=== PATIENT | female | born 1965 | race Hispanic/Latino ===

== ENCOUNTER 2023-08-18 10:16 | Emergency (ER) | payer SELFPAY ==
[2023-08-18 10:18] VITALS: BP 167/90
--- NOTE | 2023-08-18 10:46 | ED.GENMED ---
History of Present Illness
General
Chief Complaint: Abdominal Pain
Source: patient and senior software project manager (Daughter is translating)
Exam Limitations: none
Time Seen by Provider: 08/18/23 10:46
Nursing documentation reviewed up to this point in time: agreed with
Travel History
Have you had any contact with someone who has COVID-19?: No
Do you have any symptoms of coronavirus? Fever > 100 degrees, chills, cough, shortness of breath, sore throat, loss of taste or smell, muscle aches, or headache?: No
History of Present Illness
History of Present Illness:
This is a 58-year-old female with a past medical history of sickle ulcer disease, sxl-xzkgrmp-xoricghvn diabetes, gastroparesis hypertension, GERD who is presenting emergency department today with epigastric pain for the past 5 days. Patient states
that when it started, it was not super severe but it has progressively gotten worse. Patient also has associated nausea and vomiting. Daughter is present who is translating for her. Patient states that this feels very much like her previous
gastric ulcer. Patient daughter not sure if patient is colonized with H. pylori. Patient did have a past surgical history of appendectomy and cholecystectomy. Patient denies fevers or chills, constipation, diarrhea, dizziness, lightheadedness,
hematemesis, dysuria. Patient states that the epigastric pain radiates to her back. Patient denies shortness of breath, chest pain. Patient denies numbness or tingling.
Past History
Past History
ED Past Medical History: GERD, HTN, Hypercholesterolemia, NIDDM and Other (anemia)
ED Past Surgical History: Cholecystectomy and
Social History
Tobacco: Non-smoker
Alcohol: None
Drug: None
Personal:
Living: with family
Employment: Not employed
Family History
Family History: Hypertension and Unable to obtain
Review of Systems
Review of Systems
All Other Systems: ROS reviewed and negative except as documented in HPI and ROS
Phy Exam
Physical Exam
Physical Exam:
General: Patient appears very uncomfortable, writhing in pain
Skin: Warm and dry, no rashes or lesions
Head: normocephalic, atraumatic
Eyes: pupil equal round and reactive to light, EOMs intact
Throat: airway intact
Neck: trachea midline
Cardiac: Tachycardia otherwise regular rhythm, no murmurs
Pulm: Normal respiratory effort
Abdomen: Patient has significant abdominal tenderness in the epigastric region is also mild tenderness in the lower abdominal quadrants. No palpable masses. Abdomen is nontender to palpation, non-tympanic to percussion.
Neuro: AAOx3. No focal neurologic deficits.
Course
Orders/Labs/Results
Orders:
Orders
08/18/23 10:17
Electrocardiogram (*1) Urgent
Reason for Study: Chest Pain
EKG- Treatment ONCE
08/18/23 11:04
0.9% Sodium Chloride 500 ml [Nss] 500 ml IV BOLUS
Famotidine [Pepcid] 20 mg IV NOW STA
HYDROmorphone [Dilaudid] 1 mg IV NOW STA
Pantoprazole [Protonix IV] 40 mg IV NOW STA
Abdomen Xray - 1 View [CR Abdomen - 1 View] Urgent
Comment:
Reason For Exam: severe epigastric pain, PUD hx
08/18/23 11:22
Complete Blood Count/With Diff Urgent
Comprehensive Metabolic Panel Urgent
Lipase Urgent
Troponin I Urgent
08/18/23 12:18
Abdomen/Pelvis wo Contrast CT [CT Abd/pelvis Wo Iv Cont] Urgent
Comment:
Reason For Exam: severe epigastric pain
08/18/23 12:59
HYDROmorphone [Dilaudid] 1 mg IV NOW STA
Abnormal Lab Results
08/18/23
11:22
RBC 3.49 L 10^6/uL
(4.20-5.40)
Hgb 10.6 L g/dL
(12.0-16.0)
Hct 30.1 L %
(37.0-47.0)
Absolute Neuts (auto) 9.0 H 10^3/uL
(1.4-6.5)
Neutrophils % 83.6 H %
(42.2-75.2)
Lymphocytes % 12.2 L %
(20.5-51.1)
Chloride 109 H mmol/L
(98-107)
Carbon Dioxide 21 L mmol/L
(22-30)
BUN 49 H mg/dl
(7-17)
Creatinine 3.6 H mg/dL
(0.6-1.0)
Glucose 187 H mg/dl
(70-99)
Alkaline Phosphatase 284 H U/L
(38-126)
08/18/23 11:22
08/18/23 11:22
Vital Signs
Initial and Last Documented VS:
Initial Vital Signs
Temp Pulse Resp BP Pulse Ox
98.5 F 99 18 167/90 97
08/18/23 10:18 08/18/23 10:18 08/18/23 10:18 08/18/23 10:18 08/18/23 10:18
Last Documented Vital Signs
Temp Pulse Resp BP Pulse Ox
98.5 F 97 15 193/95 96
08/18/23 10:18 08/18/23 14:15 08/18/23 14:15 08/18/23 14:01 08/18/23 14:15
MDM/Problems Addressed
Differential Diagnosis Includes:
ddx include ACS, PUD, perforated ulcer, gastric cancer, esophagitis, gastritis, duodenitis, aortic dissection, GERD
MDM/Problems Addressed:
abdominal pain
vomiting
Chronic conditions affecting care: DM, HTN, Previous abdomnial surgery (appendectomy, cholecystectomy), Kidney disease (daughter reports that patient has been seeing farm machinery erector recently for elevated kidney levels) and Other (diabetic gastroparesis
)
Acute Exacerbation and/or Progression of Chronic Illness:
current HTN episode likely due to pain, no indication for acute lowering of pressure indicated at this time
Acute Exacerbation and/or Progression of Chronic Illness: HTN
*Pulse Oximetry
Patient hypoxic: no
*EKG
Interpreted by ED Provider?: Yes
EKG Intrepretation Date: 08/18/23
Interpretation: normal
Comparison EKG: no changes
Heart Rate: 98
Rate: normal
Rhythm: sinus
Olive: normal axis
Interval: normal interval, normal QT interval and normal KS interval
QRS Pattern: normal QRS
Ischemia: no ischemia
*Emergency Medicine Nurse Practitioner Interpretation
Rate: tachycardiac
Interpretation: abnormal
Heart Rate: 101
Rhythm: sinus
*Critical Care Note
Total Time (30-74mins, 75-104mins- exclusive of procedures): Not Applicable
Data Reviewed
Review of Other/Old Records Reveals: Discharge Summary (Reviewed discharge summary from 06/12/2023, reviewed discharge summary from 08/14/2022)
Further Testing Considered But Not Given:
considered CT of the abdomen with IV contrast however patient has kidney disease
Patient Management
Social determinants of health affecting care: Financial situation (Patient reports that she has tried to follow up with a painter apprentice before as an outpatient but she states that it has been very expensive for her) and Poor outpatient follow-up
Escalation/DeEscalation of care consider admission/obs:
This is a 58-year-old female with a past medical history of diabetic gastroparesis, esophageal dysmotility, PUD, hypertension presenting to the emergency department today with 5 days of epigastric pain, nausea, vomiting. She states that this is
felt like when she has had a gastric ulcer in the past. On exam, patient appears very uncomfortable and she has significant tenderness palpation in the epigastric area. She was hypertensive and tachycardic upon presentation. Her pain was
well-controlled with Dilaudid. Her CBC did not show evidence of leukocytosis and her CMP is consistent with her chronic kidney disease. ACS was ruled out with a normal EKG and negative troponin. Her CT of the abdomen and pelvis did show fat
stranding around the pancreas consistent with pancreatitis however patient had normal lipase. The study also revealed findings consistent with gastritis and duodenitis however no perforation. Discussed these results with patient, and possibility
of hospital admission. Patient states that she would rather go home and be discharge with tramadol which has worked for her in the past. Considering there is no acute surgical issue, patient will be discharged with tramadol and will use her
pantoprazole daily as well as her Carafate. Patient has had multiple hospitalizations over the past year or 2 for similar abdominal concerns. Following the most previous hospitalization, in June, she was supposed to have a esophageal manometry
study done but patient states this has been too expensive for her. I sent her information to the GI hotline to try and establish new outpatient follow-up. Patient is in agreement with plan.
Update Note
Update Note:
Will start IV fluids, famotidine, pantoprazole, diluadid, and reasses
12:37pm--patient does appear slightly more comfortable but still complains of a lot of pain, will give another dose of Dilaudid
ED Attending Note
-
Portions of this chart may have been created with voice recognition software.� Occasional wrong word or��sound alike� substitutions may have occurred due to the inherent limitations of voice recognition software.
Discharge Plan
Departure
Patient Disposition: Home (Routine Discharge)
Patient with high blood pressure during this ER visit?: Yes
Condition: Good
Discharge Problem:
Gastritis and duodenitis
Instructions: Gastritis (DC), Ulcer and Gastritis Diet, Abdominal Pain
Prescriptions:
New
tramadol 25 mg tablet
25 mg PO Q6H PRN (Reason: Pain) 3 Days Qty: 12 0RF
No Action
levothyroxine 100 MCG tablet
100 mcg PO DAILY
insulin glargine [Lantus U-100 Insulin] 1,000 UNITS/10 ML solution
20 units SC HS
nortriptyline 50 MG capsule
50 mg PO Daily
nifedipine 30 MG tablet extended release
30 mg PO BID
atorvastatin 10 mg Tablet
10 mg PO DAILY
ondansetron HCl 4 mg Tablet
4 mg PO Q8H PRN (Reason: n/v)
ezetimibe 10 MG tablet
10 mg PO HS Qty: 30 0RF
insulin lispro [Humalog KwikPen Insulin] 100 unit/mL Insulin Pen
6 unit SC MEALS
metoclopramide HCl [Reglan] 5 mg Tablet
5 mg PO TID Qty: 90 0RF
pantoprazole 40 mg Tablet,Delayed Release (Dr/Ec)
40 mg PO BID Qty: 60 0RF
tramadol 50 mg tablet
50 mg PO Q8H PRN (Reason: moderate pain) Qty: 20 0RF
polyethylene glycol 3350 17 gram/dose powder
17 g PO DAILY Qty: 510 0RF
Referrals:
Donnie Novak MD [Family Provider] -
Activity Restrictions/Additional Instructions:
We sent tramadol to your pharmacy. You can take 1 tablet every 6 hours as needed for pain.
Please continue to take your pantoprazole that you have at home.
Please also continue to use your sucralfate that you help at home to help relieve your symptoms.
Please stay well-hydrated. Please follow-up with your primary care provider. We have sent your information to the GI front elevator operator hotline, they should call you within the next few days to set up an appointment.
Interventions
Interventions:
*Risk Screen - Suicide Last Done: 08/18/23 10:18
*General Assessment Last Done: 08/18/23 10:18
*Neglect/Abuse Screening Last Done: 08/18/23 10:18
*Nursing Disposition Last Done: 08/18/23 15:30
GP-Likidc-Wpnjijwoui Assessment Last Done: 08/18/23 11:06
Discharge Date and Time
Discharge Date/Time: 08/18/23 15:30
[2023-08-18 11:05] VITALS: BMI 29.2
[2023-08-18] MEDS: DILAUDID 1 MG IV ×2 (11:25→13:02)
[2023-08-18] MEDS: PROTONIX IV 40 MG IV (11:26)
[2023-08-18] MEDS: NSS 500 IV (11:26)
[2023-08-18] MEDS: PEPCID 20 MG IV (11:26)
[2023-08-18 11:35] LABS: % Basophils 0.5 % (0-2); % Eosinophils 0.6 % (0-6); % Immature Granulocytes 0.3 % (0-0.5); % Lymphocytes 12.2 % (20.5-51.1); % Monocytes 2.8 % (1.7-9.3); % Neutrophils 83.6 % (42.2-75.2); Absolute Basophils 0.1 10^3/uL (0-0.2); Absolute Eosinophils 0.1 10^3/uL (0-0.7); Absolute Lymphocytes 1.3 10^3/uL (1.2-3.4); Absolute Monocytes 0.3 10^3/uL (0.1-0.6); Hematocrit 30.1 % (37.0-47.0); Hemoglobin 10.6 g/dL (12.0-16.0); Mean Corp Hgb Conc. 35.2 g/dL (33.0-37.0); Mean Corpuscular Hgb 30.4 pg (27.0-31.0); Mean Corpuscular Volume 86.2 fL (81.0-99.0); Mean Platelet Volume 10.3 fL (7.4-10.4); Nucleated Red Blood Cells % 0 %; Platelet Count 294 10^3/uL (130-400); Red Blood Cell Count 3.49 10^6/uL (4.20-5.40); Red Cell Dist. Width 12.4 % (11.5-14.5); White Blood Cell Count 10.8 10^3/uL (4.8-10.8)
[2023-08-18 11:40] VITALS: BP 196/96
[2023-08-18 11:53] LABS: ALT (SGPT) 23 U/L (0-35); AST (SGOT) 27 U/L (14-36); Albumin 3.6 g/dl (3.5-5.0); Alkaline Phosphatase 284 U/L (38-126); Blood Urea Nitrogen 49 mg/dl (7-17); Calcium 8.4 mg/dl (8.4-10.2); Carbon Dioxide 21 mmol/L (22-30); Chloride 109 mmol/L (98-107); Estimated Creatinine Clearance 12 ml/min; Glucose 187 mg/dl (70-99); Lipase 134 U/L (23-300); Potassium 4.6 mmol/L (3.5-5.1); Sodium 137 mmol/L (135-145); Total Bilirubin 0.6 mg/dl (0.2-1.3); Total Protein 6.4 g/dl (6.3-8.2); eGFR 13.95
[2023-08-18 11:58] LABS: Troponin I < 0.012 ng/ml
[2023-08-18 14:01] VITALS: BP 193/95
== END 2023-08-18 15:30 | disposition home or self-care (01) ==
LOC: EMR 10:16
PROVIDERS: Physician Assistant; EMERGENCY PHYSICIAN Emergency Medicine; FAMILY PHYSICIAN Internal Medicine
DX: K29.70 Gastritis, unspecified, without bleeding (principal); K29.80 Duodenitis without bleeding; R10.13 Epigastric pain; R07.9 Chest pain, unspecified; E11.43 Type 2 diabetes mellitus with diabetic autonomic (poly)neuropathy; I10 Essential (primary) hypertension; Z87.11 Personal history of peptic ulcer disease
CPT/HCPCS: 99285; 96374; 96375 ×2; 96361; 96376; 74018; 74176; 80053; 83690; 84484; 85025; 93005

== ENCOUNTER 2023-08-19 17:07 | Inpatient (IN) | payer OTHER, SELFPAY ==
[2023-08-19] VITALS (11 sets, daily range): BP systolic 185–219; BP diastolic 82–108; BMI 30.6; BMI 29.6
--- NOTE | 2023-08-19 09:44 | ED.GENMED ---
History of Present Illness
General
Chief Complaint: Abdominal Pain
Time Seen by Provider: 08/19/23 09:24
Travel History
Have you had any contact with someone who has COVID-19?: No
Do you have any symptoms of coronavirus? Fever > 100 degrees, chills, cough, shortness of breath, sore throat, loss of taste or smell, muscle aches, or headache?: No
History of Present Illness
History of Present Illness:
58-year-old female with history of CHF, hypertension, hyperlipidemia, insulin-dependent diabetes, gastroparesis, and chronic kidney disease presents to the emergency department for evaluation of intractable epigastric pain. Was seen in this
emergency department yesterday for symptoms that been ongoing for the past week. Yesterday she had a CT scan suggesting some fat stranding around the pancreas however lipase was normal. She was treated with PPIs and opiates, was offered admission
however she requested to be discharged. States that this pain is a common recurrence for her, was last admitted to the hospital in late June for similar. Pain is typically worse in the morning. Last EGD suggested gastroparesis as well as mild
gastritis. She states the pain is similar to prior bouts of peptic ulcers.
Prior abdominal surgical history includes cholecystectomy, , and appendectomy. Denies alcohol, tobacco, or NSAID use
Past History
Past History
ED Past Medical History: GERD, HTN, Hypercholesterolemia, NIDDM and Other (anemia)
ED Past Surgical History: Cholecystectomy and
Social History
Tobacco: Non-smoker
Alcohol: None
Drug: None
Personal:
Living: with family
Employment: Not employed
Family History
Family History: Hypertension and Unable to obtain
Review of Systems
Review of Systems
Allergies reviewed?: Yes
All Other Systems: ROS reviewed and negative except as documented in HPI and ROS
Phy Exam
Physical Exam
Physical Exam:
GEN: Tearful, writhing in pain
Eyes: PERRLA, EOMs intact, no scleral icterus
HENT: NCAT, oral mucosa moist
Lungs: CTAB, no wheezes, rales, rhonchi, normal chest wall excursion
Cardiac: RRR, no M/R/G, no peripheral edema. Radial pulses 2+ bilat
Abdomen: Soft, mild to moderate upper abdominal tenderness, no rigidity or peritoneal signs
Neuro: AO x 3
MSK: No gross deformity or ecchymosis. No edema. No digital clubbing
Skin: No rashes, petechiae. Normal color, no pallor or jaundice.
Psych: Calm, cooperative, proper hygiene
Course
Orders/Labs/Results
Orders:
Orders
08/19/23 09:40
Complete Blood Count/With Diff Urgent
08/19/23 09:43
Famotidine [Pepcid] 20 mg IV NOW STA
HYDROmorphone [Dilaudid] 1 mg IV NOW STA
Lactated Ringers [Lr] 1,000 ml IV BOLUS
08/19/23 10:37
HYDROmorphone [Dilaudid] 1 mg IM NOW STA
08/19/23 10:41
Comprehensive Metabolic Panel Urgent
Lipase Urgent
08/19/23 12:18
HYDROmorphone [Dilaudid] 0.5 mg IV NOW STA
Abnormal Lab Results
08/19/23 08/19/23
09:40 10:41
WBC 11.5 H 10^3/uL
(4.8-10.8)
RBC 3.42 L 10^6/uL
(4.20-5.40)
Hgb 10.7 L g/dL
(12.0-16.0)
Hct 28.5 L %
(37.0-47.0)
MCH 31.3 H pg
(27.0-31.0)
MCHC 37.5 H g/dL
(33.0-37.0)
MPV 11.0 H fL
(7.4-10.4)
Absolute Neuts (auto) 9.6 H 10^3/uL
(1.4-6.5)
Neutrophils % 82.9 H %
(42.2-75.2)
Lymphocytes % 11.9 L %
(20.5-51.1)
Chloride 110 H mmol/L
(98-107)
Carbon Dioxide 19 L mmol/L
(22-30)
BUN 47 H mg/dl
(7-17)
Creatinine 3.3 H mg/dL
(0.6-1.0)
Glucose 196 H mg/dl
(70-99)
Alkaline Phosphatase 258 H U/L
(38-126)
08/19/23 09:40
08/19/23 10:41
Vital Signs
Initial and Last Documented VS:
Initial Vital Signs
Temp Pulse Resp BP Pulse Ox
98.8 F 89 16 204/101 100
08/19/23 09:19 08/19/23 09:19 08/19/23 09:19 08/19/23 09:19 08/19/23 09:19
Last Documented Vital Signs
Temp Pulse Resp BP Pulse Ox
98.8 F 89 16 205/82 96
08/19/23 09:19 08/19/23 12:34 08/19/23 09:19 08/19/23 12:30 08/19/23 12:37
MDM/Problems Addressed
MDM/Problems Addressed:
58-year-old female returns writhing in abdominal pain. She has a lengthy history of chronic abdominal pain, has had prior EGD in June showing mild gastritis and gastroparesis. I advised her that further opiates may complicate the gastroparesis
however the patient is unable to tolerate pain with alternative management. Do not feel that repeat imaging is necessary given imaging that was performed yesterday. Will defer to GI evaluation for consideration of further therapies, although
started IV PPI in the ED
*Critical Care Note
Total Time (30-74mins, 75-104mins- exclusive of procedures): Not Applicable
ED Attending Note
-
Portions of this chart may have been created with voice recognition software.� Occasional wrong word or��sound alike� substitutions may have occurred due to the inherent limitations of voice recognition software.
Discharge Plan
Departure
Patient Disposition: Admit
Date of Disposition: 08/19/23
Time of Disposition: 12:38
Presentation/result/management discussed w/ accepting MD/DO: Hospitalist
Discharge Problem:
Intractable abdominal pain
Prescriptions:
No Action
levothyroxine 100 MCG tablet
100 mcg PO DAILY
atorvastatin 10 mg Tablet
10 mg PO DAILY
ezetimibe 10 MG tablet
10 mg PO HS Qty: 30 0RF
tramadol 50 mg tablet
50 mg PO Q8H PRN (Reason: moderate pain) Qty: 20 0RF
Patient Comments:
08/19/2023, pt. filled this med. on 07/09/2023 for 20 tablets according to PDMP.
polyethylene glycol 3350 17 gram/dose powder
17 g PO DAILY Qty: 510 0RF
tramadol 25 mg tablet
25 mg PO Q6H PRN (Reason: Pain) 3 Days Qty: 12 0RF
Patient Comments:
08/19/2023, could not find in PDMP.
sucralfate [Carafate] 1 gram Tablet
1 g PO QID
lisinopril 20 mg Tablet
20 mg PO DAILY
aspirin 81 mg Tablet,Delayed Release (Dr/Ec)
81 mg PO BID
nifedipine 60 mg Tablet Extended Release 24hr
60 mg PO BID
sodium bicarbonate 650 mg Tablet
1,300 mg PO BID
nortriptyline 75 mg Capsule
75 mg PO DAILY
insulin aspart U-100 [Novolog FlexPen U-100 Insulin] 100 unit/mL (3 mL) Insulin Pen
6 unit SC AC
insulin glargine [Basaglar KwikPen U-100 Insulin] 100 unit/mL (3 mL) Insulin Pen
20 unit SC DAILY
cholecalciferol (vitamin D3) 50 mcg (2,000 unit) Tablet
50 mcg PO DAILY
pantoprazole 40 mg tablet,delayed release (DR/EC)
40 mg PO DAILY
Referrals:
Donnie Novak MD [Family Provider] -
Interventions
Interventions:
*Risk Screen - Suicide Last Done: 08/19/23 09:19
*General Assessment Last Done: 08/19/23 09:19
*Neglect/Abuse Screening Last Done: 08/19/23 09:19
EB-Jqnpkh-Hmkejjsqaa Assessment Last Done: 08/19/23 09:35
[2023-08-19 10:01] LABS: % Basophils 0.5 % (0-2); % Immature Granulocytes 0.3 % (0-0.5); % Lymphocytes 11.9 % (20.5-51.1); % Monocytes 3.4 % (1.7-9.3); % Neutrophils 82.9 % (42.2-75.2); Absolute Basophils 0.1 10^3/uL (0-0.2); Absolute Eosinophils 0.1 10^3/uL (0-0.7); Absolute Lymphocytes 1.4 10^3/uL (1.2-3.4); Absolute Monocytes 0.4 10^3/uL (0.1-0.6); Absolute Neutrophils 9.6 10^3/uL (1.4-6.5); Hematocrit 28.5 % (37.0-47.0); Hemoglobin 10.7 g/dL (12.0-16.0); Mean Corp Hgb Conc. 37.5 g/dL (33.0-37.0); Mean Corpuscular Hgb 31.3 pg (27.0-31.0); Mean Corpuscular Volume 83.3 fL (81.0-99.0); Nucleated Red Blood Cells % 0.2 %; Red Blood Cell Count 3.42 10^6/uL (4.20-5.40); Red Cell Dist. Width 13.2 % (11.5-14.5); White Blood Cell Count 11.5 10^3/uL (4.8-10.8)
[2023-08-19] MEDS: DILAUDID 1 MG IM (10:38)
[2023-08-19 10:57] LABS: ALT (SGPT) 21 U/L (0-35); AST (SGOT) 28 U/L (14-36); Albumin 3.8 g/dl (3.5-5.0); Alkaline Phosphatase 258 U/L (38-126); Blood Urea Nitrogen 47 mg/dl (7-17); Calcium 8.7 mg/dl (8.4-10.2); Carbon Dioxide 19 mmol/L (22-30); Chloride 110 mmol/L (98-107); Estimated Creatinine Clearance 13 ml/min; Glucose 196 mg/dl (70-99); Lipase 124 U/L (23-300); Potassium 4.4 mmol/L (3.5-5.1); Sodium 137 mmol/L (135-145); Total Bilirubin 0.8 mg/dl (0.2-1.3); Total Protein 6.6 g/dl (6.3-8.2); eGFR 15.49
[2023-08-19 12:07] LABS: Platelet Count 283 10^3/uL (130-400)
[2023-08-19] MEDS: DILAUDID 0.5 MG IV ×2 (12:24→22:44)
[2023-08-19] MEDS: LR 1000 IV (12:24)
[2023-08-19] MEDS: PEPCID 20 MG IV (12:24)
--- NOTE | 2023-08-19 13:23 | PHANOTE ---
08/19/2023, med rec tech, attempted to speak with pt. and pt.'s family to obtain pt.'s med. history but was unsuccessful; pt. obtunded and family does not know the meds. that pt. takes. Used discharge paperwork from 08/18/2023 and 07/09/2023 as well
as [facility] records and pharmacy records to compile a list of pt.'s medications; could not confirm pt.'s meds.
--- NOTE | 2023-08-19 16:07 | HPS.HSE ---
Addendum entered and electronically signed by Lilian Iglesias MD 08/19/23 17:33:
I saw and examined the patient.
The GLOBAL CHIEF CREATIVE OFFICER or PA's note was reviewed and I agree with the note.
In pain
Comment:
CVS: S1-S2 normal
Chest: CTA B/L
Abdomen: epigastric tenderness, Bowel sounds present
Extremities: No edema, normal pulses
RESISTOR TESTING MACHINE OPERATOR: Non focal exam
This is a 58-year-old female who had abdominal pain since yesterday and came to the hospital because she was seen in the ER yesterday had a CAT scan and was discharged. She had a similar presentation in June 2023 and was admitted here and was
seen by GI.She at that time she was felt to have diabetic gastroparesis. She had an EGD which noted abnormal motility in the esophagus and cricopharyngeus was normal. There was spasticity and extra peristaltic waves in the esophageal body. There
was also low-grade narrowing of the Schadt and Schatzki's ring was found in the GE junction. She also had erythematous mucosa in the gastric antrum. She had an esophagram at that time which was normal pain was controlled with tramadol. She was
also discharged on PPI twice daily and Reglan as needed. Patient denies any diarrhea or fever or any NSAID use.
CT scan pelvis-significant stranding of the fat surrounding the pancreas mainly the body and head of the pancreas suggestive of pancreatitis. Diffuse of the wall and possible thickening of the wall of the duodenum.
EKG-sinus tachycardia inferior infarct age undetermined
# Gastric pain
And shortness peptic ulcer disease/gastritis/duodenitis/pancreatitis (pain and abnormal looking pancreas on imaging)
Abnormal looking pancreas
Keep n.p.o.
IV fluids and analgesics
Continue PPI, Carafate
Add Reglan
I would get an MRI even though lipase is normal
GI evaluation
#Coronary artery calcification
Check troponin
Routine echo at some point
Needs outpatient cardiology
# Acute kidney injury
CKD stage III
IV fluids
# Diabetes type 2
Lantus 5 units and sliding scale coverage
Normally takes Basaglar 20 units and NovoLog 6 units AC
# Hypothyroidism-continue Synthroid
# Hypertension
Blood pressure elevated likely urgency secondary to pain
Continue nifedipine
Hydralazine now and as needed
# Hyperlipidemia-continue statin and Zetia
# Anemia secondary to chronic disease
# Obesity
# History of cholecystectomy
# History of peptic ulcer disease-continue PPI
# DVT prophylaxis-subcutaneous heparin
# Full code
Discussed with ER nurse
Discussed with patient's at bedside
Original Note:
Family Physician
-
Family Physician: Donnie Novak MD
Chief Complaint
-
Epigastric pain
History of Present Illness
58-year-old with management with history for gastroparesis, chronic disease, hypertension, GERD, hyperlipidemia, type 2 diabetes, anemia presented to us with epigastric pain associate with nausea vomiting for the past 10 days. Patient was taking
tramadol with some relief in her symptoms. Today her abdominal pain got worse which prompted her to come to the ER. Denied diarrhea patient denied fever, chills, chest pain, short of breath.. Patient denies headache, dizziness, syncopal episode.
Patient denies dysuria hematuria.
Patient received Dilaudid in ER with no relief in his symptoms. Admitting for further management
Medical History
Past Medical History
Past Medical History: Reports Other
Additional Past Medical History:
Gastroparesis
Chronic kidney disease
Diabetes
Hypertension
Hyperlipidemia
Past Surgical History: Reports Other
Additional Past Surgical History:
Cholecystectomy
Appendectomy
Social History
Tobacco: Non-smoker
Alcohol: None
Drug: None
Personal:
Living: With Family
Family History
Family History: Not pertinent
Allergies / Home Medications
Allergies reflects when Allergies were last updated in [employer]
Home Medications with original date entered in [employer]
Allergy/Medication List:
Allergies
Allergy/AdvReac Type Severity Reaction Status Date / Time
metformin Allergy DIARRHEA Verified 08/19/23 09:19
sitagliptin [From [place]] Allergy diarrhea Verified 08/19/23 09:19
Home Medications
levothyroxine 100 mcg tablet 100 mcg PO DAILY Thyroid 11/17/20
atorvastatin 10 mg tablet 10 mg PO DAILY High cholesterol 02/23/22
ezetimibe 10 mg tablet 10 mg PO HS High cholesterol #30 tabs 02/27/22
polyethylene glycol 3350 17 gram/dose oral powder 17 g PO DAILY #510 grams 07/09/23
tramadol 50 mg tablet 50 mg PO Q8H PRN moderate pain #20 tabs 07/09/23
tramadol 25 mg tablet 25 mg PO Q6H PRN Pain 3 days #12 tabs 08/18/23
aspirin 81 mg tablet,delayed release 81 mg PO BID 08/19/23
cholecalciferol (vitamin D3) 50 mcg (2,000 unit) tablet 50 mcg PO DAILY 08/19/23
insulin aspart U-100 100 unit/mL (3 mL) subcutaneous pen (Novolog FlexPen U-100 Insulin aspart) 6 unit SC AC 08/19/23
insulin glargine 100 unit/mL (3 mL) subcutaneous pen (Basaglar KwikPen U-100 Insulin) 20 unit SC DAILY 08/19/23
lisinopril 20 mg tablet 20 mg PO DAILY 08/19/23
nifedipine 60 mg tablet,extended release 24 hr 60 mg PO BID 08/19/23
nortriptyline 75 mg capsule 75 mg PO DAILY 08/19/23
pantoprazole 40 mg tablet,delayed release 40 mg PO DAILY 08/19/23
sodium bicarbonate 650 mg tablet 1,300 mg PO BID 08/19/23
sucralfate 1 gram tablet (Carafate) 1 g PO QID 08/19/23
Review of Systems
-
Constitutional: Reports No Symptoms
EENT: Reports No Symptoms
Respiratory: Reports No Symptoms
Cardiac: Reports No Symptoms
Abdomen/GI: Reports Abdominal Pain, Nausea and Vomiting
: Reports No Symptoms
Musculoskeletal: Reports No Symptoms
Skin: Reports No Symptoms
Neurological: Reports No Symptoms
Endocrine: Reports No Symptoms
Hematologic/Lymphatic: Reports No Symptoms
Psych: Reports No Symptoms
Physical Exam
Vital Signs
Vital Signs
Temp Pulse Resp BP Pulse Ox
98.8 F 89 16 205/82 96
08/19/23 09:19 08/19/23 12:34 08/19/23 09:19 08/19/23 12:30 08/19/23 12:37
Physical Exam
General: Well Developed, Well Nourished and No Apparent Distress
HEENT: NormoCephalic, Moist mucous membranes and Atraumatic
Respiratory: Clear
Cardiac: S1/S2 and Regular Rhythm; No Murmur or Rub
GI: Soft, Non Tender, Non Distended and Normal Bowel Sounds; No Organomegaly
Rectal: Deferred by Provider
Musculoskeletal: No Clubbing, No Cyanosis and No Edema
Skin: No Rash
Neuro: AO x 3 and Nonfocal/grossly intact
Psych: Calm
Laboratory Results
-
08/19/23 09:40
08/19/23 10:41
Laboratory Results
Total Bilirubin 0.8 mg/dl (0.2-1.3) 08/19/23 10:41
AST 28 U/L (14-36) 08/19/23 10:41
ALT 21 U/L (0-35) 08/19/23 10:41
Alkaline Phosphatase 258 U/L (38-126) H 08/19/23 10:41
Lipase 124 U/L (23-300) 08/19/23 10:41
Data Reviewed
-
Lab Data: Labs Reviewed by me
Impression/Plan
-
#intractable abdominal pain likely gastroparesis flare/ vs pancreatitis
-wbc 11.5,normal lipase
-Dilaudid as needed for pain
-Tylenol ATC
-N.p.o.
-Gastroenterology consult
-/EGD noted abnormal motility in the esophagus with spasm and a low-grade Schatzki ring erythematous antral mucosa
-CT abdomen pelvis with here is significant stranding of the fat surrounding the pancreas, mainly the body and head of the pancreas, a new finding compared to CT of August 10, 2022. These findings would be suggestive of pancreatitis.Additionally,
there is suggestion of diffuse thickening of the wall the stomach and possible thickening of the wall of the duodenum.The above findings, possibility of pancreatitis with secondary inflammation of the stomach and duodenum. Differential consideration
of gastritis and duodenitis as a primary process and secondary stranding of the peripancreatic fat.
-Carafate
-Zofran prn for n/v
-GI consulted
#anemia of chronic disease
-hgb 10.7
-no active bleeding
-ctm
#CKD stage 3b
-cr 3.3
-Continue to monitor
# Hypertensive urgency /probably significant contribution from ongoing abdominal pain
-Blood pressure of 205/82 secondary to medication intolerance due to vomiting
-Continue nifedipine
#Type 2 diabetes
-Continue Lantus 5u hs
-Insulin sliding scale
#Hypothyroidism
-Continue levothyroxine
#Hypercholesterolemia
-Continue statin, Zetia
#Obesity
#DVT prophylaxis�heparin
#Full code
[2023-08-19] MEDS: PROTONIX IV 40 MG IV (16:50)
[2023-08-19] MEDS: DILAUDID 1 MG IV (16:52)
[2023-08-19] MEDS: APRESOLINE 5 MG IV (17:10)
[2023-08-19] MEDS: NOVOLOG FLEXPEN-LOW RESISTANCE SC (18:40)
[2023-08-19 18:46] LABS: Glucose - Point of Care 217 mg/dl (70-99)
[2023-08-19] MEDS: REGLAN 5 MG IV (19:17)
[2023-08-19] MEDS: CARAFATE 1 GRAM PO ×2 (19:17→23:03)
[2023-08-19 19:55] LABS: Troponin I < 0.012 ng/ml
[2023-08-19] MEDS: NOVOLOG FLEXPEN-LOW RESISTANCE 2 UNITS SC (20:00)
[2023-08-19] MEDS: OFIRMEV 100 IV (20:02)
[2023-08-19] MEDS: HEPARIN 5000 UNITS SC (20:03)
[2023-08-19] MEDS: PROCARDIA XL (EXTENDED RELEASE) 30 MG PO (20:04)
[2023-08-19] MEDS: PROTONIX 40 MG PO (20:04)
[2023-08-19] MEDS: NSS 1000 IV (21:46)
[2023-08-19] MEDS: BENADRYL 12.5 MG IV (22:42)
[2023-08-19] MEDS: ZETIA 10 MG PO (22:44)
[2023-08-19 22:58] LABS: Glucose - Point of Care 209 mg/dl (70-99)
[2023-08-19] MEDS: LANTUS 0.0500000000000000028 UNITS SC (22:59)
[2023-08-20] MEDS: NOVOLOG FLEXPEN-LOW RESISTANCE SC ×2 (00:04→11:38)
[2023-08-20] MEDS: APRESOLINE 5 MG IV (00:06)
[2023-08-20] MEDS: REGLAN 5 MG IV ×5 (00:09→23:57)
[2023-08-20] MEDS: OFIRMEV 100 IV ×3 (00:12→11:55)
[2023-08-20 01:44] LABS: Troponin I 0.013 ng/ml
[2023-08-20 03:06] VITALS: BP 109/58
[2023-08-20 05:14] LABS: Glucose - Point of Care 156 mg/dl (70-99)
[2023-08-20] MEDS: NOVOLOG FLEXPEN-LOW RESISTANCE 1 UNITS SC (05:14)
[2023-08-20 05:27] VITALS: BMI 29.9
[2023-08-20 05:32] LABS: Hematocrit 26.7 % (37.0-47.0); Hemoglobin 9.3 g/dL (12.0-16.0); Mean Corp Hgb Conc. 34.8 g/dL (33.0-37.0); Mean Corpuscular Hgb 30.2 pg (27.0-31.0); Mean Corpuscular Volume 86.7 fL (81.0-99.0); Mean Platelet Volume 10.7 fL (7.4-10.4); Platelet Count 268 10^3/uL (130-400); Red Blood Cell Count 3.08 10^6/uL (4.20-5.40); Red Cell Dist. Width 12.1 % (11.5-14.5); White Blood Cell Count 10.3 10^3/uL (4.8-10.8)
[2023-08-20 05:55] LABS: Blood Urea Nitrogen 55 mg/dl (7-17); Calcium 8.3 mg/dl (8.4-10.2); Carbon Dioxide 18 mmol/L (22-30); Chloride 107 mmol/L (98-107); Estimated Creatinine Clearance 12 ml/min; Glucose 174 mg/dl (70-99); Potassium 4.2 mmol/L (3.5-5.1); Sodium 137 mmol/L (135-145); eGFR 14.94
[2023-08-20] MEDS: DILAUDID 0.5 MG IV ×2 (05:56→09:36)
[2023-08-20] MEDS: SYNTHROID 100 MCG PO (06:00)
[2023-08-20 07:58] VITALS: BP 163/80
[2023-08-20 08:00] LABS: Iron 75 ug/dl (37-170)
[2023-08-20] MEDS: CARAFATE 1 GRAM PO ×4 (08:06→22:43)
[2023-08-20] MEDS: HEPARIN 5000 UNITS SC ×2 (08:06→20:13)
[2023-08-20] MEDS: PROCARDIA XL (EXTENDED RELEASE) 30 MG PO ×2 (08:07→20:14)
[2023-08-20] MEDS: PAMELOR 50 MG PO (08:07)
[2023-08-20] MEDS: PROTONIX 40 MG PO ×2 (08:07→20:14)
[2023-08-20] MEDS: LIPITOR 10 MG PO (08:07)
[2023-08-20 08:10] LABS: Percent Saturation 37 % (20-50); Total Iron Binding Capacity 199 ug/dl (265-497)
[2023-08-20 08:44] LABS: Glycohemoglobin (HgbA1c) 6.9 % (4.0-5.6)
[2023-08-20 08:50] LABS: Vitamin B12 > 1000 pg/ml (239-931)
[2023-08-20 09:24] VITALS: BMI 29.9
[2023-08-20] MEDS: FLUSH (NSS) 1 FLUSH IV ×3 (09:37→17:21)
[2023-08-20 11:34] LABS: Glucose - Point of Care 149 mg/dl (70-99)
--- NOTE | 2023-08-20 12:03 | CON.GI ---
Addendum entered and electronically signed by Adenike Lynn MD 08/20/23 13:44:
I saw and examined the patient.
The ROOM DESIGNER or PA's note was reviewed and I agree with the note.
Comment: 57-year-old female well-known to Dr. Casiano in our group with history of diabetic gastroparesis, hypertension, reflux, CHF, diabetes, anemia presenting with epigastric pain/lower chest pain which was similar to her symptoms of gastroparesis
flare, this time she had CT scan of the abdomen and pelvis that showed evidence of pancreatitis without any increase in LFTs or lipase and GI consult called in. Patient has had multiple admissions for epigastric pain in the past and previously was
related to gastroparesis, no previous history of Pancreatitis. She does have history of esophageal spasm and Schatzki's ring but currently dysphagia is not her biggest complaint. Does not drink alcohol, she is status postcholecystectomy, denies
any recent new medications.�
Upper endoscopy June 2023, abnormal esophageal motility with spasm and low-grade narrowing with Schatzki's ring which was biopsied. No evidence of Keene's. She was also having abdominal pain at that time which was thought to be more
fibromyalgia kind of TCAs where started. She was supposed to get esophageal manometry testing as outpatient.
MRI of the abdomen with contrast today showing minimal edema about the tail of the pancreas without any fluid collections, mild pancreatitis, she is status post cholecystectomy without any choledocholithiasis. Mild nonspecific thickening of the
second portion of the duodenum. Otherwise unremarkable.
-Mild pancreatitis on imaging and abdominal pain with normal lipase and normal LFTs
Normal triglycerides, no alcohol use, she is status post cholecystectomy and no recent new medication
Mild pancreatitis of unclear etiology
CRP normal range
Okay for clear liquid diet as tolerated, IV fluids, monitor electrolytes and replete
If abdominal pain is better, she will need to be on low residue and low fat diet
-Gastroparesis
Diet as above, tight control of blood sugars.
On Reglan every 6 hours
Limit narcotics
-Esophageal dysmotility
Continue PPI and Carafate
Outpatient GI follow-up
-Constipation
Continue MiraLAX
Addendum entered and electronically signed by Heavenly Rodas NP 08/20/23 12:22:
Coke Crane Operator used for Ghanaian language #[id number].
Original Note:
Consultation
-
Date/Time Consultation Requested: 08/19/23 @ 17:08
Date/Time Consultation Performed: 08/20/23 @ 11:40
Requesting Provider: Dr. Iglesias
Performing Provider: BRIAN Grace; Dr. Lynn
Reason for Consultation: gastroparesis, pancreatitis
Medical History
Chief Complaint / HPI
Chief Complaint: epigastric pain
History of Present Illness:
The patient is a 58-year-old Ghanaian-speaking female with a past medical history significant for type 2 diabetes, hyperlipidemia, insulin-dependent type 2 diabetes, gastroparesis, hypothyroidism, GERD, CHF, chronic anemia, who presented to the
emergency room with complaints of intractable epigastric pain. We are being asked to evaluate for recurrent gastroparesis and pancreatitis. Upon review of prior records, the patient is well-known to our GI service with multiple admissions for
similar presentation. She was most recently admitted back in June with similar symptoms with abdominal pain and vomiting. She underwent EGD at that time which did show abnormal esophageal motility with spasm and low-grade narrowing of Schatzki
ring with erythematous mucosa in the antrum. Biopsies taken during the EGD did not show any significant findings. Her pain did improve with symptomatic management with PPI twice daily, Carafate, and antinausea medication. She was also treated
with MiraLAX for constipation. She was tolerating her diet and advised to follow-up in our office for close monitoring and for esophageal pH/manometry. She again presents with similar pain in the mid epigastric/lower chest area which started on
Tuesday. She notes that she has had this pain multiple times in the past. She does admit to use intermittent episodes of nausea with vomiting. She denies any hematemesis. She does admit to chills but denies fevers. She reports she is having a
bowel movement once daily with MiraLAX. She denies any melena or hematochezia. She does admit to occasional shortness of breath which comes and goes but currently denies. Upon review of her medication list she has been taking pantoprazole twice
daily along with Zofran as needed. She also has tramadol listed for pain. She denies any history of pancreatitis or family history of pancreatic problems. She denies any smoking history, alcohol use, or marijuana use. She denies any new or
changes to her medications. She denies any recent antibiotic use. She did admit to occasional abdominal pain on and off. She reports following a diabetic diet and does take her diabetes medications. She denies use of blood thinners and she
denies use of NSAIDs. CT of the abdomen pelvis was done on admission showing findings consistent with pancreatitis with adjacent wall thickening of the stomach and duodenum. An MRI was ordered which is pending. Routine labs showed a WBC 11.5,
hemoglobin 10.7, platelets 283,000, sodium 137, potassium 4.4, BUN 47, creatinine 3.3, glucose 196, hemoglobin A1c 6.9, calcium 8.7, total bilirubin 0.8, AST 28, ALT 21, alk phos 258, negative troponin x 2, CRP 7.8, lipase 124. She was made n.p.o.,
placed on twice daily PPI, antinausea regimen, IV fluids, and admitted for further evaluation by GI.
Past Medical History
Past Medical History: CHF, GERD, Hypercholesterolemia, Hypothyroidism, IDDM, Renal Failure (Chronic kidney disease) and Other (Gastroparesis, chronic anemia, chronic constipation, ? Celiac disease)
Past Surgical History: Appendectomy (With perforation and abscess), Cholecystectomy and
Allergies / Home Medications
Allergy/AdvReac Type Severity Reaction Status Date / Time
metformin Allergy DIARRHEA Verified 08/19/23 09:19
sitagliptin [From Januvia] Allergy diarrhea Verified 08/19/23 09:19
Medication Instructions Recorded
levothyroxine 100 mcg tablet 100 mcg PO DAILY Thyroid 11/17/20
atorvastatin 10 mg tablet 10 mg PO DAILY High cholesterol 02/23/22
ezetimibe 10 mg tablet 10 mg PO HS High cholesterol #30 02/27/22
tabs
polyethylene glycol 3350 17 17 g PO DAILY #510 grams 07/09/23
gram/dose oral powder
insulin aspart U-100 100 unit/mL 6 unit SC AC 08/19/23
(3 mL) subcutaneous pen (Novolog
FlexPen U-100 Insulin aspart)
insulin glargine 100 unit/mL (3 20 unit SC DAILY 08/19/23
mL) subcutaneous pen (Basaglar
KwikPen U-100 Insulin)
nifedipine 60 mg tablet,extended 30 mg PO BID 08/19/23
release 24 hr
nortriptyline 75 mg capsule 50 mg PO DAILY 08/19/23
pantoprazole 40 mg tablet,delayed 40 mg PO BID 08/19/23
release
Review of Systems
Vital Signs
Temp Pulse Resp BP Pulse Ox
98.8 F 97 18 163/80 98
08/20/23 07:58 08/20/23 08:07 08/20/23 07:58 08/20/23 08:07 08/20/23 08:05
Physical Exam
Results
WBC 10.3 10^3/uL (4.8-10.8) 08/20/23 05:18
Hgb 9.3 g/dL (12.0-16.0) L 08/20/23 05:18
Hct 26.7 % (37.0-47.0) L 08/20/23 05:18
MCV 86.7 fL (81.0-99.0) 08/20/23 05:18
Plt Count 268 10^3/uL (130-400) 08/20/23 05:18
Absolute Neuts (auto) 9.6 10^3/uL (1.4-6.5) H 08/19/23 09:40
Sodium 137 mmol/L (135-145) 08/20/23 05:18
Potassium 4.2 mmol/L (3.5-5.1) 08/20/23 05:18
Chloride 107 mmol/L (98-107) 08/20/23 05:18
Carbon Dioxide 18 mmol/L (22-30) L 08/20/23 05:18
BUN 55 mg/dl (7-17) H 08/20/23 05:18
Creatinine 3.4 mg/dL (0.6-1.0) H 08/20/23 05:18
Calcium 8.3 mg/dl (8.4-10.2) L 08/20/23 05:18
Total Bilirubin 0.8 mg/dl (0.2-1.3) 08/19/23 10:41
AST 28 U/L (14-36) 08/19/23 10:41
ALT 21 U/L (0-35) 08/19/23 10:41
Alkaline Phosphatase 258 U/L (38-126) H 08/19/23 10:41
Lipase 124 U/L (23-300) 08/19/23 10:41
Diagnostic Image Results:
08/18/23 CT A/P: There is significant stranding of the fat surrounding the pancreas, mainly the body and head of the pancreas, a new finding compared to CT of August 10, 2022. These findings would be suggestive of pancreatitis. Additionally, there is
suggestion of diffuse thickening of the wall the stomach and possible thickening of the wall of the duodenum. The above findings, possibility of pancreatitis with secondary inflammation of the stomach and duodenum. Differential consideration of
gastritis and duodenitis as a primary process and secondary stranding of the peripancreatic fat. Of note, the patient has a normal lipase value. Status post cholecystectomy with no evidence for biliary ductal dilation. There is a bilobed dystrophic
calcification in the right upper quadrant adjacent to the cholecystectomy clips, which has been present dating back to CT examinations in 2018. Small central hiatal hernia. Coronary artery calcifications are noted. Please correlate with symptoms of
and risk factors for coronary artery disease, with further workup as clinically appropriate.
08/18/23 XR abdomen: �No significantly dilated air-filled loops of bowel are identified. Status post cholecystectomy. 11 mm calcification in the right upper quadrant medial to the cholecystectomy clips, stable dating back to CT examination of May
2017, most likely a focal dystrophic calcification at the site of previous cholecystectomy.
07/04/23�US abdomen for prior noe no biliary tract dilation. Left lobe of liver, pancreas and IVC significantly obscured, most likely by overlying bowel gas.
08/13/22- UGI��Possible mild achalasia versus mild esophageal dysmotility
08/10/22�CT A/P without IV or oral contrast-- limitation without contrast but noted prior appe, noe, tiny pericardial effusion and no free air.
04/18/21-�CT abdomen/pelvis-no acute inflammatory abnormality in abdomen/pelvis
12/09/20 obstruction series- no obstruction, free air, limited CXR, small left pleural effusion no pulm edema
12/03/20- abdomen X ray-oral contrast right colon
12/02/20- US abdomen with doppler-patent hepatic vasculature with appropriate directional flow, increased echogenicity of liver c/w underlying hepatocellular diseae, most commonly fatty liver
12/02/20- CT abdomen/pelvis-smith paucity of oral contrast and lack of IV contrast no gross abnormality no ostruction free air or focal fluid collection, prior appe, possible small HH, pericardial thickening unchanged
11/24/20 EGD�completed without complication--Esophagus Normal mucosa�biopsied 8 mm benign-appearing polyp at GE junction�biopsied
Stomach Diffuse, mild gastritis�biopsied for H. pylori Small amount of bile in stomach�aspirated� Duodenum Normal mucosa�biopsied for celiac disease
11/19/20-MR abdomen without contrast-�no bile duct dilation or choledocholithiasis, non specific stranding, no hydrop or obstructive uropathy
EGD:03/2020- food in stomach with small HH, Z line variable no lesion in esophagus�
Colonoscopy:� 12/2019- no appendiceal pathology on luminal side
2018 capsule�slow to pass normal per notes report not reviewed
05/09/18- CT without IV or oral contrast-increased left perinephric fat stranding and thickening of gerota fascia no nephrolithiasis or hydro
�EGD 12/21/17:�tortuous esophagus, scar, no inflammation. biopsied
otherwise, no findings to explain anemia.� Duodenum biopsied
12/23/17��Colonoscopy - hemorrhoid and 1, 1cm polyp removed from the descending colon.
-GE scan 12/2017- normal
EGD 11/11/16�LA Grade D reflux esophagitis, small HH, 1 GE junction polyp with bx showing chronic inflammation, bx distal esophagus showed ulceration, normal examined duodenum, neg Hpylori, neg celiac
EGD 12/28/16�small HH, otherwise normal.
12/2016- Ct�duodenitis
GES 12/2016�borderline suggesting mild gastroparesis.
12/2016Celiac antibodies abnormal
11/2016- CT with IV only- appendiceal distention concern for possible acute appendicitis but no abdominal pain, mild mucosal enhancement, mild intrahepatic biliary dilation with prior noe, small HH and gastric distention
Assessment / Plan
-
The patient is a 58-year-old Ghanaian-speaking female with a past medical history significant for type 2 diabetes, hyperlipidemia, insulin-dependent type 2 diabetes, gastroparesis, hypothyroidism, GERD, CHF, chronic anemia, who presented to the
emergency room with complaints of intractable epigastric pain. We are being asked to evaluate for recurrent gastroparesis and pancreatitis. CT imaging showing evidence of pancreatitis with stomach and duodenal wall thickening possibly secondary to
adjacent inflammation. Lipase is normal with no significant elevation of LFTs aside from a chronically elevated alk phos. She denies alcohol use. She denies any changes in medications or new medications. Previously had her gallbladder removed
with no signs of biliary dilation on CT imaging. MRI of the abdomen is pending. Currently her symptoms are improving but she still has some tenderness in the mid epigastric area.
Problem list:
-acute pancreatitis, ?first episode seen on CT scan with stomach and duodenal wall thickening
-nausea/vomiting 2/2 diabetic gastroparesis
-chronic anemia
-CKD
-alk phos elevation-- chronic
-prior UGI with Possible mild achalasia versus mild esophageal dysmotility
other medical problems:
-IDDM
-GERD
-hypothyroidism
-Obesity
-Anemia of chronic disease
-Vitamin D deficiency
- Abnormal celiac serologies but normal duodenal biopsies
- s/p noe
- s/p appendectomy with prior h/o abscess
-elevate ferritin
Recommendations:
-Etiology of current symptoms possibly multifactorial secondary to pancreatitis versus diabetic gastroparesis versus gastroenteritis versus other.
---CT imaging showing pancreatitis with stomach and duodenal wall thickening, possibly adjacent inflammation secondary to pancreatitis
-Await MRI of the abdomen for further evaluation as there is no clear indication for pancreatitis as she denies alcohol use, denies any new medications, and has no evident biliary dilation status post CCY. LFTs are essentially normal aside from a
chronically elevated alk phos
-Continue PPI twice daily and Carafate for GERD symptoms
-Reglan every 6 hours IV, but would not continue this long-term due to side effects
-Will change IV fluids to LR at 100 cc/h as symptoms are improving we will not treat overly aggressive with fluids due to history of CHF
-N.p.o. until MRI results are back then consider clear liquid diet
-Encourage ambulation
-Limit use of narcotics due to gastroparesis
-Add triglyceride level and IgG4 level
-Optimize glycemic control
-Continue MiraLAX 17 g daily once taking p.o. for management of constipation
-Will follow
-
-
Thank you for consultation and allowing me to participate in the patient's care. Please call the [facility] GI physician during the after hours with any questions or concerns.
--- NOTE | 2023-08-20 12:09 | CM ---
IA completed with pt's . Pt is off floor for MRI.
Pt lives with her in a 1 level home with 1 step to enter.
Pt is indep at baseline with no DME/VN/SNF hx.
Per , there are no needs anticipated
Pt attends [facility] and will follow up post dc.
[2023-08-20 12:59] LABS: Triglycerides 126 mg/dl (10-149)
[2023-08-20] MEDS: LR 1000 IV (13:07)
[2023-08-20 13:53] LABS: Lipase 40 U/L (23-300)
--- NOTE | 2023-08-20 15:02 | W.PN.HOSP.TC ---
Today's Communication/Plan
-
clears
Assessment / Plan
Assessment / Plan
This is a 58-year-old female who had abdominal pain since yesterday and came to the hospital because she was seen in the ER yesterday had a CAT scan and was discharged.� She had a similar presentation in June 2023 and was admitted here and was
seen by GI.She at that time she was felt to have diabetic gastroparesis.� She had an EGD which noted abnormal motility in the esophagus and cricopharyngeus was normal.� There was spasticity and extra peristaltic waves in the esophageal body.� There
was also low-grade narrowing of the Schadt and Schatzki's ring was found in the GE junction.� She also had erythematous mucosa in the gastric antrum.� She had an esophagram at that time which was normal pain was controlled with tramadol.� She was
also discharged on PPI twice daily and Reglan as needed.� Patient denies any diarrhea or fever or any NSAID use.
MRI- IMPRESSION: Severely limited examination due to patient breathing motion. A subtle lesion on the postcontrast images could easily be missed.
1. � Minimal edema about the tail of the pancreas. No discrete fluid collection. No definite lesion identified. Findings suggest mild pancreatitis.
2. � Post cholecystectomy, previous CT scans have revealed dystrophic calcification adjacent to the clips in the gallbladder fossa. Unchanged. There is no intraluminal filling defect in the common bile duct to suggest a residual gallstone.
3. � Mild wall thickening of the second portion of the duodenum. Nonspecific. This could be followed with either upper GI or direct visualization with endoscopy if clinically indicated.
4. � No other significant interval change.
CT scan pelvis-significant stranding of the fat surrounding the pancreas mainly the body and head of the pancreas suggestive of pancreatitis.� Diffuse of the wall and possible thickening of the wall of the duodenum.
EKG-sinus tachycardia inferior infarct age undetermined
CVS: S1-S2 normal
Chest: CTA B/L
Abdomen:� epigastric tenderness, Bowel sounds present
Extremities: No edema, normal pulses
PAINTER ASSISTANT: Non focal exam
# Gastric pain
And shortness peptic ulcer disease/gastritis/duodenitis/pancreatitis (pain and abnormal looking pancreas on imaging)
Abnormal looking pancreas, possible that this is pancreatitis even though lipase is negative
Pain is better today. Start clears
IV fluids and analgesics
Continue PPI, Carafate
Continue Reglan
GI evaluation
#Coronary artery calcification
Troponin negative
Routine echo at some point
Needs outpatient cardiology
# Acute kidney injury
CKD stage III
IV fluids
# Diabetes type 2
Lantus 10 units and sliding scale coverage
Normally takes Basaglar 20 units and NovoLog 6 units AC
# Hypothyroidism-continue Synthroid
# Hypertension
Blood pressure elevated likely urgency secondary to pain
Continue nifedipine
Hydralazine now and as needed
# Hyperlipidemia-continue statin and Zetia
# Anemia secondary to chronic disease
# Obesity
# History of cholecystectomy
# History of peptic ulcer disease-continue PPI
# DVT prophylaxis-subcutaneous heparin
# Full code
D/W at bed side
Anticipated Discharge: Within 24 hours
Subjective/Interval History
-
Date of Service: August 20, 2023
Objective Data
-
Labs:
Laboratory Results
08/20/23
05:18
WBC 10.3
Hgb 9.3 L
Hct 26.7 L
Plt Count 268
Sodium 137
Potassium 4.2
Chloride 107
Carbon Dioxide 18 L
BUN 55 H
Creatinine 3.4 H
Glucose 174 H
Calcium 8.3 L
Vital Signs:
Vital Signs
Temp Pulse Resp BP Pulse Ox
98.8 F 97 18 163/80 98
08/20/23 07:58 08/20/23 08:07 08/20/23 07:58 08/20/23 08:07 08/20/23 08:05
I&O
08/19/23 08/20/23 08/21/23
06:59 06:59 06:59
Intake Total 700 / 700
Balance 700 / 700
[2023-08-20 15:57] VITALS: BP 128/59
[2023-08-20] MEDS: NSS 1000 IV (16:04)
--- NOTE | 2023-08-20 16:12 | PTCARENOTE ---
Pt sleeping for most of shift; easily arousable; oriented and cooperative when awake; occ tearful. Pt speaks French; at bedside to translate; language line at bedside. VSS. On room air- pulseox 94%. Abd obese, soft, pt occ c/o upper abd
discomfort- good effect with IV Dilaudid/IV Tylenol; per discomfort is 'feeling better'. No c/o nausea; to start clear liquids. Voiding in BR; pt also with stress incont; wears own Depends. IVF's NSS@ 60 ml/hr infusing via :t midline site
without sx of infiltration. Resting in bed at present. Will continue to monitor.
[2023-08-20 16:56] LABS: Glucose - Point of Care 208 mg/dl (70-99)
[2023-08-20] MEDS: NOVOLOG FLEXPEN-LOW RESISTANCE 2 UNITS SC (17:20)
[2023-08-20 21:22] LABS: Glucose - Point of Care 113 mg/dl (70-99)
[2023-08-20] MEDS: ZETIA 10 MG PO (22:43)
[2023-08-20] MEDS: LANTUS 0.100000000000000006 UNITS SC (22:44)
[2023-08-20 23:33] VITALS: BP 161/90
[2023-08-21] MEDS: DILAUDID 0.5 MG IV
[2023-08-21] MEDS: REGLAN 5 MG IV ×4 (05:15→23:32)
[2023-08-21] MEDS: SYNTHROID 100 MCG PO (05:16)
[2023-08-21 05:34] VITALS: BMI 30.5
[2023-08-21 05:44] LABS: Hematocrit 24.4 % (37.0-47.0); Hemoglobin 8.7 g/dL (12.0-16.0); Mean Corp Hgb Conc. 35.7 g/dL (33.0-37.0); Mean Corpuscular Hgb 31.1 pg (27.0-31.0); Mean Corpuscular Volume 87.1 fL (81.0-99.0); Mean Platelet Volume 10.7 fL (7.4-10.4); Platelet Count 236 10^3/uL (130-400); Red Cell Dist. Width 12.7 % (11.5-14.5); White Blood Cell Count 9.7 10^3/uL (4.8-10.8)
[2023-08-21 06:06] LABS: Blood Urea Nitrogen 51 mg/dl (7-17); Calcium 7.8 mg/dl (8.4-10.2); Carbon Dioxide 20 mmol/L (22-30); Chloride 111 mmol/L (98-107); Estimated Creatinine Clearance 11 ml/min; Glucose 78 mg/dl (70-99); Potassium 3.6 mmol/L (3.5-5.1); Sodium 134 mmol/L (135-145); eGFR 13.08
[2023-08-21] MEDS: CARAFATE 1 GRAM PO ×4 (06:39→20:42)
[2023-08-21] MEDS: NSS 1000 IV ×2 (06:41→23:31)
[2023-08-21 07:41] LABS: Glucose - Point of Care 79 mg/dl (70-99)
[2023-08-21 07:45] VITALS: BP 150/81
[2023-08-21] MEDS: HEPARIN 5000 UNITS SC ×2 (10:16→20:42)
[2023-08-21] MEDS: LIPITOR 10 MG PO (10:17)
[2023-08-21] MEDS: PROCARDIA XL (EXTENDED RELEASE) 30 MG PO ×2 (10:17→20:42)
[2023-08-21] MEDS: PAMELOR 50 MG PO (10:17)
[2023-08-21] MEDS: PROTONIX 40 MG PO ×2 (10:17→20:42)
--- NOTE | 2023-08-21 11:01 | W.PN.HOSP.TC ---
Today's Communication/Plan
-
Low fat diet
Urinalysis
Ambulate
Assessment / Plan
Assessment / Plan
This is a 58-year-old female who had abdominal pain since yesterday and came to the hospital because she was seen in the ER yesterday had a CAT scan and was discharged.� She had a similar presentation in June 2023 and was admitted here and was
seen by GI.She at that time she was felt to have diabetic gastroparesis.� She had an EGD which noted abnormal motility in the esophagus and cricopharyngeus was normal.� There was spasticity and extra peristaltic waves in the esophageal body.� There
was also low-grade narrowing of the Schadt and Schatzki's ring was found in the GE junction.� She also had erythematous mucosa in the gastric antrum.� She had an esophagram at that time which was normal pain was controlled with tramadol.� She was
also discharged on PPI twice daily and Reglan as needed.� Patient denies any diarrhea or fever or any NSAID use.
MRI- IMPRESSION: Severely limited examination due to patient breathing motion. A subtle lesion on the postcontrast images could easily be missed.
1. � Minimal edema about the tail of the pancreas. No discrete fluid collection. No definite lesion identified. Findings suggest mild pancreatitis.
2. � Post cholecystectomy, previous CT scans have revealed dystrophic calcification adjacent to the clips in the gallbladder fossa. Unchanged. There is no intraluminal filling defect in the common bile duct to suggest a residual gallstone.
3. � Mild wall thickening of the second portion of the duodenum. Nonspecific. This could be followed with either upper GI or direct visualization with endoscopy if clinically indicated.
4. � No other significant interval change.
CT scan pelvis-significant stranding of the fat surrounding the pancreas mainly the body and head of the pancreas suggestive of pancreatitis.� Diffuse of the wall and possible thickening of the wall of the duodenum.
EKG-sinus tachycardia inferior infarct age undetermined
CVS: S1-S2 normal
Chest: CTA B/L
Abdomen:� epigastric tenderness, Bowel sounds present
Extremities: No edema, normal pulses
ON AIR TALENT: Non focal exam
EGD 07/06/2023-abnormal esophageal motility with spasm. Low-grade of narrowing Schatzki ring. Attempted to break up with forceps. Biopsied. Erythema in the antrum
# Abdominal pain
Diff Peptic ulcer disease/gastritis/duodenitis/pancreatitis (pain and abnormal looking pancreas on imaging)
Abnormal looking pancreas, possible that this is pancreatitis even though lipase is negative
also states that she was taking meloxicam for the past 2 months and was stopped last week when she saw nephrology in the office.
Pain is better today. Tolerating
Advance diet to Low fat
IV fluids and analgesics to continue
Continue PPI, Carafate
Continue Reglan
GI evaluation appreciated
# Abnormal celiac serologies but normal duodenal biopsy
#Coronary artery calcification
Troponin negative
Needs follow-up with outpatient cardiology
Stress test February 2023-normal myocardial perfusion. Preserved LV function.
# Acute kidney injury vs CKD stage 4
Was seen by nephrology last year same time
ANCA, BRINDA, UPEP and SPEP were negative.
Urine protein creatinine ratio was 4.9 at that time. This was felt to be diabetic nephropathy
Per notes- Dr Ayala did talk to patient's son Aug 2022 regarding advanced kidney disease
Dietitian also saw her last time and diet was discussed.
She also has a family history of end-stage renal disease-daughter is on dialysis.
Stop IV fluids
check Urinalysis
Urine output not charted in the computer however patient stated that she has been urinating multiple times a day
Worsening of the renal function likely secondary to recent NSAID use. Patient has been told not to take any NSAIDs
# Diabetes type 2
Lantus 10 units , Novolog 2 AC and sliding scale coverage for now
Normally takes Basaglar 20 units and NovoLog 6 units AC
# Hypothyroidism-continue Synthroid
# Hypertension
Blood pressure elevated likely urgency secondary to pain
Continue nifedipine
# Hyperlipidemia-continue statin and Zetia
# Anemia secondary to chronic disease
# Vitamin D deficiency
# Obesity
# History of cholecystectomy
# Fatty liver
# History of peptic ulcer disease-continue PPI
# DVT prophylaxis-subcutaneous heparin
# Full code
D/W at bed side
Used language line technical sme.
Long conversation with patient and . She broke her arm 2 months ago and was started on meloxicam which she was taking up until last week. She saw Dr. Barnett in the office and was advised to stop that.
time spent 54 min
Anticipated Discharge: Within 24 hours
Subjective/Interval History
-
Date of Service: August 21, 2023
Objective Data
-
Labs:
Laboratory Results
08/21/23
05:18
WBC 9.7
Hgb 8.7 L
Hct 24.4 L
Plt Count 236
Sodium 134 L
Potassium 3.6
Chloride 111 H
Carbon Dioxide 20 L
BUN 51 H
Creatinine 3.8 H
Glucose 78
Calcium 7.8 L
Vital Signs:
Vital Signs
Temp Pulse Resp BP Pulse Ox
99.0 F 97 16 150/81 97
08/21/23 07:45 08/21/23 10:17 08/21/23 07:45 08/21/23 10:17 08/21/23 07:45
I&O
08/20/23 08/21/23 08/22/23
06:59 06:59 06:59
Intake Total 700 / 700 2410 / 2410
Balance 700 / 700 2410 / 2410
[2023-08-21 11:30] LABS: Glucose - Point of Care 112 mg/dl (70-99)
[2023-08-21 12:07] LABS: Urine Albumin 3+ (Neg - Trace); Urine Bilirubin Negative (Negative); Urine Character Clear (Clear); Urine Color Yellow; Urine Glucose 1+ (Negative); Urine Ketone Negative (Negative); Urine Leukocyte Negative (Negative); Urine Nitrite Negative (Negative); Urine Occult Blood Negative (Negative); Urine Urobilinogen Negative (Neg - 1+)
[2023-08-21 12:19] LABS: Urine Red Blood Cell 0-2 /HPF (0-2); Urine Squamous Cell 16-20 /LPF (Few)
[2023-08-21 12:20] LABS: Urine Bacteria Few (Negative)
[2023-08-21 12:22] LABS: Urine Sodium 58 mmol/L (30-90)
[2023-08-21] MEDS: NOVOLOG FLEXPEN 2 UNITS SC ×2 (13:24→17:30)
[2023-08-21 15:07] VITALS: BP 148/82
[2023-08-21 16:45] LABS: Glucose - Point of Care 113 mg/dl (70-99)
[2023-08-21] MEDS: ZETIA 10 MG PO (20:42)
[2023-08-21 21:11] LABS: Glucose - Point of Care 128 mg/dl (70-99)
[2023-08-21] MEDS: LANTUS 0.100000000000000006 UNITS SC (22:48)
--- NOTE | 2023-08-21 23:12 | W.PN.GI.CBS2 ---
Today's Communication / Plan
-
Mild pancreatitis on imaging and abdominal pain with normal lipase and normal LFTs
Normal triglycerides, no alcohol use, she is status post cholecystectomy and no recent new medication
Mild pancreatitis of unclear etiology
CRP normal range
Okay for clear liquid diet as tolerated, IV fluids, monitor electrolytes and replete
If abdominal pain is better, she will need to be on low residue and low fat diet
-Gastroparesis
Diet as above, tight control of blood sugars.
On Reglan every 6 hours
Limit narcotics
-Esophageal dysmotility
Continue PPI and Carafate
Outpatient GI follow-up
-Constipation
Continue MiraLAX
If no further symptoms, can follow-up with GI as outpatient
Assessment / Plan
-
The patient is a 58-year-old [place]arag[place]-speaking female with a past medical history significant for type 2 diabetes, hyperlipidemia, insulin-dependent type 2 diabetes, gastroparesis, hypothyroidism, GERD, CHF, chronic anemia, who presented to the
emergency room with complaints of intractable epigastric pain. We are being asked to evaluate for recurrent gastroparesis and pancreatitis. CT imaging showing evidence of pancreatitis with stomach and duodenal wall thickening possibly secondary to
adjacent inflammation. Lipase is normal with no significant elevation of LFTs aside from a chronically elevated alk phos. She denies alcohol use. She denies any changes in medications or new medications. Previously had her gallbladder removed
with no signs of biliary dilation on CT imaging. MRI of the abdomen is pending. Currently her symptoms are improving but she still has some tenderness in the mid epigastric area.
Problem list:
-acute pancreatitis, ?first episode seen on CT scan with stomach and duodenal wall thickening
-nausea/vomiting 2/2 diabetic gastroparesis
-chronic anemia
-CKD
-alk phos elevation-- chronic
-prior UGI with Possible mild achalasia versus mild esophageal dysmotility
other medical problems:
-IDDM
-GERD
-hypothyroidism
-Obesity
-Anemia of chronic disease
-Vitamin D deficiency
- Abnormal celiac serologies but normal duodenal biopsies
- s/p noe
- s/p appendectomy with prior h/o abscess
-elevate ferritin
MRI abdomen 08/20/2023-IMPRESSION: Severely limited examination due to patient breathing motion. A subtle lesion on the postcontrast images could easily be missed.
1. � Minimal edema about the tail of the pancreas. No discrete fluid collection. No definite lesion identified. Findings suggest mild pancreatitis.
2. � Post cholecystectomy, previous CT scans have revealed dystrophic calcification adjacent to the clips in the gallbladder fossa. Unchanged. There is no intraluminal filling defect in the common bile duct to suggest a residual gallstone.
3. � Mild wall thickening of the second portion of the duodenum. Nonspecific. This could be followed with either upper GI or direct visualization with endoscopy if clinically indicated.
4. � No other significant interval change.
Recommendations:
-Mild pancreatitis on imaging and abdominal pain with normal lipase and normal LFTs
CT scan showing evidence of pancreatitis but MRI with minimal edema around the tail of the pancreas
Normal triglycerides, no alcohol use, she is status post cholecystectomy and no recent new medication
Mild pancreatitis of unclear etiology
CRP normal range
Tolerating diabetic diet, suggest low residue on low-fat
-Gastroparesis
Diet as above, tight control of blood sugars.
On Reglan every 6 hours
Limit narcotics
-Esophageal dysmotility
Continue PPI and Carafate
Outpatient GI follow-up
-Constipation
Continue MiraLAX
Subjective
Subjective
Date of Service: August 21, 2023
Patient's abdominal pain is much improved, no nausea or vomiting, tolerating diabetic diet
Objective
Data Reviewed
Laboratory Data:
Laboratory Results
08/21/23 05:18
08/21/23 05:18
Laboratory Results
Total Bilirubin 0.8 mg/dl (0.2-1.3) 08/19/23 10:41
AST 28 U/L (14-36) 08/19/23 10:41
ALT 21 U/L (0-35) 08/19/23 10:41
Alkaline Phosphatase 258 U/L (38-126) H 08/19/23 10:41
Lipase 40 U/L (23-300) 08/20/23 05:18
Vital Signs and I&O:
Vital Signs
Temp Pulse Resp BP Pulse Ox
98.8 F 106 16 162/92 97
08/21/23 15:07 08/21/23 20:42 08/21/23 15:07 08/21/23 20:42 08/21/23 15:07
I&O
08/20/23 08/21/23 08/22/23
06:59 06:59 06:59
Intake Total 700 / 700 2410 / 2410 1260 / 1260
Balance 700 / 700 2410 / 2410 1260 / 1260
Physical Exam
Physical Exam
GI: Soft and Tender (Discomfort in the upper abdomen without guarding or rigidity)
[2023-08-21 23:38] VITALS: BP 142/65
[2023-08-22] MEDS: DILAUDID 0.25 MG IV (01:02)
[2023-08-22 04:10] VITALS: BMI 31.0
[2023-08-22 05:14] LABS: Hematocrit 25.4 % (37.0-47.0); Hemoglobin 8.8 g/dL (12.0-16.0); Mean Corp Hgb Conc. 34.6 g/dL (33.0-37.0); Mean Corpuscular Hgb 30.9 pg (27.0-31.0); Mean Corpuscular Volume 89.1 fL (81.0-99.0); Mean Platelet Volume 10.9 fL (7.4-10.4); Platelet Count 232 10^3/uL (130-400); Red Blood Cell Count 2.85 10^6/uL (4.20-5.40); Red Cell Dist. Width 11.9 % (11.5-14.5); White Blood Cell Count 7.1 10^3/uL (4.8-10.8)
[2023-08-22] MEDS: REGLAN 5 MG IV (05:16)
[2023-08-22] MEDS: SYNTHROID 100 MCG PO (05:17)
[2023-08-22 05:41] LABS: Blood Urea Nitrogen 45 mg/dl (7-17); Calcium 7.7 mg/dl (8.4-10.2); Carbon Dioxide 18 mmol/L (22-30); Chloride 112 mmol/L (98-107); Estimated Creatinine Clearance 12 ml/min; Glucose 94 mg/dl (70-99); Potassium 3.5 mmol/L (3.5-5.1); Sodium 137 mmol/L (135-145); eGFR 13.95
[2023-08-22 07:30] VITALS: BP 197/92
[2023-08-22 07:33] LABS: Glucose - Point of Care 92 mg/dl (70-99)
[2023-08-22] MEDS: APRESOLINE 5 MG IV (07:55)
[2023-08-22 08:56] LABS: Vitamin D, 25-OH*** < 12.8 ng/mL (30-80)
[2023-08-22] MEDS: LIPITOR 10 MG PO (09:34)
[2023-08-22] MEDS: CARAFATE 1 GRAM PO ×2 (09:35→13:11)
[2023-08-22] MEDS: PROCARDIA XL (EXTENDED RELEASE) 30 MG PO (09:37)
[2023-08-22] MEDS: PAMELOR 50 MG PO (09:37)
[2023-08-22] MEDS: PROTONIX 40 MG PO (09:38)
[2023-08-22] MEDS: HEPARIN 5000 UNITS SC (09:39)
[2023-08-22] MEDS: NOVOLOG FLEXPEN SC (09:49)
[2023-08-22] MEDS: PROCARDIA XL (EXTENDED RELEASE) PO (09:52)
[2023-08-22 12:16] LABS: Glucose - Point of Care 103 mg/dl (70-99)
--- NOTE | 2023-08-22 12:25 | W.PN.UPDATE ---
Update Note
Progress Note Update
D/W who saw the patient earlier this month.
Per her patient's creatinine is at baseline and no further workup needed at this time.
She also confirmed that patient should be on nifedipine 60 twice daily, lisinopril 20 mg daily, nortriptyline 25 mg daily, sodium bicarbonate 1300 mg twice a day-listed different doses on admission. Sodium bicarb as well as lisinopril was not on
the list.
This explains blood pressure running high.
Also discussed about vitamin D deficiency therefore will not start Rocaltrol with elevated PTH
[2023-08-22] MEDS: ZESTRIL 20 MG PO (13:11)
[2023-08-22] MEDS: SODIUM BICARBONATE 1300 MG PO (13:11)
[2023-08-22] MEDS: DRISDOL (VITAMIN D2) 50000 UNITS PO (13:11)
[2023-08-22] MEDS: NOVOLOG FLEXPEN 2 UNITS SC (13:13)
[2023-08-22] MEDS: ROCALTROL 0.25 MCG PO (13:13)
[2023-08-22] MEDS: REGLAN IV (13:34)
--- NOTE | 2023-08-22 14:22 | W.PN.HOSP.TC ---
Today's Communication/Plan
-
Discharge
Assessment / Plan
Assessment / Plan
This is a 58-year-old female who had abdominal pain since yesterday and came to the hospital because she was seen in the ER yesterday had a CAT scan and was discharged.� She had a similar presentation in June 2023 and was admitted here and was
seen by GI.She at that time she was felt to have diabetic gastroparesis.� She had an EGD which noted abnormal motility in the esophagus and cricopharyngeus was normal.� There was spasticity and extra peristaltic waves in the esophageal body.� There
was also low-grade narrowing of the Schadt and Schatzki's ring was found in the GE junction.� She also had erythematous mucosa in the gastric antrum.� She had an esophagram at that time which was normal pain was controlled with tramadol.� She was
also discharged on PPI twice daily and Reglan as needed.� Patient denies any diarrhea or fever or any NSAID use.
MRI- IMPRESSION: Severely limited examination due to patient breathing motion. A subtle lesion on the postcontrast images could easily be missed.
1. � Minimal edema about the tail of the pancreas. No discrete fluid collection. No definite lesion identified. Findings suggest mild pancreatitis.
2. � Post cholecystectomy, previous CT scans have revealed dystrophic calcification adjacent to the clips in the gallbladder fossa. Unchanged. There is no intraluminal filling defect in the common bile duct to suggest a residual gallstone.
3. � Mild wall thickening of the second portion of the duodenum. Nonspecific. This could be followed with either upper GI or direct visualization with endoscopy if clinically indicated.
4. � No other significant interval change.
CT scan pelvis-significant stranding of the fat surrounding the pancreas mainly the body and head of the pancreas suggestive of pancreatitis.� Diffuse of the wall and possible thickening of the wall of the duodenum.
EKG-sinus tachycardia inferior infarct age undetermined
CVS: S1-S2 normal
Chest: CTA B/L
Abdomen:� epigastric tenderness, Bowel sounds present
Extremities: No edema, normal pulses
MANAGER RISK MANAGEMENT: Non focal exam
EGD 07/06/2023-abnormal esophageal motility with spasm. Low-grade of narrowing Schatzki ring. Attempted to break up with forceps. Biopsied. Erythema in the antrum
# Abdominal pain
Diff Peptic ulcer disease/gastritis/duodenitis/pancreatitis (pain and abnormal looking pancreas on imaging)
Abnormal looking pancreas, possible that this is pancreatitis even though lipase is negative
also states that she was taking meloxicam for the past 2 months and was stopped last week when she saw nephrology in the office.
Pain is better today. Tolerating
Advance diet to Low fat
IV fluids and analgesics to continue
Continue PPI, Carafate - stop at discharge due to renal dysfunction.
Continue Reglan for discharge - discussed with GI
GI evaluation appreciated
# Abnormal celiac serologies but normal duodenal biopsy
#Coronary artery calcification
Troponin negative
Needs follow-up with outpatient cardiology
Stress test February 2023-normal myocardial perfusion. Preserved LV function.
# Acute kidney injury vs CKD stage 4
Was seen by nephrology last year same time
ANCA, BRINDA, UPEP and SPEP were negative.
Urine protein creatinine ratio was 4.9 at that time. This was felt to be diabetic nephropathy
Per notes- Dr Ayala did talk to patient's son Aug 2022 regarding advanced kidney disease
Dietitian also saw her last time and diet was discussed.
She also has a family history of end-stage renal disease-daughter is on dialysis.
Urine output not charted in the computer however patient stated that she has been urinating multiple times a day
Worsening of the renal function likely secondary to recent NSAID use. Patient has been told not to take any NSAIDs
I discussed with Dr. Reyna-patient was seen earlier this month.
Rocaltrol was considered however because the patient is on vitamin D not started now.
Patient is supposed to be on sodium bicarbonate 1300 twice daily not on the list on admission-ordered here
# Diabetes type 2
Lantus 10 units , Novolog 2 AC and sliding scale coverage for now
Normally takes Basaglar 20 units and NovoLog 6 units AC
# Hypothyroidism-continue Synthroid
# Hypertension
Blood pressure elevated secondary to med rec being around on admission
Patient is supposed to be on nifedipine 60 twice daily and also lisinopril 20 mg daily I have ordered that. Pressure is better now.
# Hyperlipidemia-continue statin and Zetia
# Anemia secondary to chronic disease
# Vitamin D deficiency-replace
# Obesity
# History of cholecystectomy
# Fatty liver
# History of peptic ulcer disease-continue PPI
# DVT prophylaxis-subcutaneous heparin
# Full code
D/W daughter at bed side
Discussed with nursing
Discussed with nephrology today-Labs in 2 weeks
This is her baseline creatinine no further workup needed at this point
Total time spent-with discussions coordinating discharge instructions seeing the patient charting -45 minutes
Daughter requested paper scripts
Anticipated Discharge: Today
Subjective/Interval History
-
Date of Service: August 22, 2023
Objective Data
-
Labs:
Laboratory Results
08/22/23
04:51
WBC 7.1
Hgb 8.8 L
Hct 25.4 L
Plt Count 232
Sodium 137
Potassium 3.5
Chloride 112 H
Carbon Dioxide 18 L
BUN 45 H
Creatinine 3.6 H
Glucose 94
Calcium 7.7 L
Vital Signs:
Vital Signs
Temp Pulse Resp BP Pulse Ox
98.0 F 112 16 132/70 98
08/22/23 07:30 08/22/23 13:11 08/22/23 07:30 08/22/23 13:11 08/22/23 07:30
I&O
08/21/23 08/22/23 08/23/23
06:59 06:59 06:59
Intake Total 2410 / 2410 1500 / 1500
Balance 2410 / 2410 1500 / 1500
--- NOTE | 2023-08-22 14:26 | W.DS.TRANS ---
Addendum entered and electronically signed by Lilian Iglesias MD 08/22/23 16:31:
Dictation- [id number]
Original Note:
DC Summary - [employer]
-
Discharge Instructions:
Sleep Apnea Risk Low
Discharge Diagnosis/Procedures Abdominal pain, pancreatitis, coronary artery
calcification, chronic kidney disease stage IV,
diabetes, hypothyroidism, hypertension, high
cholesterol, anemia, fatty liver, history peptic
ulcer disease
Diet Restrict fluids to 48 oz,2 Gram Sodium,Diabetic,
Carb Controlled
Activity As tolerated
Driving Restrictions As prior to admission
Blood Work BMP, CBC- 2 weeks
Specialty Instructions Weigh Daily
Instructions:
Stand-Alone Forms:
Changes to Home Medications: Yes
Discharge Medications:
DC Medications w/original date entered in [employer]
levothyroxine 100 mcg tablet 100 mcg PO DAILY@07 Thyroid 11/17/20
atorvastatin 10 mg tablet 10 mg PO DAILY High cholesterol 02/23/22
ezetimibe 10 mg tablet 10 mg PO HS High cholesterol #30 tabs 02/27/22
pantoprazole 40 mg tablet,delayed release 40 mg PO BID Gastrointestinal Issue 08/19/23
cholecalciferol (vitamin D3) 25 mcg (1,000 unit) tablet 25 mcg PO DAILY vit d def #30 tabs 08/22/23
insulin aspart U-100 100 unit/mL (3 mL) subcutaneous pen (Novolog FlexPen U-100 Insulin aspart) 2 unit (0.02 mL) SC AC Diabetes #0 mL 08/22/23
insulin glargine 100 unit/mL (3 mL) subcutaneous pen (Basaglar KwikPen U-100 Insulin) 10 unit (0.1 mL) SC DAILY Diabetes #0 mL 08/22/23
lisinopril 20 mg tablet 20 mg PO DAILY Blood pressure #30 tabs 08/22/23
metoclopramide HCl 5 mg tablet 5 mg PO ACHS Gastrointestinal issue #120 tabs 08/22/23
nifedipine 30 mg tablet,extended release 60 mg PO BID Blood Pressure #0 tabs 08/22/23
nortriptyline 50 mg capsule 75 mg PO DAILY Pain #0 caps 08/22/23
polyethylene glycol 3350 17 gram/dose oral powder 17 g PO DAILY Constipation #510 grams 08/22/23
sodium bicarbonate 650 mg tablet 1,300 mg PO BID Blood pressure #120 tabs 08/22/23
Home Medication Changes
new
metoclopramide HCl 5 mg tablet 5 mg PO ACHS Gastrointestinal issue #120 tabs 08/22/23
Pending Results: No
--- NOTE | 2023-08-22 14:35 | CM ---
MD entered order for discharge.
Spoke with daughter Sarah [phone] who speaks Martiniquais.
ALVIN Bernarda spoke with and daughter regarding no insurance.
Sarah said she follows up with [facility].
Sarah said she can drive her home today.
PLAN Home no needs .
[2023-08-23 04:49] LABS: IgG Subclass 4 4 mg/dL (1-123)
== END 2023-08-22 15:48 | disposition home or self-care (01) | DRG 439 ==
LOC: 4 EAST ACU 17:07
PROVIDERS: Physician Assistant; Registered Nurse; ADMITTING PHYSICIAN Hospitalist; CONSULT PHYSICIAN Internal Medicine Gastroenterology; EMERGENCY PHYSICIAN Emergency Medicine; FAMILY PHYSICIAN Internal Medicine
DX: K85.90 Acute pancreatitis without necrosis or infection, unspecified (principal); I13.0 Hypertensive heart and chronic kidney disease with heart failure and stage 1 through stage 4 chronic kidney disease, or unspecified chronic kidney disease; N18.4 Chronic kidney disease, stage 4 (severe); N17.9 Acute kidney failure, unspecified; E11.43 Type 2 diabetes mellitus with diabetic autonomic (poly)neuropathy; I50.9 Heart failure, unspecified; K31.84 Gastroparesis; E78.00 Pure hypercholesterolemia, unspecified; E11.22 Type 2 diabetes mellitus with diabetic chronic kidney disease; D63.8 Anemia in other chronic diseases classified elsewhere; K21.9 Gastro-esophageal reflux disease without esophagitis; K22.2 Esophageal obstruction; E03.9 Hypothyroidism, unspecified; K76.0 Fatty (change of) liver, not elsewhere classified; E21.3 Hyperparathyroidism, unspecified; K59.00 Constipation, unspecified; E55.9 Vitamin D deficiency, unspecified; I25.10 Atherosclerotic heart disease of native coronary artery without angina pectoris; I16.0 Hypertensive urgency; E66.9 Obesity, unspecified; Z79.890 Hormone replacement therapy; Z87.11 Personal history of peptic ulcer disease; Z90.49 Acquired absence of other specified parts of digestive tract; Z79.4 Long term (current) use of insulin; Z68.31 Body mass index [BMI] 31.0-31.9, adult; Z88.8 Allergy status to other drugs, medicaments and biological substances
CPT/HCPCS: 74183; 80048; 80053; 81003; 81015; 82306; 82607; 82728; 82787; 82962; 83036; 83540; 83550; 83690; 84300; 84478; 84484; 85025; 85027; 86140; 93005; 96372; 96374; 96375; 99285; A9575

== ENCOUNTER → 2023-09-26 08:54 | Outpatient (REF) | payer OTHER, SELFPAY ==
[2023-09-26 10:37] LABS: % Basophils 0.7 % (0-2); % Eosinophils 1.8 % (0-6); % Immature Granulocytes 0.4 % (0-0.5); % Lymphocytes 19.1 % (20.5-51.1); % Monocytes 4.1 % (1.7-9.3); % Neutrophils 73.9 % (42.2-75.2); Absolute Basophils 0.1 10^3/uL (0-0.2); Absolute Eosinophils 0.2 10^3/uL (0-0.7); Absolute Lymphocytes 1.9 10^3/uL (1.2-3.4); Absolute Monocytes 0.4 10^3/uL (0.1-0.6); Absolute Neutrophils 7.5 10^3/uL (1.4-6.5); Hematocrit 32.8 % (37.0-47.0); Hemoglobin 11.2 g/dL (12.0-16.0); Mean Corp Hgb Conc. 34.1 g/dL (33.0-37.0); Mean Corpuscular Volume 87.9 fL (81.0-99.0); Mean Platelet Volume 11.7 fL (7.4-10.4); Nucleated Red Blood Cells % 0 %; Platelet Count 250 10^3/uL (130-400); Red Blood Cell Count 3.73 10^6/uL (4.20-5.40); Red Cell Dist. Width 12.3 % (11.5-14.5); Reticulocyte Count 1.6 % (0.4-2.8); White Blood Cell Count 10.1 10^3/uL (4.8-10.8)
[2023-09-26 11:04] LABS: Albumin 3.7 g/dl (3.5-5.0); Blood Urea Nitrogen 65 mg/dl (7-17); Calcium 8.8 mg/dl (8.4-10.2); Carbon Dioxide 24 mmol/L (22-30); Chloride 102 mmol/L (98-107); Glucose 183 mg/dl (70-99); Iron 121 ug/dl (37-170); Phosphorus 5.9 mg/dl (2.5-4.5); Potassium 5.4 mmol/L (3.5-5.1); Sodium 134 mmol/L (135-145); eGFR 14.94
[2023-09-26 11:12] LABS: Percent Saturation 49 % (20-50); Total Iron Binding Capacity 245 ug/dl (265-497)
[2023-09-26 12:40] LABS: Urine Protein 1063 mg/dl (0-12)
== END ==
LOC: REG 08:54
PROVIDERS: ATTENDING PHYSICIAN Internal Medicine
DX: N17.9 Acute kidney failure, unspecified (principal); D64.9 Anemia, unspecified; N25.81 Secondary hyperparathyroidism of renal origin
CPT/HCPCS: 36415; 80069; 82306; 82570; 82728; 83540; 83550; 84156; 85025; 85045

== ENCOUNTER → 2023-10-17 17:23 | Outpatient (REF) | payer OTHER, SELFPAY | LOC: MRI 17:23 | PROVIDERS: ATTENDING PHYSICIAN Internal Medicine | DX: R10.9 Unspecified abdominal pain (principal); Z87.19 Personal history of other diseases of the digestive system | CPT/HCPCS: 74183; A9575 ==

== ENCOUNTER → 2023-11-26 09:10 | Outpatient (REF) | payer OTHER, SELFPAY ==
[2023-11-26 10:56] LABS: Intact PTH 1353 pg/ml (13.6-85.8)
[2023-11-26 11:41] LABS: Albumin 3.6 g/dl (3.5-5.0); Blood Urea Nitrogen 64 mg/dl (7-17); Calcium 8.3 mg/dl (8.4-10.2); Carbon Dioxide 21 mmol/L (22-30); Chloride 108 mmol/L (98-107); Glucose 117 mg/dl (70-99); Phosphorus 6.6 mg/dl (2.5-4.5); Potassium 5.3 mmol/L (3.5-5.1); Sodium 139 mmol/L (135-145); eGFR 10.97
== END ==
LOC: REG 09:10
PROVIDERS: ATTENDING PHYSICIAN Internal Medicine
DX: N18.4 Chronic kidney disease, stage 4 (severe) (principal); N25.81 Secondary hyperparathyroidism of renal origin
CPT/HCPCS: 36415; 80069; 83970

== ENCOUNTER → 2024-01-17 10:21 | Outpatient (REF) | payer OTHER, SELFPAY ==
[2024-01-17 12:30] LABS: TSH Reflex To Free T4 2.71 uIU/ml (0.47-4.68)
[2024-01-18 11:04] LABS: Glycohemoglobin (HgbA1c) 7.5 % (4.0-5.6)
== END ==
LOC: CLINIC 10:21
PROVIDERS: ATTENDING PHYSICIAN Internal Medicine
DX: E11.9 Type 2 diabetes mellitus without complications (principal)
CPT/HCPCS: 36415; 83036; 84443

== ENCOUNTER → 2024-04-21 09:23 | Outpatient (REF) | payer OTHER, SELFPAY | LOC: REG 09:23 | PROVIDERS: ATTENDING PHYSICIAN Internal Medicine | DX: E11.9 Type 2 diabetes mellitus without complications (principal); E11.22 Type 2 diabetes mellitus with diabetic chronic kidney disease | CPT/HCPCS: 36415; 83036 ==

== ENCOUNTER → 2024-04-25 10:44 | Outpatient (REF) | payer OTHER, SELFPAY ==
[2024-04-25 11:56] LABS: % Basophils 0.7 % (0-2); % Eosinophils 4.2 % (0-6); % Immature Granulocytes 1.2 % (0-0.5); % Lymphocytes 21.3 % (20.5-51.1); % Monocytes 4.4 % (1.7-9.3); % Neutrophils 68.2 % (42.2-75.2); Absolute Basophils 0.1 10^3/uL (0-0.2); Absolute Eosinophils 0.4 10^3/uL (0-0.7); Absolute Immature Granulocytes 0.1 10^3/uL (0-0.05); Absolute Lymphocytes 1.9 10^3/uL (1.2-3.4); Absolute Monocytes 0.4 10^3/uL (0.1-0.6); Absolute Neutrophils 6.1 10^3/uL (1.4-6.5); Hematocrit 32.2 % (37.0-47.0); Mean Corp Hgb Conc. 34.2 g/dL (33.0-37.0); Mean Corpuscular Hgb 30.5 pg (27.0-31.0); Mean Corpuscular Volume 89.2 fL (81.0-99.0); Mean Platelet Volume 10.9 fL (7.4-10.4); Nucleated Red Blood Cells % 0 %; Platelet Count 326 10^3/uL (130-400); Red Blood Cell Count 3.61 10^6/uL (4.20-5.40); Red Cell Dist. Width 11.6 % (11.5-14.5); White Blood Cell Count 8.9 10^3/uL (4.8-10.8)
[2024-04-25 12:28] LABS: Protein/creatinine Ratio 14.7; Urine Protein 466 mg/dl
[2024-04-25 12:32] LABS: Albumin 4.7 g/dl (3.5-5.0); Blood Urea Nitrogen 72 mg/dl (7-17); Calcium 8.9 mg/dl (8.4-10.2); Carbon Dioxide 20 mmol/L (22-30); Chloride 100 mmol/L (98-107); Glucose 124 mg/dl (70-99); Iron 114 ug/dl (37-170); Phosphorus 5.7 mg/dl (2.5-4.5); Potassium 5.3 mmol/L (3.5-5.1); Sodium 137 mmol/L (135-145); eGFR 8.39
[2024-04-25 12:41] LABS: Percent Saturation 39 % (20-50); Total Iron Binding Capacity 287 ug/dl (265-497)
== END ==
LOC: CLINIC 10:44
PROVIDERS: ATTENDING PHYSICIAN Internal Medicine; FAMILY PHYSICIAN Internal Medicine
DX: R80.9 Proteinuria, unspecified (principal); E11.9 Type 2 diabetes mellitus without complications; E87.5 Hyperkalemia; D64.9 Anemia, unspecified; N18.4 Chronic kidney disease, stage 4 (severe)
CPT/HCPCS: 36415; 80069; 82570; 82728; 83540; 83550; 83970; 84156; 85025

== ENCOUNTER 2025-01-15 11:55 | Inpatient (IN) | payer OTHER, SELFPAY ==
[2025-01-15] VITALS (16 sets, daily range): BP systolic 145–182; BP diastolic 59–86; BMI 27.2; BMI 26.7
--- NOTE | 2025-01-15 07:57 | ED.GENMED ---
History of Present Illness
<Matthieu Cardoza MD, Resident - Last Filed: 01/15/25 10:33>
General
Chief Complaint: Chest Pain
Source: patient and family
Time Seen by Provider: 01/15/25 07:52
Nursing documentation reviewed up to this point in time: agreed with
History of Present Illness
History of Present Illness:
This is a 58-year-old albanian speaking female with known history of CHF, hypertension, hyperlipidemia, insulin-dependent diabetes, gastroparesis, and chronic kidney disease started ofn HD 1 month ago(5 x /week), presents to the emergency department
for evaluation of intractable epigastric pain. Her daughter helped with the history. Reports pain is stabbing in nature. Reports that initially pain was 4/10 but now 10/10 and aggravates with anything she eats or drink and he cannot recall any
relieving factors. She also mentions that she feels intermittent low back pain as well .
She was seen in this emergency department for symptoms in the past.
Daughter report that this pain is a common recurrence for her and they usually get IV medication to reduce pain and reflux. Denies alcohol, tobacco, or NSAID use
Last EGD 2022 suggested gastroparesis as well as mild gastritis. She states the pain is similar to prior bouts of peptic ulcers. Previous abdominal surgical history includes cholecystectomy, , and appendectomy.
Past History
<Matthieu Cardoza MD, Resident - Last Filed: 01/15/25 10:33>
Past History
ED Past Medical History: GERD, HTN, Hypercholesterolemia, NIDDM, Renal failure and Other (anemia)
ED Past Surgical History: Appendectomy, Cholecystectomy and
Patient has exhibited threatening behavior?: No
Social History
Tobacco: Non-smoker
Alcohol: None
Drug: None
Personal:
Living: with family
Employment: Not employed
Family History
Family History: Hypertension
Review of Systems
<Matthieu Cardoza MD, Resident - Last Filed: 01/15/25 10:33>
Review of Systems
Constitutional: Denies fever or chills
EENT: Denies sore throat
Respiratory: Denies cough or trouble breathing
Cardiac: Denies chest pain, diaphoresis or palpitations
ABD/GI: Reports abdominal pain, nausea and vomiting; Denies bloody stools
: Denies dysuria, frequency or flank pain
Musculoskeletal: Denies joint pain
Skin: Denies itching
Neurological: Denies dizzy, headache or weakness
Endocrine: Reports no symptoms
Phy Exam
<Matthieu Cardoza MD, Resident - Last Filed: 01/15/25 10:33>
General Physical Exam
General Presentation: moderate distress
General age: appears stated age
General Skin: warm
General Habitus: normal
Cardiovascular Exam
Cardiovascular Exam: regular rate/rhythm and no murmur
Pulmonary Exam
Pulmonary Exam: lungs clear, no respiratory distress and no cough
Gastrointestinal Exam
Gastrointestinal Exam: normal bowel sounds, soft, no pulsatile mass, non distended, no cva tenderness and tender (epigastric)
Neurological Exam
Neurological Exam: alert and oriented x3
Musculoskeletal Exam
Musculoskeletal Exam: full ROM
Scores
<Matthieu Cardoza MD, Resident - Last Filed: 01/15/25 10:33>
Heart Score for Chest Pain Patients
STEMI patient?: Not applicable
PE Wells Score
Symptoms of DVT: No
No alternative diagnosis better explains the illness: No
Tachycardia with pulse > 100: Yes
Immobilization (>=3 days) or surgery within previous 4 weeks: No
Prior history of DVT or pulmonary embolism: No
Presence of hemoptysis: No
Presence of malignancy: No
Pulmonary Embolism Risk Score: 1.5
Probability of PE: Pt is low risk
<Billy Liu MD - Last Filed: 01/15/25 09:34>
PE Wells Score
Pulmonary Embolism Risk Score: 1.5
Probability of PE: Pt is low risk
Course
<Matthieu Cardoza MD, Resident - Last Filed: 01/15/25 10:33>
Orders/Labs/Results
Orders:
Orders
01/15/25 06:55
ECG [Electrocardiogram (*1)] Urgent
Reason for Study: Chest Pain
01/15/25 06:56
EKG- Treatment ONCE
01/15/25 08:28
Pantoprazole 80 mg/100 ml Nss [Protonix] 80 mg in 100 ml IV NOW
Pantoprazole [Protonix IV] 80 mg IV NOW STA
01/15/25 08:29
IV Insert/Care/Rem.- Treatment PRN
01/15/25 08:30
0.9% Sodium Chloride 500 ml [Nss] 500 ml IV BOLUS
Ondansetron Injectable [Zofran] 4 mg IV NOW STA
01/15/25 09:06
HYDROmorphone [Dilaudid] 0.5 mg .ROUTE .STK-MED ONE
01/15/25 09:07
HYDROmorphone [Dilaudid] 0.5 mg IV NOW STA
01/15/25 09:11
Ondansetron Injectable [Zofran] 4 mg .ROUTE .STK-MED ONE
01/15/25 09:17
Type+Screen Urgent
Complete Blood Count/With Diff Urgent
Comprehensive Metabolic Panel Urgent
Lipase Urgent
PTT Urgent
Prothrombin Time Urgent
Troponin I Urgent
01/15/25 09:40
* Blood Bank Products Urgent
Blood Bank Products: *Packed RBC Leuko(PRBC's)
Quantity: 1
Transfuse Today: Yes
Reason: Bleeding
01/15/25 09:41
IV Insert/Care/Rem.- Treatment PRN
01/15/25 09:42
0.9% Sodium Chloride 250 ml [Nss] 250 ml IV BOLUS
01/15/25 10:10
Ondansetron Injectable [Zofran] 4 mg IV NOW STA
01/15/25 10:11
Ondansetron Injectable [Zofran] 4 mg .ROUTE .STK-MED ONE
01/15/25 10:12
Ondansetron Injectable [Zofran] 4 mg IV NOW STA
01/15/25 10:29
Dextrose 50%-Water [Dextrose 50% Syringe] 12.5 grams IV [id number] PRN
Glucagon [GlucaGen] 1 mg IM PRN PRN
Insulin Aspart [NOVOLOG vial] 14 units SC NOW STA
Abnormal Lab Results
01/15/25
09:17
WBC 14.7 H 10^3/uL
(4.8-10.8)
RBC 2.90 L 10^6/uL
(4.20-5.40)
Hgb 8.7 L g/dL
(12.0-16.0)
Hct 25.5 L %
(37.0-47.0)
MPV 10.7 H fL
(7.4-10.4)
Abs Immat Gran (auto) 0.1 H 10^3/uL
(0-0.05)
Absolute Neuts (auto) 13.9 H 10^3/uL
(1.4-6.5)
Absolute Lymphs (auto) 0.6 L 10^3/uL
(1.2-3.4)
Neutrophils % 94.5 H %
(42.2-75.2)
Lymphocytes % 3.9 L %
(20.5-51.1)
Monocytes % 1.0 L %
(1.7-9.3)
PT 14.9 H Sec
(11.4-14.6)
Chloride 97 L mmol/L
(98-107)
BUN 63 H mg/dl
(7-17)
Creatinine 7.4 H* mg/dL
(0.6-1.0)
Glucose 494 H* mg/dl
(70-99)
Alkaline Phosphatase 151 H U/L
(38-126)
Crossmatch IS Only See Detail
01/15/25 09:17
01/15/25 09:17
Vital Signs
Initial and Last Documented VS:
Initial Vital Signs
Temp Pulse Resp BP Pulse Ox
98 F 112 24 160/86 100
01/15/25 06:52 01/15/25 06:52 01/15/25 06:52 01/15/25 06:52 01/15/25 06:52
Last Documented Vital Signs
Temp Pulse Resp BP Pulse Ox
98 F 116 14 160/86 100
01/15/25 06:52 01/15/25 08:30 01/15/25 08:15 01/15/25 06:52 01/15/25 07:57
<Billy Liu MD - Last Filed: 01/15/25 09:34>
Orders/Labs/Results
Orders:
Orders
01/15/25 06:55
ECG [Electrocardiogram (*1)] Urgent
Reason for Study: Chest Pain
01/15/25 06:56
EKG- Treatment ONCE
01/15/25 08:28
Pantoprazole 80 mg/100 ml Nss [Protonix] 80 mg in 100 ml IV NOW
Pantoprazole [Protonix IV] 80 mg IV NOW STA
01/15/25 08:29
IV Insert/Care/Rem.- Treatment PRN
01/15/25 08:30
0.9% Sodium Chloride 500 ml [Nss] 500 ml IV BOLUS
Ondansetron Injectable [Zofran] 4 mg IV NOW STA
01/15/25 09:06
HYDROmorphone [Dilaudid] 0.5 mg .ROUTE .STK-MED ONE
01/15/25 09:07
HYDROmorphone [Dilaudid] 0.5 mg IV NOW STA
01/15/25 09:11
Ondansetron Injectable [Zofran] 4 mg .ROUTE .STK-MED ONE
01/15/25 09:17
Type+Screen Urgent
Complete Blood Count/With Diff Urgent
Comprehensive Metabolic Panel Urgent
Lipase Urgent
PTT Urgent
Prothrombin Time Urgent
Troponin I Urgent
01/15/25 09:40
* Blood Bank Products Urgent
Blood Bank Products: *Packed RBC Leuko(PRBC's)
Quantity: 1
Transfuse Today: Yes
Reason: Bleeding
01/15/25 09:41
IV Insert/Care/Rem.- Treatment PRN
01/15/25 09:42
0.9% Sodium Chloride 250 ml [Nss] 250 ml IV BOLUS
01/15/25 10:10
Ondansetron Injectable [Zofran] 4 mg IV NOW STA
01/15/25 10:11
Ondansetron Injectable [Zofran] 4 mg .ROUTE .STK-MED ONE
01/15/25 10:12
Ondansetron Injectable [Zofran] 4 mg IV NOW STA
01/15/25 10:29
Dextrose 50%-Water [Dextrose 50% Syringe] 12.5 grams IV [id number] PRN
Glucagon [GlucaGen] 1 mg IM PRN PRN
Insulin Aspart [NOVOLOG vial] 14 units SC NOW STA
Abnormal Lab Results
01/15/25
09:17
WBC 14.7 H 10^3/uL
(4.8-10.8)
RBC 2.90 L 10^6/uL
(4.20-5.40)
Hgb 8.7 L g/dL
(12.0-16.0)
Hct 25.5 L %
(37.0-47.0)
MPV 10.7 H fL
(7.4-10.4)
Abs Immat Gran (auto) 0.1 H 10^3/uL
(0-0.05)
Absolute Neuts (auto) 13.9 H 10^3/uL
(1.4-6.5)
Absolute Lymphs (auto) 0.6 L 10^3/uL
(1.2-3.4)
Neutrophils % 94.5 H %
(42.2-75.2)
Lymphocytes % 3.9 L %
(20.5-51.1)
Monocytes % 1.0 L %
(1.7-9.3)
PT 14.9 H Sec
(11.4-14.6)
Chloride 97 L mmol/L
(98-107)
BUN 63 H mg/dl
(7-17)
Creatinine 7.4 H* mg/dL
(0.6-1.0)
Glucose 494 H* mg/dl
(70-99)
Alkaline Phosphatase 151 H U/L
(38-126)
Crossmatch IS Only See Detail
01/15/25 09:17
01/15/25 09:17
Vital Signs
Initial and Last Documented VS:
Initial Vital Signs
Temp Pulse Resp BP Pulse Ox
98 F 112 24 160/86 100
01/15/25 06:52 01/15/25 06:52 01/15/25 06:52 01/15/25 06:52 01/15/25 06:52
Last Documented Vital Signs
Temp Pulse Resp BP Pulse Ox
98 F 116 14 160/86 100
01/15/25 06:52 01/15/25 08:30 01/15/25 08:15 01/15/25 06:52 01/15/25 07:57
<Matthieu Cardoza MD, Resident - Last Filed: 01/15/25 10:33>
MDM/Problems Addressed
Differential Diagnosis Includes:
ACS vs peptic ulcer disease/perforated ulcer vs esophagitis vs gastritis/duodenitis vs aortic dissection vs GERD vs less likely ME vs less likely PE
MDM/Problems Addressed:
Check CBC, CMP, lipase. Troponin.
EKG today showed sinus tachycardia with EKG changes that are nonspecific changes in patient with PE, they are not new. Despite having tachycardia and tachypnea, this patient does not have any shortness of breath or other respiratory symptoms. She
is at low risk according to Wells criteria.
Patient developed coffee-ground emesis in the emergency room(witnessed by nurse). Check PT/PTT. Started IV normal saline, IV Zofran 4 mg and Protonix drip. Discussed the case with GI Dr. Heath on phone. She is aware of patient. Will update
her once the labs are back including CBC and CMP. Discussed there is no indication for octreotide drip at this time.
CBC with leukocytosis 14.7 and hemoglobin of 8.7. Will give Dilaudid 0.5 IV for pain and normal saline 250 mL bolus. Patient consented. Will give 1 unit of blood in the ER. Hospitalist and GI notified. Will need admission for additional care.
Family aware, agree with the plan.
Blood sugar 494. will give 14 unit ins aspart while waiting for admission.
<Matthieu Cardoza MD, Resident - Last Filed: 01/15/25 10:33>
*Pulse Oximetry
SaO2: 100
Oxygen Mode of Delivery: Room air
Patient hypoxic: no
*Critical Care Note
Total Time (30-74mins, 75-104mins- exclusive of procedures): Not Applicable
ED Attending Note
<Matthieu Cardoza MD, Resident - Last Filed: 01/15/25 10:33>
-
Portions of this chart may have been created with voice recognition software.� Occasional wrong word or��sound alike� substitutions may have occurred due to the inherent limitations of voice recognition software.
<Billy Liu MD - Last Filed: 01/15/25 09:34>
ED Attending Note
Patient seen and examined by attending physician: Yes
ED Attending Note:
Patient with history of bleeding gastric ulcer, presents to ED secondary to recurrent upper abdominal pain associated with multiple episodes of vomiting over the past 3 days. Denies fever or chills. Denies trauma. Abdominal pain described as
sharp, with radiation to the back, without any alleviating or exacerbating factors. Patient and family state that her symptoms are same as what she has experienced in the past, requiring admission. Patient does not take any blood thinning
medications. Patient denies dizziness. Denies weakness. Denies headache. Denies change in bowel habits.
Physical Exam
General: moderate painful distress, acutely ill. afebrile
Head: nc/at. eomi
Neck: supple. normal range of motion.
Heart: tachycardic. no murmur
Lungs: no acute respiratory distress. clear bilaterally
Abdomen: normal bowel sounds. no distention. normal bowel sounds. mild epigastric tenderness to palpation
Neuro: alert and oriented x 3. no focal neurological deficits
Skin: no rash
Psychiatric: well kept. interactive and cooperative
Extremities: no edema. no calf tenderness.
In the observation ED, patient noted to have coffee-ground emesis and remains symptomatic in terms of pain with nausea sensation. History and exam concerning for bleeding gastric ulcer. Patient was given IV fluids, and started on Protonix
infusion. Gastroenterology on-call, Dr. Heath, notified via [place] text.
Patient will require admission for further evaluation and treatment, including likely urgent upper endoscopy.
Critical care statement: A total of 40 minutes of critical care time was provided for this patient. This includes management of unstable vital signs, evaluation of the patient at bedside, reviewing the patient's pertinent medical records, review of
old EKGs and review of pertinent medical records. This time with separate from time utilized to perform the aforementioned documented procedures
Discharge Plan
Departure
Patient Disposition: Admit
Date of Disposition: 01/15/25
Time of Disposition: 09:47
Presentation/result/management discussed w/ accepting MD/DO: Hospitalist
Patient with high blood pressure during this ER visit?: Yes
Condition: Fair
Discharge Problem:
Intractable abdominal pain, Hematemesis
Prescriptions:
No Action
levothyroxine 100 MCG tablet
100 mcg PO DAILY@07
atorvastatin 10 mg Tablet
10 mg PO DAILY
ezetimibe 10 MG tablet
10 mg PO HS Qty: 30 0RF
pantoprazole 40 mg tablet,delayed release (DR/EC)
40 mg PO DAILY
cholecalciferol (vitamin D3) 25 mcg (1,000 unit) Tablet
25 mcg PO DAILY Qty: 30 0RF
torsemide 20 mg Tablet
40 mg PO DAILY
tramadol 50 mg Tablet
50 mg PO BIDPRN PRN (Reason: moderate pain)
ondansetron [Zofran ODT] 8 mg Tablet,Disintegrating
8 mg PO DAILYPRN PRN (Reason: nausea)
nortriptyline 75 mg Capsule
75 mg PO HSPRN PRN (Reason: anxiety)
calcitriol 0.5 mcg Capsule
0.5 mcg PO DAILY
calcium carbonate [Tums] 200 mg calcium (500 mg) Tablet,Chewable
200 mg PO BIDPRN PRN (Reason: Indigestion)
nifedipine 60 mg Tablet Extended Release
60 mg PO BID
insulin lispro [Humalog KwikPen Insulin] 100 unit/mL Insulin Pen
6 unit SC AC
metoclopramide HCl 5 mg tablet
5 mg PO AC
insulin glargine [Basaglar KwikPen U-100 Insulin] 100 unit/mL (3 mL) insulin pen
10 unit SC HS
Referrals:
NONE,* [Active, Internal Medicine]
Interventions
Interventions:
*Risk Screen - Suicide Last Done: 01/15/25 10:06
*General Assessment Last Done: 01/15/25 10:06
*Neglect/Abuse Screening Last Done: 01/15/25 10:06
*ED COVID-19 Vaccine History Last Done: 01/15/25 10:06
Discharge Date and Time
Print Language: PERSIAN
[2025-01-15] MEDS: ZOFRAN 4 MG IV ×2 (08:48→10:12)
[2025-01-15] MEDS: DILAUDID 0.5 MG IV ×2 (09:07→11:54)
[2025-01-15 09:35] LABS: Hematocrit 25.5 % (37.0-47.0); Hemoglobin 8.7 g/dL (12.0-16.0); Mean Corp Hgb Conc. 34.1 g/dL (33.0-37.0); Mean Corpuscular Volume 87.9 fL (81.0-99.0); Nucleated Red Blood Cells % 0 %; Platelet Count 331 10^3/uL (130-400); Red Cell Dist. Width 12.8 % (11.5-14.5)
[2025-01-15] MEDS: NSS 250 IV (09:45)
[2025-01-15 09:47] LABS: INR 1.14; PT 14.9 Sec (11.4-14.6)
[2025-01-15 09:48] LABS: APTT 27.5 Sec (23.4-35.0)
[2025-01-15 10:11] LABS: Troponin I < 0.012 ng/ml
[2025-01-15 10:18] LABS: ALT (SGPT) 20 U/L (0-35); AST (SGOT) 16 U/L (14-36); Albumin 4.3 g/dl (3.5-5.0); Alkaline Phosphatase 151 U/L (38-126); Blood Urea Nitrogen 63 mg/dl (7-17); Calcium 9.3 mg/dl (8.4-10.2); Carbon Dioxide 23 mmol/L (22-30); Chloride 97 mmol/L (98-107); Estimated Creatinine Clearance 6 ml/min; Glucose 494 mg/dl (70-99); Lipase 97 U/L (23-300); Potassium 3.9 mmol/L (3.5-5.1); Sodium 136 mmol/L (135-145); Total Protein 6.7 g/dl (6.3-8.2); eGFR 5.84
[2025-01-15] MEDS: PROTONIX IV 80 MG IV (10:21)
[2025-01-15] MEDS: PROTONIX 100 IV ×2 (10:25→22:57)
[2025-01-15] MEDS: NOVOLOG vial 14 UNITS SC (10:40)
--- NOTE | 2025-01-15 10:46 | HPS.HSE ---
Family Physician
-
Family Physician: Elias Evans
Chief Complaint
-
Chest pain
History of Present Illness
59-year-old female with epigastric pain. Pain started on Tuesday was more yesterday. Denies any fever. She also had coffee-ground emesis. No melena reported. No fever. She gets peritoneal dialysis 5 days a week. Stated that when they
inserted the PD fluid yesterday she felt the pain. Patient history of peptic ulcers in the past.
Medical History
Past Medical History
Past Medical History: Reports Other
Additional Past Medical History:
Coronary artery calcification, ESRD on peritoneal dialysis, diabetes, hypothyroidism, hypertension, hyperlipidemia, anemia of chronic disease, obesity, peptic ulcer disease
Past Surgical History: Reports Other
Additional Past Surgical History:
History of cholecystectomy, , appendectomy, PD catheter
Social History
Tobacco: Non-smoker
Alcohol: None
Drug: None
Personal:
Living: With Family
Employment: Not Employed
Family History
Family History: Not pertinent
Allergies / Home Medications
Allergies reflects when Allergies were last updated in [employer].
Home Medications with original date entered in [employer]
Allergy/Medication List:
Allergies
Allergy/AdvReac Type Severity Reaction Status Date / Time
metformin Allergy DIARRHEA Verified 01/15/25 06:55
sitagliptin (From Januvia) Allergy diarrhea Verified 01/15/25 06:55
Home Medications
levothyroxine 100 mcg tablet 100 mcg PO DAILY@07 Thyroid 11/17/20
atorvastatin 10 mg tablet 10 mg PO DAILY High cholesterol 02/23/22
ezetimibe 10 mg tablet 10 mg PO HS High cholesterol #30 tabs 02/27/22
pantoprazole 40 mg tablet,delayed release 40 mg PO DAILY Gastrointestinal Issue 08/19/23
cholecalciferol (vitamin D3) 25 mcg (1,000 unit) tablet 25 mcg PO DAILY vit d def #30 tabs 08/22/23
calcitriol 0.5 mcg capsule 0.5 mcg PO DAILY 01/15/25
calcium carbonate (Tums) 200 mg PO BIDPRN PRN Indigestion 01/15/25
insulin glargine 100 unit/mL (3 mL) subcutaneous pen (Basaglar KwikPen U-100 Insulin) 10 unit SC HS Diabetes 01/15/25
insulin lispro 100 unit/mL subcutaneous pen (Humalog KwikPen (U-100) Insulin) 6 unit SC AC 01/15/25
metoclopramide HCl 5 mg tablet 5 mg PO AC Gastrointestinal issue 01/15/25
nifedipine 60 mg tablet,extended release 60 mg PO BID 01/15/25
nortriptyline 75 mg capsule 75 mg PO HSPRN PRN anxiety 01/15/25
ondansetron 8 mg disintegrating tablet 8 mg PO DAILYPRN PRN nausea 01/15/25
torsemide 20 mg tablet 40 mg PO DAILY 01/15/25
tramadol 50 mg tablet 50 mg PO BIDPRN PRN moderate pain 01/15/25
Review of Systems
-
A 12 point ROS was completed and negative except as noted: Yes
Respiratory: Denies Trouble Breathing
Abdomen/GI: Reports Abdominal Pain, Nausea and Vomiting; Denies Bloody Stools or Black Stools
Physical Exam
Vital Signs
Vital Signs
Temp Pulse Resp BP Pulse Ox
98 F 116 14 160/86 100
01/15/25 06:52 01/15/25 08:30 01/15/25 08:15 01/15/25 06:52 01/15/25 07:57
Physical Exam
General: Pain
Respiratory: Clear
Cardiac: S1/S2 and Regular Rhythm
GI: Soft, Tender (Diffuse, no guarding or rigidity) and Other (PD catheter on the abdomen)
Skin: Warm
Neuro: AO x 3 and Nonfocal/grossly intact
Psych: Intact Judgment/Insight
Laboratory Results
-
01/15/25 09:17
01/15/25 09:17
Laboratory Results
PT 14.9 Sec (11.4-14.6) H 01/15/25 09:17
INR 1.14 01/15/25 09:17
APTT 27.5 Sec (23.4-35.0) 01/15/25 09:17
Total Bilirubin 0.6 mg/dl (0.2-1.3) 01/15/25 09:17
AST 16 U/L (14-36) 01/15/25 09:17
ALT 20 U/L (0-35) 01/15/25 09:17
Alkaline Phosphatase 151 U/L (38-126) H 01/15/25 09:17
Troponin I < 0.012 ng/ml 01/15/25 09:17
Lipase 97 U/L (23-300) 01/15/25 09:17
Lipase Cancelled 01/15/25 09:17
Impression/Plan
-
IMPRESSION/PLAN:
EKG-sinus tachycardia inferior infarct seen before in August 2023
# Intractable epigastric pain and coffee-ground emesis
Abdominal pain more felt yesterday when PD catheter was used
Check CAT scan of the abdomen pelvis with IV contrast
Acute blood loss anemia on chronic anemia
Hemoglobin 8.7
Follow hemoglobin
ER has ordered 1 unit of blood
Keep n.p.o. with PPI drip
May need EGD with history of peptic ulcer disease
Dilaudid and tramadol for pain control
GI consultation
# Coronary artery calcification.Stress test February 2023 normal myocardial perfusion consult LV function
Troponin negative
# Diabetes hemoglobin A1c-
Blood sugar elevated at 494 treated with 14 units of subcutaneous insulin
Repeat blood sugars before ordering more especially since patient is n.p.o.
On Lantus insulin 10 units at night and NovoLog 6 units AC
Hold off on scheduled NovoLog while NPO
Accu-Cheks and sliding cell coverage
# End-stage renal disease on PD
PD was started a month and a half ago
Continue Rocaltrol
Nephrology evaluation requested
# Hypothyroidism-continue levothyroxine 100 mcg daily
# Hyperlipidemia-continue atorvastatin, Zetia
# Hypertension-patient is on nifedipine 60 mg p.o. twice daily as outpatient
# Anxiety/depression-continue nortriptyline
# Chronic pain on tramadol
# Fatty liver
# Obesity with a BMI of 27
# DVT prophylaxis-SCDs
# Full code
Discussed with ER
Discussed with patient's at bedside
Time spent more than 75 minutes
Part of this note was created using voice recognition system. Occasional wrong word or��sound alike� substitutions may have inadvertently occurred due to the inherent limitations of voice recognition software. If noted kindly bring it to my
attention for correction.
[2025-01-15 11:45] LABS: Glucose - Point of Care 451 mg/dl (70-99)
--- NOTE | 2025-01-15 12:06 | CON.GI ---
Addendum entered and electronically signed by Yessy Heath DO 01/15/25 15:00:
The patient was seen and examined by me independently in collaboration with the nurse practitioner.
Past medical history/social history/medications/allergies/family history reviewed.
Lab data and imaging data reviewed.
Patient is a 59-year-old Cypriot-speaking female with extensive past medical history well-known to the GI service for gastroparesis, history of pancreatitis, esophageal dysmotility (mild achalasia vs. esoph dysmotility), chronic anemia with
extensive workup admitted with intractable abdominal pain. She was recently started on peritoneal dialysis. She was noted to have coffee-ground emesis in the ER, GI consulted. Hemoglobin 8.7 but this is somewhat within her baseline range, she has
been between 8-11. Prior endoscopy, capsule endoscopy and colonoscopy without identifiable source of GI bleeding. Prior iron studies were not consistent with iron deficiency and her anemia was felt to be more from her chronic kidney disease. She
did have a mildly abnormal celiac panel in the past but multiple duodenal biopsies were taken and a negative capsule so felt that this was unlikely celiac disease. She has a history of chronic abdominal pain treated with tramadol in the past as
well as outpatient narcotics. She has had multiple endoscopies in the past as well.
She has significant epigastric tenderness to deep palpation on exam, no rebound or guarding.
A/P:
-rule out infection
-PPI
-antiemetics
-analgesia
-IVF
-trend H&H, unclear why she was transfused with a hemoglobin of 8.7?
-check A1c
-supportive care, depending on clinical course, will determine if EGD indicated
Original Note:
Consultation
-
Date/Time Consultation Requested: 01/15/25 1140
Date/Time Consultation Performed: 01/15/25 1200
Requesting Provider: Lilian Fields MD
Performing Provider: BRIAN Ortiz, Adelina Heath DO
Reason for Consultation: dark emesis
Medical History
Chief Complaint / HPI
Chief Complaint: epigastric pain, vomiting
History of Present Illness:
The patient is a 59-year-old Cypriot-speaking female know to GI servies with a past medical history significant for type 2 diabetes, hyperlipidemia, gastroparesis, prior pancreatitis with improvement on follow up MRI in 10/2023, hypothyroidism,
GERD, CHF, chronic anemia, ESRD now on peritoneal dialysis over last 2months who presented to the emergency room with complaints of intractable epigastric pain along with vomiting. In review with angolan speaking daughter patient has done well for
some time with GI symptoms with occasional tums and tramadol use. She recently has had some intermittent epigastric pain but pain became constant and she started with bilious emesis prior to admission. On arrival noted with dark emesis and asked
to see . She last had EGD 06/[address] Casiano with at that time which did show abnormal esophageal motility with spasm and low-grade narrowing of Schatzki ring with erythematous mucosa in the antrum. Biopsies taken during the EGD did not show
any significant findings.
She does also complaint of some dysphagia at time with certain foods and alternating diarrhea and constipation but denies rectal bleeding. On admission hbg 8.7 with prior hbg 8-11 range, WBC 14,7, platelets 331, BUN 63, creat 7.4, and
glucose 494, bili 0.6, AST 16, ALT 20, alk phos 151 and lipase 97.
Past Medical History
Past Medical History: CHF, GERD, Hypercholesterolemia, Hypothyroidism, IDDM, Renal Failure (ESRD on HD ) and Other (Gastroparesis, chronic anemia, chronic constipation, ? Celiac disease, hx pancreatitis, )
Past Surgical History: Appendectomy (With perforation and abscess), Cholecystectomy and
Social History
Tobacco: Non-Smoker
Alcohol: None
Drug: None
Personal:
Living: With Family
Employment: Not Employed
Family History
Family History: Other (no family hx GI malignancies )
Allergies / Home Medications
Allergy/AdvReac Type Severity Reaction Status Date / Time
metformin Allergy DIARRHEA Verified 01/15/25 06:55
sitagliptin (From Chadnni) Allergy diarrhea Verified 01/15/25 06:55
�Medication �Instructions �Recorded
levothyroxine 100 mcg tablet 100 mcg PO DAILY@07 Thyroid 11/17/20
atorvastatin 10 mg tablet 10 mg PO DAILY High cholesterol 02/23/22
ezetimibe 10 mg tablet 10 mg PO HS High cholesterol #30 02/27/22
tabs
pantoprazole 40 mg tablet,delayed 40 mg PO DAILY Gastrointestinal 08/19/23
release Issue
cholecalciferol (vitamin D3) 25 25 mcg PO DAILY vit d def #30 tabs 08/22/23
mcg (1,000 unit) tablet
calcitriol 0.5 mcg capsule 0.5 mcg PO DAILY 01/15/25
calcium carbonate (Tums) 200 mg PO BIDPRN PRN Indigestion 01/15/25
insulin glargine 100 unit/mL (3 10 unit SC HS Diabetes 01/15/25
mL) subcutaneous pen (Basaglar
KwikPen U-100 Insulin)
insulin lispro 100 unit/mL 6 unit SC AC 01/15/25
subcutaneous pen (Humalog KwikPen
(U-100) Insulin)
metoclopramide HCl 5 mg tablet 5 mg PO AC Gastrointestinal issue 01/15/25
nifedipine 60 mg tablet,extended 60 mg PO BID 01/15/25
release
nortriptyline 75 mg capsule 75 mg PO HSPRN PRN anxiety 01/15/25
ondansetron 8 mg disintegrating 8 mg PO DAILYPRN PRN nausea 01/15/25
tablet
torsemide 20 mg tablet 40 mg PO DAILY 01/15/25
tramadol 50 mg tablet 50 mg PO BIDPRN PRN moderate pain 01/15/25
Review of Systems
-
History Source: Patient and Family
Constitutional: Reports No Symptoms
EENT: Reports No Symptoms
Respiratory: Reports No Symptoms
Cardiac: Reports Chest Pain (at times )
Abdomen/GI: Reports Abdominal Pain, Nausea, Vomiting, Diarrhea, Constipated and Other (dark emesis on admission)
: Reports Other (Pt but still with some urination)
Musculoskeletal: Reports No Symptoms
Skin: Reports No Symptoms
Neurological: Reports Weakness
Endocrine: Reports No Symptoms
Hematologic/Lymphatic: Reports No Symptoms
Vital Signs
Temp Pulse Resp BP Pulse Ox
98.2 F 108 12 182/70 99
01/15/25 11:44 01/15/25 11:44 01/15/25 11:44 01/15/25 11:44 01/15/25 11:44
Physical Exam
Exam
General: Other (pt resting quietly with pain meds given in ER)
HEENT: Normocephalic and Anicteric
Respiratory: Clear
Cardiac: Regular Rhythm
GI: Soft, Non Distended, Tender (minimal ) and Other (PD cath in place with dressing)
Musculoskeletal: No Clubbing and No Cyanosis
Skin: Warm and Dry
Neuro: Other (sleepy but arousable )
Psych: Calm
Results
WBC 14.7 10^3/uL (4.8-10.8) H 01/15/25 09:17
Hgb 8.7 g/dL (12.0-16.0) L 01/15/25 09:17
Hct 25.5 % (37.0-47.0) L 01/15/25 09:17
MCV 87.9 fL (81.0-99.0) 01/15/25 09:17
Plt Count 331 10^3/uL (130-400) 01/15/25 09:17
Absolute Neuts (auto) 13.9 10^3/uL (1.4-6.5) H 01/15/25 09:17
PT 14.9 Sec (11.4-14.6) H 01/15/25 09:17
INR 1.14 01/15/25 09:17
APTT 27.5 Sec (23.4-35.0) 01/15/25 09:17
Sodium 136 mmol/L (135-145) 01/15/25 09:17
Potassium 3.9 mmol/L (3.5-5.1) 01/15/25 09:17
Chloride 97 mmol/L (98-107) L 01/15/25 09:17
Carbon Dioxide 23 mmol/L (22-30) 01/15/25 09:17
BUN 63 mg/dl (7-17) H 01/15/25 09:17
Creatinine 7.4 mg/dL (0.6-1.0) H* 01/15/25 09:17
Calcium 9.3 mg/dl (8.4-10.2) 01/15/25 09:17
Total Bilirubin 0.6 mg/dl (0.2-1.3) 01/15/25 09:17
AST 16 U/L (14-36) 01/15/25 09:17
ALT 20 U/L (0-35) 01/15/25 09:17
Alkaline Phosphatase 151 U/L (38-126) H 01/15/25 09:17
Lipase 97 U/L (23-300) 01/15/25 09:17
Lipase Cancelled 01/15/25 09:17
Diagnostic Image Results:
10/17/2023 MR with and without contrast Unremarkable MRI of the abdomen.
08/20/24 MRI with and without contrast Severely limited examination due to patient breathing motion. A subtle lesion on the postcontrast images could easily be missed.
1. Minimal edema about the tail of the pancreas. No discrete fluid collection. No definite lesion identified. Findings suggest mild pancreatitis.
2. Post noe, previous CT scans have revealed dystrophic calcification adjacent to the clips in the gallbladder fossa. Unchanged. There is no intraluminal filling defect in the common bile duct to suggest a residual bgallstone.
3. Mild wall thickening of the second portion of the duodenum. Nonspecific. This could be followed with either upper GI or direct visualization with endoscopy if clinically indicated.
4. No other significant interval change
08/18/23 CT A/P: There is significant stranding of the fat surrounding the pancreas, mainly the body and head of the pancreas, a new finding compared to CT of August 10, 2022. These findings would be suggestive of pancreatitis. Additionally, there is
suggestion of diffuse thickening of the wall the stomach and possible thickening of the wall of the duodenum. The above findings, possibility of pancreatitis with secondary inflammation of the stomach and duodenum. Differential consideration of
gastritis and duodenitis as a primary process and secondary stranding of the peripancreatic fat. Of note, the patient has a normal lipase value. Status post cholecystectomy with no evidence for biliary ductal dilation. There is a bilobed dystrophic
calcification in the right upper quadrant adjacent to the cholecystectomy clips, which has been present dating back to CT examinations in 2017. Small central hiatal hernia. Coronary artery calcifications are noted. Please correlate with symptoms of
and risk factors for coronary artery disease, with further workup as clinically appropriate.
08/18/23 XR abdomen: �No significantly dilated air-filled loops of bowel are identified. Status post cholecystectomy. 11 mm calcification in the right upper quadrant medial to the cholecystectomy clips, stable dating back to CT examination of May
2017, most likely a focal dystrophic calcification at the site of previous cholecystectomy.
EGD 07/07/[address] Casiano with at that time which did show abnormal esophageal motility with spasm and low-grade narrowing of Schatzki ring with erythematous mucosa in the antrum. Biopsies taken during the EGD did not show any significant
findings.
07/04/23�US abdomen for prior noe no biliary tract dilation. Left lobe of liver, pancreas and IVC significantly obscured, most likely by overlying bowel gas.
08/13/22- UGI��Possible mild achalasia versus mild esophageal dysmotility
08/10/22�CT A/P without IV or oral contrast-- limitation without contrast but noted prior appe, noe, tiny pericardial effusion and no free air.
04/18/21-�CT abdomen/pelvis-no acute inflammatory abnormality in abdomen/pelvis
12/09/20 obstruction series- no obstruction, free air, limited CXR, small left pleural effusion no pulm edema
12/03/20- abdomen X ray-oral contrast right colon
12/02/20- US abdomen with doppler-patent hepatic vasculature with appropriate directional flow, increased echogenicity of liver c/w underlying hepatocellular diseae, most commonly fatty liver
12/02/20- CT abdomen/pelvis-smith paucity of oral contrast and lack of IV contrast no gross abnormality no ostruction free air or focal fluid collection, prior appe, possible small HH, pericardial thickening unchanged
11/24/20 EGD�completed without complication--Esophagus Normal mucosa�biopsied 8 mm benign-appearing polyp at GE junction�biopsied
Stomach Diffuse, mild gastritis�biopsied for H. pylori Small amount of bile in stomach�aspirated� Duodenum Normal mucosa�biopsied for celiac disease
11/19/20-MR abdomen without contrast-�no bile duct dilation or choledocholithiasis, non specific stranding, no hydrop or obstructive uropathy
EGD:03/2020- food in stomach with small HH, Z line variable no lesion in esophagus�
Colonoscopy:� 12/2019- no appendiceal pathology on luminal side
2018 capsule�slow to pass normal per notes report not reviewed
05/09/18- CT without IV or oral contrast-increased left perinephric fat stranding and thickening of gerota fascia no nephrolithiasis or hydro
�EGD 12/21/17:�tortuous esophagus, scar, no inflammation. biopsied
otherwise, no findings to explain anemia.� Duodenum biopsied
12/23/17��Colonoscopy - hemorrhoid and 1, 1cm polyp removed from the descending colon.
-GE scan 12/2017- normal
EGD 11/11/16�LA Grade D reflux esophagitis, small HH, 1 GE junction polyp with bx showing chronic inflammation, bx distal esophagus showed ulceration, normal examined duodenum, neg Hpylori, neg celiac
EGD 12/28/16�small HH, otherwise normal.
12/2016- Ct�duodenitis
GES 12/2016�borderline suggesting mild gastroparesis.
12/2016Celiac antibodies abnormal
11/2016- CT with IV only- appendiceal distention concern for possible acute appendicitis but no abdominal pain, mild mucosal enhancement, mild intrahepatic biliary dilation with prior noe, small HH and gastric distention
Assessment / Plan
-
The patient is a 59-year-old Cypriot-speaking female know to GI servies with a past medical history significant for type 2 diabetes, hyperlipidemia, gastroparesis, prior pancreatitis with improvement on follow up MRI in 10/2023, hypothyroidism,
GERD, CHF, chronic anemia, ESRD now on peritoneal dialysis over last 2months who presented to the emergency room with complaints of intractable epigastric pain along with vomiting. In review with angolan speaking daughter patient has done well for
some time with GI symptoms with occasional tums and tramadol use. She recently has had some intermittent epigastric pain but pain became constant and she started with bilious emesis prior to admission. On arrival noted with dark emesis and asked
to see . She last had EGD 06/[address] Casiano with at that time which did show abnormal esophageal motility with spasm and low-grade narrowing of Schatzki ring with erythematous mucosa in the antrum. Biopsies taken during the EGD did not show
any significant findings. She does also complaint of some dysphagia at time with certain foods and alternating diarrhea and constipation but denies rectal bleeding. On admission hbg 8.7 with prior hbg 8-11 range, WBC 14,7, platelets 331, BUN 63,
creat 7.4, and glucose 494, bili 0.6, AST 16, ALT 20, alk phos 151 and lipase 97.
-nausea/vomiting/abdominal pain
-dark emesis after multiple episodes of vomiting
-acute on chronic anemia
-hx gastroparesis with prior uncontrolled DM
-alk phos elevation-- chronic
-tachycardia
-HTN urgency on admission
-prior UGI with Possible mild achalasia versus mild esophageal dysmotility
-CKD now on PD
-hx pancreatitis 08/2023
other medical problems:
-IDDM
-GERD
-hypothyroidism
-Obesity
-Anemia of chronic disease
-Vitamin D deficiency
- Abnormal celiac serologies but normal duodenal biopsies
- s/p noe
- s/p appendectomy with prior h/o abscess
PLAN:
etiology of nausea/vomiting/abdominal pain related to flare of known gastroparesis with dark emesis possible MW tear with dark material after multiple episodes of vomiting
lipase normal on admission with hx pancreatitis last year
agree with pain control/antiemetic
hbg low side of range s/p transfusion ordered in ER
add hbgA1C to see if remains with improved DM control
discussed with nephrology agree with culture from PD fluid to exclude infectious etiology
if persistent vomiting or drop in hbg consider repeat EGD
cont PPI,Reglan - may need IV dosing if continued vomiting
updated and educated family on disease process -- stressed need for good DM control
-
-
Thank you for consultation and allowing me to participate in the patient's care. Please call the rn transition GI physician during the after hours with any questions or concerns.
--- NOTE | 2025-01-15 12:31 | W.CON.NEPH ---
Consultation
-
Date/Time Consultation Requested: 01/15/25 1145
Date/Time Consultation Performed: 01/15/25 1220
Requesting Provider: Lilian Davies
Performing Provider: Hermelinda Haney
Reason for Consultation: ESRD on PD
Medical History
-
Chief Complaint: abd pain and n/v
History of Present Illness:
59-year-old [place] Islander-speaking female Who has ESRD likely from diabetic nephropathy, started PD 1.5m ago, chr GI issues from gastroparesis, IDDM, hyperlipidemia, gastroparesis, prior pancreatitis, hypothyroidism, GERD, CHF, chronic anemia, who
presented to the emergency room with complaints of intractable epigastric pain along with vomiting. Reportedly symp present for for 3-4days but got worse in 1day. Per family PD is not creating abdominal pain. Her PD fluid was clear and no fever. On
arrival to ER noted with dark emesis and hb at 8.7. History obtained through daughter with language barrier. No reported fever or cough or cp or sob. No dysuria or diarrhea.
PD script-all 1.5 bags, CCPD 8hrs. 5days/week
Past Medical History
Coronary artery calcification, ESRD on peritoneal dialysis, diabetes, hypothyroidism, hypertension, hyperlipidemia, anemia of chronic disease, obesity, peptic ulcer disease
Past Surgical History: Other (cholecystectomy, , appendectomy, PD catheter)
Social History
Tobacco: Non-Smoker
Alcohol: None
Personal:
Living: With Family
Employment: Not Employed
Family History
Family History: Not Pertinent
Allergies / Home Medications
Allergy/AdvReac Type Severity Reaction Status Date / Time
metformin Allergy DIARRHEA Verified 01/15/25 06:55
sitagliptin (From Januvia) Allergy diarrhea Verified 01/15/25 06:55
�Medication �Instructions �Recorded �Confirmed �Type
levothyroxine 100 mcg tablet 100 mcg PO DAILY@07 Thyroid 11/17/20 01/15/25 History
atorvastatin 10 mg tablet 10 mg PO DAILY High cholesterol 02/23/22 01/15/25 History
ezetimibe 10 mg tablet 10 mg PO HS High cholesterol #30 02/27/22 01/15/25 Rx
tabs
pantoprazole 40 mg tablet,delayed 40 mg PO DAILY Gastrointestinal 08/19/23 01/15/25 History
release Issue
cholecalciferol (vitamin D3) 25 25 mcg PO DAILY vit d def #30 tabs 08/22/23 01/15/25 Rx
mcg (1,000 unit) tablet
calcitriol 0.5 mcg capsule 0.5 mcg PO DAILY 01/15/25 01/15/25 History
calcium carbonate (Tums) 200 mg PO BIDPRN PRN Indigestion 01/15/25 01/15/25 History
insulin glargine 100 unit/mL (3 10 unit SC HS Diabetes 01/15/25 01/15/25 History
mL) subcutaneous pen (Basaglar
KwikPen U-100 Insulin)
insulin lispro 100 unit/mL 6 unit SC AC 01/15/25 01/15/25 History
subcutaneous pen (Humalog KwikPen
(U-100) Insulin)
metoclopramide HCl 5 mg tablet 5 mg PO AC Gastrointestinal issue 01/15/25 01/15/25 History
nifedipine 60 mg tablet,extended 60 mg PO BID 01/15/25 01/15/25 History
release
nortriptyline 75 mg capsule 75 mg PO HSPRN PRN anxiety 01/15/25 01/15/25 History
ondansetron 8 mg disintegrating 8 mg PO DAILYPRN PRN nausea 01/15/25 01/15/25 History
tablet
torsemide 20 mg tablet 40 mg PO DAILY 01/15/25 01/15/25 History
tramadol 50 mg tablet 50 mg PO BIDPRN PRN moderate pain 01/15/25 01/15/25 History
Review of Systems
-
All other systems: Negative unless noted
Physical Exam
Vital Signs
Vital Signs
Temp Pulse Resp BP Pulse Ox
98.2 F 102 12 173/71 99
01/15/25 12:03 01/15/25 12:03 01/15/25 12:03 01/15/25 12:03 01/15/25 12:03
Lab Results
WBC 14.7 10^3/uL (4.8-10.8) H 01/15/25 09:17
RBC 2.90 10^6/uL (4.20-5.40) L 01/15/25 09:17
Hgb 8.7 g/dL (12.0-16.0) L 01/15/25 09:17
Hct 25.5 % (37.0-47.0) L 01/15/25 09:17
Plt Count 331 10^3/uL (130-400) 01/15/25 09:17
Sodium 136 mmol/L (135-145) 01/15/25 09:17
Potassium 3.9 mmol/L (3.5-5.1) 01/15/25 09:17
Chloride 97 mmol/L (98-107) L 01/15/25 09:17
Carbon Dioxide 23 mmol/L (22-30) 01/15/25 09:17
BUN 63 mg/dl (7-17) H 01/15/25 09:17
Creatinine 7.4 mg/dL (0.6-1.0) H* 01/15/25 09:17
eGFR 5.84 01/15/25 09:17
Glucose 494 mg/dl (70-99) H* 01/15/25 09:17
Calcium 9.3 mg/dl (8.4-10.2) 01/15/25 09:17
Albumin 4.3 g/dl (3.5-5.0) 01/15/25 09:17
Physical Exam
General: Awake, No Distress and Nontoxic
HEENT: EOMI, Anicteric and No JVD
Respiratory: Clear (anteriorly), Normal Excursion and Nonlabored Respirations
Cardiac: S1/S2 and Regular Rate/Rhythm
Breast: Deferred by me
Abdomen: Soft, Nontender and Nondistended
Musculoskeletal: No Cyanosis and No Edema
Skin: No Rash
Neuro: Nonfocal/Grossly Intact
Psych: Appropriate
Vascular Access: Other (PD catheter right abd )
Data Reviewed
-
Labs: Labs Reviewed by me and Discussed with Family
Assessment/Plan
-
Assessment:
Intractable epigastric pain and coffee-ground emesis
Coronary artery calcification.Stress test February 2023 normal myocardial perfusion consult LV function
Diabetes with hyperglycemia
End-stage renal disease on PD at [facility]
Hypothyroidism
Hyperlipidemia
Hypertension
Anxiety/depression
Chronic pain on tramadol
Fatty liver
Obesity
Anemia possibly of CKD
Nephrolithiasis, incidental
Plan:
A/w abd pain and vomiting, coffee ground emesis in ER
ESRD-PD recently started 1.5m ago
would resume CAPD-all 1.5, 2lit
(home PD-all 1.5%, 8hrs, total vol 9lit)
bps are high monitor and resume home meds
check PD fluid to r/o infection
PD catheter site looks clean
treat hyperglycemia
follow h/h, prn transfusion
resume diuretics
d/w daughter on phone
--- NOTE | 2025-01-15 12:50 | CM ---
CM reviewed chart and met with pt and bedside in ED. Pt Amharic speaking, speaks and understands some Mongolian.
Per , they live in 1 story home, [address].
Independent in ADLs, personal care and ambulation at baseline. Pt recently started home PD 5 days a week, her daughter assists with this.
No DME other than PD supplies, no hx VN or SNF
PCP: Elias Evans
Pharmacy: [facility]
CM will continue to follow for discharge planning needs.
[2025-01-15 14:36] LABS: Glycohemoglobin (HgbA1c) 6.8 % (4.0-5.6)
[2025-01-15 16:54] LABS: Glucose - Point of Care 232 mg/dl (70-99)
[2025-01-15] MEDS: DILAUDID 0.25 MG IV ×3 (17:00→21:54)
--- NOTE | 2025-01-15 18:45 | PTCARENOTE ---
Received patient by stretcher from ED. Patient able to stand and step from stretcher to bed. C/o 10/10 abdominal pain and nausea. Contacted MD for orders for PRN pain and nausea meds. Orders received and doses given. Patient with small formed brown
stool in brief upon admission to IMU. at bedside. Detective Captain used. Protonix gtt infusing per orders. VSS. RA. NSR-NST. PD cath CDI, night RN to start PD. Report given to night RN.
--- NOTE | 2025-01-15 18:57 | W.PN.UPDATE ---
Update Note
Progress Note Update
CT with pancolitis. No diarrhea. I will add Zosyn .
If hjas diarrhea check C diff.
NPO for now
[2025-01-15 18:59] LABS: Glucose - Point of Care 260 mg/dl (70-99)
[2025-01-15] MEDS: REGLAN 5 MG IV (19:13)
[2025-01-15] MEDS: NOVOLOG FLEXPEN-LOW RESISTANCE 3 UNITS SC (19:15)
[2025-01-15 19:36] LABS: Hematocrit 30.4 % (37.0-47.0); Hemoglobin 10.7 g/dL (12.0-16.0)
[2025-01-15] MEDS: REGLAN PO (19:36)
[2025-01-15] MEDS: ZOSYN 50 IV (19:44)
[2025-01-15] MEDS: PROCARDIA XL (EXTENDED RELEASE) 60 MG PO (22:11)
[2025-01-15 22:34] LABS: Glucose - Point of Care 313 mg/dl (70-99)
--- NOTE | 2025-01-15 22:44 | PTCARENOTE ---
Peritoneal Dialysis ordered for Pt. per Pt and Pts daughter whom helps Pt with her PD at home, Pts last PD exchange was this morning however it was ended early during her drain when Pt began having abdominal pain. Therefor Pt and Pts daughter were
unsure if the Pt had drained completely this morning. This RN proceeded to begin with the initial drain, however when connected no draining was present. BRIAN Nascimento made aware of assessment findings and this RN proceeded to move forward with filling
the Pt. PD exchanged completed without c/o pain from pt. See intervention on worklist for details.
[2025-01-15] MEDS: ZETIA 10 MG PO (22:58)
--- NOTE | 2025-01-15 23:00 | PTCARENOTE ---
Pt ordered NPO. order present for 10 units lantus @2200. insulin ordered questioned by this RN due to npo status. BRIAN Nascimento gave verbal order to hold hs dose of lantus.
[2025-01-16] VITALS (15 sets, daily range): BP systolic 115–162; BP diastolic 59–98; PULSE 87–94; BMI 26.7
[2025-01-16] MEDS: ZOFRAN 4 MG IV (02:27)
[2025-01-16] MEDS: DILAUDID 0.25 MG IV ×3 (02:37→12:44)
[2025-01-16 03:32] LABS: Glucose - Point of Care 384 mg/dl (70-99)
[2025-01-16] MEDS: ULTRAM 50 MG PO ×2 (03:43→17:51)
[2025-01-16 04:33] LABS: Hematocrit 29.8 % (37.0-47.0); Hemoglobin 10.3 g/dL (12.0-16.0); Mean Corp Hgb Conc. 34.6 g/dL (33.0-37.0); Mean Corpuscular Volume 87.1 fL (81.0-99.0); Nucleated Red Blood Cells % 0 %; Platelet Count 315 10^3/uL (130-400); Red Cell Dist. Width 14.2 % (11.5-14.5)
[2025-01-16 04:34] LABS: Hematocrit 29.4 % (37.0-47.0); Hemoglobin 10.2 g/dL (12.0-16.0)
[2025-01-16 04:56] LABS: Blood Urea Nitrogen 67 mg/dl (7-17); Calcium 8.6 mg/dl (8.4-10.2); Carbon Dioxide 24 mmol/L (22-30); Chloride 102 mmol/L (98-107); Estimated Creatinine Clearance 6 ml/min; Glucose 372 mg/dl (70-99); Potassium 4.0 mmol/L (3.5-5.1); Sodium 137 mmol/L (135-145); eGFR 6.14
[2025-01-16] MEDS: ZOSYN 50 IV ×3 (04:57→21:37)
[2025-01-16 05:32] LABS: Glucose - Point of Care 420 mg/dl (70-99)
[2025-01-16] MEDS: NOVOLOG FLEXPEN-LOW RESISTANCE 6 UNITS SC (05:39)
[2025-01-16] MEDS: SYNTHROID 100 MCG PO (06:05)
[2025-01-16 07:42] LABS: Glucose - Point of Care 389 mg/dl (70-99)
[2025-01-16] MEDS: REGLAN 5 MG PO ×3 (09:49→17:51)
[2025-01-16] MEDS: PROCARDIA XL (EXTENDED RELEASE) 60 MG PO ×2 (09:49→21:33)
[2025-01-16] MEDS: DEMADEX 40 MG PO (09:50)
--- NOTE | 2025-01-16 09:51 | W.PN.GI.CBS2 ---
Addendum entered and electronically signed by Yessy Heath DO 01/16/25 12:05:
The patient was seen and examined by me independently in collaboration with the nurse practitioner.
Past medical history/social history/medications/allergies/family history reviewed.
Lab data and imaging data reviewed.
Patient endorses some improvement in pain this morning, less nausea. Fluid cultures pending. WBC 17K. She was given a blood transfusion yesterday for a hemoglobin of 8.7, hgb 10.3 this morning, no evidence of active GI bleeding. No vomiting
overnight.
Plan:
-trial of clear liquids
-PPI
-Reglan
-f/u cultures, c/w abx for now
-analgesia, antiemetics prn
-no plans for EGD at this time, if recurrent coffee-ground emesis or c/f active GI bleeding will reconsider need for endoscopic evaluation
Original Note:
Today's Communication / Plan
-
etiology of nausea/vomiting/abdominal pain related to flare of known gastroparesis with dark emesis possible MW tear with dark material after multiple episodes of vomiting though hbg A1C stable vs pancolitis as noted on CT v other
pt feeling better but some nausea
trial clear diet
cont abx
agree with pain control/antiemetic/standing Reglan
cont PPI
hbg stable 10.3 with transfusion given 01/15
await cx from peritoneal fluid
if any recurrent bloody emesis consider EGD
cont PPI,Reglan - may need IV dosing if continued vomiting
updated family
Assessment / Plan
-
The patient is a 59-year-old Algerian-speaking female know to GI servies with a past medical history significant for type 2 diabetes, hyperlipidemia, gastroparesis, prior pancreatitis with improvement on follow up MRI in 10/2023, hypothyroidism,
GERD, CHF, chronic anemia, ESRD now on peritoneal dialysis over last 2months who presented to the emergency room with complaints of intractable epigastric pain along with vomiting. In review with polish speaking daughter patient has done well for
some time with GI symptoms with occasional tums and tramadol use. She recently has had some intermittent epigastric pain but pain became constant and she started with bilious emesis prior to admission. On arrival noted with dark emesis and asked
to see . She last had EGD 06/[address] Casiano with at that time which did show abnormal esophageal motility with spasm and low-grade narrowing of Schatzki ring with erythematous mucosa in the antrum. Biopsies taken during the EGD did not show
any significant findings. She does also complaint of some dysphagia at time with certain foods and alternating diarrhea and constipation but denies rectal bleeding. On admission hbg 8.7 with prior hbg 8-11 range, WBC 14,7, platelets 331, BUN 63,
creat 7.4, and glucose 494, bili 0.6, AST 16, ALT 20, alk phos 151 and lipase 97.
01/15/25 CT Abd/pelvis W Iv Cont
1. Mild diffuse pancolitis.
2. Small hiatal hernia.
3. Previous cholecystectomy.
4. Moderate chronic bilateral renal disease.
5. Moderate elevation of the right hemidiaphragm.
6. Mild cardiomegaly.
-nausea/vomiting/abdominal pain
-dark emesis after multiple episodes of vomiting
-acute on chronic anemia
-diffuse pancolitis per imaging
-hx gastroparesis with prior uncontrolled DM
-alk phos elevation-- chronic
-tachycardia
-HTN urgency on admission
-prior UGI with Possible mild achalasia versus mild esophageal dysmotility
-CKD now on PD
-hx pancreatitis 08/2023
other medical problems:
-IDDM
-GERD
-hypothyroidism
-Obesity
-Anemia of chronic disease
-Vitamin D deficiency
- Abnormal celiac serologies but normal duodenal biopsies
- s/p noe
- s/p appendectomy with prior h/o abscess
-hepatic steatosis
-pancreatic atrophy
PLAN:
etiology of nausea/vomiting/abdominal pain related to flare of known gastroparesis with dark emesis possible MW tear with dark material after multiple episodes of vomiting though hbg A1C stable vs pancolitis as noted on CT v other
pt feeling better but some nausea
trial clear diet
cont abx
agree with pain control/antiemetic/standing Reglan
cont PPI
hbg stable 10.3 with transfusion given 01/15
await cx from peritoneal fluid
if any recurrent bloody emesis consider EGD
cont PPI,Reglan - may need IV dosing if continued vomiting
updated family
Subjective
Subjective
Date of Service: January 16, 2025
feeling better, still with nausea and some pain,
Objective
Data Reviewed
Laboratory Data:
Laboratory Results
01/16/25 04:04
01/16/25 04:04
Laboratory Results
PT 14.9 Sec (11.4-14.6) H 01/15/25 09:17
INR 1.14 01/15/25 09:17
APTT 27.5 Sec (23.4-35.0) 01/15/25 09:17
Total Bilirubin 0.6 mg/dl (0.2-1.3) 01/15/25 09:17
AST 16 U/L (14-36) 01/15/25 09:17
ALT 20 U/L (0-35) 01/15/25 09:17
Alkaline Phosphatase 151 U/L (38-126) H 01/15/25 09:17
Lipase 97 U/L (23-300) 01/15/25 09:17
Lipase Cancelled 01/15/25 09:17
Vital Signs and I&O:
Vital Signs
Temp Pulse Resp BP Pulse Ox
98.2 F 95 23 141/60 98
01/16/25 07:44 01/16/25 07:45 01/16/25 07:45 01/16/25 07:40 01/16/25 07:45
I&O
01/15/25 01/16/25 01/17/25
06:59 06:59 06:59
Intake Total 250 / 250
Output Total 180 / 180
Balance 250 / 250 -180 / -180
Physical Exam
Physical Exam
HEENT: Anicteric and Moist mucous membranes
Cardiology: Normal Sinus Rhythm
Pulmonary: Clear
GI: Soft, Distended (with PD fluid ), Tender (mild ) and Other (PD cath in place )
Extremities: No Edema
Neuro: Other (polish speaking family assist with interpretation )
--- NOTE | 2025-01-16 10:13 | W.PN.HOSP.TC ---
Today's Communication/Plan
-
Start clear liquid diet and watch abdomen
Wait for peritoneal fluid cultures
Continue Zosyn for colitis, but no diarrhea.
No diarrhea therefore DC C. difficile order
Assessment / Plan
Assessment / Plan
59-year-old female with epigastric pain. Pain started on Tuesday was more yesterday. Denies any fever. She also had coffee-ground emesis. No melena reported. No fever. She gets peritoneal dialysis 5 days a week. Stated that when they
inserted the PD fluid yesterday she felt the pain. Patient history of peptic ulcers in the past.
EKG-sinus tachycardia inferior infarct seen before in August 2023
translator interpreter services used
States that the pain is better today
Cardiovascular system S1-S2 appreciated
Chest clear to auscultation
Abdomen mild diffuse tenderness no guarding or rigidity bowel sounds appreciated
PD catheter with clear fluid drainage
No pedal edema
# Intractable epigastric pain and coffee-ground emesis
CT scan with pancolitis-patient has no diarrhea.
Started on Zosyn
Abdominal pain better
Check CAT scan of the abdomen pelvis with IV contrast
Acute blood loss anemia on chronic anemia
Hemoglobin 8.7 on admission received a unit of blood per ER and hemoglobin is 10.3
Follow hemoglobin
Continue PPI
Clear liquid diet started today
No EGD per GI
Dilaudid and tramadol for pain control
GI consultation appreciated
# Coronary artery calcification.Stress test February 2023 normal myocardial perfusion consult LV function
Troponin negative
# Diabetes hemoglobin A1c- 6.8-(not reliable with anemia).
On Lantus insulin 10 units at night and NovoLog 6 units AC at home
Increased insulin to 12 units Lantus at bedtime and 8 units NovoLog AC
Accu-Cheks and sliding cell coverage
# End-stage renal disease on PD
PD was started a month and a half ago
Continue Rocaltrol
Nephrology evaluation requested
# Hypothyroidism-continue levothyroxine 100 mcg daily
# Hyperlipidemia-continue atorvastatin, Zetia
# Hypertension-patient is on nifedipine 60 mg p.o. twice daily as outpatient
# Anxiety/depression-continue nortriptyline
# Chronic pain on tramadol
# Fatty liver
# Obesity with a BMI of 27
# DVT prophylaxis-SCDs
# Full code
Discussed with Nursing at bedside
Discussed with nephrology
Discussed with GI
Anticipated Discharge: > 48 hours
Subjective/Interval History
-
Date of Service: January 16, 2025
Objective Data
-
Labs:
Laboratory Results
01/16/25 01/16/25 01/16/25
04:04 04:04 04:04
WBC 17.6 H
Hgb 10.2 L 10.3 L
Hct 29.4 L 29.8 L
Plt Count 315
Sodium 137
Potassium 4.0
Chloride 102
Carbon Dioxide 24
BUN 67 H
Creatinine 7.1 H*
Glucose 372 H
Calcium 8.6
Vital Signs:
Vital Signs
Temp Pulse Resp BP Pulse Ox
98.2 F 96 23 139/61 98
01/16/25 07:44 01/16/25 09:50 01/16/25 07:45 01/16/25 09:50 01/16/25 07:45
I&O
01/15/25 01/16/25 01/17/25
06:59 06:59 06:59
Intake Total 250 / 250
Output Total 180 / 180
Balance 250 / 250 -180 / -180
[2025-01-16 10:43] LABS: Glucose - Point of Care 312 mg/dl (70-99)
[2025-01-16] MEDS: NOVOLOG FLEXPEN 8 UNITS SC ×2 (11:00→17:55)
[2025-01-16] MEDS: PROTONIX 100 IV ×2 (11:04→21:33)
--- NOTE | 2025-01-16 11:15 | W.PN.NEPH.PH ---
Today's Communication / Plan
-
PD
Assessment/Plan
-
Assessment:
Intractable epigastric pain and coffee-ground emesis
Coronary artery calcification.Stress test February 2023 normal myocardial perfusion consult LV function
Diabetes with hyperglycemia
End-stage renal disease on PD at [facility]
Hypothyroidism
Hyperlipidemia
Hypertension
Anxiety/depression
Chronic pain on tramadol
Fatty liver
Obesity
Anemia possibly of CKD
Nephrolithiasis, incidental
Plan:
per patient abdominal pain since starting PD. mostly with infusion of fluid, not with drain, but she develops pain when she starts at night and it worsens throughout the night until she is off in the morning.
abx per primary team
will try lower volume PD
if pain is PD related, will need to return to see her surgeon at [facility]
check PD fluid
-
-
Date of Service: January 16, 2025
CC / HPI / ROS
-
Chief Complaint:
ESRD
History of Present Illness:
PD in progress
BP stable
on abx for possible colitis
Review of Systems:
no CP/SOB
abdominal pain with PD
Labs
-
Labs:
WBC 17.6 10^3/uL (4.8-10.8) H 01/16/25 04:04
RBC 3.42 10^6/uL (4.20-5.40) L 01/16/25 04:04
Hgb 10.2 g/dL (12.0-16.0) L 01/16/25 04:04
Hgb 10.3 g/dL (12.0-16.0) L 01/16/25 04:04
Hct 29.4 % (37.0-47.0) L 01/16/25 04:04
Hct 29.8 % (37.0-47.0) L 01/16/25 04:04
Plt Count 315 10^3/uL (130-400) 01/16/25 04:04
Sodium 137 mmol/L (135-145) 01/16/25 04:04
Potassium 4.0 mmol/L (3.5-5.1) 01/16/25 04:04
Chloride 102 mmol/L (98-107) 01/16/25 04:04
Carbon Dioxide 24 mmol/L (22-30) 01/16/25 04:04
BUN 67 mg/dl (7-17) H 01/16/25 04:04
Creatinine 7.1 mg/dL (0.6-1.0) H* 01/16/25 04:04
eGFR 6.14 01/16/25 04:04
Glucose 372 mg/dl (70-99) H 01/16/25 04:04
Calcium 8.6 mg/dl (8.4-10.2) 01/16/25 04:04
Albumin 4.3 g/dl (3.5-5.0) 01/15/25 09:17
Physical Exam
-
Vital Signs:
Vital Signs
Temp Pulse Resp BP Pulse Ox
98.3 F 96 23 139/61 98
01/16/25 11:09 01/16/25 09:50 01/16/25 07:45 01/16/25 09:50 01/16/25 07:45
Cardiovascular:: Regular rate and rhythm
Respiratory:: Bilateral: CTA
Lung Excursion:: Normal
Abdomen:: Nontender and Soft
Bowel Sounds:: Normal
Extremity Edema:: None: Bilateral:
[2025-01-16] MEDS: VITAMIN D3 (cholecalciferol) PO (12:36)
[2025-01-16] MEDS: LIPITOR PO (12:36)
[2025-01-16] MEDS: ROCALTROL PO (12:37)
[2025-01-16 13:40] LABS: Glucose - Point of Care 329 mg/dl (70-99)
[2025-01-16] MEDS: NOVOLOG FLEXPEN SC (13:44)
[2025-01-16] MEDS: NOVOLOG FLEXPEN-LOW RESISTANCE 4 UNITS SC ×2 (13:45→17:56)
[2025-01-16 16:19] LABS: Body Fluid Second Tech DW
--- NOTE | 2025-01-16 17:03 | CM ---
Ugandan speaking patient with Hx ESRD on PD with Dx nausea/vomiting/abdominal pain, pancolitis, flare of known gastroparesis. Room air. Clear liquids. Receiving IV Abx. Activity per nurse; OOB to commode.
CM continuing to follow.
Plan home.
[2025-01-16 17:44] LABS: Glucose - Point of Care 317 mg/dl (70-99)
[2025-01-16] MEDS: TUMS CHEWABLE TABLET 200 MG PO (17:51)
--- NOTE | 2025-01-16 18:21 | PTCARENOTE ---
Assumed care of pt this am, provided PD x 2 with pt c/o nausea and abd pain after 1st PD. After discussion with nephrology 2nd round of PD was slowed down and only 1.8L of the Dialysate infused. Pt did not experience nausea after this exchange.
fluid for cell count sent. Lab already had a culture pending so this repeat culture cancelled. Use of operating room coordinator
[2025-01-16] MEDS: COLACE 100 MG PO (21:33)
[2025-01-16] MEDS: SENOKOT 17.2 MG PO (21:33)
[2025-01-16] MEDS: LANTUS 0.12 UNITS SC (21:36)
[2025-01-16] MEDS: ZETIA 10 MG PO (21:39)
[2025-01-16 21:47] LABS: Glucose - Point of Care 272 mg/dl (70-99)
[2025-01-17] VITALS (13 sets, daily range): BP systolic 103–160; BP diastolic 59–94; PULSE 94–95; BMI 28.1
[2025-01-17] MEDS: DILAUDID 0.25 MG IV ×3 (02:11→21:26)
[2025-01-17] MEDS: ZOFRAN 4 MG IV (02:45)
[2025-01-17] MEDS: ZOSYN 50 IV ×3 (04:27→21:01)
[2025-01-17] MEDS: ULTRAM 50 MG PO ×2 (04:47→13:22)
[2025-01-17] MEDS: SYNTHROID 100 MCG PO (04:47)
[2025-01-17 05:37] LABS: Hematocrit 29.9 % (37.0-47.0); Hemoglobin 10.4 g/dL (12.0-16.0); Mean Corp Hgb Conc. 34.8 g/dL (33.0-37.0); Mean Corpuscular Volume 86.9 fL (81.0-99.0); Platelet Count 309 10^3/uL (130-400); Red Cell Dist. Width 14.2 % (11.5-14.5)
[2025-01-17 06:06] LABS: Blood Urea Nitrogen 55 mg/dl (7-17); Calcium 8.4 mg/dl (8.4-10.2); Carbon Dioxide 23 mmol/L (22-30); Chloride 100 mmol/L (98-107); Estimated Creatinine Clearance 7 ml/min; Glucose 321 mg/dl (70-99); Potassium 3.5 mmol/L (3.5-5.1); Sodium 134 mmol/L (135-145); eGFR 6.82
[2025-01-17] MEDS: TUMS CHEWABLE TABLET 200 MG PO (06:33)
[2025-01-17] MEDS: PROTONIX 100 IV ×2 (08:19→18:28)
[2025-01-17 08:34] LABS: Glucose - Point of Care 347 mg/dl (70-99)
[2025-01-17] MEDS: NOVOLOG FLEXPEN 8 UNITS SC ×2 (09:20→17:40)
[2025-01-17] MEDS: NOVOLOG FLEXPEN-LOW RESISTANCE 4 UNITS SC (09:20)
[2025-01-17] MEDS: ROCALTROL 0.5 MCG PO (09:21)
[2025-01-17] MEDS: DEMADEX 40 MG PO (09:21)
[2025-01-17] MEDS: LIPITOR 10 MG PO (09:21)
[2025-01-17] MEDS: SENOKOT 17.2 MG PO ×2 (09:21→21:00)
[2025-01-17] MEDS: COLACE 100 MG PO ×2 (09:21→21:00)
[2025-01-17] MEDS: REGLAN 5 MG PO ×3 (09:21→16:39)
[2025-01-17] MEDS: PROCARDIA XL (EXTENDED RELEASE) 60 MG PO ×2 (09:22→21:06)
[2025-01-17] MEDS: VITAMIN D3 (cholecalciferol) 25 MCG PO (09:22)
--- NOTE | 2025-01-17 10:39 | W.PN.NEPH.PH ---
Today's Communication / Plan
-
PD
Assessment/Plan
-
Assessment:
Intractable epigastric pain and coffee-ground emesis
Coronary artery calcification.Stress test February 2023 normal myocardial perfusion consult LV function
Diabetes with hyperglycemia
End-stage renal disease on PD at [facility]
Hypothyroidism
Hyperlipidemia
Hypertension
Anxiety/depression
Chronic pain on tramadol
Fatty liver
Obesity
Anemia possibly of CKD
Nephrolithiasis, incidental
Plan:
per patient abdominal pain since starting PD. mostly with infusion of fluid, not with drain, but she develops pain when she starts at night and it worsens throughout the night until she is off in the morning.
abx per primary team
lower volume doesn't seem to have changed sxs
if pain is PD related, will need to return to see her surgeon at [facility]
PD fluid not indicative of infection/peritonitis
-
-
Date of Service: January 17, 2025
CC / HPI / ROS
-
Chief Complaint:
ESRD
History of Present Illness:
PD in progress, UF reviewed
BP stable
on abx for possible colitis
Review of Systems:
no CP/SOB
abdominal pain
Labs
-
Labs:
WBC 15.9 10^3/uL (4.8-10.8) H 01/17/25 04:32
RBC 3.44 10^6/uL (4.20-5.40) L 01/17/25 04:32
Hgb 10.4 g/dL (12.0-16.0) L 01/17/25 04:32
Hct 29.9 % (37.0-47.0) L 01/17/25 04:32
Plt Count 309 10^3/uL (130-400) 01/17/25 04:32
Sodium 134 mmol/L (135-145) L 01/17/25 04:32
Potassium 3.5 mmol/L (3.5-5.1) 01/17/25 04:32
Chloride 100 mmol/L (98-107) 01/17/25 04:32
Carbon Dioxide 23 mmol/L (22-30) 01/17/25 04:32
BUN 55 mg/dl (7-17) H 01/17/25 04:32
Creatinine 6.5 mg/dL (0.6-1.0) H* 01/17/25 04:32
eGFR 6.82 01/17/25 04:32
Glucose 321 mg/dl (70-99) H 01/17/25 04:32
Calcium 8.4 mg/dl (8.4-10.2) 01/17/25 04:32
Albumin 4.3 g/dl (3.5-5.0) 01/15/25 09:17
Physical Exam
-
Vital Signs:
Vital Signs
Temp Pulse Resp BP Pulse Ox
98.7 F 93 16 160/74 98
01/17/25 07:45 01/17/25 09:22 01/17/25 06:00 01/17/25 09:22 01/17/25 06:00
Cardiovascular:: Regular rate and rhythm
Respiratory:: Bilateral: CTA
Lung Excursion:: Normal
Abdomen:: Soft and Tender
Bowel Sounds:: Normal
Extremity Edema:: None: Bilateral:
[2025-01-17 13:10] LABS: Glucose - Point of Care 233 mg/dl (70-99)
[2025-01-17] MEDS: NOVOLOG FLEXPEN-LOW RESISTANCE 2 UNITS SC ×2 (13:47→17:41)
[2025-01-17] MEDS: NOVOLOG FLEXPEN SC (13:48)
--- NOTE | 2025-01-17 14:30 | CM ---
Remains on clear liquid diet, IV/Zosyn for colitis. Discharge POC: TBD based on medical progression. Order for PT screening noted.
--- NOTE | 2025-01-17 15:08 | W.PN.GI.CBS2 ---
Today's Communication / Plan
-
Advance diet to diabetic with 2g Na restriction. GI will sign off, please call with questions
Assessment / Plan
-
The patient is a 59-year-old Upper Sor[place]-speaking female know to GI servies with a past medical history significant for type 2 diabetes, hyperlipidemia, gastroparesis, prior pancreatitis with improvement on follow up MRI in 10/2023, hypothyroidism,
GERD, CHF, chronic anemia, ESRD now on peritoneal dialysis over last 2months who presented to the emergency room with complaints of intractable epigastric pain along with vomiting. In review with cuban speaking daughter patient has done well for
some time with GI symptoms with occasional tums and tramadol use. She recently has had some intermittent epigastric pain but pain became constant and she started with bilious emesis prior to admission. On arrival noted with dark emesis and asked
to see . She last had EGD 06/[address] Casiano with at that time which did show abnormal esophageal motility with spasm and low-grade narrowing of Schatzki ring with erythematous mucosa in the antrum. Biopsies taken during the EGD did not show
any significant findings. She does also complaint of some dysphagia at time with certain foods and alternating diarrhea and constipation but denies rectal bleeding. On admission hbg 8.7 with prior hbg 8-11 range, WBC 14,7, platelets 331, BUN 63,
creat 7.4, and glucose 494, bili 0.6, AST 16, ALT 20, alk phos 151 and lipase 97.
01/15/25 CT Abd/pelvis W Iv Cont
1. Mild diffuse pancolitis.
2. Small hiatal hernia.
3. Previous cholecystectomy.
4. Moderate chronic bilateral renal disease.
5. Moderate elevation of the right hemidiaphragm.
6. Mild cardiomegaly.
-nausea/vomiting/abdominal pain
-dark emesis after multiple episodes of vomiting
-acute on chronic anemia
-diffuse pancolitis per imaging
-hx gastroparesis with prior uncontrolled DM
-alk phos elevation-- chronic
-tachycardia
-HTN urgency on admission
-prior UGI with Possible mild achalasia versus mild esophageal dysmotility
-CKD now on PD
-hx pancreatitis 08/2023
other medical problems:
-IDDM
-GERD
-hypothyroidism
-Obesity
-Anemia of chronic disease
-Vitamin D deficiency
- Abnormal celiac serologies but normal duodenal biopsies
- s/p noe
- s/p appendectomy with prior h/o abscess
-hepatic steatosis
-pancreatic atrophy
PLAN:
etiology of nausea/vomiting/abdominal pain related to flare of known gastroparesis with dark emesis possible MW tear with dark material after multiple episodes of vomiting though hbg A1C stable vs pancolitis as noted on CT v other
pt feeling better, advance diet to diabetic with 2g Na restriction
cont abx ; peritoneal fluid culture prelim neg
agree with pain control/antiemetic/standing Reglan
cont PPI, Reglan
hbg stable 10.3 with transfusion given 01/15 (hgb 8.7 at that time)
GI will sign off, please call with questions. If any recurrent bloody emesis, please call GI back
Subjective
Subjective
Date of Service: January 17, 2025
Patient seen in follow-up. Leukocytosis improving. She endorses improvement in pain. Hemoglobin stable. Prelim culture fluid negative.
Objective
Data Reviewed
Laboratory Data:
Laboratory Results
01/17/25 04:32
01/17/25 04:32
Laboratory Results
PT 14.9 Sec (11.4-14.6) H 01/15/25 09:17
INR 1.14 01/15/25 09:17
APTT 27.5 Sec (23.4-35.0) 01/15/25 09:17
Total Bilirubin 0.6 mg/dl (0.2-1.3) 01/15/25 09:17
AST 16 U/L (14-36) 01/15/25 09:17
ALT 20 U/L (0-35) 01/15/25 09:17
Alkaline Phosphatase 151 U/L (38-126) H 01/15/25 09:17
Lipase 97 U/L (23-300) 01/15/25 09:17
Lipase Cancelled 01/15/25 09:17
Vital Signs and I&O:
Vital Signs
Temp Pulse Resp BP Pulse Ox
98.7 F 93 16 160/74 96
01/17/25 11:03 01/17/25 09:22 01/17/25 06:00 01/17/25 09:22 01/17/25 12:43
I&O
01/16/25 01/17/25 01/18/25
06:59 06:59 06:59
Intake Total 250 / 250 1230 / 1230 50 / 50
Output Total 680 / 680 200 / 200
Balance 250 / 250 550 / 550 -150 / -150
Physical Exam
Physical Exam
HEENT: Anicteric and Moist mucous membranes
Cardiology: Normal Sinus Rhythm
Pulmonary: Clear
GI: Soft, Distended (with PD fluid ), Tender (mild ) and Other (PD cath in place )
Extremities: No Edema
Neuro: Other (cuban speaking family assist with interpretation )
[2025-01-17 17:17] LABS: Glucose - Point of Care 228 mg/dl (70-99)
--- NOTE | 2025-01-17 17:17 | W.PN.HOSP.TC ---
Today's Communication/Plan
-
diet advanced
recheck labs
continue Ceftriaxone
Assessment / Plan
Assessment / Plan
59-year-old female with epigastric pain. Pain started on Tuesday then increased. Denies any fever. She also had coffee-ground emesis. No melena reported. No fever. She gets peritoneal dialysis 5 days a week. Stated that when they inserted
the PD fluid yesterday she felt the pain. Patient history of peptic ulcers in the past.
As per GI: 'etiology of nausea/vomiting/abdominal pain related to flare of known gastroparesis with dark emesis possible MW tear with dark material after multiple episodes of vomiting'
EKG-sinus tachycardia inferior infarct seen before in August 2023
oxyacetylene torch operator services used
# Intractable epigastric pain and coffee-ground emesis
CT scan with pancolitis-patient has no diarrhea.
Started on Zosyn
Abdominal pain better, not resolved
CAT scan of the abdomen pelvis with IV contrast: 1. Mild diffuse pancolitis.
2. Small hiatal hernia.
3. Previous cholecystectomy.
4. Moderate chronic bilateral renal disease.
5. Moderate elevation of the right hemidiaphragm.
6. Mild cardiomegaly.
Acute blood loss anemia on chronic anemia
Hemoglobin 8.7 on admission received a unit of blood per ER and hemoglobin is 10.3-->10.4
Follow hemoglobin
Continue PPI
Clear liquid diet started advanced to 1800 rajta diabetic diet by GI
No EGD per GI
Dilaudid and tramadol for pain control
GI consultation appreciated, signed off as of 01/17
WBC 14.7-->17.6-->15.9
# Coronary artery calcification.Stress test February 2023 normal myocardial perfusion consult LV function
Troponin negative
# Diabetes hemoglobin A1c- 6.8-(not reliable with anemia).
On Lantus insulin 10 units at night and NovoLog 6 units AC at home
Increased insulin to 12 units Lantus at bedtime and 8 units NovoLog AC
Accu-Cheks and sliding cell coverage
# End-stage renal disease on PD
PD was started a month and a half ago
Continue Rocaltrol
Nephrology evaluation requested
# Hypothyroidism-continue levothyroxine 100 mcg daily
# Hyperlipidemia-continue atorvastatin, Zetia
# Hypertension-patient is on nifedipine 60 mg p.o. twice daily as outpatient
# Anxiety/depression-continue nortriptyline
# Chronic pain on tramadol
# Fatty liver
# Obesity with a BMI of 27
# DVT prophylaxis-SCDs
# Full code
Discussed with Nursing at bedside
Anticipated Discharge: > 48 hours
Subjective/Interval History
-
Date of Service: January 17, 2025
Pt examined with Ladi LY in room with use of translation line
Objective Data
-
Labs:
Laboratory Results
01/17/25
04:32
WBC 15.9 H
Hgb 10.4 L
Hct 29.9 L
Plt Count 309
Sodium 134 L
Potassium 3.5
Chloride 100
Carbon Dioxide 23
BUN 55 H
Creatinine 6.5 H*
Glucose 321 H
Calcium 8.4
Vital Signs:
Vital Signs
Temp Pulse Resp BP Pulse Ox
98.0 F 93 16 160/74 96
01/17/25 15:52 01/17/25 09:22 01/17/25 06:00 01/17/25 09:22 01/17/25 12:43
I&O
01/16/25 01/17/25 01/18/25
06:59 06:59 06:59
Intake Total 250 / 250 1230 / 1230 50 / 50
Output Total 680 / 680 200 / 200
Balance 250 / 250 550 / 550 -150 / -150
Review of Systems
-
History Source: Patient and Coordinated Provider (MALACHI Bledsoe)
Constitutional: Denies Fever
EENT: Reports No Symptoms Reported
Respiratory: Reports No Symptoms
Cardiac: Reports No Symptoms
Abdomen/GI: Reports Abdominal Pain
Genitourinary: Reports No Symptoms
Physical Exam
-
General: Well Developed, Well Nourished and No Apparent Distress
HEENT: Normocephalic and Atraumatic
Respiratory: Clear to Auscultation; Negative Wheezes, Rales or Rhonchi
Cardiac: Regular Rhythm and S1/S2
GI: Soft and Tender; Negative Normal Bowel Sounds
Musculoskeletal: No Clubbing, No Cyanosis and No Edema
Skin: Warm and Dry
Neuro: Awake and Alert
--- NOTE | 2025-01-17 18:38 | PTCARENOTE ---
Addendum entered by Sugar Bustamante RN 01/17/25 19:03:
Pt refused any food for lunch but did eat some chicken soup and Yousif food cake for dinner. Pt communication continues through Macedonian online freelance interpreter/translator. Pt has had no complaints of nausea today. Pt and family members instructed on importance of pt
to sit upright and greater than 30 degrees for meals. Pt tends to slide self down in bed and withdraw. Ultram given for abd pain today and this was effective for pain and she rested comfortable
Original Note:
Care of pt today with increasing diet and continuing PD q 4 hours. Pt has been withdrawn and curled up in bed until early afternoon. She was then OOB to stand at bedside for hygiene. She is better spirits this afternoon and
[2025-01-17] MEDS: ZETIA 10 MG PO (21:01)
[2025-01-17] MEDS: LANTUS 0.12 UNITS SC (21:06)
[2025-01-17 21:15] LABS: Glucose - Point of Care 233 mg/dl (70-99)
[2025-01-18] VITALS (10 sets, daily range): BP systolic 111–153; BP diastolic 64–90; BMI 27.8
[2025-01-18] MEDS: ZOSYN 50 IV ×3 (03:43→19:48)
[2025-01-18] MEDS: PROTONIX 100 IV (04:01)
[2025-01-18 04:37] LABS: Hematocrit 30.5 % (37.0-47.0); Hemoglobin 10.6 g/dL (12.0-16.0); Mean Corp Hgb Conc. 34.8 g/dL (33.0-37.0); Mean Corpuscular Volume 86.9 fL (81.0-99.0); Platelet Count 316 10^3/uL (130-400); Red Cell Dist. Width 13.4 % (11.5-14.5)
[2025-01-18] MEDS: ULTRAM PO (04:56)
[2025-01-18] MEDS: SYNTHROID 100 MCG PO (04:56)
[2025-01-18] MEDS: DILAUDID 0.25 MG IV ×4 (05:02→22:55)
[2025-01-18 05:06] LABS: Blood Urea Nitrogen 45 mg/dl (7-17); Calcium 8.0 mg/dl (8.4-10.2); Carbon Dioxide 26 mmol/L (22-30); Chloride 100 mmol/L (98-107); Estimated Creatinine Clearance 7 ml/min; Glucose 99 mg/dl (70-99); Potassium 2.9 mmol/L (3.5-5.1); Sodium 136 mmol/L (135-145); eGFR 6.70
[2025-01-18] MEDS: KCL 20 MEQ PO (05:49)
--- NOTE | 2025-01-18 06:37 | PTCARENOTE ---
Assumed care of pt from dayshift RN. Pt ox3, drowsy but easily arousable. Pt is Lao speaking. at bedside. NSR on monitor. Pt has PD q4 hours and is currently dwelling which started at 0345. 98% on RA. Pt had several black/brown liquid
bowel movements overnight. Pt is resting in bed with call zuleta in reach.
[2025-01-18] MEDS: SENOKOT PO ×2 (08:06→19:48)
[2025-01-18] MEDS: COLACE PO ×2 (08:06→19:47)
--- NOTE | 2025-01-18 08:06 | PTCARENOTE ---
Pt grossly incontinent of liquid stool, morning stool softeners held- see MAR.
[2025-01-18] MEDS: DEMADEX 40 MG PO (08:07)
[2025-01-18] MEDS: ROCALTROL 0.5 MCG PO (08:07)
[2025-01-18] MEDS: PROCARDIA XL (EXTENDED RELEASE) 60 MG PO ×2 (08:07→19:48)
[2025-01-18] MEDS: REGLAN 5 MG PO ×3 (08:08→17:34)
[2025-01-18] MEDS: LIPITOR 10 MG PO (08:08)
[2025-01-18] MEDS: VITAMIN D3 (cholecalciferol) 25 MCG PO (08:08)
[2025-01-18 08:41] LABS: Glucose - Point of Care 103 mg/dl (70-99)
[2025-01-18] MEDS: NOVOLOG FLEXPEN-LOW RESISTANCE SC ×3 (09:16→17:37)
[2025-01-18] MEDS: NOVOLOG FLEXPEN SC (09:16)
--- NOTE | 2025-01-18 11:07 | W.PN.NEPH.PH ---
Today's Communication / Plan
-
cotn PD and assess response to pain
Assessment/Plan
-
Assessment:
Intractable epigastric pain and coffee-ground emesis
Coronary artery calcification.Stress test February 2023 normal myocardial perfusion consult LV function
Diabetes with hyperglycemia
End-stage renal disease on PD at [facility]
Hypothyroidism
Hyperlipidemia
Hypertension
Anxiety/depression
Chronic pain on tramadol
Fatty liver
Obesity
Anemia possibly of CKD
Nephrolithiasis, incidental
Plan:
per patient abdominal pain since starting PD. mostly with infusion of fluid, not with drain, but she develops pain when she starts at night and it worsens throughout the night until she is off in the morning.
we reduced FV to 1.8lit but she still requiring pain meds
replace k
abx per primary team
if it determine that pain is PD related, will need to return to see her surgeon at [facility]
PD fluid not indicative of infection/peritonitis
PD flow sheets noted, FD 700cc, FV 1.8lit, Q4H change
-
-
Date of Service: January 18, 2025
CC / HPI / ROS
-
Chief Complaint:
ESRD
History of Present Illness:
PD in progress, UF reviewed 700cc
BP stable, k low 2.9-few BMs
on abx for possible colitis, WBC improving
Review of Systems:
no CP/SOB
still with abdominal pain -over all improving
Labs
-
Labs:
WBC 14.0 10^3/uL (4.8-10.8) H 01/18/25 04:19
RBC 3.51 10^6/uL (4.20-5.40) L 01/18/25 04:19
Hgb 10.6 g/dL (12.0-16.0) L 01/18/25 04:19
Hct 30.5 % (37.0-47.0) L 01/18/25 04:19
Plt Count 316 10^3/uL (130-400) 01/18/25 04:19
eGFR 6.70 01/18/25 04:19
Albumin 4.3 g/dl (3.5-5.0) 01/15/25 09:17
Physical Exam
-
Vital Signs:
Vital Signs
Temp Pulse Resp BP Pulse Ox
98.7 F 87 14 130/78 95
01/18/25 08:28 01/18/25 06:00 01/18/25 06:00 01/18/25 04:00 01/18/25 08:29
Cardiovascular:: Regular rate and rhythm
Respiratory:: Bilateral: CTA
Lung Excursion:: Normal
Abdomen:: Nontender and Soft
Extremity Edema:: None: Bilateral:
Granados Catheter: No
--- NOTE | 2025-01-18 11:40 | W.PN.HOSP.TC ---
Today's Communication/Plan
-
Follow WBC. As appetite improves and WBC continues to decrease to normal, potential dc to follow. If does not show improvement, would consider input of Inf Disease
Assessment / Plan
Assessment / Plan
59-year-old female with epigastric pain. Pain started on Tuesday then increased. Denies any fever. She also had coffee-ground emesis. No melena reported. No fever. She gets peritoneal dialysis 5 days a week. Stated that when they inserted
the PD fluid yesterday she felt the pain. Patient history of peptic ulcers in the past.
As per GI: 'etiology of nausea/vomiting/abdominal pain related to flare of known gastroparesis with dark emesis possible MW tear with dark material after multiple episodes of vomiting'
EKG-sinus tachycardia inferior infarct seen before in August 2023
Dgt present in room who is bilingual
# Intractable epigastric pain and coffee-ground emesis
CT scan with pancolitis-patient has no diarrhea.
Started on Zosyn
Abdominal pain considerably better, not resolved
CAT scan of the abdomen pelvis with IV contrast: 1. Mild diffuse pancolitis.
2. Small hiatal hernia.
3. Previous cholecystectomy.
4. Moderate chronic bilateral renal disease.
5. Moderate elevation of the right hemidiaphragm.
6. Mild cardiomegaly.
Acute blood loss anemia on chronic anemia
Hemoglobin 8.7 on admission received a unit of blood per ER and hemoglobin is 10.3-->10.4-->10.6
Follow hemoglobin
Continue PPI
Clear liquid diet started advanced to 1800 rajat diabetic diet by GI
No EGD per GI
Dilaudid and tramadol for pain control
GI consultation appreciated, signed off as of 01/17
WBC 14.7-->17.6-->15.9-->14.0
As per nephro, PD fluid is not indicative of infection/peritonitis. Fluid from 01/16 shows NGTD
continue Zosyn
# Coronary artery calcification.Stress test February 2023 normal myocardial perfusion consult LV function
Troponin negative
# Diabetes hemoglobin A1c- 6.8-(not reliable with anemia).
On Lantus insulin 10 units at night and NovoLog 6 units AC at home
Increased insulin to 12 units Lantus at bedtime and 8 units NovoLog AC
Accu-Cheks and sliding cell coverage
glu [phone]
# End-stage renal disease on PD
PD was started a month and a half ago
Continue Rocaltrol
Nephrology input appreciated
# Hypothyroidism-continue levothyroxine 100 mcg daily
# Hyperlipidemia-continue atorvastatin, Zetia
# Hypertension-patient is on nifedipine 60 mg p.o. twice daily as outpatient
# Anxiety/depression-continue nortriptyline
# Chronic pain on tramadol
# Fatty liver
# Obesity with a BMI of 27
# DVT prophylaxis-SCDs, will add Heparin SQ 5,000 units
# Full code
Anticipated Discharge: 24 - 48 hours
Subjective/Interval History
-
Date of Service: January 18, 2025
Generally looks better
Objective Data
-
Labs:
Laboratory Results
01/18/25 01/18/25
04:19 10:00
WBC 14.0 H
Hgb 10.6 L
Hct 30.5 L
Plt Count 316
Sodium 136 Pending
Potassium 2.9 L Pending
Chloride 100 Pending
Carbon Dioxide 26 Pending
BUN 45 H Pending
Creatinine 6.6 H* Pending
Glucose 99 Pending
Calcium 8.0 L Pending
Vital Signs:
Vital Signs
Temp Pulse Resp BP Pulse Ox
98.7 F 87 14 130/78 95
01/18/25 08:28 01/18/25 06:00 01/18/25 06:00 01/18/25 04:00 01/18/25 08:29
I&O
01/17/25 01/18/25 01/19/25
06:59 06:59 06:59
Intake Total 1230 / 1230 50 / 50
Output Total 680 / 680 500 / 500 700 / 700
Balance 550 / 550 -450 / -450 -700 / -700
Review of Systems
-
History Source: Patient and Family (dgt, Sarah in room)
Constitutional: Denies Fever
EENT: Reports No Symptoms Reported
Respiratory: Reports No Symptoms
Cardiac: Reports No Symptoms
Abdomen/GI: Reports Abdominal Pain and Anorexia (still with poor appetite); Denies Constipated (had nl BM yesterday and again today)
Physical Exam
-
General: Well Developed, Well Nourished and No Apparent Distress
HEENT: Normocephalic, Atraumatic and Moist Mucous Membranes
Respiratory: Clear to Auscultation; Negative Wheezes, Rales or Rhonchi
Cardiac: Regular Rhythm and S1/S2
GI: Soft, Normal Bowel Sounds (more active BS today) and Tender (but less pronounced when compared to yesterday)
Musculoskeletal: No Clubbing, No Cyanosis and No Edema
Skin: Warm and Dry
[2025-01-18] MEDS: NOVOLOG FLEXPEN 8 UNITS SC ×2 (12:48→18:41)
[2025-01-18 12:55] LABS: Glucose - Point of Care 117 mg/dl (70-99)
--- NOTE | 2025-01-18 13:20 | PTCARENOTE ---
Pt's assessment and care as documented. VSS. Family member at bedside. Pt updated on plan of care/medications via language line. Medicated with PRN Dilaudid with good effect, see MAR. Safe environment maintained, call zuleta within reach.
[2025-01-18 13:23] LABS: Blood Urea Nitrogen 42 mg/dl (7-17); Calcium 7.8 mg/dl (8.4-10.2); Carbon Dioxide 26 mmol/L (22-30); Chloride 101 mmol/L (98-107); Estimated Creatinine Clearance 6 ml/min; Glucose 115 mg/dl (70-99); Potassium 3.0 mmol/L (3.5-5.1); Sodium 135 mmol/L (135-145); eGFR 6.46
[2025-01-18] MEDS: KCL 40 MEQ PO (13:55)
[2025-01-18 17:28] LABS: Glucose - Point of Care 130 mg/dl (70-99)
[2025-01-18] MEDS: HEPARIN 5000 UNITS SC (19:48)
[2025-01-18] MEDS: ULTRAM 50 MG PO (20:51)
[2025-01-18 21:19] LABS: Glucose - Point of Care 172 mg/dl (70-99)
--- NOTE | 2025-01-18 21:44 | PTCARENOTE ---
Assumed care for patient overnight, received report from judie RN. Pt Marshallese speaking, utilizing dry janitor iPad. Pt ambulated to the bathroom with standby assistance. Pt had 2 loose BMs. Pt was incontinent of stool while ambulating to the
bathroom. BRIAN Whyte made aware, new orders for stool sample collected and sent. Due to multiple loose BM's which were also reported throughout the day, held stool softeners. Full linen change, gown change, and CHG bath done. Pt having 9/10 abdominal
pain, PRN Ultram given. PD q4h per order. Instructed the pt how to utilize the call zuleta for assistance. Call zuleta within reach.
[2025-01-18] MEDS: LANTUS 0.12 UNITS SC (22:21)
[2025-01-18] MEDS: ZETIA 10 MG PO (22:21)
[2025-01-19] VITALS (11 sets, daily range): BP systolic 115–178; BP diastolic 72–129; BMI 27.7
[2025-01-19] MEDS: ZOSYN 50 IV (03:47)
[2025-01-19] MEDS: SYNTHROID 100 MCG PO (06:20)
--- NOTE | 2025-01-19 07:29 | PTCARENOTE ---
Pt sleeping on walking rounds, at bedside .
[2025-01-19 08:07] LABS: Hematocrit 36.2 % (37.0-47.0); Hemoglobin 12.4 g/dL (12.0-16.0); Mean Corp Hgb Conc. 34.3 g/dL (33.0-37.0); Mean Corpuscular Volume 86.4 fL (81.0-99.0); Nucleated Red Blood Cells % 0 %; Platelet Count 341 10^3/uL (130-400); Red Cell Dist. Width 13.5 % (11.5-14.5)
[2025-01-19] MEDS: VITAMIN D3 (cholecalciferol) 25 MCG PO (08:13)
[2025-01-19] MEDS: LIPITOR 10 MG PO (08:13)
[2025-01-19] MEDS: NOVOLOG FLEXPEN-LOW RESISTANCE SC (08:13)
[2025-01-19] MEDS: DEMADEX 40 MG PO (08:13)
[2025-01-19] MEDS: COLACE PO ×2 (08:14→19:27)
[2025-01-19] MEDS: ROCALTROL 0.5 MCG PO (08:14)
[2025-01-19] MEDS: REGLAN 5 MG PO ×2 (08:14→16:31)
[2025-01-19] MEDS: PROCARDIA XL (EXTENDED RELEASE) 60 MG PO ×2 (08:14→19:30)
[2025-01-19] MEDS: HEPARIN 5000 UNITS SC ×2 (08:15→19:30)
[2025-01-19 08:22] LABS: Blood Urea Nitrogen 41 mg/dl (7-17); Calcium 8.8 mg/dl (8.4-10.2); Carbon Dioxide 25 mmol/L (22-30); Chloride 103 mmol/L (98-107); Estimated Creatinine Clearance 7 ml/min; Glucose 106 mg/dl (70-99); Potassium 3.3 mmol/L (3.5-5.1); Sodium 138 mmol/L (135-145); eGFR 6.82
[2025-01-19 08:23] LABS: Glucose - Point of Care 125 mg/dl (70-99)
[2025-01-19] MEDS: DILAUDID 0.25 MG IV (08:44)
[2025-01-19] MEDS: SENOKOT PO ×2 (08:44→19:28)
--- NOTE | 2025-01-19 09:05 | PTCARENOTE ---
Pt PD late duetoequip malfunction
--- NOTE | 2025-01-19 09:19 | W.PN.HOSP.TC ---
Today's Communication/Plan
-
ID consult
Assessment / Plan
Assessment / Plan
59yo italian speaking F with ESRD on peritoneal dialysis, HLD, DM, hypothyroidism, HTN, GERD came with worsening of her chronic abdominal pain, worse at night that she had chronically since initiation of her PD 3 years ago. FLuid Cx neg for
infection. Developed hematemesis prior to arrival to ED.
A/P:
#abdominal pain, acute on chronic
#Leukocytosis
#pancolitis on CT
stool studies
C,diff neg
Zosyn empirically and get ID consult
since pain is PD related, will need to return to see her surgeon at [facility] per site leader
#ESRD
cont PD
nephro follows
#DJD
#Small pericadial effusion 2/2 volume overload 2/2 ESRD
#MASLD
#Small hyatal hernia
Outpatient follow up
#Acute blood loss anemia on anemia of chronic disease
GI: no EGD
cont PPI
#DM type 1
Basal/bolus insulin, DM diet, Accuchecks and insulin SS
#Hypothyroidism
#HLD
#Essential HTN
#Anxiety/depression
cont home meds
DVT ppx hep
Full code
I have spent at least 57min reviwing chart, test resuklts, communication with consultants and providing direct patient care
Anticipated Discharge: 24 - 48 hours
Subjective/Interval History
-
Date of Service: January 19, 2025
Objective Data
-
Labs:
Laboratory Results
01/19/25 01/19/25
03:45 07:50
WBC Cancelled 13.5 H
Hgb Cancelled 12.4
Hct Cancelled 36.2 L
Plt Count Cancelled 341
Sodium 138
Potassium 3.3 L
Chloride 103
Carbon Dioxide 25
BUN 41 H
Creatinine 6.5 H*
Glucose 106 H
Calcium 8.8
Vital Signs:
Vital Signs
Temp Pulse Resp BP Pulse Ox
97.4 F 81 14 178/96 96
01/19/25 03:00 01/19/25 08:13 01/19/25 06:00 01/19/25 08:13 01/19/25 02:00
I&O
01/18/25 01/19/25 01/20/25
06:59 06:59 06:59
Intake Total 50 / 50 100 / 100
Output Total 500 / 500 1400 / 1400
Balance -450 / -450 -1300 / -1300
Review of Systems
-
History Source: Patient and Family
All other systems: Reviewed and negative
Physical Exam
-
General: No Apparent Distress
HEENT: Normocephalic
Respiratory: Clear to Auscultation
GI: Soft, Nondistended and Tender
Genito-urinary: No Costovertebral Tender
Musculoskeletal: No Clubbing, No Cyanosis and No Edema
Neuro: Awake, Alert, Oriented and AO x 3
--- NOTE | 2025-01-19 10:05 | CON.ID ---
Consultation
-
Date/Time Consultation Requested: January 19, 2025 0918
Date/Time Consultation Performed: January 19, 2025 1000
Requesting Provider: Dr. Haroldo Smart
Performing Provider: Dr. Jen Beyer
Reason for Consultation: Pancolitis
Chief Complaint / Past History
Chief Complaint
Upper abdominal pain and vomiting
History of Present Illness
59-year-old female with history of diabetes mellitus, end-stage renal disease and started peritoneal dialysis approximately 2 months ago, gastroparesis who presented to the hospital on January due to left upper abdominal pain, nausea, emesis. She has
been afebrile in the hospital. Peritoneal fluid only 6 white blood cells and therefore no peritonitis. CAT scan of the abdomen pelvis showed mild bowel wall thickening in the cecum, ascending colon, transverse colon, descending colon, sigmoid and
rectum. She was started on Zosyn. She developed diarrhea while on Zosyn. Stool for C. difficile negative. Culture pending. Patient reports intermittent left upper abdominal discomfort usually associated with movement and also with peritoneal
dialysis. No fevers or chills. Nausea has improved.
Past History
Additional Past Medical History:
Diabetes mellitus
End-stage renal disease on peritoneal dialysis
Hypothyroidism
HLD
Gastroparesis
History of pancreatitis
CHF
Additional Past Surgical History:
Cholecystectomy
Appendectomy
Allergy History:
metformin Allergy (Verified 01/15/25 06:55)
DIARRHEA
sitagliptin (From Januvia) Allergy (Verified 01/15/25 06:55)
diarrhea
Medications Reviewed: Yes
Current Antibiotics:
Zosyn d4
Social History
Tobacco: Non-Smoker
Alcohol: None
Drug: None
Personal:
Family History
Family History: Not Pertinent
Review of Systems
Review of Systems
General: Change in Appetite; Negative Fever or Chills
HEENT: Negative Sinus Problems or Headache
Cardiovascular: Negative Chest Pain or Dyspnea
Respiratory: Negative Dyspnea or Cough
Gasteroenterology: Nausea, Vomiting and Diarrhea
Genital / Urological: Negative Flank Pain
Endocrine: Negative Weakness
All systems: All other systems were reviewed and were negative
Vital Signs
Temp Pulse Resp BP Pulse Ox
97.4 F 81 14 178/96 96
01/19/25 07:59 01/19/25 08:13 01/19/25 06:00 01/19/25 08:13 01/19/25 02:00
Physical Exam
Physical Exam
Constitutional: Non-toxic; Negative Comfortable
Eyes: No Conjunctival Hemorrhage and Sclera Anicteric
Cardiovascular: Regular Rate and S1/S2
Pulmonary: Clear
Gastrointestinal: Soft, Tender (left upper quadrant), Non Distended, Normal Bowel Sounds and Other (right abd PD catheter dry, no erythema)
Genito-Urinary: Negative CVA Tenderness
Extremities: Negative Edema
Neurological: AO x 3
Lab / Diagnostic Study Results
01/19/25 07:50
01/19/25 07:50
Abs Immat Gran (auto) 0.1 10^3/uL (0-0.05) H 01/19/25 07:50
Absolute Neuts (auto) 11.3 10^3/uL (1.4-6.5) H 01/19/25 07:50
Absolute Lymphs (auto) 1.5 10^3/uL (1.2-3.4) 01/19/25 07:50
Absolute Monos (auto) 0.5 10^3/uL (0.1-0.6) 01/19/25 07:50
Absolute Basos (auto) 0.1 10^3/uL (0-0.2) 01/19/25 07:50
Immature Gran % 0.7 % (0-0.5) H 01/19/25 07:50
Neutrophils % 83.9 % (42.2-75.2) H 01/19/25 07:50
Lymphocytes % 11.0 % (20.5-51.1) L 01/19/25 07:50
Monocytes % 3.5 % (1.7-9.3) 01/19/25 07:50
Eosinophils % 0.4 % (0-6) 01/19/25 07:50
Basophils % 0.5 % (0-2) 01/19/25 07:50
PT 14.9 Sec (11.4-14.6) H 01/15/25 09:17
INR 1.14 01/15/25 09:17
Microbiology Results
Micro:
01/16/25 04:04 Body Fluid Culture - Final
Peritoneal Fluid No Growth After 72 Hours
Gram Stain - Final
01/18/25 21:03 C. difficile GDH Antigen & Toxins - Final
Feces/Stool Negative for toxigenic C.difficile
01/18/25 21:03 Salmonella/Shigella Culture - Pending
Feces/Stool Campylobacter Culture - Pending
Shiga Toxin Test - Pending
01/15/25 CT a/p: Mild diffuse pancolitis.
Assessment / Plan
# ESRD recently started on peritoneal dialysis approx 2 months ago
# LUQ abd intermittent abd pain, positional and associated with peritoneal dialysis
- PD fluid - only 6 cells, cx neg. No peritonitis.
- Suspect pt intolerance to PD, may need eventual transition to HD. Follow-up with her bounty trapper.
# Incidental finding of mild pancolitis
- Imaging does not clinically correlate. Pt WITHOUT diffuse abd pain.
- Onset of diarrhea AFTER abx.
- No indication for further abx. DC Zosyn (d4)
ID will sign off.
[2025-01-19] MEDS: NOVOLOG FLEXPEN 8 UNITS SC ×2 (11:22→17:15)
--- NOTE | 2025-01-19 12:11 | W.PN.NEPH.PH ---
Today's Communication / Plan
-
hold PD
Assessment/Plan
-
Assessment:
Intractable epigastric pain and coffee-ground emesis
Coronary artery calcification.Stress test February 2023 normal myocardial perfusion consult LV function
Diabetes with hyperglycemia
End-stage renal disease on PD at [facility]
Hypothyroidism
Hyperlipidemia
Hypertension
Anxiety/depression
Chronic pain on tramadol
Fatty liver
Obesity
Anemia possibly of CKD
Nephrolithiasis, incidental
Plan:
per patient abdominal pain since starting PD. mostly with infusion of fluid, not with drain, but she develops pain when she starts at night and it worsens throughout the night until she is off in the morning.
we reduced FV to 1.8lit but no change in symp
reviewed with pt that she is unlikely toelrating PD at this time and possibly need to change to HD
pt is hesitant, will hold PD through the weekend and monitor symp
If her abd pain is better likely need to move forward with HD
reviewed with daughter on phone and pt , at bedside in detail
replace k
d/w nursing
PD fluid not indicative of infection/peritonitis, off abx -ID follows
PD flow sheets noted, FD 600cc, FV 1.8lit, Q4H change
-
-
Date of Service: January 19, 2025
CC / HPI / ROS
-
Chief Complaint:
ESRD
History of Present Illness:
PD in progress, UF reviewed 600cc
BP stable, k low but better at 3.4
off abx, WBC improving
Review of Systems:
no CP/SOB
still with abdominal pain
Labs
-
Labs:
WBC 13.5 10^3/uL (4.8-10.8) H 01/19/25 07:50
RBC 4.19 10^6/uL (4.20-5.40) L 01/19/25 07:50
Hgb 12.4 g/dL (12.0-16.0) 01/19/25 07:50
Hct 36.2 % (37.0-47.0) L 01/19/25 07:50
Plt Count 341 10^3/uL (130-400) 01/19/25 07:50
Sodium 138 mmol/L (135-145) 01/19/25 07:50
Potassium 3.3 mmol/L (3.5-5.1) L 01/19/25 07:50
Chloride 103 mmol/L (98-107) 01/19/25 07:50
Carbon Dioxide 25 mmol/L (22-30) 01/19/25 07:50
BUN 41 mg/dl (7-17) H 01/19/25 07:50
Creatinine 6.5 mg/dL (0.6-1.0) H* 01/19/25 07:50
eGFR 6.82 01/19/25 07:50
Glucose 106 mg/dl (70-99) H 01/19/25 07:50
Calcium 8.8 mg/dl (8.4-10.2) 01/19/25 07:50
Albumin 4.3 g/dl (3.5-5.0) 01/15/25 09:17
Physical Exam
-
Vital Signs:
Vital Signs
Temp Pulse Resp BP Pulse Ox
97.4 F 89 12 145/107 96
01/19/25 07:59 01/19/25 10:00 01/19/25 10:00 01/19/25 08:46 01/19/25 10:00
Cardiovascular:: Regular rate and rhythm
Respiratory:: Bilateral: CTA
Lung Excursion:: Normal
Abdomen:: Nontender and Soft
Extremity Edema:: None: Bilateral:
Granados Catheter: No
[2025-01-19] MEDS: NOVOLOG FLEXPEN-LOW RESISTANCE 1 UNITS SC ×2 (12:53→17:14)
[2025-01-19] MEDS: REGLAN PO (12:54)
[2025-01-19 12:55] LABS: Glucose - Point of Care 188 mg/dl (70-99)
[2025-01-19] MEDS: NOVOLOG FLEXPEN SC (12:55)
[2025-01-19] MEDS: KCL 40 MEQ PO (14:20)
--- NOTE | 2025-01-19 15:47 | PTCARENOTE ---
Pt drained no fill as PD is canceled for the weekend may resume on Tuesday
[2025-01-19 17:06] LABS: Glucose - Point of Care 153 mg/dl (70-99)
[2025-01-19] MEDS: IMODIUM 2 MG PO (21:20)
[2025-01-19] MEDS: ZETIA 10 MG PO (21:20)
[2025-01-19 21:24] LABS: Glucose - Point of Care 250 mg/dl (70-99)
[2025-01-19] MEDS: LANTUS 0.12 UNITS SC (21:26)
[2025-01-20] VITALS (10 sets, daily range): BP systolic 95–181; BP diastolic 58–103; BMI 27.2
--- NOTE | 2025-01-20 02:58 | PTCARENOTE ---
Assumed care for patient overnight. PD cancelled will resume Tuesday. Pt no longer experiencing abdominal pain. Pt having frequent loose stools, BRIAN Calderon made aware, orders for one time dose Imodium see SEP. NSR to ST on the monitor. 95% SpO2 on
room air. No complaints at this time, call zuleta is within reach.
[2025-01-20 03:42] LABS: Hematocrit 31.0 % (37.0-47.0); Hemoglobin 10.7 g/dL (12.0-16.0); Mean Corp Hgb Conc. 34.5 g/dL (33.0-37.0); Mean Corpuscular Volume 86.8 fL (81.0-99.0); Nucleated Red Blood Cells % 0 %; Platelet Count 265 10^3/uL (130-400); Red Cell Dist. Width 12.8 % (11.5-14.5)
[2025-01-20 04:16] LABS: ALT (SGPT) 20 U/L (0-35); AST (SGOT) 20 U/L (14-36); Albumin 3.5 g/dl (3.5-5.0); Alkaline Phosphatase 123 U/L (38-126); Blood Urea Nitrogen 42 mg/dl (7-17); Calcium 8.4 mg/dl (8.4-10.2); Carbon Dioxide 21 mmol/L (22-30); Chloride 102 mmol/L (98-107); Estimated Creatinine Clearance 7 ml/min; Glucose 223 mg/dl (70-99); Potassium 3.8 mmol/L (3.5-5.1); Sodium 135 mmol/L (135-145); Total Protein 5.8 g/dl (6.3-8.2); eGFR 6.82
[2025-01-20] MEDS: SYNTHROID 100 MCG PO (06:11)
--- NOTE | 2025-01-20 08:16 | W.PN.HOSP.TC ---
Today's Communication/Plan
-
d/c
Assessment / Plan
Assessment / Plan
59yo Cymro speaking F with ESRD on peritoneal dialysis, HLD, DM, hypothyroidism, HTN, GERD came with worsening of her chronic abdominal pain, worse at night that she had chronically since initiation of her PD 3 years ago. FLuid Cx neg for
infection. Developed hematemesis prior to arrival to ED. CT with nonspecific pancolitis. ID recommended to stop Abx. C.diff neg. Pain resolved while holding off PD, since pain is PD related, will need to return to see her surgeon at [facility] per
sample tester grinder, most liekly patient does not tolerate PD. At this time as per conversation with patient and family - she wants to cont her PD. ALso started pancrelipase. Cannot r/o gastritis - outpatient GI for EGD, cont PPI. As pr discussion with
nephrology - medcially stable for d/c home - same discussed with family. Minimal leukocytosis continues to improve off Abx.
A/P:
#abdominal pain, acute on chronic
#Leukocytosis
#pancolitis on CT
#Gastroparesis
#Pancreatic atrophy
stool studies
C,diff neg
Zosyn empirically initially but stopped as per ID consult and absent overt infection
Pain resolved while holding off PD, since pain is PD related, will need to return to see her surgeon at [facility] per sample tester grinder, most liekly patient does not tolerate PD. At this time as per conversation with patient and family - she wants to
cont her PD
Cannot r/o gastritis - outpatient GI for EGD, cont PPI
reasonable to start Creon
#ESRD
cont PD
nephro follows
#DJD
#Small pericardial effusion 2/2 volume overload 2/2 ESRD
#MASLD
#Small hyatal hernia
Outpatient follow up
#Acute blood loss anemia on anemia of chronic disease
GI: no EGD
cont PPI
#DM type 1
Basal/bolus insulin, DM diet, Accuchecks and insulin SS
#Hypothyroidism
#HLD
#Essential HTN
#Anxiety/depression
cont home meds
DVT ppx hep
Full code
I have spent at least 57min reviewing chart, test results, communication with consultants and providing direct patient care
Anticipated Discharge: Within 24 hours
Subjective/Interval History
-
Date of Service: January 20, 2025
Objective Data
-
Labs:
Laboratory Results
01/20/25
03:29
WBC 14.6 H
Hgb 10.7 L
Hct 31.0 L
Plt Count 265 D
Sodium 135
Potassium 3.8
Chloride 102
Carbon Dioxide 21 L
BUN 42 H
Creatinine 6.5 H*
Glucose 223 H
Calcium 8.4
Total Bilirubin 0.4
AST 20
ALT 20
Alkaline Phosphatase 123
Vital Signs:
Vital Signs
Temp Pulse Resp BP Pulse Ox
98.3 F 90 16 95/84 95
01/20/25 08:13 01/20/25 06:32 01/20/25 08:13 01/20/25 06:32 01/20/25 08:13
I&O
01/19/25 01/20/25 01/21/25
06:59 06:59 06:59
Intake Total 100 / 100 240 / 240
Output Total 1400 / 1400 800 / 800
Balance -1300 / -1300 -560 / -560
Review of Systems
-
History Source: Patient
All other systems: Reviewed and negative
Physical Exam
-
General: No Apparent Distress
HEENT: Normocephalic
Neuro: Awake, Alert, Oriented and AO x 3
Psych: Calm
[2025-01-20 08:28] LABS: Glucose - Point of Care 169 mg/dl (70-99)
[2025-01-20] MEDS: NOVOLOG FLEXPEN 8 UNITS SC ×2 (08:31→12:43)
[2025-01-20] MEDS: NOVOLOG FLEXPEN-LOW RESISTANCE 1 UNITS SC (08:32)
[2025-01-20] MEDS: COLACE 100 MG PO (08:34)
[2025-01-20] MEDS: REGLAN 5 MG PO ×2 (08:35→12:45)
[2025-01-20] MEDS: DEMADEX 40 MG PO (08:36)
[2025-01-20] MEDS: LIPITOR 10 MG PO (08:38)
[2025-01-20] MEDS: ROCALTROL 0.5 MCG PO (08:38)
[2025-01-20] MEDS: VITAMIN D3 (cholecalciferol) 25 MCG PO (08:42)
[2025-01-20] MEDS: PROTONIX 40 MG PO (08:42)
[2025-01-20] MEDS: PROCARDIA XL (EXTENDED RELEASE) 60 MG PO (08:42)
[2025-01-20] MEDS: HEPARIN 5000 UNITS SC (08:42)
[2025-01-20] MEDS: SENOKOT PO (08:42)
--- NOTE | 2025-01-20 10:00 | PTCARENOTE ---
Patient Martiniquais speaking only,patient's in room to translate. Patient denies any N/V, denies any abdominal pain. PD on hold for the weekend. VS stable. Will monitor.
--- NOTE | 2025-01-20 10:58 | W.DCSUMMARY ---
Discharge Summary
Discharge Data
Date of Admission: 01/15/25
Date of Discharge: 01/20/25
-
Pending Results: Yes
Additional Pending Results:
stool culture
Hospital Course
59yo Frisian speaking F with ESRD on peritoneal dialysis, HLD, DM, hypothyroidism, HTN, GERD came with worsening of her chronic abdominal pain, worse at night that she had chronically since initiation of her PD 3 years ago. FLuid Cx neg for
infection. Developed hematemesis prior to arrival to ED. CT with nonspecific pancolitis. ID recommended to stop Abx. C.diff neg. Pain resolved while holding off PD, since pain is PD related, will need to return to see her surgeon at [facility] per
patient financial representative, most liekly patient does not tolerate PD. At this time as per conversation with patient and family - she wants to cont her PD. ALso started pancrelipase. Cannot r/o gastritis - outpatient GI for EGD, cont PPI. As pr discussion with
nephrology - medcially stable for d/c home - same discussed with family. Minimal leukocytosis continues to improve off Abx.
I have spent at least 57min reviewing chart, test results, communication with consultants and providing direct patient care
Patient was managed for:
#abdominal pain, acute on chronic
#Leukocytosis
#pancolitis on CT
#Gastroparesis
#Pancreatic atrophy
#ESRD
#DJD
#Small pericardial effusion 2/2 volume overload 2/2 ESRD
#MASLD
#Small hyatal hernia
#Acute blood loss anemia on anemia of chronic disease
#DM type 1
#Hypothyroidism
#HLD
#Essential HTN
#Anxiety/depression
Discharge Plan
-
Patient Disposition: Home (Routine Discharge)
Discharge Diagnosis/Procedures: abd pain
Diet: Other diet
Additional Diets: renal
Referrals:
Elias Evans MD [Family Provider, Family Practice]
Yessy Heath DO [Active, Gastroenterology] - in two to four weeks
Referral Note: EGD
Prescriptions:
New
pantoprazole 40 mg Tablet,Delayed Release (Dr/Ec)
40 mg PO DAILY Qty: 30 0RF
Zenpep 10,000-32,000 -42,000 unit Capsule,Delayed Release(Dr/Ec)
1 cap PO MEALS Qty: 90 0RF
Continued
levothyroxine 100 MCG tablet
100 mcg PO DAILY@07
atorvastatin 10 mg Tablet
10 mg PO DAILY
ezetimibe 10 MG tablet
10 mg PO HS Qty: 30 0RF
cholecalciferol (vitamin D3) 25 mcg (1,000 unit) Tablet
25 mcg PO DAILY Qty: 30 0RF
torsemide 20 mg Tablet
40 mg PO DAILY
tramadol 50 mg Tablet
50 mg PO BIDPRN PRN (Reason: moderate pain)
ondansetron 8 mg Tablet,Disintegrating
8 mg PO DAILYPRN PRN (Reason: nausea)
nortriptyline 75 mg Capsule
75 mg PO HSPRN PRN (Reason: anxiety)
calcitriol 0.5 mcg Capsule
0.5 mcg PO DAILY
calcium carbonate [Tums] 200 mg calcium (500 mg) Tablet,Chewable
200 mg PO BIDPRN PRN (Reason: Indigestion)
nifedipine 60 mg Tablet Extended Release
60 mg PO BID
metoclopramide HCl 5 mg tablet
5 mg PO AC
Changed
insulin lispro [Humalog KwikPen Insulin] 100 unit/mL Insulin Pen
8 unit SC AC Qty: 0 0RF
insulin glargine [Basaglar KwikPen U-100 Insulin] 100 unit/mL (3 mL) insulin pen
12 unit SC HS Qty: 0 0RF
Discontinued
pantoprazole 40 mg tablet,delayed release (DR/EC)
40 mg PO DAILY
Discharge Orders:
Discharge Patient (As Directed); Ordered 01/20/25
Ordered By: Haroldo Smart
Discharge Date and Time
Print Language: WOLOF
[2025-01-20 11:58] LABS: Glucose - Point of Care 122 mg/dl (70-99)
--- NOTE | 2025-01-20 12:11 | W.PN.NEPH.PH ---
Today's Communication / Plan
-
ok to d/c
Assessment/Plan
-
Assessment:
Intractable epigastric pain and coffee-ground emesis
Coronary artery calcification.Stress test February 2023 normal myocardial perfusion consult LV function
Diabetes with hyperglycemia
End-stage renal disease on PD at [facility]
Hypothyroidism
Hyperlipidemia
Hypertension
Anxiety/depression
Chronic pain on tramadol
Fatty liver
Obesity
Anemia possibly of CKD
Nephrolithiasis, incidental
Plan:
Abd pain seem to be related to PD, no pain off PD
symp present despite lowering FV to 1.8lit
reviewed with family in detail yesterday and today
she has appointment tomorrow with dialysis nurse and will go over options
Pt is hesitant to change to HD and aware that should not miss dialysis moving forward
She will likely need to see surg at [facility]
PD fluid not indicative of infection/peritonitis, off abx -ID follows
d/w nursing
ok to d/c
-
-
Date of Service: January 20, 2025
CC / HPI / ROS
-
Chief Complaint:
ESRD
History of Present Illness:
off pD since yesterday
BP stable, k low but better at 3.8
off abx, WBC improving
Review of Systems:
no fever
improved abdominal pain
Labs
-
Labs:
WBC 14.6 10^3/uL (4.8-10.8) H 01/20/25 03:29
RBC 3.57 10^6/uL (4.20-5.40) L 01/20/25 03:29
Hgb 10.7 g/dL (12.0-16.0) L 01/20/25 03:29
Hct 31.0 % (37.0-47.0) L 01/20/25 03:29
Plt Count 265 10^3/uL (130-400) D 01/20/25 03:29
Sodium 135 mmol/L (135-145) 01/20/25 03:29
Potassium 3.8 mmol/L (3.5-5.1) 01/20/25 03:29
Chloride 102 mmol/L (98-107) 01/20/25 03:29
Carbon Dioxide 21 mmol/L (22-30) L 01/20/25 03:29
BUN 42 mg/dl (7-17) H 01/20/25 03:29
Creatinine 6.5 mg/dL (0.6-1.0) H* 01/20/25 03:29
eGFR 6.82 01/20/25 03:29
Glucose 223 mg/dl (70-99) H 01/20/25 03:29
Calcium 8.4 mg/dl (8.4-10.2) 01/20/25 03:29
Albumin 3.5 g/dl (3.5-5.0) 01/20/25 03:29
Physical Exam
-
Vital Signs:
Vital Signs
Temp Pulse Resp BP Pulse Ox
98.3 F 92 18 114/63 95
01/20/25 08:13 01/20/25 10:00 01/20/25 10:00 01/20/25 10:00 01/20/25 10:55
Cardiovascular:: Regular rate and rhythm
Respiratory:: Bilateral: CTA
Lung Excursion:: Normal
Abdomen:: Nontender and Soft
Extremity Edema:: None: Bilateral:
Granados Catheter: No
[2025-01-20] MEDS: ZENPEP DELAYED RELEASE CAPSULE 1 CAPSULE PO (12:45)
[2025-01-20] MEDS: NOVOLOG FLEXPEN-LOW RESISTANCE SC (12:45)
--- NOTE | 2025-01-20 15:43 | CM ---
Greek speaking patient with Hx ESRD on PD with Dx abdominal pain. Room air. Per nurse; A/O, ambulatory by self, PD on hold for the weekend, patient's PD schedule is -.
Met with patient and daughter Sarah; patient and daughter agree with d/c home today. Daughter says she stays with the patient and assists the patient at home. Daughter will provide transport home today.
Plan home today.
== END 2025-01-20 13:45 | disposition home or self-care (01) | DRG 391 ==
LOC: IMU 11:55
PROVIDERS: Nurse Practitioner Adult Health; Nurse Practitioner Family; Specialist; ADMITTING PHYSICIAN Hospitalist; ATTENDING PHYSICIAN Internal Medicine; CONSULT PHYSICIAN Internal Medicine; CONSULT PHYSICIAN Internal Medicine Infectious Disease; EMERGENCY PHYSICIAN Emergency Medicine; FAMILY PHYSICIAN Family Medicine; OTHER PHYSICIAN Internal Medicine
PROC: 30233N1 Transfusion of Nonautologous Red Blood Cells into Peripheral Vein, Percutaneous Approach (ICD-10-PCS; 2025-01-15)
PROC: 3E1M39Z Irrigation of Peritoneal Cavity using Dialysate, Percutaneous Approach (ICD-10-PCS; 2025-01-16)
DX: K52.9 Noninfective gastroenteritis and colitis, unspecified (principal); N18.6 End stage renal disease; I13.2 Hypertensive heart and chronic kidney disease with heart failure and with stage 5 chronic kidney disease, or end stage renal disease; K92.0 Hematemesis; D62 Acute posthemorrhagic anemia; I31.39 Other pericardial effusion (noninflammatory); E10.43 Type 1 diabetes mellitus with diabetic autonomic (poly)neuropathy; I50.9 Heart failure, unspecified; E10.65 Type 1 diabetes mellitus with hyperglycemia; K21.9 Gastro-esophageal reflux disease without esophagitis; D63.1 Anemia in chronic kidney disease; E78.00 Pure hypercholesterolemia, unspecified; K31.84 Gastroparesis; I25.10 Atherosclerotic heart disease of native coronary artery without angina pectoris; F32.A Depression, unspecified; F41.9 Anxiety disorder, unspecified; G89.29 Other chronic pain; K76.0 Fatty (change of) liver, not elsewhere classified; E03.9 Hypothyroidism, unspecified; E10.22 Type 1 diabetes mellitus with diabetic chronic kidney disease; N20.0 Calculus of kidney; K44.9 Diaphragmatic hernia without obstruction or gangrene; K86.89 Other specified diseases of pancreas; M19.90 Unspecified osteoarthritis, unspecified site; I16.0 Hypertensive urgency; K59.00 Constipation, unspecified; R13.10 Dysphagia, unspecified; E55.9 Vitamin D deficiency, unspecified; Z60.3 Acculturation difficulty; Z79.4 Long term (current) use of insulin; Z87.11 Personal history of peptic ulcer disease; Z90.49 Acquired absence of other specified parts of digestive tract; Z79.890 Hormone replacement therapy; Z99.2 Dependence on renal dialysis; Z88.8 Allergy status to other drugs, medicaments and biological substances; Z87.19 Personal history of other diseases of the digestive system
CPT/HCPCS: 36430; 74177; 80048; 80053; 82962; 83036; 83690; 84484; 85014; 85018; 85025; 85027; 85610; 85730; 86850; 86900; 86901; 86920; 87015; 87045; 87046; 87070; 87205; 87324; 87427; 87449; 89051; 93005; 96374; 96375; 96376; 99291; P9016; Q9967

== ENCOUNTER 2025-02-16 16:06 | Inpatient (IN) | payer OTHER, SELFPAY ==
[2025-02-16] VITALS (12 sets, daily range): BP systolic 134–199; BP diastolic 74–102; BMI 24.9; BMI 24.6
--- NOTE | 2025-02-16 13:13 | ED.GENMED ---
History of Present Illness
General
Chief Complaint: Abdominal Pain
Time Seen by Provider: 02/16/25 12:51
Nursing documentation reviewed up to this point in time: agreed with
History of Present Illness
History of Present Illness:
59-year-old female brought to the ER by family for evaluation of upper abdominal pain worsening over the past week. Patient has a prior history of gastroparesis and has been vomiting more frequently. She is been taking all of her medications as
prescribed but has been having worsening epigastric abdominal pain, similar to prior flares of gastroparesis. Patient speaks primarily Mongolian and brings with her son for translation assistance. His sister is her primary caregiver and is available
by phone to help answer questions related to recent management. Patient has been receiving her nightly dialysis without issue. No reported change in the color or consistency of diastole. Patient reports feeling feverish last night. No
antipyretics administered. Patient had been admitted to this hospital in January for similar symptoms but also had hematemesis. No reported hematemesis with vomiting today. Last bowel movement was yesterday, not diarrhea. No cough or cold symptoms.
No chest pain. Patient reports diffuse back pain, similar to prior discomfort. She did try taking some Tums this morning without improvement.
She does also have significant additional prior medical history including congestive heart failure, hypertension, hyperlipidemia, diabetes
Past History
Past History
ED Past Medical History: GERD, HTN, Hypercholesterolemia, NIDDM, Renal failure and Other (anemia)
ED Past Surgical History: Appendectomy, Cholecystectomy and
Patient has exhibited threatening behavior?: No
Social History
Tobacco: Non-smoker
Alcohol: None
Drug: None
Personal:
Living: with family
Employment: Not employed
Family History
Family History: Hypertension
Phy Exam
Physical Exam
Physical Exam:
Patient is awake, alert, preferring to lay left lateral recumbent, head is normocephalic atraumatic, sclerae anicteric, conjunctiva pink, heart regular rate and rhythm not murmurs or ectopy, lungs are clear to auscultation without wheezes rales or
rhonchi, abdomen is soft with localized pain on palpation epigastrium only, no guarding or rebound, dialysis catheter present right lower quadrant which is nontender on palpation, fluid in tube appears clear, no palpable hernias, extremities without
edema, 2+ DP pulses present bilateral feet, GCS is 15
Course
Orders/Labs/Results
Orders:
Orders
02/16/25 13:02
Electrocardiogram (*1) Stat
Reason for Study: Other
Other Reason for Exam: Diabetes
EKG- Treatment ONCE
CR Chest - 2 Views Urgent
Comment:
Reason For Exam: abdominal pain
02/16/25 13:03
Famotidine [Pepcid] 20 mg IV NOW STA
Metoclopramide [Reglan] 10 mg IV NOW STA
02/16/25 13:04
CT Abd/pelvis W Iv Cont Urgent
Comment:
Reason For Exam: upper abdominal pain
02/16/25 13:40
Complete Blood Count/With Diff Urgent
Comprehensive Metabolic Panel Urgent
Lipase Urgent
Troponin I Q3H
02/16/25 15:04
Admit/Transfer Patient As Directed
Co-Sign Provider:
Level of Care: Inpatient admission
Assign to:: Medical/Surgical
Physician / Group: ze
Diagnosis: gastroparesis
Reason for Hospitalization: gastroparesis
Expected length of stay greater than two midnights?: Yes
ELOS- Estimated Length of Stay in days: 2
I certify the patient meets the requirements for IP care: Yes
02/16/25 15:05
Code Status As Directed
Resuscitation Status: Full Code
PRN Pain Medication Management As Directed
May give lesser potent ordered pain med per pt: Yes
preference::
Protocol:: Medication orders for pain may be administered in a
manner that supports deferring to patient preference
when the pt is:
- Requesting an ordered lesser potent pain medication.
Least to most potent pain medications are defined
as: acetaminophen < NSAID < tramadol < opioids
(morphine, oxycodone, hydromorphone).
- Requesting a lesser dose of the same medication IF
ORDERED.
- Requesting a less intrusive route of administration
if both routes are prescribed by the provider (PO <
IV).
02/16/25 16:00
0.9% Sodium Chloride 500 ml [Nss] 500 ml IV 70 mls/hr
02/16/25 16:15
Troponin I Q3H
Abnormal Lab Results
02/16/25
13:40
RBC 3.77 L 10^6/uL
(4.20-5.40)
Hgb 10.9 L g/dL
(12.0-16.0)
Hct 32.4 L %
(37.0-47.0)
Plt Count 422 H 10^3/uL
(130-400)
Abs Immat Gran (auto) 0.1 H 10^3/uL
(0-0.05)
Absolute Neuts (auto) 8.0 H 10^3/uL
(1.4-6.5)
Absolute Lymphs (auto) 0.6 L 10^3/uL
(1.2-3.4)
Immature Gran % 0.7 H %
(0-0.5)
Neutrophils % 90.4 H %
(42.2-75.2)
Lymphocytes % 7.2 L %
(20.5-51.1)
Monocytes % 1.4 L %
(1.7-9.3)
Chloride 97 L mmol/L
(98-107)
BUN 40 H mg/dl
(7-17)
Creatinine 6.6 H* mg/dL
(0.6-1.0)
Glucose 377 H mg/dl
(70-99)
Alkaline Phosphatase 152 H U/L
(38-126)
02/16/25 13:40
02/16/25 13:40
White blood count very reassuring at 8.8. Kidney function impaired, not unexpected similar to prior. Elevated blood sugar without evidence of DKA.
Vital Signs
Initial and Last Documented VS:
Initial Vital Signs
Temp Pulse Resp BP Pulse Ox
99.5 F 109 16 192/96 98
02/16/25 12:06 02/16/25 12:06 02/16/25 12:06 02/16/25 12:06 02/16/25 12:06
Last Documented Vital Signs
Temp Pulse Resp BP Pulse Ox
99.5 F 107 16 134/74 98
02/16/25 12:06 02/16/25 15:00 02/16/25 14:49 02/16/25 14:49 02/16/25 15:00
MDM/Problems Addressed
Differential Diagnosis Includes:
Differential diagnosis to consider but not limited to exacerbation of gastroparesis, hyperglycemia, GERD, reflux, electrolyte dyscrasia, occult infection along with other etiologies considered
*Radiology
Radiology exam reviewed: radiology read reviewed (IMPRESSION: 1. Mild diffuse pancolitis. 2. Small hiatal hernia. 3. Previous cholecystectomy. 4. Moderate chronic bilateral renal disease. 5. Moderate elevation of the right hemidiaphragm.
6. Mild cardiomegaly.)
*Pulse Oximetry
SaO2: 98
Oxygen Mode of Delivery: Room air
Patient hypoxic: no
*EKG
Interpreted by ED Provider?: Yes (I dependently viewed and interpreted twelve-lead EKG showing sinus tachycardia, rate 106, leftward axis, no ST elevation, inferior Q waves, this is an abnormal tracing without significant change compared to prior
from 01/15/2025)
*Sample Dye Mixer Interpretation
Rate: tachycardiac (I independently viewed and interpreted rhythm strip showing sinus tachycardia, no ectopy)
*Critical Care Note
Total Time (30-74mins, 75-104mins- exclusive of procedures): Not Applicable
Data Reviewed
Review of Other/Old Records Reveals: Discharge Summary (I reviewed inpatient discharge summary from Dr. Smart dated 01/20/2025. I reviewed her discharge diagnoses and medication list)
Update Note
Update Note:
Full patient presentation and history were reviewed with the hospitalist who accepts patient for admission for further treatment
ED Attending Note
-
Portions of this chart may have been created with voice recognition software.� Occasional wrong word or��sound alike� substitutions may have occurred due to the inherent limitations of voice recognition software.
Discharge Plan
Departure
Patient Disposition: Admit
Date of Disposition: 02/16/25
Time of Disposition: 14:41
Presentation/result/management discussed w/ accepting MD/DO: Hospitalist
Discharge Problem:
Vomiting, End-stage renal disease on peritoneal dialysis
Interventions
Interventions:
*Risk Screen - Suicide Last Done: 02/16/25 12:06
*General Assessment Last Done: 02/16/25 12:58
*Neglect/Abuse Screening Last Done: 02/16/25 12:06
*ED COVID-19 Vaccine History Last Done: 02/16/25 12:58
OH-Ptuatq-Kbvgabtqvb Assessment Last Done: 02/16/25 12:58
[2025-02-16] MEDS: PEPCID 20 MG IV (13:36)
[2025-02-16] MEDS: REGLAN 10 MG IV (13:36)
[2025-02-16 13:49] LABS: Hematocrit 32.4 % (37.0-47.0); Hemoglobin 10.9 g/dL (12.0-16.0); Mean Corp Hgb Conc. 33.6 g/dL (33.0-37.0); Mean Corpuscular Volume 85.9 fL (81.0-99.0); Nucleated Red Blood Cells % 0 %; Platelet Count 422 10^3/uL (130-400); Red Cell Dist. Width 13.0 % (11.5-14.5)
[2025-02-16 14:15] LABS: ALT (SGPT) 25 U/L (0-35); AST (SGOT) 17 U/L (14-36); Albumin 4.2 g/dl (3.5-5.0); Alkaline Phosphatase 152 U/L (38-126); Blood Urea Nitrogen 40 mg/dl (7-17); Calcium 9.7 mg/dl (8.4-10.2); Carbon Dioxide 26 mmol/L (22-30); Chloride 97 mmol/L (98-107); Glucose 377 mg/dl (70-99); Lipase 118 U/L (23-300); Potassium 4.3 mmol/L (3.5-5.1); Sodium 138 mmol/L (135-145); Total Protein 7.3 g/dl (6.3-8.2); eGFR 6.70
[2025-02-16 14:17] LABS: Troponin I < 0.012 ng/ml
--- NOTE | 2025-02-16 15:08 | HPS.HSE ---
Addendum entered and electronically signed by Leti Kelley MD 02/16/25 19:06:
Blood pressure 199/98. Stopped IV fluids and IV Labetalol as needed.
Original Note:
Family Physician
-
Family Physician: Elias Evans
Chief Complaint
-
vomiting
History of Present Illness
59-year-old Indonesian-speaking female past medical history of gastroparesis, ESRD on peritoneal dialysis, hyperlipidemia, diabetes, hypothyroidism, hypertension, GERD, anemia, chronic heart failure, hypothyroidism, constipation, obesity,
anxiety/depression, small pericardial effusion, presenting with upper abdominal pain worsening over the past week. Patient has a history of diabetic gastroparesis and has been vomiting. She takes all her medications as prescribed has been having
worsening epigastric abdominal pain similar to prior episodes of gastroparesis. Sister is primary caregiver. Patient has been receiving nightly dialysis without issues. She denies any blood in the vomiting. Her last bowel movement yesterday
without diarrhea. No cough or upper respiratory symptoms. No chest pain. She took Tums today without improvement.
She reported feeling chills last night.
She has diffuse upper back pain which she usually gets with gastroparesis.
She does not smoke, drink alcohol or use marijuana or drugs.
Medical History
Past Medical History
Past Medical History: Reports Other (gastroparesis, ESRD on peritoneal dialysis, hyperlipidemia, diabetes, hypothyroidism, hypertension, GERD, anemia, chronic heart failure, hypothyroidism, constipation, obesity, anxiety/depression, small
pericardial effusion)
Past Surgical History: Reports None
Social History
Tobacco: Non-smoker
Alcohol: None
Drug: None
Family History
Family History: Not pertinent
Allergies / Home Medications
Allergies reflects when Allergies were last updated in [employer].
Home Medications with original date entered in [employer]
Allergy/Medication List:
Allergies
Allergy/AdvReac Type Severity Reaction Status Date / Time
metformin Allergy DIARRHEA Verified 02/16/25 12:09
sitagliptin (From Chandni) Allergy diarrhea Verified 02/16/25 12:09
Home Medications
levothyroxine 100 mcg tablet 100 mcg PO DAILY@07 Thyroid 11/17/20
atorvastatin 10 mg tablet 10 mg PO DAILY High cholesterol 02/23/22
ezetimibe 10 mg tablet 10 mg PO HS High cholesterol #30 tabs 02/27/22
cholecalciferol (vitamin D3) 25 mcg (1,000 unit) tablet 25 mcg PO DAILY vit d def #30 tabs 08/22/23
calcitriol 0.5 mcg capsule 0.5 mcg PO DAILY Hyperparathyroidism 01/15/25
calcium carbonate (Tums) 200 mg PO BIDPRN PRN Indigestion 01/15/25
metoclopramide HCl 5 mg tablet 5 mg PO AC Gastrointestinal issue 01/15/25
nifedipine 60 mg tablet,extended release 60 mg PO BID Blood Pressure 01/15/25
nortriptyline 75 mg capsule 75 mg PO HSPRN PRN anxiety 01/15/25
ondansetron 8 mg disintegrating tablet 8 mg PO DAILYPRN PRN nausea 01/15/25
torsemide 20 mg tablet 40 mg PO DAILY Fluid Retention/Swelling 01/15/25
tramadol 50 mg tablet 50 mg PO BIDPRN PRN moderate pain 01/15/25
insulin glargine 100 unit/mL (3 mL) subcutaneous pen (Basaglar KwikPen U-100 Insulin) 12 unit (0.12 mL) SC HS Diabetes #0 mL 01/20/25
insulin lispro 100 unit/mL subcutaneous pen (Humalog KwikPen (U-100) Insulin) 8 unit (0.08 mL) SC AC Diabetes #0 mL 01/20/25
knpfyy-ppmkzgtz-dvtyozq 10,000-32,000-42,000 unit capsule,delayed rel (Zenpep) 1 cap PO MEALS #90 caps 01/20/25
pantoprazole 40 mg tablet,delayed release 40 mg PO DAILY #30 tabs 01/20/25
Review of Systems
-
History Source: Patient
A 12 point ROS was completed and negative except as noted: Yes
Constitutional: Reports No Symptoms
EENT: Reports No Symptoms
Respiratory: Reports No Symptoms
Cardiac: Reports No Symptoms
Abdomen/GI: Reports See HPI
: Reports No Symptoms
Musculoskeletal: Reports See HPI
Skin: Reports No Symptoms
Neurological: Reports No Symptoms
Endocrine: Reports No Symptoms
Hematologic/Lymphatic: Reports No Symptoms
Psych: Reports No Symptoms
Physical Exam
Vital Signs
Vital Signs
Temp Pulse Resp BP Pulse Ox
99.5 F 102 16 134/74 98
02/16/25 12:06 02/16/25 14:49 02/16/25 14:49 02/16/25 14:49 02/16/25 14:49
Physical Exam
General: Well Developed, Well Nourished and No Apparent Distress
HEENT: NormoCephalic, Moist mucous membranes and Atraumatic
Respiratory: Clear
Cardiac: S1/S2 and Regular Rhythm; No Murmur or Rub
GI: Soft, Non Distended, Normal Bowel Sounds and Tender (epigastric ); No Organomegaly
Rectal: Deferred by Provider
Musculoskeletal: No Clubbing, No Cyanosis and No Edema
Skin: No Rash
Neuro: Nonfocal/grossly intact
Laboratory Results
-
02/16/25 13:40
02/16/25 13:40
Laboratory Results
Total Bilirubin 0.5 mg/dl (0.2-1.3) 02/16/25 13:40
AST 17 U/L (14-36) 02/16/25 13:40
ALT 25 U/L (0-35) 02/16/25 13:40
Alkaline Phosphatase 152 U/L (38-126) H 02/16/25 13:40
Troponin I < 0.012 ng/ml 02/16/25 13:40
Lipase 118 U/L (23-300) 02/16/25 13:40
Data Reviewed
-
Lab Data: Labs Reviewed by me
Old Records: Reviewed
Impression/Plan
-
IMPRESSION:
PLAN:
# Recurrent gastroparesis
- N.p.o.
-IV fluid bolus, although hold further fluids given currently on peritoneal dialysis
- Protonix 40 twice daily
- Reglan
- CT abdomen pelvis pending
- EKG shows sinus tachycardia, QTc 470
ESRD
- Continue peritoneal dialysis
- Nephrology consulted
- Continue calcitriol
Hyperlipidemia
- Continue statin, Zetia
Type 2 diabetes
- Reduce Lantus to 6 units
- Insulin sliding scale
Hypothyroidism
- Continue levothyroxine
Essential hypertension
- Continue nifedipine
GERD
Chronic anemia
Chronic heart failure
- hold torsemide
Chronic constipation
Obesity
Anxiety/depression
- Continue nortriptyline
Small pericardial effusion
Full code
DVT prophylaxis�heparin
N.p.o.
--- NOTE | 2025-02-16 15:45 | CM ---
CM reviewed chart and met with son bedside in ED. Pt was sleeping, pt is French speaking.
Pt lives with in 1 story home, [address]. Independent in ADLs, personal care and ambulation, no assistive devices.
Pt does home PD M- nights, daughter stays with pt and assists with PD.
Recently admitted 01/15 to 01/20 with gastroparesis.
Hx VN when she started PD, not current. No hx SNF
PCP: Elias Evans
Pharmacy: [facility]
CM will continue to follow for all discharge planning needs.
--- NOTE | 2025-02-16 16:36 | W.CON.NEPH ---
Consultation
-
Date/Time Consultation Requested: 02/16/2025 4 PM
Date/Time Consultation Performed: 02/16/2025 4 PM
Requesting Provider: Dr. Kelley
Performing Provider: Dr. Berkowitz
Reason for Consultation: ESRD on PD
Medical History
-
Chief Complaint: Vomiting
History of Present Illness:
59-year-old Latvian-speaking female who has ESRD likely from diabetic nephropathy, started PD early 2024 ago, chronic GI issues from gastroparesis, diabetes mellitus type 2 on insulin therapy which is stable. She has hypertension controlled on a
multidrug regimen. She has had prior admissions due to epigastric discomfort with vomiting. These were felt to be exacerbations of gastroparesis. This occurred again this week and she came to the emergency room for the same symptoms of epigastric
pain and vomiting. Oral intake has been poor as a result. There is no hematemesis, diarrhea, constipation. She has had no issues with her dialysis at home. Her prescription has not changed. She only undergoes peritoneal dialysis 5 days of the
week and does not dialyze on Tuesday night or Tuesday night.
Past Medical History
Coronary artery calcification, ESRD on peritoneal dialysis, diabetes, hypothyroidism, hypertension, hyperlipidemia, anemia of chronic disease, obesity, peptic ulcer disease
Past Surgical History: Other (cholecystectomy, , appendectomy, PD catheter)
Social History
Tobacco: Non-Smoker
Alcohol: None
Personal:
Living: With Family
Employment: Not Employed
Family History
Family History: Not Pertinent
Allergies / Home Medications
Allergy/AdvReac Type Severity Reaction Status Date / Time
metformin Allergy DIARRHEA Verified 02/16/25 12:09
sitagliptin (From [place]) Allergy diarrhea Verified 02/16/25 12:09
�Medication �Instructions �Recorded �Confirmed �Type
levothyroxine 100 mcg tablet 100 mcg PO DAILY@07 Thyroid 11/17/20 02/16/25 History
atorvastatin 10 mg tablet 10 mg PO DAILY High cholesterol 02/23/22 02/16/25 History
ezetimibe 10 mg tablet 10 mg PO HS High cholesterol #30 02/27/22 02/16/25 Rx
tabs
cholecalciferol (vitamin D3) 25 25 mcg PO DAILY vit d def #30 tabs 08/22/23 02/16/25 Rx
mcg (1,000 unit) tablet
calcitriol 0.5 mcg capsule 0.5 mcg PO DAILY 01/15/25 02/16/25 History
Hyperparathyroidism
calcium carbonate (Tums) 200 mg PO BIDPRN PRN Indigestion 01/15/25 02/16/25 History
metoclopramide HCl 5 mg tablet 5 mg PO AC Gastrointestinal issue 01/15/25 02/16/25 History
nifedipine 60 mg tablet,extended 60 mg PO BID Blood Pressure 01/15/25 02/16/25 History
release
nortriptyline 75 mg capsule 75 mg PO HSPRN PRN anxiety 01/15/25 02/16/25 History
ondansetron 8 mg disintegrating 8 mg PO DAILYPRN PRN nausea 01/15/25 02/16/25 History
tablet
torsemide 20 mg tablet 40 mg PO DAILY Fluid 01/15/25 02/16/25 History
Retention/Swelling
tramadol 50 mg tablet 50 mg PO BIDPRN PRN moderate pain 01/15/25 02/16/25 History
gywqmb-hjheyzts-omekctb 1 cap PO MEALS #90 caps 01/20/25 02/16/25 Rx
10,000-32,000-42,000 unit
capsule,delayed rel (Zenpep)
pantoprazole 40 mg tablet,delayed 40 mg PO DAILY #30 tabs 01/20/25 02/16/25 Rx
release
gentamicin 0.1 % topical cream 1 applic topical DAILYPRN PRN 02/16/25 02/16/25 History
incontinence sores
insulin glargine 100 unit/mL (3 12 unit SC HS Diabetes 02/16/25 02/16/25 History
mL) subcutaneous pen (Basaglar
KwikPen U-100 Insulin)
insulin lispro 100 unit/mL 10 unit SC AC Diabetes 02/16/25 02/16/25 History
subcutaneous pen (Humalog KwikPen
(U-100) Insulin)
Review of Systems
-
Epigastric discomfort, vomiting. He symptoms have been present for many years. Occasionally symptoms are worsened during dialysis.
All other systems: Negative unless noted
Physical Exam
Vital Signs
Vital Signs
Temp Pulse Resp BP Pulse Ox
99.5 F 107 16 134/74 98
02/16/25 12:06 02/16/25 15:00 02/16/25 14:49 02/16/25 14:49 02/16/25 15:00
Lab Results
WBC 8.8 10^3/uL (4.8-10.8) 02/16/25 13:40
RBC 3.77 10^6/uL (4.20-5.40) L 02/16/25 13:40
Hgb 10.9 g/dL (12.0-16.0) L 02/16/25 13:40
Hct 32.4 % (37.0-47.0) L 02/16/25 13:40
Plt Count 422 10^3/uL (130-400) H 02/16/25 13:40
Sodium 138 mmol/L (135-145) 02/16/25 13:40
Potassium 4.3 mmol/L (3.5-5.1) 02/16/25 13:40
Chloride 97 mmol/L (98-107) L 02/16/25 13:40
Carbon Dioxide 26 mmol/L (22-30) 02/16/25 13:40
BUN 40 mg/dl (7-17) H 02/16/25 13:40
Creatinine 6.6 mg/dL (0.6-1.0) H* 02/16/25 13:40
eGFR 6.70 02/16/25 13:40
Glucose 377 mg/dl (70-99) H 02/16/25 13:40
Calcium 9.7 mg/dl (8.4-10.2) 02/16/25 13:40
Albumin 4.2 g/dl (3.5-5.0) 02/16/25 13:40
Laboratory Tests
01/20/25
03:29
Hgb 10.7 L
Potassium 3.8
Carbon Dioxide 21 L
Creatinine 6.5 H*
CT abdomen pelvis with IV contrast 02/16/2025
IMPRESSION:
Findings again seen compatible with some bilateral chronic renal disease.
Markedly limited evaluation of intestinal tract without oral contrast and with decompressed/MDD large bowel. Some thickening of the wall of segments of large bowel such as COLITIS, possible. No intestinal obstruction or free air.
Additional stable findings in comparison to recent prior study, as detailed above.
Physical Exam
Patient is awake alert oriented and in no distress. Mood and affect were pleasant, insight and judgment were good. Pupils are equal round and reactive to light, extraocular movements are intact, sclera were anicteric. Hearing was normal, ears and
nose are intact. Oropharynx was clear. Neck was supple with trachea midline and no thyromegaly. Heart was regular rate and rhythm without rubs. Lower extremities without edema. Lungs were clear to auscultation bilaterally and with normal
excursion. Abdomen was soft, nontender, with normal active bowel sounds, and no hepatosplenomegaly. Skin was without rash and with normal turgor. PD catheter clean dry and intact
Data Reviewed
-
Radiology: Image Personally Visualized and interpreted (Chest x-ray 02/16/2025 by my reading no acute disease)
CT Scan: Report Reviewed by me
Medical Tests (Nuc Med, Echo etc): Image Personally Visualized and interpreted (EKG 02/16/2025 by my reading sinus tachycardia inferior Q)
Labs: Labs Reviewed by me
Old Records: Reviewed
Assessment/Plan
-
Assessment:
Intractable epigastric pain and vomiting
Coronary artery calcification
Diabetes mellitus type 2
End-stage renal disease on PD at [facility] PD script-all 1.5 bags, NIPD 8hrs. 5days/week
Hypothyroidism
Hyperlipidemia
Hypertension
Anxiety/depression
Chronic pain on tramadol
Fatty liver
Obesity
Anemia possibly of CKD
Nephrolithiasis, incidental
Plan:
Will continue PD close to outpatient prescription
She will have the weekend off from PD
Follow BMP if warranted CAPD will be used this weekend
Initiate CAPD on Tuesday
Discussed with son
--- NOTE | 2025-02-16 17:15 | PTCARENOTE ---
Pt arrived to floor on stretcher from ED. Pt lithuanian speaking - Son available for translation. Med/surg; Pt ambulatory to bed with some reported generalized weakness. Reports intermittent back pain that started one week prior. AAO x 3; NPO; RAC
IV leaked when flushed - VAT notified to place new line. To start NSS @ 70/hr once placed. Pt Denies current nausea but reports nausea and dry heaving at home. Oriented to room, call zuleta within reach. Will continue to monitor and assess.
[2025-02-16] MEDS: NSS 500 IV (18:31)
[2025-02-16] MEDS: TRANDATE 10 MG IV (19:21)
[2025-02-16] MEDS: HEPARIN 5000 UNITS SC (19:23)
[2025-02-16] MEDS: PROCARDIA XL (EXTENDED RELEASE) 60 MG PO (19:23)
[2025-02-16] MEDS: NSS (PRESERVATIVE FREE) 10 ML IV (19:23)
[2025-02-16] MEDS: PROTONIX IV 40 MG IV (19:23)
[2025-02-16 20:00] LABS: Glucose - Point of Care 199 mg/dl (70-99)
--- NOTE | 2025-02-16 20:00 | PTCARENOTE ---
Received pt from previous shift. Systems reviewed, see flowsheet. Pt had been med/surg but BP was elevated at 199/98 requiring IV labetalol at 19:20, so pt placed on tele monitoring. Pt is angolan-speaking and doesn't understand Bulgarian. at
bedside able to provide translation. Pt denies pain and is very tired, trying to catch up on rest from the previous night. Able to take pills with water. NPO status observed otherwise, with Q6h accuchecks. Lungs are clear, NSR 90s on the heart
monitor. IVF stopped due to HTN. Will continue to monitor.
[2025-02-16 21:17] LABS: Troponin I < 0.012 ng/ml
[2025-02-16] MEDS: ZETIA 10 MG PO (21:40)
[2025-02-16] MEDS: LANTUS 0.06 UNITS SC (21:40)
[2025-02-17] VITALS (12 sets, daily range): BP systolic 121–164; BP diastolic 72–103; BMI 24.6
[2025-02-17 00:11] LABS: Glucose - Point of Care 144 mg/dl (70-99)
[2025-02-17] MEDS: SYNTHROID 100 MCG PO (05:46)
[2025-02-17 05:54] LABS: Glucose - Point of Care 114 mg/dl (70-99)
[2025-02-17 06:05] LABS: Hematocrit 27.7 % (37.0-47.0); Hemoglobin 9.2 g/dL (12.0-16.0); Mean Corp Hgb Conc. 33.2 g/dL (33.0-37.0); Mean Corpuscular Volume 86.8 fL (81.0-99.0); Nucleated Red Blood Cells % 0 %; Platelet Count 298 10^3/uL (130-400); Red Cell Dist. Width 12.9 % (11.5-14.5)
[2025-02-17 06:14] LABS: ALT (SGPT) 19 U/L (0-35); AST (SGOT) 18 U/L (14-36); Albumin 3.4 g/dl (3.5-5.0); Alkaline Phosphatase 95 U/L (38-126); Blood Urea Nitrogen 45 mg/dl (7-17); Calcium 8.9 mg/dl (8.4-10.2); Carbon Dioxide 26 mmol/L (22-30); Chloride 100 mmol/L (98-107); Estimated Creatinine Clearance 6 ml/min; Glucose 110 mg/dl (70-99); Potassium 4.2 mmol/L (3.5-5.1); Sodium 138 mmol/L (135-145); Total Protein 5.8 g/dl (6.3-8.2); eGFR 6.35
[2025-02-17] MEDS: NSS (PRESERVATIVE FREE) 10 ML IV ×2 (08:05→20:16)
[2025-02-17] MEDS: LIPITOR 10 MG PO (08:05)
[2025-02-17] MEDS: PROTONIX IV 40 MG IV ×2 (08:05→20:16)
[2025-02-17] MEDS: HEPARIN 5000 UNITS SC ×2 (08:05→20:16)
[2025-02-17] MEDS: VITAMIN D3 (cholecalciferol) 25 MCG PO (08:05)
[2025-02-17] MEDS: ZENPEP DELAYED RELEASE CAPSULE 1 CAPSULE PO ×3 (08:06→17:03)
[2025-02-17] MEDS: ROCALTROL 0.5 MCG PO (08:06)
[2025-02-17] MEDS: PROCARDIA XL (EXTENDED RELEASE) 60 MG PO ×2 (08:06→20:22)
[2025-02-17 09:56] LABS: Glycohemoglobin (HgbA1c) 7.4 % (4.0-5.6)
[2025-02-17] MEDS: NOVOLOG FLEXPEN-LOW RESISTANCE SC ×2 (11:55→17:02)
[2025-02-17] MEDS: REGLAN 5 MG IV ×2 (11:56→17:02)
[2025-02-17 12:11] LABS: Glucose - Point of Care 105 mg/dl (70-99)
--- NOTE | 2025-02-17 12:32 | W.PN.NEPH.PH ---
Today's Communication / Plan
-
no PD
Assessment/Plan
-
Assessment:
Intractable epigastric pain and vomiting
Coronary artery calcification
Diabetes mellitus type 2
End-stage renal disease on PD at [facility] PD script-all 1.5 bags, NIPD 8hrs. 5days/week
Hypothyroidism
Hyperlipidemia
Hypertension
Anxiety/depression
Chronic pain on tramadol
Fatty liver
Obesity
Anemia possibly of CKD
Nephrolithiasis, incidental
Plan:
Will continue PD close to outpatient prescription
She will have the weekend off from PD
Follow BMP
attempt diet today
-
-
Date of Service: February 17, 2025
CC / HPI / ROS
-
Chief Complaint:
ESRD
History of Present Illness:
BP stable
pain resolved
K normal
Review of Systems:
no CP/SOB
Labs
-
Labs:
WBC 10.4 10^3/uL (4.8-10.8) 02/17/25 05:36
RBC 3.19 10^6/uL (4.20-5.40) L 02/17/25 05:36
Hgb 9.2 g/dL (12.0-16.0) L 02/17/25 05:36
Hct 27.7 % (37.0-47.0) L 02/17/25 05:36
Plt Count 298 10^3/uL (130-400) D 02/17/25 05:36
Sodium 138 mmol/L (135-145) 02/17/25 05:36
Potassium 4.2 mmol/L (3.5-5.1) 02/17/25 05:36
Chloride 100 mmol/L (98-107) 02/17/25 05:36
Carbon Dioxide 26 mmol/L (22-30) 02/17/25 05:36
BUN 45 mg/dl (7-17) H 02/17/25 05:36
Creatinine 6.9 mg/dL (0.6-1.0) H* 02/17/25 05:36
eGFR 6.35 02/17/25 05:36
Glucose 110 mg/dl (70-99) H 02/17/25 05:36
Calcium 8.9 mg/dl (8.4-10.2) 02/17/25 05:36
Albumin Cancelled 02/17/25 08:45
Physical Exam
-
Vital Signs:
Vital Signs
Temp Pulse Resp BP Pulse Ox
98.5 F 84 10 157/103 95
02/17/25 07:50 02/17/25 08:06 02/17/25 06:29 02/17/25 08:06 02/17/25 02:58
Cardiovascular:: Regular rate and rhythm
Respiratory:: Bilateral: CTA
Lung Excursion:: Normal
Abdomen:: Nontender and Soft
Bowel Sounds:: Normal
Extremity Edema:: None: Bilateral:
--- NOTE | 2025-02-17 13:34 | W.PN.HOSP.TC ---
Today's Communication/Plan
-
trial of [place] diet
scheduled regaln
nephro help for PD
continue other care
Assessment / Plan
Assessment / Plan
1. Gastroparesis flare-up
-Previous records reviewed and in 2017 patient had study borderline positive for possible gastroparesis, although was better in 2008
-Patient has been diabetic for many years on her insulin. Hemoglobin A1c reviewed from past and between 7-9 range usually
-CT a/p this admission did not show any new findings
-Nausea vomiting possibly attributed to gastroparesis flareup which might be aggravated by uncontrolled diabetes and periodic uremia of with peritoneal dialysis.
-Maintain patient on scheduled Reglan
-Trial of full liquid diet
2. Esophageal motility problem
Low-grade Schatzki's ring
- On EGD patient was noted to having some esophageal motility problem in Jul 02
- Repeat GI evaluation will be required if patient does not improve with treatment of gastroparesis
- Patient had some gastric erythema reported on past EGD, not on Protonix
3. ESRD on peritoneal dialysis
- Nephrology consulted help appreciated
- No PD catheter site issues
- Maintained on calcitriol
4. Insulin-dependent diabetes mellitus
- Lantus dose decreased as patient has poor oral intake
- Maintain on sliding scale
- Hemoglobin A1c trend reviewed
Hyperlipidemia
Hypothyroidism
Essential hypertension
GERD
Chronic anemia of renal disease
Chronic diastolic heart failure
Chronic constipation
Obesity
Anxiety/depression
h/o Small pericardial effusion
Full code
DVT prophylaxis�heparin
Discussed with patient spouse at bedside .
Of note patient is physically in IMU for need of peritoneal dialysis.
Total time spent : 54 mins
I personally saw and examined the patient.
I have reviewed all diagnostic interpretations and treatment plans as written.
Time includes patient management by me, time spent at the patients bedside, time to review lab and imaging results, discussing patient care, documentation in the medical record, and time spent with the family or caregiver and discussing care plan
with RN/Consultants.
Anticipated Discharge: 24 - 48 hours
Subjective/Interval History
-
Date of Service: February 17, 2025
Resting comfortable in bed
Patient spouse at bedside helping with history taking
No reported abdominal pain
No reported nausea or vomiting
Remains afebrile
Objective Data
-
Labs:
Laboratory Results
02/17/25 02/17/25
05:36 08:45
WBC 10.4
Hgb 9.2 L
Hct 27.7 L
Plt Count 298 D
Sodium 138
Potassium 4.2
Chloride 100
Carbon Dioxide 26
BUN 45 H
Creatinine 6.9 H*
Glucose 110 H
Calcium 8.9
Total Bilirubin 0.4 Cancelled
AST 18 Cancelled
ALT 19 Cancelled
Alkaline Phosphatase 95 Cancelled
Vital Signs:
Vital Signs
Temp Pulse Resp BP Pulse Ox
98.5 F 84 10 157/103 95
02/17/25 07:50 02/17/25 08:06 02/17/25 06:29 02/17/25 08:06 02/17/25 02:58
Review of Systems
-
Unable to obtain full review of systems at this time due to: Language Barrier
Physical Exam
-
General: No Apparent Distress and Comfortable
HEENT: Negative Oxygen
Respiratory: Clear to Auscultation
Cardiac: Regular Rhythm and S1/S2; Negative Murmur or Rub
GI: Soft, Nondistended, Normal Bowel Sounds and Other (PD cath in place, no erythema/swelling )
Musculoskeletal: No Edema
Neuro: Awake, Alert, Oriented, No Motor Deficits and Nonfocal/Grossly Intact
Psych: Calm
[2025-02-17 17:18] LABS: Glucose - Point of Care 143 mg/dl (70-99)
--- NOTE | 2025-02-17 17:30 | PTCARENOTE ---
Rec'd pt this AM. spouse at bedside. vital signs stable. resting comfortably in bed. tolerating full liquid diet.
[2025-02-17] MEDS: ULTRAM 50 MG PO (20:16)
[2025-02-17] MEDS: LIDOCAINE 4% PATCH 1 PATCH TOPICAL (21:35)
[2025-02-17] MEDS: LANTUS 0.06 UNITS SC (21:37)
[2025-02-17] MEDS: ZETIA 10 MG PO (21:38)
[2025-02-17 21:48] LABS: Glucose - Point of Care 105 mg/dl (70-99)
[2025-02-18] VITALS (7 sets, daily range): BP systolic 111–160; BP diastolic 61–86; BMI 24.5
--- NOTE | 2025-02-18 05:35 | PTCARENOTE ---
Pt having complaints of pain in lower back at beginning of shift. Night PO Meds given lidocaine patched ordered by HOMEBOUND TEACHER. Reassessment Pt found relief and was able to get sleep through out the night. Respiration even unlabored. Call zuleta within reach.
Assessment care and vitals as charted.
[2025-02-18 06:01] LABS: Hematocrit 29.8 % (37.0-47.0); Hemoglobin 10.1 g/dL (12.0-16.0); Mean Corp Hgb Conc. 33.9 g/dL (33.0-37.0); Mean Corpuscular Volume 86.1 fL (81.0-99.0); Platelet Count 362 10^3/uL (130-400); Red Cell Dist. Width 13.0 % (11.5-14.5)
[2025-02-18 06:13] LABS: Blood Urea Nitrogen 54 mg/dl (7-17); Calcium 8.9 mg/dl (8.4-10.2); Carbon Dioxide 24 mmol/L (22-30); Chloride 99 mmol/L (98-107); Estimated Creatinine Clearance 5 ml/min; Glucose 83 mg/dl (70-99); Potassium 4.2 mmol/L (3.5-5.1); Sodium 135 mmol/L (135-145); eGFR 5.32
[2025-02-18] MEDS: SYNTHROID 100 MCG PO (06:13)
[2025-02-18 07:58] LABS: Glucose - Point of Care 127 mg/dl (70-99)
[2025-02-18] MEDS: HEPARIN 5000 UNITS SC ×2 (09:04→20:02)
[2025-02-18] MEDS: ZENPEP DELAYED RELEASE CAPSULE 1 CAPSULE PO ×3 (09:04→17:02)
[2025-02-18] MEDS: ROCALTROL 0.5 MCG PO (09:04)
[2025-02-18] MEDS: PROCARDIA XL (EXTENDED RELEASE) 60 MG PO ×2 (09:04→20:02)
[2025-02-18] MEDS: LIPITOR 10 MG PO (09:04)
[2025-02-18] MEDS: REGLAN 5 MG IV ×2 (09:05→13:00)
[2025-02-18] MEDS: NSS (PRESERVATIVE FREE) 10 ML IV ×2 (09:07→20:03)
[2025-02-18] MEDS: REMOVE LIDOCAINE PATCH 1 PATCH REMOVE (09:08)
[2025-02-18] MEDS: PROTONIX IV 40 MG IV ×2 (09:08→20:03)
[2025-02-18] MEDS: NOVOLOG FLEXPEN-LOW RESISTANCE SC ×3 (09:09→19:46)
[2025-02-18] MEDS: VITAMIN D3 (cholecalciferol) 25 MCG PO (09:09)
--- NOTE | 2025-02-18 10:16 | W.PN.NEPH.PH ---
Today's Communication / Plan
-
PD orders to be provide
Assessment/Plan
-
Assessment:
Intractable epigastric pain and vomiting
Coronary artery calcification
Diabetes mellitus type 2
End-stage renal disease on PD at [facility] PD script-all 1.5 bags, NIPD 8hrs. 5days/week
Hypothyroidism
Hyperlipidemia
Hypertension
Anxiety/depression
Chronic pain on tramadol
Fatty liver
Obesity
Anemia possibly of CKD
Nephrolithiasis, incidental
Plan:
Will continue PD close to outpatient prescription
1500 cc every 5 hours at 1.5%
Possible discharge today if tolerates diet
Will drain her prior to discharge and allow her to go back on nocturnal
Follow BMP
attempt diet today
-
-
Date of Service: February 18, 2025
CC / HPI / ROS
-
Chief Complaint:
ESRD
History of Present Illness:
BP elevated
pain resolved
K normal
Review of Systems:
no CP/SOB
Labs
-
Labs:
WBC 13.2 10^3/uL (4.8-10.8) H 02/18/25 05:17
RBC 3.46 10^6/uL (4.20-5.40) L 02/18/25 05:17
Hgb 10.1 g/dL (12.0-16.0) L 02/18/25 05:17
Hct 29.8 % (37.0-47.0) L 02/18/25 05:17
Plt Count 362 10^3/uL (130-400) D 02/18/25 05:17
Sodium 135 mmol/L (135-145) 02/18/25 05:17
Potassium 4.2 mmol/L (3.5-5.1) 02/18/25 05:17
Chloride 99 mmol/L (98-107) 02/18/25 05:17
Carbon Dioxide 24 mmol/L (22-30) 02/18/25 05:17
BUN 54 mg/dl (7-17) H 02/18/25 05:17
Creatinine 8.0 mg/dL (0.6-1.0) H* 02/18/25 05:17
eGFR 5.32 02/18/25 05:17
Glucose 83 mg/dl (70-99) 02/18/25 05:17
Calcium 8.9 mg/dl (8.4-10.2) 02/18/25 05:17
Albumin Cancelled 02/17/25 08:45
Physical Exam
-
Vital Signs:
Vital Signs
Temp Pulse Resp BP Pulse Ox
98.7 F 85 13 132/86 93
02/18/25 07:43 02/18/25 04:00 02/17/25 08:00 02/18/25 04:00 02/17/25 21:50
Cardiovascular:: Regular rate and rhythm
Respiratory:: Bilateral: CTA
Lung Excursion:: Normal
Abdomen:: Nontender and Soft
Bowel Sounds:: Normal
Extremity Edema:: None: Bilateral:
[2025-02-18 13:10] LABS: Glucose - Point of Care 130 mg/dl (70-99)
[2025-02-18] MEDS: ULTRAM 50 MG PO (14:33)
--- NOTE | 2025-02-18 14:44 | W.PN.HOSP.TC ---
Today's Communication/Plan
-
Monitor vital signs and see plan
Change Reglan with meals
Advance diet to low-fat
Monitor
PD per nephrology
Discussed with daughter, hopeful discharge tomorrow
Assessment / Plan
Assessment / Plan
Gastroparesis flare-up
-Previous records reviewed and in 2017 patient had study borderline positive for possible gastroparesis, although was better in 2007
-Patient has been diabetic for many years on her insulin. Hemoglobin A1c reviewed from past and between 7-9 range usually
-CT a/p this admission did not show any new findings
-Nausea vomiting possibly attributed to gastroparesis flareup which might be aggravated by uncontrolled diabetes and periodic uremia of with peritoneal dialysis.
-Maintain patient on scheduled Reglan
- Transition diet to low-fat and monitor
Esophageal motility problem
Low-grade Schatzki's ring
- On EGD patient was noted to having some esophageal motility problem in Jul 02
- Repeat GI evaluation will be required if patient does not improve with treatment of gastroparesis
- Patient had some gastric erythema reported on past EGD, not on Protonix
ESRD on peritoneal dialysis
- Nephrology consulted help appreciated
- No PD catheter site issues
- Maintained on calcitriol
Insulin-dependent diabetes mellitus
- Lantus dose decreased as patient has poor oral intake
- Maintain on sliding scale
- Hemoglobin A1c trend reviewed
Hyperlipidemia
Hypothyroidism
Essential hypertension
GERD
Chronic anemia of renal disease
Chronic diastolic heart failure
Chronic constipation
Obesity
Anxiety/depression
h/o Small pericardial effusion
Full code
DVT prophylaxis�heparin
Discussed with patient spouse at bedside .
Of note patient is physically in IMU for need of peritoneal dialysis.
General: No Apparent Distress and Comfortable
HEENT: Negative Oxygen
Respiratory: Clear to Auscultation
Cardiac: Regular Rhythm and S1/S2; Negative Murmur or Rub
GI: Soft, Nondistended, Normal Bowel Sounds and Other (PD cath in place, no erythema/swelling )
Musculoskeletal: No Edema
Neuro: Awake, Alert, Oriented, No Motor Deficits and Nonfocal/Grossly Intact
Psych: Calm
Anticipated Discharge: Within 24 hours
Subjective/Interval History
-
Date of Service: February 18, 2025
Denies nausea
Objective Data
-
Labs:
Laboratory Results
02/18/25
05:17
WBC 13.2 H
Hgb 10.1 L
Hct 29.8 L
Plt Count 362 D
Sodium 135
Potassium 4.2
Chloride 99
Carbon Dioxide 24
BUN 54 H
Creatinine 8.0 H*
Glucose 83
Calcium 8.9
Vital Signs:
Vital Signs
Temp Pulse Resp BP Pulse Ox
98.4 F 88 13 160/80 95
02/18/25 12:01 02/18/25 10:00 02/17/25 08:00 02/18/25 09:02 02/18/25 10:28
I&O
02/17/25 02/18/25 02/19/25
06:59 06:59 06:59
Intake Total 800 / 800
Balance 800 / 800
--- NOTE | 2025-02-18 14:44 | CM ---
CM reviewed chart
Order placed for PD
PT/OT requested once appropriate as pt noted to be a nursing assist
VM left to dtr to identify dialysis provider who oversees PD so that clinicals can be faxed for continuity on dc
Awaiting call back from dtr
Discharge Disposition- anticipate home with [facility] home PD, follow for VN needs
[2025-02-18] MEDS: REGLAN 5 MG PO (17:01)
[2025-02-18 17:53] LABS: Glucose - Point of Care 154 mg/dl (70-99)
--- NOTE | 2025-02-18 19:59 | PTCARENOTE ---
day shift note. see nursing flowsheet. pt increased to low fat diet. pt ate most of lunch then report some discomfort in abdomen. pt c/o feeling full after PD dialysate infused.
--- NOTE | 2025-02-18 20:00 | PTCARENOTE ---
Assumed care of patient at 1900. Nursing assessment completed and as documented. [employer] used at bedside for assessment and to answer patient questions. at bedside and assist PRN. PD done as per order, see worklist for documentation. PD
cath site CDI with dressing, PD extension changed with longer tubing. Medications given without difficulty. Patient offers no complaints at this time. Call zuleta within reach, VSS, care ongoing.
[2025-02-18] MEDS: LIDOCAINE 4% PATCH 1 PATCH TOPICAL (21:14)
[2025-02-18] MEDS: ZETIA 10 MG PO (21:15)
[2025-02-18] MEDS: LANTUS 0.06 UNITS SC (21:15)
[2025-02-18 21:30] LABS: Glucose - Point of Care 168 mg/dl (70-99)
[2025-02-19 03:09] VITALS: BP 128/79
[2025-02-19] MEDS: ULTRAM 50 MG PO ×2 (03:09→08:40)
[2025-02-19] MEDS: DILAUDID 0.25 MG IV (04:35)
[2025-02-19] MEDS: SYNTHROID 100 MCG PO (04:38)
[2025-02-19 06:00] VITALS: BMI 25.8
[2025-02-19 08:36] VITALS: BP 146/76
[2025-02-19] MEDS: ZOFRAN 4 MG IV (08:40)
[2025-02-19] MEDS: PROCARDIA XL (EXTENDED RELEASE) 60 MG PO (08:40)
[2025-02-19] MEDS: VITAMIN D3 (cholecalciferol) 25 MCG PO (08:41)
[2025-02-19] MEDS: HEPARIN 5000 UNITS SC (08:41)
[2025-02-19] MEDS: LIPITOR 10 MG PO (08:41)
[2025-02-19] MEDS: NSS (PRESERVATIVE FREE) 10 ML IV (08:41)
[2025-02-19] MEDS: ROCALTROL 0.5 MCG PO (08:41)
[2025-02-19] MEDS: PROTONIX IV 40 MG IV (08:41)
[2025-02-19] MEDS: REGLAN 5 MG PO (08:41)
[2025-02-19] MEDS: ZENPEP DELAYED RELEASE CAPSULE 1 CAPSULE PO (08:41)
[2025-02-19] MEDS: REMOVE LIDOCAINE PATCH 1 PATCH REMOVE (08:42)
[2025-02-19] MEDS: NOVOLOG FLEXPEN-LOW RESISTANCE 2 UNITS SC (09:07)
[2025-02-19 09:10] LABS: Glucose - Point of Care 221 mg/dl (70-99)
[2025-02-19 09:56] LABS: Hematocrit 31.7 % (37.0-47.0); Hemoglobin 10.7 g/dL (12.0-16.0); Mean Corp Hgb Conc. 33.8 g/dL (33.0-37.0); Mean Corpuscular Volume 86.1 fL (81.0-99.0); Nucleated Red Blood Cells % 0 %; Platelet Count 368 10^3/uL (130-400); Red Cell Dist. Width 13.0 % (11.5-14.5)
[2025-02-19 10:17] LABS: ALT (SGPT) 24 U/L (0-35); AST (SGOT) 23 U/L (14-36); Albumin 3.6 g/dl (3.5-5.0); Alkaline Phosphatase 116 U/L (38-126); Blood Urea Nitrogen 51 mg/dl (7-17); Calcium 9.2 mg/dl (8.4-10.2); Carbon Dioxide 25 mmol/L (22-30); Chloride 96 mmol/L (98-107); Estimated Creatinine Clearance 6 ml/min; Glucose 190 mg/dl (70-99); Potassium 4.2 mmol/L (3.5-5.1); Sodium 134 mmol/L (135-145); Total Protein 6.4 g/dl (6.3-8.2); eGFR 5.24
--- NOTE | 2025-02-19 10:33 | W.PN.NEPH.PH ---
Today's Communication / Plan
-
PD provided
Assessment/Plan
-
Assessment:
Intractable epigastric pain and vomiting
Coronary artery calcification
Diabetes mellitus type 2
End-stage renal disease on PD at [facility] PD script-all 1.5 bags, NIPD 8hrs. 5days/week
Hypothyroidism
Hyperlipidemia
Hypertension
Anxiety/depression
Chronic pain on tramadol
Fatty liver
Obesity
Anemia possibly of CKD
Nephrolithiasis, incidental
Plan:
Will continue PD close to outpatient prescription
flow sheets reviewed
2l cc every 5 hours at 1.5%
Possible discharge today if tolerates diet
Will drain her prior to discharge and allow her to go back on nocturnal
Patient continues with dry heaving and poor po intake
Follow BMP
-
-
Date of Service: February 19, 2025
CC / HPI / ROS
-
Chief Complaint:
ESRD
History of Present Illness:
Bp stable*
ESRD on PD
K normal
Review of Systems:
no CP/SOB
Continues with dry heaving and poor p.o. intake
Labs
-
Labs:
WBC 10.3 10^3/uL (4.8-10.8) 02/19/25 09:17
RBC 3.68 10^6/uL (4.20-5.40) L 02/19/25 09:17
Hgb 10.7 g/dL (12.0-16.0) L 02/19/25 09:17
Hct 31.7 % (37.0-47.0) L 02/19/25 09:17
Plt Count 368 10^3/uL (130-400) 02/19/25 09:17
Sodium 134 mmol/L (135-145) L 02/19/25 09:17
Potassium 4.2 mmol/L (3.5-5.1) 02/19/25 09:17
Chloride 96 mmol/L (98-107) L 02/19/25 09:17
Carbon Dioxide 25 mmol/L (22-30) 02/19/25 09:17
BUN 51 mg/dl (7-17) H 02/19/25 09:17
Creatinine 8.1 mg/dL (0.6-1.0) H* 02/19/25 09:17
eGFR 5.24 02/19/25 09:17
Glucose 190 mg/dl (70-99) H 02/19/25 09:17
Calcium 9.2 mg/dl (8.4-10.2) 02/19/25 09:17
Albumin 3.6 g/dl (3.5-5.0) 02/19/25 09:17
Physical Exam
-
Vital Signs:
Vital Signs
Temp Pulse Resp BP Pulse Ox
99.4 F 89 13 146/76 96
02/19/25 07:58 02/19/25 10:00 02/17/25 08:00 02/19/25 08:40 02/19/25 00:00
Cardiovascular:: Regular rate and rhythm
Respiratory:: Bilateral: CTA
Lung Excursion:: Normal
Abdomen:: Nontender and Soft
Bowel Sounds:: Normal
Extremity Edema:: None: Bilateral:
--- NOTE | 2025-02-19 11:51 | W.PN.HOSP.TC ---
Today's Communication/Plan
-
Monitor vital signs and see plan
Symptoms improving slowly
Patient will follow-up with GI closely outpatient
Discussed with patient and daughter
Discharge today
Time of discharge 38 minutes
Assessment / Plan
Assessment / Plan
Gastroparesis flare-up
-Previous records reviewed and in 2017 patient had study borderline positive for possible gastroparesis, although was better in 2007
-Patient has been diabetic for many years on her insulin. Hemoglobin A1c reviewed from past and between 7-9 range usually
-CT a/p this admission did not show any new findings
-Nausea vomiting possibly attributed to gastroparesis flareup which might be aggravated by uncontrolled diabetes and periodic uremia of with peritoneal dialysis.
-Maintain patient on scheduled Reglan
- Transition diet to low-fat/low residue and monitor. This morning mild dry heaving however symptoms much improved. Spoke with patient and daughter. She does use Zofran daily as needed if required. Patient should follow-up with GI closely
outpatient.
Esophageal motility problem
Low-grade Schatzki's ring
- On EGD patient was noted to having some esophageal motility problem in Jul 02
- Repeat GI evaluation will be required if patient does not improve with treatment of gastroparesis
- Patient had some gastric erythema reported on past EGD, not on Protonix
ESRD on peritoneal dialysis
- Nephrology consulted help appreciated
- No PD catheter site issues
- Maintained on calcitriol
Insulin-dependent diabetes mellitus
- Lantus dose decreased as patient has poor oral intake
- Maintain on sliding scale
- Hemoglobin A1c trend reviewed
Hyperlipidemia
Hypothyroidism
Essential hypertension
GERD
Chronic anemia of renal disease
Chronic diastolic heart failure
Chronic constipation
Obesity
Anxiety/depression
h/o Small pericardial effusion
Full code
DVT prophylaxis�heparin
Discussed with patient spouse at bedside .
Of note patient is physically in IMU for need of peritoneal dialysis.
General: No Apparent Distress and Comfortable
HEENT: Negative Oxygen
Respiratory: Clear to Auscultation
Cardiac: Regular Rhythm and S1/S2; Negative Murmur or Rub
GI: Soft, Nondistended, Normal Bowel Sounds and Other (PD cath in place, no erythema/swelling )
Musculoskeletal: No Edema
Neuro: Awake, Alert, Oriented, No Motor Deficits and Nonfocal/Grossly Intact
Psych: Calm
Anticipated Discharge: Today
Subjective/Interval History
-
Date of Service: February 19, 2025
Mild dry heaving this morning however much improved
Objective Data
-
Labs:
Laboratory Results
02/19/25 02/19/25
06:11 09:17
WBC Pending 10.3
Hgb Pending 10.7 L
Hct Pending 31.7 L
Plt Count Pending 368
Sodium Pending 134 L
Potassium Pending 4.2
Chloride Pending 96 L
Carbon Dioxide Pending 25
BUN Pending 51 H
Creatinine Pending 8.1 H*
Glucose Pending 190 H
Calcium Pending 9.2
Total Bilirubin 0.6
AST 23
ALT 24
Alkaline Phosphatase 116
Vital Signs:
Vital Signs
Temp Pulse Resp BP Pulse Ox
98.7 F 89 13 146/76 96
02/19/25 11:18 02/19/25 10:00 02/17/25 08:00 02/19/25 08:40 02/19/25 00:00
I&O
02/18/25 02/19/25 02/20/25
06:59 06:59 06:59
Intake Total 800 / 800 1800 / 1800 1000 / 1000
Balance 800 / 800 1800 / 1800 1000 / 1000
--- NOTE | 2025-02-19 12:03 | W.DCSUMMARY ---
Discharge Summary
Discharge Data
Date of Admission: 02/16/25
Date of Discharge: 02/19/25
-
Pending Results: No
Hospital Course
59-year-old female with past medical history of esophageal dysmotility, Schatzki ring, ESRD on peritoneal dialysis, insulin-dependent diabetes mellitus, anemia of chronic disease, chronic diastolic heart failure, chronic constipation, obesity,
anxiety/depression, history of small pericardial effusion, hypothyroidism, essential hypertension, hyperlipidemia came to the hospital with nausea and vomiting. Patient symptoms were likely thought was secondary to gastroparesis flare. While
patient was in the hospital she required peritoneal dialysis and was seen by nephrology. Prior to discharge she was able to tolerate low residue/low-fat diet. On discharge instructed to follow-up closely with all her physicians outpatient.
Discharge Plan
-
Patient Disposition: Home (Routine Discharge)
Discharge Diagnosis/Procedures: Gastroparesis flareup
Esophageal dysmotility
ESRD on peritoneal dialysis
Insulin-dependent diabetes mellitus
Diet: Low Fat and Low Residue
Activity: No restrictions
Driving Restrictions: As prior to admission
Bathing Restrictions: None
Activity Restrictions/Additional Instructions:
Eat more frequent but less portion meals
Referrals:
Declan Zarate MD [Active, Gastroenterology]
Elias Evans MD [Family Provider, [facility]] - in less than 1 week
Prescriptions:
New
lidocaine 4 % Adhesive Patch,Medicated
1 patch topical HS Qty: 30 0RF
Continued
levothyroxine 100 MCG tablet
100 mcg PO DAILY@07
atorvastatin 10 mg Tablet
10 mg PO DAILY
ezetimibe 10 MG tablet
10 mg PO HS Qty: 30 0RF
cholecalciferol (vitamin D3) 25 mcg (1,000 unit) Tablet
25 mcg PO DAILY Qty: 30 0RF
torsemide 20 mg Tablet
40 mg PO DAILY
tramadol 50 mg Tablet
50 mg PO BIDPRN PRN (Reason: moderate pain)
nortriptyline 75 mg Capsule
75 mg PO HSPRN PRN (Reason: anxiety)
calcitriol 0.5 mcg Capsule
0.5 mcg PO DAILY
calcium carbonate [Tums] 200 mg calcium (500 mg) Tablet,Chewable
200 mg PO BIDPRN PRN (Reason: Indigestion)
nifedipine 60 mg Tablet Extended Release
60 mg PO BID
Zenpep 10,000-32,000 -42,000 unit Capsule,Delayed Release(Dr/Ec)
1 cap PO MEALS Qty: 90 0RF
gentamicin 0.1 % cream
1 applic TOPICAL DAILYPRN PRN (Reason: incontinence sores)
ondansetron 8 mg Tablet,Disintegrating
8 mg PO DAILYPRN PRN (Reason: nausea) Qty: 30 0RF
metoclopramide HCl 5 mg tablet
5 mg PO AC 30 Days Qty: 90 0RF
Changed
pantoprazole 40 mg tablet,delayed release (DR/EC)
40 mg PO BID 30 Days Qty: 60 0RF
insulin lispro [Humalog KwikPen Insulin] 100 unit/mL insulin pen
3 unit SC AC Qty: 0 0RF
insulin glargine [Basaglar KwikPen U-100 Insulin] 100 unit/mL (3 mL) insulin pen
8 unit SC HS Qty: 0 0RF
Discharge Orders:
Discharge Patient (As Directed); Ordered 02/19/25
Ordered By: Rachid Irwin
Discharge Date and Time
Discharge Date/Time: 02/19/25 13:51
Print Language: PORTUGUESE
[2025-02-19 12:16] VITALS: BP 154/82
--- NOTE | 2025-02-19 12:44 | CM ---
CM reviewed chart and noted dc order
Bedside meeting with pt and dtr
Dtr notes she remains available to care for pt at home
No dc needs noted
PD notes and clinicals faxed to [facility] [phone]
Discharge Disposition- home, no needs, dtr transport
--- NOTE | 2025-02-19 14:01 | PTCARENOTE ---
Patient discharged with daughter at bedside. Pt was drained prior to leaving the hospital.
== END 2025-02-19 13:51 | disposition home or self-care (01) | DRG 73 ==
LOC: IMU 16:06
PROVIDERS: ADMITTING PHYSICIAN Hospitalist; ATTENDING PHYSICIAN Internal Medicine; CONSULT PHYSICIAN Specialist; EMERGENCY PHYSICIAN Emergency Medicine; FAMILY PHYSICIAN Family Medicine
PROC: 3E1M39Z Irrigation of Peritoneal Cavity using Dialysate, Percutaneous Approach (ICD-10-PCS; 2025-02-16)
DX: E11.43 Type 2 diabetes mellitus with diabetic autonomic (poly)neuropathy (principal); N18.6 End stage renal disease; I13.2 Hypertensive heart and chronic kidney disease with heart failure and with stage 5 chronic kidney disease, or end stage renal disease; I50.32 Chronic diastolic (congestive) heart failure; E78.00 Pure hypercholesterolemia, unspecified; E11.22 Type 2 diabetes mellitus with diabetic chronic kidney disease; K31.84 Gastroparesis; K21.9 Gastro-esophageal reflux disease without esophagitis; E03.9 Hypothyroidism, unspecified; E21.3 Hyperparathyroidism, unspecified; G89.29 Other chronic pain; K76.0 Fatty (change of) liver, not elsewhere classified; I25.10 Atherosclerotic heart disease of native coronary artery without angina pectoris; N20.0 Calculus of kidney; K22.2 Esophageal obstruction; K59.09 Other constipation; K22.4 Dyskinesia of esophagus; D63.8 Anemia in other chronic diseases classified elsewhere; F41.9 Anxiety disorder, unspecified; F32.A Depression, unspecified; Z60.3 Acculturation difficulty; Z90.49 Acquired absence of other specified parts of digestive tract; Z99.2 Dependence on renal dialysis; Z88.8 Allergy status to other drugs, medicaments and biological substances; Z79.890 Hormone replacement therapy; Z79.4 Long term (current) use of insulin; Z87.11 Personal history of peptic ulcer disease
CPT/HCPCS: 71046; 74177; 80048; 80053; 80076; 82962; 83036; 83690; 84484; 85025; 85027; 93005; 96374; 96375; 99285; Q9967

== ENCOUNTER 2025-03-05 03:33 | Inpatient (IN) | payer OTHER, SELFPAY ==
[2025-03-05] VITALS (27 sets, daily range): BP systolic 112–201; BP diastolic 55–96; BMI 29.6; BMI 28.5
[2025-03-05] MEDS: DILAUDID 0.5 MG IV ×6 (01:29→23:11)
[2025-03-05] MEDS: ZOFRAN 4 MG IV (01:29)
[2025-03-05] MEDS: NSS 500 IV (01:32)
--- NOTE | 2025-03-05 01:55 | ED.GENMED ---
History of Present Illness
General
Chief Complaint: Chest Pain
Source: patient and family
Exam Limitations: none
Time Seen by Provider: 03/05/25 01:15
History of Present Illness
History of Present Illness:
59-year-old female started with epigastric pain this afternoon. History of same. Very uncomfortable. Multiple similar episodes in the past some nausea. No vomiting.
Past History
Past History
ED Past Medical History: GERD, HTN, Hypercholesterolemia, NIDDM, Renal failure and Other (anemia)
ED Past Surgical History: Appendectomy, Cholecystectomy and
Patient has exhibited threatening behavior?: No
Social History
Tobacco: Non-smoker
Alcohol: None
Drug: None
Personal:
Living: with family
Employment: Not employed
Family History
Family History: Hypertension
Phy Exam
Physical Exam
Physical Exam:
GENERAL: Alert. Nontoxic but appears moderately uncomfortable
EYE: Orbits normal.
NECK: Supple
ENT: Pharynx without erythema
CARDIAC: Regular rate and rhythm without any obvious murmurs.
LUNGS: Clear breath sounds,normal
ABDOMEN: Soft, bowel sounds present. Moderate epigastric tenderness. No rebound or guarding no mass or hernia. Peritoneal shunt in place
NEUROLOGICAL: Alert and oriented , grossly non-focal
SKIN: Warm and dry, no rash or lesion, no discoloration, skin intact.
MUSCULOSKELETAL: No edema,no deformity.Good color
PSYCH: Normal and appropriate interaction.
Scores
Heart Score for Chest Pain Patients
STEMI patient?: No
History: Slightly or Non-Suspicious
ECG: Nonspecific Repolarization
Age: >45 - <65 years
Risk Factors: 1 or 2 Risk Factors
Troponin: </= Normal Limit
Heart Score for Chest Pain Patients: 3
Heart Score Risk: 2.5% MACE over next 6 weeks
Course
Orders/Labs/Results
Orders:
Orders
03/05/25 00:30
ECG [Electrocardiogram (*1)] Urgent
Reason for Study: Chest Pain
03/05/25 00:31
EKG- Treatment ONCE
03/05/25 00:51
Cardiac Monitoring- Treatment ONCE
IV Insert/Care/Rem.- Treatment PRN
O2 Therapy [RESP] Urgent
Titrate/Wean O2 to maintain O2 sat greater than (%): 90
Special Instructions: Maintain sats >/=90%
Pulse Ox/spot Check [RESP] Urgent
Quantity: 1
Special Instructions: ON ROOM AIR
03/05/25 01:22
Basic Metabolic Panel Urgent
Comment: NO K
Lipase Urgent
Troponin I Urgent
HYDROmorphone [Dilaudid] 0.5 mg IV NOW STA
Ondansetron Injectable [Zofran] 4 mg IV NOW STA
03/05/25 01:23
0.9% Sodium Chloride 500 ml [Nss] 500 ml IV BOLUS
03/05/25 02:16
Complete Blood Count/With Diff Urgent
Pantoprazole [Protonix IV] 40 mg IV NOW STA
03/05/25 02:29
CT Abd/pel Without Iv Or Oral Urgent
Comment:
Reason For Exam: Recurring epigastric pain
03/05/25 03:02
HYDROmorphone [Dilaudid] 0.5 mg IV NOW STA
03/05/25 03:06
Admit/Transfer Patient As Directed
Co-Sign Provider:
Level of Care: Inpatient admission
Assign to:: IMU- Intermediate Care
Physician / Group: Rodrigue
Diagnosis: Abdominal Pain, N/V
Reason for Hospitalization: Abdominal Pain, N/V
Expected length of stay greater than two midnights?: Yes
ELOS- Estimated Length of Stay in days: 3
I certify the patient meets the requirements for IP care: Yes
PRN Pain Medication Management As Directed
May give lesser potent ordered pain med per pt: Yes
preference::
Protocol:: Medication orders for pain may be administered in a
manner that supports deferring to patient preference
when the pt is:
- Requesting an ordered lesser potent pain medication.
Least to most potent pain medications are defined
as: acetaminophen < NSAID < tramadol < opioids
(morphine, oxycodone, hydromorphone).
- Requesting a lesser dose of the same medication IF
ORDERED.
- Requesting a less intrusive route of administration
if both routes are prescribed by the provider (PO <
IV).
03/05/25 03:08
Code Status As Directed
Resuscitation Status: Full Code
03/05/25 04:37
Acetaminophen [Tylenol] 650 mg PO Q4HPRN PRN
Dextrose 50%-Water [Dextrose 50% Syringe] 12.5 grams IV [id number] PRN
Glucagon [GlucaGen] 1 mg IM PRN PRN
HYDROmorphone [Dilaudid] 0.5 mg IV Q4HPRN PRN
Ondansetron Injectable [Zofran] 4 mg IV Q6HPRN PRN
diazePAM [Valium Injection] 2 mg IV Q6HPRN PRN
03/05/25 04:37
Consult Notification Routine
Specialty to Notify: Gastroenterology
Date consulting provider notified: 03/05/25
Time consulting provider notified: 08:12
Notified:: Provider
Consult Notification Routine
Specialty to Notify: Nephrology
Date consulting provider notified: 03/05/25
Time consulting provider notified: 08:12
Notified:: Provider
GASTROINTESTINAL CONSULT Routine
Consulting Provider: Declan Zarate
Was physician already notified: No
Reason for consult: Gastroparesis, Schatzki's ring, Epigastric Pain, N/V
NEPHROLOGY CONSULT Routine
Consulting Provider: Abraham Berkowitz
Was physician already notified: No
Reason for consult: ESRD on PD
Activity As Directed
Activity Level: Ambulate
With Assistance
Bedside Glucose Monitoring As Directed
Frequency: AC&HS
Additional Instructions:: Change to q6h if pt on TPN, tube feeding or not eating
EKG with chest pain [ECG as needed] As Directed
ECG as needed for:: Chest Pain
I/O [Intake/ Output] As Directed
Frequency: Per unit guidelines
Pneumatic Compression Sleeves As Directed
Type: Knee high
Precautions As Directed
Type of Precautions: Aspiration
Vital Signs As Directed
Frequency: Per unit guidelines
Weight As Directed
Frequency: Daily
Oxygen Therapy [O2 Therapy] [RESP] Routine
Titrate/Wean O2 to maintain O2 sat greater than (%): 94
DX Deep Vein Thrombosis Video Routine
03/05/25 05:05
Complete Blood Count/No Diff IN AM
Magnesium IN AM
Phosphorus IN AM
TSH Reflex To Free T4 Routine
03/05/25 Breakfast
NPO
Allow oral meds: Yes
Allow clear liquids: Sips of Clears
Levothyroxine [Synthroid] 100 mcg PO DAILY@0600
03/05/25 07:30
Insulin Aspart Corrective Low [Novolog Flexpen-Low Resistance] See Protocol SC AC
03/05/25 08:00
NIFEdipine EXTENDED RELEASE [Procardia Xl (Extended Release)] 60 mg PO BID
Pantoprazole [Protonix IV] 40 mg IV DAILY
Abnormal Lab Results
03/05/25 03/05/25
01:22 02:16
WBC 12.7 H 10^3/uL
(4.8-10.8)
RBC 3.86 L 10^6/uL
(4.20-5.40)
Hgb 11.3 L g/dL
(12.0-16.0)
Hct 33.1 L %
(37.0-47.0)
Absolute Neuts (auto) 11.0 H 10^3/uL
(1.4-6.5)
Neutrophils % 86.1 H %
(42.2-75.2)
Lymphocytes % 9.1 L %
(20.5-51.1)
BUN 56 H mg/dl
(7-17)
Creatinine 6.5 H* mg/dL
(0.6-1.0)
Glucose 212 H mg/dl
(70-99)
03/05/25 02:16
03/05/25 02:57
Vital Signs
Initial and Last Documented VS:
Initial Vital Signs
Temp Pulse Resp BP Pulse Ox
98.2 F 103 24 145/83 100
03/05/25 00:36 03/05/25 00:36 03/05/25 00:36 03/05/25 00:36 03/05/25 00:36
Last Documented Vital Signs
Temp Pulse Resp BP Pulse Ox
98.5 F 90 11 127/79 95
03/06/25 07:03 03/06/25 04:00 03/06/25 04:00 03/06/25 04:00 03/06/25 04:00
*Pulse Oximetry
SaO2: 100
Oxygen Mode of Delivery: Room air
Patient hypoxic: no
*EKG
Interpreted by ED Provider?: Yes
Interpretation: abnormal
Comparison EKG: changes noted
Heart Rate: 102
Rate: tachycardiac
Rhythm: sinus
[place]cal[place]: normal axis
Interval: normal interval
QRS Pattern: normal QRS
Ischemia: no ischemia
*Critical Care Note
Total Time (30-74mins, 75-104mins- exclusive of procedures): Not Applicable
Update Note
Update Note:
0215.... Patient rechecked. Clinically has remained stable. Some epigastric discomfort but not toxic-appearing. Troponin normal. EKG stable. Await the rest of her labs. She has had multiple CAT scans over the years. 14 CAT scans since 2019.
I feel the yield on this as an acute issue is relatively low. Will hold on CT at this time
ED Attending Note
-
Portions of this chart may have been created with voice recognition software.� Occasional wrong word or��sound alike� substitutions may have occurred due to the inherent limitations of voice recognition software.
Discharge Plan
Departure
Patient Disposition: Admit
Date of Disposition: 03/05/25
Time of Disposition: 02:31
Presentation/result/management discussed w/ accepting MD/DO: Hospitalist
Discharge Problem:
Intractable recurrent epigastric pain, History of renal failure
Interventions
Interventions:
*Risk Screen - Suicide Last Done: 03/05/25 00:52
*General Assessment Last Done: 03/05/25 00:52
*Neglect/Abuse Screening Last Done: 03/05/25 00:52
*ED- Fall Risk Assessment Last Done: 03/05/25 00:52
*ED COVID-19 Vaccine History Last Done: 03/05/25 00:52
*Nursing Disposition Last Done: 03/05/25 04:39
ED- Cardiac Assessment Last Done: 03/05/25 00:53
Discharge Date and Time
Discharge Date/Time: 03/05/25 04:39
[2025-03-05 01:58] LABS: Blood Urea Nitrogen 56 mg/dl (7-17); Calcium 8.6 mg/dl (8.4-10.2); Carbon Dioxide 24 mmol/L (22-30); Chloride 98 mmol/L (98-107); Estimated Creatinine Clearance 7 ml/min; Glucose 212 mg/dl (70-99); Lipase 190 U/L (23-300); Sodium 135 mmol/L (135-145); eGFR 6.82
[2025-03-05 02:05] LABS: Troponin I < 0.012 ng/ml
[2025-03-05 02:24] LABS: Hematocrit 33.1 % (37.0-47.0); Hemoglobin 11.3 g/dL (12.0-16.0); Mean Corp Hgb Conc. 34.1 g/dL (33.0-37.0); Mean Corpuscular Volume 85.8 fL (81.0-99.0); Nucleated Red Blood Cells % 0 %; Platelet Count 344 10^3/uL (130-400); Red Cell Dist. Width 13.9 % (11.5-14.5)
[2025-03-05] MEDS: PROTONIX IV 40 MG IV ×3 (02:24→20:34)
--- NOTE | 2025-03-05 03:12 | HPS.HSE ---
Family Physician
-
Family Physician: Elias Evans
Chief Complaint
-
Abd Pain, N/V
History of Present Illness
Patient is a 59y F with PMH significant for hypertension, DM-II and ESRD on PD who presents to ED complaining of abdominal pain with N/V. History obtained from patient and family with family serving as interpreters. Patient has prior h/o
gastroparesis and reports that current symptoms are similar. She was hospitalized here 01/15 - 01/20 and 02/16 - 02/19 with similar symptoms. She last had an EGD in 2022 which showed esophageal spasm / dysmotility, distal narrowing / Schatzki's ring and
antral gastritis. Patient has had increased symptoms over the past two months.
She has been on PD for ESRD for the past 3 months or so.
She denies any fevers / chills. Abdominal pain is all upper / epigastric pain. Normal BM this morning.
Patient had emesis during my exam with dark brown material and partially digested food products.
Medical History
Past Medical History
Past Medical History: Reports Other
Additional Past Medical History:
Hypertension
DM-II
ESRD on PD
Hypothyroidism
Obesity
GERD
Gastroparesis
Schatzki's Ring / Esophageal Dysmotility
Anemia of CKD
Past Surgical History: Reports Other
Additional Past Surgical History:
Appendectomy
Cholecystectomy
PD Catheter Placement
Social History
Tobacco: Non-smoker
Alcohol: None
Drug: None
Personal:
Living: With Family
Family History
Family History: Not pertinent
Allergies / Home Medications
Allergies reflects when Allergies were last updated in [employer].
Home Medications with original date entered in [employer]
Allergy/Medication List:
Allergies
Allergy/AdvReac Type Severity Reaction Status Date / Time
metformin AdvReac DIARRHEA Verified 03/05/25 00:31
sitagliptin (From [employer]) AdvReac diarrhea Verified 03/05/25 00:31
Home Medications
levothyroxine 100 mcg tablet 100 mcg PO DAILY@07 Thyroid 11/17/20
atorvastatin 10 mg tablet 10 mg PO DAILY High cholesterol 02/23/22
ezetimibe 10 mg tablet 10 mg PO HS High cholesterol #30 tabs 02/27/22
cholecalciferol (vitamin D3) 25 mcg (1,000 unit) tablet 25 mcg PO DAILY vit d def #30 tabs 08/22/23
calcitriol 0.5 mcg capsule 0.5 mcg PO DAILY Hyperparathyroidism 01/15/25
calcium carbonate (Tums) 200 mg PO BIDPRN PRN Indigestion 01/15/25
nifedipine 60 mg tablet,extended release 60 mg PO BID Blood Pressure 01/15/25
nortriptyline 75 mg capsule 75 mg PO HSPRN PRN anxiety 01/15/25
torsemide 20 mg tablet 40 mg PO DAILY Fluid Retention/Swelling 01/15/25
tramadol 50 mg tablet 50 mg PO BIDPRN PRN moderate pain 01/15/25
wzbijx-myjsqcde-uqhuvoc 10,000-32,000-42,000 unit capsule,delayed rel (Zenpep) 1 cap PO MEALS #90 caps 01/20/25
gentamicin 0.1 % topical cream 1 applic topical DAILYPRN PRN incontinence sores 02/16/25
insulin glargine 100 unit/mL (3 mL) subcutaneous pen (Basaglar KwikPen U-100 Insulin) 8 unit (0.08 mL) SC HS Diabetes #0 mL 02/19/25
insulin lispro 100 unit/mL subcutaneous pen (Humalog KwikPen (U-100) Insulin) 3 unit (0.03 mL) SC AC Diabetes #0 mL 02/19/25
lidocaine 4 % topical patch 1 patch topical HS #30 ea 02/19/25
metoclopramide HCl 5 mg tablet 5 mg PO AC Gastrointestinal issue 30 days #90 tabs 02/19/25
ondansetron 8 mg disintegrating tablet 8 mg PO DAILYPRN PRN nausea #30 tabs 02/19/25
pantoprazole 40 mg tablet,delayed release 40 mg PO BID Gastrointestinal Issue 30 days #60 tabs 02/19/25
Review of Systems
-
History Source: Patient and Family
A 12 point ROS was completed and negative except as noted: Yes
Constitutional: Denies Fever or Chills
Respiratory: Denies Cough or Trouble Breathing
Cardiac: Reports Chest Pain; Denies Palpitations
Abdomen/GI: Reports Abdominal Pain, Nausea and Vomiting; Denies Diarrhea, Constipated, Bloody Stools or Black Stools
Musculoskeletal: Denies Joint Pain or Edema
Neurological: Denies Dizzy or Headache
Psych: Denies Depression or Anxiety
Physical Exam
Vital Signs
Vital Signs
Temp Pulse Resp BP Pulse Ox
98.2 F 103 24 145/83 100
03/05/25 00:36 03/05/25 00:36 03/05/25 00:36 03/05/25 00:36 03/05/25 01:58
Physical Exam
General: Other (59y F in mild - moderate distress due to abdominal pain. )
HEENT: Moist mucous membranes and PERRLA
Respiratory: Clear; No Wheezes, Rales or Rhonchi
Cardiac: S1/S2 and Tachycardia; No Murmur
GI: Other (Obese. Tenderness RLQ over dialysate site. Upper abdominal / epigastric tenderness. Bowel sounds are present.)
Musculoskeletal: No Clubbing, No Cyanosis and No Edema
Neuro: AO x 3
Laboratory Results
-
03/05/25 02:16
Laboratory Results
Total Bilirubin Cancelled 03/05/25 01:22
AST Cancelled 03/05/25 01:22
ALT Cancelled 03/05/25 01:22
Alkaline Phosphatase Cancelled 03/05/25 01:22
Troponin I < 0.012 ng/ml 03/05/25 01:22
Lipase 190 U/L (23-300) 03/05/25 01:22
Impression/Plan
-
A/P: Patient is a 59y F with PMH significant for hypertension, DM and ESRD on PD who presents to ED complaining of abdominal pain with N/V.
Abdominal Pain, N/V
Gastroparesis
Esophageal Dysmotility / Schatzki's Ring / ? Achalasia
- Admit for further evaluation and treatment.
- NPO, antiemetics, pain control, etc.
- Follow for clinical improvement with supportive measures..
- GI evaluation for additional recommendations.
- ? repeat / updated EGD given recurrent symptoms.
- CT ordered in the ED and is pending - follow-up results.
ESRD on PD
- Stable. Dialysate currently present. Uses nightly on weeknights.
- Nephrology eval for PD needs during hospital stay.
- IMU bed for PD.
- No evidence of acute infection. Follow temp curve / monitor for any new symptoms.
- Follow labs / lytes.
Benign Hypertension
- Uncontrolled in the ED, likely due to pain.
- Continue usual home medication and adjust regimen as needed for BP control.
DM-II
- Stable. Hold standing insulin acutely (on low dose of Lantus).
- Follow glucose and cover with SSI as needed.
- A1C = 7.4% on 02/17/25.
Hypothyroidism
- Update TFTs - not done in some time here.
- Continue current T4 replacement for now.
Anemia of CKD
- Stable. Hgb is at / near known baseline.
- Follow for changes.
DVT Prophylaxis: SCDs
Code Status: Full
[2025-03-05] MEDS: SYNTHROID 100 MCG PO (05:04)
[2025-03-05 06:01] LABS: Glucose - Point of Care 298 mg/dl (70-99)
[2025-03-05 06:27] LABS: Hematocrit 31.2 % (37.0-47.0); Hemoglobin 10.6 g/dL (12.0-16.0); Mean Corp Hgb Conc. 34.0 g/dL (33.0-37.0); Mean Corpuscular Volume 86.2 fL (81.0-99.0); Platelet Count 354 10^3/uL (130-400); Red Cell Dist. Width 13.4 % (11.5-14.5)
[2025-03-05 06:43] LABS: Blood Urea Nitrogen 52 mg/dl (7-17); Calcium 8.7 mg/dl (8.4-10.2); Carbon Dioxide 22 mmol/L (22-30); Chloride 99 mmol/L (98-107); Estimated Creatinine Clearance 7 ml/min; Glucose 312 mg/dl (70-99); Magnesium 1.9 mg/dl (1.6-2.3); Potassium 4.5 mmol/L (3.5-5.1); Sodium 134 mmol/L (135-145); eGFR 7.36
[2025-03-05] MEDS: VALIUM INJECTION 2 MG IV ×2 (07:45→17:09)
[2025-03-05] MEDS: NSS (PRESERVATIVE FREE) 10 ML IV ×2 (07:45→20:33)
[2025-03-05] MEDS: PROCARDIA XL (EXTENDED RELEASE) 60 MG PO ×2 (07:45→20:33)
[2025-03-05] MEDS: NOVOLOG FLEXPEN-LOW RESISTANCE 4 UNITS SC (08:21)
--- NOTE | 2025-03-05 08:25 | CON.GI ---
Addendum entered and electronically signed by Elisha Casiano DO 03/05/25 16:26:
Patient seen and examined independently of BRIAN. I agree with her note with my additions below
Patient is a 59-year-old [place] Citizen-speaking female known to our service for multiple admissions with epigastric pain nausea and vomiting. She has a significant history of poorly controlled type 2 diabetes and gastroparesis with overall for upper GI
dysmotility.
Today, she describes significant epigastric pain and nausea with vomiting. Admitted in January with similar symptoms. She is not having any diarrhea. Her CT scan shows a moderate late enlarging hiatal hernia. Her pancreas on the unenhanced without
IV contrast was normal-appearing. Her lipase is normal. Her liver enzymes are normal. The sugars in the 300s.
Will give her Reglan [id number] along with benzodiazepines as needed for the nausea. Monitor QT
When able would perform upper GI series to evaluate her hiatal hernia
Glucose control
Ensure no infection -Dr. Berkowitz to check the peritoneal fluid for infection.
Will monitor
Original Note:
Consultation
-
Date/Time Consultation Requested: 03/05/25 0430
Date/Time Consultation Performed: 03/05/25 0830
Requesting Provider: Quincy Husain DO
Performing Provider: BRIAN Ortiz, Elisha Casiano DO
Reason for Consultation: nausea/vomiting/ epigastric pain
Medical History
Chief Complaint / HPI
Chief Complaint: epigastric pain, vomiting
History of Present Illness:
The patient is a 59-year-old [place] Citizen-speaking female know to GI service with a past medical history significant for type 2 diabetes, hyperlipidemia, gastroparesis, esophageal dysmotility, schatzki's ring, moderate HH, prior pancreatitis with
improvement on follow up MRI in 10/2023, hypothyroidism, GERD, CHF, chronic anemia, ESRD on peritoneal dialysis over last several months who presented to the emergency room with complaints of intractable epigastric pain along with vomiting. In
review of chart pt was admitted in January with similar symptoms. During that admission she was noted with pancolitis possible PD related. Fluid sample was neg for SBP. She improved off PD but wanted to restart. She started pancrelipase and was
recommended OP follow up with GI which in not scheduled to consider OP EGD and pt to continue Protonix. After discharge pt did return 2 weeks late with similar symptoms and concern for gastroparesis flare. During last 2 visits pt was treated with
continued Reglan, pain medications with improvement on discharge. She now returns with recurrent epigastric pain with nausea without vomiting. In ER noted with emesis with dark brown material with partially digested food. CT was repeated on
admission with moderate ascites, PD cath stable, moderate HH enlarged. Tiny effusion stable
In review with patient with administrative dietitian on Language line pt continues to complain of epigastric and chest pain. Difficult to say what makes pain worse but improved with pain meds. Currently pain level is high but staff giving extra
medication. Pt admits to chronic pain issues but and admits to ongoing pain for weeks. She denies any change with eating and admits to small amount of hematemesis with vomiting and increased nausea and dysphagia at times. She denies issues
with diarrhea, constipation or rectal bleeding. She last had EGD 06/[address] Casiano with at that time which did show abnormal esophageal motility with spasm and low-grade narrowing of Schatzki ring with erythematous mucosa in the antrum.
Biopsies taken during the EGD did not show any significant findings. On admission hbg 11.3 with prior hbg 8-11 range, WBC 12.7, platelets 344, BUN 56, creat 6.5 , and glucose 212, no LFT's completed and lipase 190 .
Past Medical History
Past Medical History: CHF, GERD, Hypercholesterolemia, Hypothyroidism, IDDM, Renal Failure (ESRD on HD ) and Other (Gastroparesis, esophageal dysmotility, schatzki's ring, chronic anemia, chronic constipation, ? Celiac disease, hx pancreatitis,
moderate HH )
Past Surgical History: Appendectomy (With perforation and abscess), Cholecystectomy and
Social History
Tobacco: Non-Smoker
Alcohol: None
Drug: None
Personal:
Living: With Family
Employment: Not Employed
Family History
Family History: Other (no family hx GI malignancies )
Allergies / Home Medications
Allergy/AdvReac Type Severity Reaction Status Date / Time
metformin AdvReac DIARRHEA Verified 03/05/25 00:31
sitagliptin (From Julvirgliio) AdvReac diarrhea Verified 03/05/25 00:31
�Medication �Instructions �Recorded
levothyroxine 100 mcg tablet 100 mcg PO DAILY@07 Thyroid 11/17/20
atorvastatin 10 mg tablet 10 mg PO DAILY High cholesterol 02/23/22
ezetimibe 10 mg tablet 10 mg PO HS High cholesterol #30 02/27/22
tabs
cholecalciferol (vitamin D3) 25 25 mcg PO DAILY vit d def #30 tabs 08/22/23
mcg (1,000 unit) tablet
calcitriol 0.5 mcg capsule 0.5 mcg PO DAILY 01/15/25
Hyperparathyroidism
calcium carbonate (Tums) 200 mg PO BIDPRN PRN Indigestion 01/15/25
nifedipine 60 mg tablet,extended 60 mg PO BID Blood Pressure 01/15/25
release
nortriptyline 75 mg capsule 75 mg PO HSPRN PRN anxiety 01/15/25
torsemide 20 mg tablet 40 mg PO DAILY Fluid 01/15/25
Retention/Swelling
tramadol 50 mg tablet 50 mg PO BIDPRN PRN moderate pain 01/15/25
invktl-sjciiaxd-hpxrqja 1 cap PO MEALS #90 caps 01/20/25
10,000-32,000-42,000 unit
capsule,delayed rel (Zenpep)
gentamicin 0.1 % topical cream 1 applic topical DAILYPRN PRN 02/16/25
incontinence sores
insulin glargine 100 unit/mL (3 8 unit (0.08 mL) SC HS Diabetes #0 02/19/25
mL) subcutaneous pen (Basaglar mL
KwikPen U-100 Insulin)
insulin lispro 100 unit/mL 3 unit (0.03 mL) SC AC Diabetes #0 02/19/25
subcutaneous pen (Humalog KwikPen mL
(U-100) Insulin)
lidocaine 4 % topical patch 1 patch topical HS #30 ea 02/19/25
metoclopramide HCl 5 mg tablet 5 mg PO AC Gastrointestinal issue 02/19/25
30 days #90 tabs
ondansetron 8 mg disintegrating 8 mg PO DAILYPRN PRN nausea #30 02/19/25
tablet tabs
pantoprazole 40 mg tablet,delayed 40 mg PO BID Gastrointestinal 02/19/25
release Issue 30 days #60 tabs
Review of Systems
-
Unable to obtain full review of systems at this time due to: Language Barrier (use of estonian interpretor )
History Source: Patient
Constitutional: Reports Fatigue
EENT: Reports No Symptoms
Respiratory: Reports No Symptoms
Cardiac: Reports Chest Pain
Abdomen/GI: Reports Abdominal Pain, Nausea and Vomiting
: Reports Other (chronic PD)
Musculoskeletal: Reports No Symptoms
Skin: Reports No Symptoms
Neurological: Reports Weakness
Endocrine: Reports No Symptoms
Hematologic/Lymphatic: Reports Bleeding (? streak of blood with vomiting )
Vital Signs
Temp Pulse Resp BP Pulse Ox
98.0 F 110 13 171/78 98
03/05/25 04:41 03/05/25 06:08 03/05/25 06:08 03/05/25 06:08 03/05/25 06:08
Physical Exam
Exam
General: Other (noted with distress with increased pain on exam and crying )
HEENT: Normocephalic
Respiratory: Clear
Cardiac: Other (tachy)
GI: Soft, Tender (diffuse ), Distended (mild ) and Other (PD cath in place with dry dressing )
Musculoskeletal: No Clubbing and No Cyanosis
Skin: Warm and Dry
Neuro: Awake, Alert and AO x 3
Psych: Other (anxious with pain )
Results
WBC 11.8 10^3/uL (4.8-10.8) H 03/05/25 05:05
Hgb 10.6 g/dL (12.0-16.0) L 03/05/25 05:05
Hct 31.2 % (37.0-47.0) L 03/05/25 05:05
MCV 86.2 fL (81.0-99.0) 03/05/25 05:05
Plt Count 354 10^3/uL (130-400) 03/05/25 05:05
Absolute Neuts (auto) 11.0 10^3/uL (1.4-6.5) H 03/05/25 02:16
Sodium 134 mmol/L (135-145) L 03/05/25 05:05
Potassium 4.5 mmol/L (3.5-5.1) 03/05/25 05:05
Chloride 99 mmol/L (98-107) 03/05/25 05:05
Carbon Dioxide 22 mmol/L (22-30) 03/05/25 05:05
BUN 52 mg/dl (7-17) H 03/05/25 05:05
Creatinine 6.1 mg/dL (0.6-1.0) H* 03/05/25 05:05
Calcium 8.7 mg/dl (8.4-10.2) 03/05/25 05:05
Total Bilirubin Cancelled 03/05/25 01:22
AST Cancelled 03/05/25 01:22
ALT Cancelled 03/05/25 01:22
Alkaline Phosphatase Cancelled 03/05/25 01:22
Lipase 190 U/L (23-300) 03/05/25 01:22
Diagnostic Image Results:
03/05/25 CT a/p without contrast Moderate abdominopelvic ascites. New. Peritoneal dialysis catheter. Stable. Moderate hiatal hernia. Enlarged Tiny pericardial effusion . Stable
02/16/25 CT A/p with IV contrast Findings again seen compatible with some bilateral chronic renal disease.Markedly limited evaluation of intestinal tract without oral contrast and with decompressed/MDD large bowel. Some thickening of the wall of
segments of large bowel such as COLITIS, possible. No intestinal obstruction or free air.Additional stable findings in comparison to recent prior study, as detailed above.
01/15/25 CT a/p with IV contrast 1. Mild diffuse pancolitis.2. Small hiatal hernia.3. Previous cholecystectomy.4. Moderate chronic bilateral renal disease.5. Moderate elevation of the right hemidiaphragm. 6. Mild cardiomegaly.
10/17/2023 MR with and without contrast Unremarkable MRI of the abdomen.
08/20/24 MRI with and without contrast Severely limited examination due to patient breathing motion. A subtle lesion on the postcontrast images could easily be missed.
1. Minimal edema about the tail of the pancreas. No discrete fluid collection. No definite lesion identified. Findings suggest mild pancreatitis.
2. Post noe, previous CT scans have revealed dystrophic calcification adjacent to the clips in the gallbladder fossa. Unchanged. There is no intraluminal filling defect in the common bile duct to suggest a residual bgallstone.
3. Mild wall thickening of the second portion of the duodenum. Nonspecific. This could be followed with either upper GI or direct visualization with endoscopy if clinically indicated.
4. No other significant interval change
08/18/23 CT A/P: There is significant stranding of the fat surrounding the pancreas, mainly the body and head of the pancreas, a new finding compared to CT of August 10, 2022. These findings would be suggestive of pancreatitis. Additionally, there is
suggestion of diffuse thickening of the wall the stomach and possible thickening of the wall of the duodenum. The above findings, possibility of pancreatitis with secondary inflammation of the stomach and duodenum. Differential consideration of
gastritis and duodenitis as a primary process and secondary stranding of the peripancreatic fat. Of note, the patient has a normal lipase value. Status post cholecystectomy with no evidence for biliary ductal dilation. There is a bilobed dystrophic
calcification in the right upper quadrant adjacent to the cholecystectomy clips, which has been present dating back to CT examinations in 2018. Small central hiatal hernia. Coronary artery calcifications are noted. Please correlate with symptoms of
and risk factors for coronary artery disease, with further workup as clinically appropriate.
08/18/23 XR abdomen: �No significantly dilated air-filled loops of bowel are identified. Status post cholecystectomy. 11 mm calcification in the right upper quadrant medial to the cholecystectomy clips, stable dating back to CT examination of May
2017, most likely a focal dystrophic calcification at the site of previous cholecystectomy.
EGD 07/07/[address] Casiano with at that time which did show abnormal esophageal motility with spasm and low-grade narrowing of Schatzki ring with erythematous mucosa in the antrum. Biopsies taken during the EGD did not show any significant
findings.
07/04/23�US abdomen for prior noe no biliary tract dilation. Left lobe of liver, pancreas and IVC significantly obscured, most likely by overlying bowel gas.
08/13/22- UGI��Possible mild achalasia versus mild esophageal dysmotility
08/10/22�CT A/P without IV or oral contrast-- limitation without contrast but noted prior appe, noe, tiny pericardial effusion and no free air.
04/18/21-�CT abdomen/pelvis-no acute inflammatory abnormality in abdomen/pelvis
12/09/20 obstruction series- no obstruction, free air, limited CXR, small left pleural effusion no pulm edema
12/03/20- abdomen X ray-oral contrast right colon
12/02/20- US abdomen with doppler-patent hepatic vasculature with appropriate directional flow, increased echogenicity of liver c/w underlying hepatocellular diseae, most commonly fatty liver
12/02/20- CT abdomen/pelvis-smith paucity of oral contrast and lack of IV contrast no gross abnormality no ostruction free air or focal fluid collection, prior appe, possible small HH, pericardial thickening unchanged
11/24/20 EGD�completed without complication--Esophagus Normal mucosa�biopsied 8 mm benign-appearing polyp at GE junction�biopsied
Stomach Diffuse, mild gastritis�biopsied for H. pylori Small amount of bile in stomach�aspirated� Duodenum Normal mucosa�biopsied for celiac disease
11/19/20-MR abdomen without contrast-�no bile duct dilation or choledocholithiasis, non specific stranding, no hydrop or obstructive uropathy
EGD:03/2020- food in stomach with small HH, Z line variable no lesion in esophagus�
Colonoscopy:� 12/2019- no appendiceal pathology on luminal side
2017 capsule�slow to pass normal per notes report not reviewed
05/09/18- CT without IV or oral contrast-increased left perinephric fat stranding and thickening of gerota fascia no nephrolithiasis or hydro
�EGD 12/21/17:�tortuous esophagus, scar, no inflammation. biopsied
otherwise, no findings to explain anemia.� Duodenum biopsied
12/23/17��Colonoscopy - hemorrhoid and 1, 1cm polyp removed from the descending colon.
-GE scan 12/2017- normal
EGD 11/11/16�LA Grade D reflux esophagitis, small HH, 1 GE junction polyp with bx showing chronic inflammation, bx distal esophagus showed ulceration, normal examined duodenum, neg Hpylori, neg celiac
EGD 12/28/16�small HH, otherwise normal.
12/2016- Ct�duodenitis
GES 12/2016�borderline suggesting mild gastroparesis.
12/2016Celiac antibodies abnormal
11/2016- CT with IV only- appendiceal distention concern for possible acute appendicitis but no abdominal pain, mild mucosal enhancement, mild intrahepatic biliary dilation with prior noe, small HH and gastric distention
Assessment / Plan
-
The patient is a 59-year-old [place] Citizen-speaking female know to GI service with a past medical history significant for type 2 diabetes, hyperlipidemia, gastroparesis, esophageal dysmotility, schatzki's ring, moderate HH, prior pancreatitis with
improvement on follow up MRI in 10/2023, hypothyroidism, GERD, CHF, chronic anemia, ESRD on peritoneal dialysis over last several months who presented to the emergency room with complaints of intractable epigastric pain along with vomiting. In
review of chart pt was admitted in January with similar symptoms. During that admission she was noted with pancolitis possible PD related. Fluid sample was neg for SBP. She improved off PD but wanted to restart. She started pancrelipase and was
recommended OP follow up with GI which in not scheduled to consider OP EGD and pt to continue Protonix. After discharge pt did return 2 weeks late with similar symptoms and concern for gastroparesis flare. During last 2 visits pt was treated with
continued Reglan, pain medications with improvement on discharge. She now returns with recurrent epigastric pain with nausea without vomiting. In ER noted with emesis with dark brown material with partially digested food. CT was repeated on
admission with moderate ascites, PD cath stable, moderate HH enlarged. Tiny effusion stable
-nausea/vomiting/abdominal pain
-reported streak of blood with vomiting
-hx gastroparesis with prior uncontrolled DM
-acute on chronic anemia
-moderate HH on CT, prior noted pancolitis in January
-tachycardia
-HTN urgency on admission
-alk phos elevation-- chronic
-prior UGI with Possible mild achalasia versus mild esophageal dysmotility
-CKD now on PD
-hx pancreatitis 08/2023
other medical problems:
-IDDM
-GERD
-hypothyroidism
-Obesity
-Anemia of chronic disease
-Vitamin D deficiency
- Abnormal celiac serologies but normal duodenal biopsies
- s/p noe
- s/p appendectomy with prior h/o abscess
-hepatic steatosis
-pancreatic atrophy
PLAN:
etiology of nausea/vomiting/abdominal pain related to flare of known gastroparesis with some vomiting of undigested food in ER, MW tear with streak of blood reported by pt vs hernia related as noted on CT v other
symptoms worse since start of PD
reviewed with Dr. Berkowitz
cont pain control, antiemetics, discussed with nursing for Reglan -- has not been given dose since admission
current Reglan 5mg Q 6 hours if not improving consider increase -- QTC 466 recheck in AM
in not improving with medication consider NGT decompression
increase PPI to BID
good glucose control
will add on LFT's as no completed on admission
add repeat troponin with continued complaints of chest pain with epigastric pain but was normal on admission
-
-
Thank you for consultation and allowing me to participate in the patient's care. Please call the induction machine setter GI physician during the after hours with any questions or concerns.
[2025-03-05 08:29] LABS: Glucose - Point of Care 335 mg/dl (70-99)
--- NOTE | 2025-03-05 08:31 | PTCARENOTE ---
via tobacco stripping machine operator pt states that she is having alot of epigastric pain level 10 and she vomited a small amount of brown liquid. pt requesting pain med but is not due for dilaudid for another half hour. will contact physiscian.
[2025-03-05] MEDS: DILAUDID 0.75 MG IV (09:03)
--- NOTE | 2025-03-05 09:42 | CM ---
Patient seen at bedside in IMU. Patient resting in bed, Patient german speaking. Per prior hospitalization patient lives with in a 1 story home. Patient was independent of ADL's personal care and no assistive devices. Patient has home PD
M-F at night per chart. CM will call to patient family to confirm discharge plan. Patient PCP is Dr. Evans, and she uses the [facility] in [place]. Patient had VN previously when starting PD per chart, unclear which VN at that time. CM will
continue to follow for discharge planning needs.
Plan; pending medical treatment plan; confirm discharge plan with family
.
[2025-03-05 09:51] LABS: ALT (SGPT) 32 U/L (0-35); AST (SGOT) 27 U/L (14-36); Albumin 4.0 g/dl (3.5-5.0); Alkaline Phosphatase 163 U/L (38-126); Total Protein 6.6 g/dl (6.3-8.2)
--- NOTE | 2025-03-05 12:31 | W.CON.NEPH ---
Consultation
-
Date/Time Consultation Requested: 03/05/2025 10 AM
Date/Time Consultation Performed: 03/05/2025 10 AM
Requesting Provider: Dr. Husain
Performing Provider: Dr. Berkowitz
Reason for Consultation: ESRD
Medical History
-
Chief Complaint: Vomiting
History of Present Illness:
59-year-old Macedonian-speaking female who has ESRD likely from diabetic nephropathy, started PD early 2024, chronic GI issues from gastroparesis, diabetes mellitus type 2 on insulin therapy which is stable. She has hypertension controlled on a
multidrug regimen. She has had prior admissions due to epigastric discomfort with vomiting. These were felt to be exacerbations of gastroparesis. This occurred again and she came to the emergency room for the same symptoms of epigastric pain and
vomiting. Oral intake has been poor as a result. There is no hematemesis, diarrhea, constipation. She has had no issues with her dialysis at home. Her prescription has not changed. She only undergoes peritoneal dialysis 5 days of the week and
does not dialyze on Tuesday night or Tuesday night.
Past Medical History
Coronary artery calcification, ESRD on peritoneal dialysis, diabetes, hypothyroidism, hypertension, hyperlipidemia, anemia of chronic disease, obesity, peptic ulcer disease
Past Surgical History: Other (cholecystectomy, , appendectomy, PD catheter)
Social History
Tobacco: Non-Smoker
Alcohol: None
Personal:
Living: With Family
Employment: Not Employed
Family History
Family History: Not Pertinent
Allergies / Home Medications
Allergy/AdvReac Type Severity Reaction Status Date / Time
metformin AdvReac DIARRHEA Verified 03/05/25 00:31
sitagliptin (From Januvia) AdvReac diarrhea Verified 03/05/25 00:31
�Medication �Instructions �Recorded �Confirmed �Type
levothyroxine 100 mcg tablet 100 mcg PO DAILY@07 Thyroid 11/17/20 03/05/25 History
atorvastatin 10 mg tablet 10 mg PO DAILY High cholesterol 02/23/22 03/05/25 History
ezetimibe 10 mg tablet 10 mg PO HS High cholesterol #30 02/27/22 03/05/25 Rx
tabs
cholecalciferol (vitamin D3) 25 25 mcg PO DAILY vit d def #30 tabs 08/22/23 03/05/25 Rx
mcg (1,000 unit) tablet
calcitriol 0.5 mcg capsule 0.5 mcg PO DAILY 01/15/25 03/05/25 History
Hyperparathyroidism
calcium carbonate (Tums) 200 mg PO BIDPRN PRN Indigestion 01/15/25 03/05/25 History
nifedipine 60 mg tablet,extended 60 mg PO BID Blood Pressure 01/15/25 03/05/25 History
release
nortriptyline 75 mg capsule 75 mg PO HSPRN PRN anxiety 01/15/25 03/05/25 History
torsemide 20 mg tablet 40 mg PO DAILY Fluid 01/15/25 03/05/25 History
Retention/Swelling
tramadol 50 mg tablet 50 mg PO BIDPRN PRN moderate pain 01/15/25 03/05/25 History
xmjzml-yizemdym-uzmpyho 1 cap PO MEALS #90 caps 01/20/25 03/05/25 Rx
10,000-32,000-42,000 unit
capsule,delayed rel (Zenpep)
gentamicin 0.1 % topical cream 1 applic topical DAILYPRN PRN 02/16/25 03/05/25 History
incontinence sores
insulin glargine 100 unit/mL (3 8 unit (0.08 mL) SC HS Diabetes #0 02/19/25 03/05/25 Rx
mL) subcutaneous pen (Basaglar mL
KwikPen U-100 Insulin)
insulin lispro 100 unit/mL 3 unit (0.03 mL) SC AC Diabetes #0 02/19/25 03/05/25 Rx
subcutaneous pen (Humalog KwikPen mL
(U-100) Insulin)
lidocaine 4 % topical patch 1 patch topical HS #30 ea 02/19/25 03/05/25 Rx
metoclopramide HCl 5 mg tablet 5 mg PO AC Gastrointestinal issue 02/19/25 03/05/25 Rx
30 days #90 tabs
ondansetron 8 mg disintegrating 8 mg PO DAILYPRN PRN nausea #30 02/19/25 03/05/25 Rx
tablet tabs
pantoprazole 40 mg tablet,delayed 40 mg PO BID Gastrointestinal 02/19/25 03/05/25 Rx
release Issue 30 days #60 tabs
Review of Systems
-
Abdominal pain, nausea, vomiting
All other systems: Negative unless noted
Physical Exam
Vital Signs
Vital Signs
Temp Pulse Resp BP Pulse Ox
97.8 F 103 17 167/80 98
03/05/25 07:05 03/05/25 10:00 03/05/25 10:00 03/05/25 10:00 03/05/25 10:03
Lab Results
WBC 11.8 10^3/uL (4.8-10.8) H 03/05/25 05:05
RBC 3.62 10^6/uL (4.20-5.40) L 03/05/25 05:05
Hgb 10.6 g/dL (12.0-16.0) L 03/05/25 05:05
Hct 31.2 % (37.0-47.0) L 03/05/25 05:05
Plt Count 354 10^3/uL (130-400) 03/05/25 05:05
Sodium 134 mmol/L (135-145) L 03/05/25 05:05
Potassium 4.5 mmol/L (3.5-5.1) 03/05/25 05:05
Chloride 99 mmol/L (98-107) 03/05/25 05:05
Carbon Dioxide 22 mmol/L (22-30) 03/05/25 05:05
BUN 52 mg/dl (7-17) H 03/05/25 05:05
Creatinine 6.1 mg/dL (0.6-1.0) H* 03/05/25 05:05
eGFR 7.36 03/05/25 05:05
Glucose 312 mg/dl (70-99) H 03/05/25 05:05
Calcium 8.7 mg/dl (8.4-10.2) 03/05/25 05:05
Phosphorus 7.3 mg/dl (2.5-4.5) H 03/05/25 05:05
Albumin 4.0 g/dl (3.5-5.0) 03/05/25 05:05
Laboratory Tests
02/19/25
09:17
WBC 10.3
BUN 51 H
Creatinine 8.1 H*
CT abdomen pelvis 03/05/2025
IMPRESSION: Moderate abdominopelvic ascites. New.
Peritoneal dialysis catheter. Stable.
Moderate hiatal hernia. Enlarged
Tiny pericardial effusion . Stable
Physical Exam
Patient is awake alert oriented and in no distress. Mood and affect were pleasant, insight and judgment were good. Pupils are equal round and reactive to light, extraocular movements are intact, sclera were anicteric. Hearing was normal, ears and
nose are intact. Oropharynx was clear. Neck was supple with trachea midline and no thyromegaly. Heart was regular rate and rhythm without rubs. Lower extremities without edema. Lungs were clear to auscultation bilaterally and with normal
excursion. Abdomen was soft, nontender, with normal active bowel sounds, and no hepatosplenomegaly. Skin was without rash and with normal turgor. PD catheter clean dry and intact
Data Reviewed
-
CT Scan: Report Reviewed by me
Medical Tests (Nuc Med, Echo etc): Image Personally Visualized and interpreted (EKG 03/05/2025 by my reading sinus tachycardia left axis deviation incomplete right bundle branch block, inferior Q)
Labs: Labs Reviewed by me
Old Records: Reviewed
Assessment/Plan
-
Assessment:
Intractable epigastric pain and vomiting
Coronary artery calcification
Diabetes mellitus type 2
End-stage renal disease on PD at [facility] PD script-all 1.5% bags, NIPD 8hrs. 5days/week
Hypothyroidism
Hyperlipidemia
Hypertension
Anxiety/depression
Chronic pain on tramadol
Fatty liver
Obesity
Anemia possibly of CKD
Nephrolithiasis, incidental
Plan:
Will continue PD close to outpatient prescription
2L every 5 hours at 1.5%
Will send dialysate culture
Follow BMP
[2025-03-05 13:13] LABS: Glucose - Point of Care 241 mg/dl (70-99)
--- NOTE | 2025-03-05 13:17 | W.PN.UPDATE ---
Addendum entered and electronically signed by Bret Reinoso MD 03/05/25 14:41:
updated carol james over the phone in details.
Addendum entered and electronically signed by Bret Reinoso MD 03/05/25 13:55:
Called carol James to update. No response left voicemail to call back
Original Note:
Update Note
Progress Note Update
Seen and examined independent of overnight physician
tool repairer bench was used
Patient in setting of epigastric abdominal pain. States of nausea with 2 episodes of vomiting earlier today.
General: Mild distress due to pain
HEENT: Moist mucous membranes and PERRLA
Respiratory: Clear; No Wheezes, Rales or Rhonchi
Cardiac: S1/S2 and Tachycardia; No Murmur
GI: Other (Obese. Tenderness RLQ over dialysate site. Upper abdominal / epigastric tenderness. Bowel sounds are present.)
Musculoskeletal: No Clubbing, No Cyanosis and No Edema
Neuro: AO x 3
A/P: Patient is a 59y F with PMH significant for hypertension, DM and ESRD on PD who presents to ED complaining of abdominal pain with N/V.
Abdominal Pain, abdominal pain due to ascites unclear if related to PD
Gastroparesis
Esophageal Dysmotility / Schatzki's Ring / ? Achalasia
- NPO, antiemetics, pain control, etc. advance as to improvement in pain noted
- Follow for clinical improvement with supportive measures..
- GI evaluation for additional recommendations.
- Restarted Reglan. PPI twice daily. Pain control. Troponin was negative.
- CT ordered in the ED and is pending - follow-up results.
ESRD on PD
- Stable. Dialysate currently present. Uses nightly on weeknights.
- Nephrology eval for PD needs during hospital stay.
- IMU bed for PD.
- No evidence of acute infection. Follow temp curve / monitor for any new symptoms.
- Follow labs / lytes.
Benign Hypertension
- Uncontrolled in the ED, likely due to pain.
- Continue usual home medication and adjust regimen as needed for BP control.
DM-II
- Restart Lantus
- Follow glucose and cover with SSI as needed.
- A1C = 7.4% on 02/17/25.
Hypothyroidism
- Update TFTs - not done in some time here.
- Continue current T4 replacement for now.
Anemia of CKD
- Stable. Hgb is at / near known baseline.
- Follow for changes.
DVT Prophylaxis: SCDs
Code Status: Full
[2025-03-05] MEDS: LANTUS 0.04 UNITS SC (13:25)
[2025-03-05] MEDS: REGLAN 5 MG IV ×2 (13:27→23:11)
[2025-03-05] MEDS: REGLAN IV (13:27)
[2025-03-05] MEDS: NOVOLOG FLEXPEN-LOW RESISTANCE 2 UNITS SC (13:27)
[2025-03-05 17:42] LABS: Troponin I < 0.012 ng/ml
[2025-03-05 18:02] LABS: Glucose - Point of Care 199 mg/dl (70-99)
[2025-03-05] MEDS: NOVOLOG FLEXPEN-LOW RESISTANCE 1 UNITS SC (18:07)
[2025-03-05 20:16] LABS: Body Fluid Second Tech DW
--- NOTE | 2025-03-05 21:00 | W.PN.UPDATE ---
Update Note
Progress Note Update
Patient seen, still with epigastric pain and belly is distended. Discussed the option of NGT to the who translated to the patient and both agreed with the plan of NGT for decompression
[2025-03-05] MEDS: DILAUDID 0.25 MG IV (21:44)
[2025-03-05 22:44] LABS: Glucose - Point of Care 260 mg/dl (70-99)
[2025-03-05] MEDS: LANTUS 0.06 UNITS SC (23:12)
[2025-03-05] MEDS: NOVOLOG FLEXPEN-LOW RESISTANCE 3 UNITS SC (23:20)
[2025-03-06] VITALS (12 sets, daily range): BP systolic 117–145; BP diastolic 57–99; BMI 27.7
[2025-03-06] MEDS: DILAUDID 0.5 MG IV ×4 (05:35→23:50)
[2025-03-06] MEDS: SYNTHROID 100 MCG PO (05:37)
[2025-03-06] MEDS: NOVOLOG FLEXPEN-LOW RESISTANCE 1 UNITS SC ×2 (05:55→12:09)
[2025-03-06 06:05] LABS: Glucose - Point of Care 198 mg/dl (70-99)
[2025-03-06 06:32] LABS: Hematocrit 30.8 % (37.0-47.0); Hemoglobin 10.3 g/dL (12.0-16.0); Mean Corp Hgb Conc. 33.4 g/dL (33.0-37.0); Mean Corpuscular Volume 87.0 fL (81.0-99.0); Platelet Count 357 10^3/uL (130-400); Red Cell Dist. Width 13.5 % (11.5-14.5)
[2025-03-06 06:53] LABS: Blood Urea Nitrogen 49 mg/dl (7-17); Calcium 8.9 mg/dl (8.4-10.2); Carbon Dioxide 25 mmol/L (22-30); Chloride 101 mmol/L (98-107); Estimated Creatinine Clearance 7 ml/min; Glucose 209 mg/dl (70-99); Potassium 4.2 mmol/L (3.5-5.1); Sodium 136 mmol/L (135-145); eGFR 7.66
[2025-03-06] MEDS: PROCARDIA XL (EXTENDED RELEASE) 60 MG PO ×2 (08:55→21:29)
[2025-03-06] MEDS: ZOFRAN 4 MG IV (09:04)
[2025-03-06] MEDS: REGLAN 5 MG IV ×3 (09:04→23:27)
[2025-03-06] MEDS: NSS (PRESERVATIVE FREE) 10 ML IV ×2 (09:05→21:28)
[2025-03-06] MEDS: PROTONIX IV 40 MG IV ×2 (09:05→21:29)
[2025-03-06] MEDS: FLUSH (NSS) 3 FLUSH IV (09:05)
--- NOTE | 2025-03-06 09:07 | PTCARENOTE ---
Assumed care of patient this AM. Used language line to communicate with patient, she is Tongan speaking only. Patient reports nausea and abdominal pain rating 6/10. VS stable,afebrile. Will be doing next PD exchange at 11:20.
--- NOTE | 2025-03-06 09:17 | W.PN.GI.CBS2 ---
Addendum entered and electronically signed by Elisha Casiano DO 03/06/25 11:21:
Patient seen and examined independently of [employer] BUSINESS ADMINISTRATOR. I agree with her note with my additions below
Patient has had some improvement from yesterday. She is sitting up and had some sips of tee kraig.
In discussion with her and her daughter Pilar who is helping translate she states she has been able to stay out of the hospital because she had a medication to take intermittently for the pain. She was not able to get refills on this medication and
therefore had to come to the hospital.
She has chronic issues with dysphagia to both liquids and solids but sounds like worse with solids.
No significant etiology to explain her significant pain on imaging.
Would like to get an upper GI series to better define the hiatal hernia and anatomy
Patient would benefit from outpatient esophageal manometry. Can set this up outpatient
In the meantime continue Reglan, benzodiazepines as needed for nausea and pain, limit narcotics
Clear liquids
N.p.o. after midnight for upper GI series
Original Note:
Today's Communication / Plan
-
etiology of nausea/vomiting/abdominal pain related to flare of known gastroparesis with some vomiting of undigested food in ER, MW tear with streak of blood reported by pt vs hernia related as noted on CT v other
I reviewed with patient my concern for worsening symptoms since start of PD with several recent admission but pt does not feel this is the case as she deals with chronic symptoms at home
she denies any stopping or changing medication, change in diet or any other factors
pain with some improvement overnight but worse this am-- she jut had dose on Reglan prior to evaluation -- continue to monitor for improvement
repeat cx on PD fluid neg SBP
troponin neg, LFT stable with chronic alk phos elevation, lipase stable with hx pancreatitis in past
reglan 5mg Q 6 hours, antiemetics and Benzos as needed and narcotics with limiting as much as possible
-- QTC 466 recheck this am 482
NPO -- if any better later today advance to clear diet
increase PPI to BID
good glucose control
when improved consider UGI to evaluate HH
reviewed with nursing staff
Assessment / Plan
-
The patient is a 59-year-old [place]-speaking female know to GI service with a past medical history significant for type 2 diabetes, hyperlipidemia, gastroparesis, esophageal dysmotility, schatzki's ring, moderate HH, prior pancreatitis with
improvement on follow up MRI in 10/2023, hypothyroidism, GERD, CHF, chronic anemia, ESRD on peritoneal dialysis over last several months who presented to the emergency room with complaints of intractable epigastric pain along with vomiting. In
review of chart pt was admitted in January with similar symptoms. During that admission she was noted with pancolitis possible PD related. Fluid sample was neg for SBP. She improved off PD but wanted to restart. She started pancrelipase and was
recommended OP follow up with GI which in not scheduled to consider OP EGD and pt to continue Protonix. After discharge pt did return 2 weeks late with similar symptoms and concern for gastroparesis flare. During last 2 visits pt was treated with
continued Reglan, pain medications with improvement on discharge. She now returns with recurrent epigastric pain with nausea without vomiting. In ER noted with emesis with dark brown material with partially digested food. CT was repeated on
admission with moderate ascites, PD cath stable, moderate HH enlarged. Tiny effusion stable
-nausea/vomiting/abdominal pain
-reported streak of blood with vomiting
-hx gastroparesis with prior uncontrolled DM
-acute on chronic anemia
-moderate HH on CT, prior noted pancolitis in January
-tachycardia
-HTN urgency on admission
-alk phos elevation-- chronic
-prior UGI with Possible mild achalasia versus mild esophageal dysmotility
-CKD now on PD
-hx pancreatitis 08/2023
other medical problems:
-IDDM
-GERD
-hypothyroidism
-Obesity
-Anemia of chronic disease
-Vitamin D deficiency
- Abnormal celiac serologies but normal duodenal biopsies
- s/p noe
- s/p appendectomy with prior h/o abscess
-hepatic steatosis
-pancreatic atrophy
PLAN:
etiology of nausea/vomiting/abdominal pain related to flare of known gastroparesis with some vomiting of undigested food in ER, MW tear with streak of blood reported by pt vs hernia related as noted on CT v other
I reviewed with patient my concern for worsening symptoms since start of PD with several recent admission but pt does not feel this is the case as she deals with chronic symptoms at home
she denies any stopping or changing medication, change in diet or any other factors
pain with some improvement overnight but worse this am-- she jut had dose on Reglan prior to evaluation -- continue to monitor for improvement
repeat cx on PD fluid neg SBP
troponin neg, LFT stable with chronic alk phos elevation, lipase stable with hx pancreatitis in past
reglan 5mg Q 6 hours, antiemetics and Benzos as needed and narcotics with limiting as much as possible
-- QTC 466 recheck this am 482
NPO -- if any better later today advance to clear diet
increase PPI to BID
good glucose control
when improved consider UGI to evaluate HH
reviewed with nursing staff
Subjective
Subjective
Date of Service: March 06, 2025
feeling better overnight but then recurrent symptoms this am with pain and nausea without vomiting, remains NPO
Objective
Data Reviewed
Laboratory Data:
Laboratory Results
03/06/25 05:49
03/06/25 05:49
Laboratory Results
Phosphorus 7.3 mg/dl (2.5-4.5) H 03/05/25 05:05
Magnesium 1.9 mg/dl (1.6-2.3) 03/05/25 05:05
Total Bilirubin 0.7 mg/dl (0.2-1.3) 03/05/25 05:05
AST 27 U/L (14-36) 03/05/25 05:05
ALT 32 U/L (0-35) 03/05/25 05:05
Alkaline Phosphatase 163 U/L (38-126) H 03/05/25 05:05
Lipase 190 U/L (23-300) 03/05/25 01:22
Vital Signs and I&O:
Vital Signs
Temp Pulse Resp BP Pulse Ox
98.5 F 85 19 137/70 94
03/06/25 07:03 03/06/25 08:00 03/06/25 08:00 03/06/25 08:00 03/06/25 09:11
I&O
03/05/25 03/06/25 03/07/25
06:59 06:59 06:59
Intake Total 300 / 300
Output Total 501 / 501
Balance -201 / -201
Physical Exam
Physical Exam
HEENT: Anicteric and Moist mucous membranes
Cardiology: Normal Sinus Rhythm
Pulmonary: Clear
GI: Soft, Distended (with hx PD and ascites ) and Tender (epigastric )
Extremities: No Edema
Neuro: Non Focal and Other (malaysian speaking with use of merchandising coordinator for assist )
--- NOTE | 2025-03-06 11:06 | W.PN.NEPH.PH ---
Today's Communication / Plan
-
Continue dialysis
Assessment/Plan
-
Assessment:
Intractable epigastric pain and vomiting
Coronary artery calcification
Diabetes mellitus type 2
End-stage renal disease on PD at [place] [facility] PD script-all 1.5% bags, NIPD 8hrs. 5days/week
Hypothyroidism
Hyperlipidemia
Hypertension
Anxiety/depression
Chronic pain on tramadol
Fatty liver
Obesity
Anemia possibly of CKD
Nephrolithiasis, incidental
Plan:
continue PD close to outpatient prescription
2L every 5 hours at 1.5%
Dialysate culture negative to date
Cell count 56 with no abdominal pain no indication that she has peritonitis
Patient seen with PD in progress
Follow BMP
-
-
Date of Service: March 06, 2025
CC / HPI / ROS
-
Chief Complaint:
Abdominal discomfort
History of Present Illness:
End-stage renal disease on peritoneal dialysis with abdominal discomfort and history of gastroparesis
Review of Systems:
Substernal discomfort
No abdominal pain
Labs
-
Labs:
WBC 14.5 10^3/uL (4.8-10.8) H 03/06/25 05:49
RBC 3.54 10^6/uL (4.20-5.40) L 03/06/25 05:49
Hgb 10.3 g/dL (12.0-16.0) L 03/06/25 05:49
Hct 30.8 % (37.0-47.0) L 03/06/25 05:49
Plt Count 357 10^3/uL (130-400) 03/06/25 05:49
Sodium 136 mmol/L (135-145) 03/06/25 05:49
Potassium 4.2 mmol/L (3.5-5.1) 03/06/25 05:49
Chloride 101 mmol/L (98-107) 03/06/25 05:49
Carbon Dioxide 25 mmol/L (22-30) 03/06/25 05:49
BUN 49 mg/dl (7-17) H 03/06/25 05:49
Creatinine 5.9 mg/dL (0.6-1.0) H* 03/06/25 05:49
eGFR 7.66 03/06/25 05:49
Glucose 209 mg/dl (70-99) H 03/06/25 05:49
Calcium 8.9 mg/dl (8.4-10.2) 03/06/25 05:49
Phosphorus 7.3 mg/dl (2.5-4.5) H 03/05/25 05:05
Albumin 4.0 g/dl (3.5-5.0) 03/05/25 05:05
Physical Exam
-
Vital Signs:
Vital Signs
Temp Pulse Resp BP Pulse Ox
98.5 F 90 16 136/65 94
03/06/25 07:03 03/06/25 10:00 03/06/25 10:00 03/06/25 10:00 03/06/25 10:00
Cardiovascular:: Regular rate and rhythm
Respiratory:: Bilateral: CTA
Lung Excursion:: Normal
Abdomen:: Nontender and Soft
Bowel Sounds:: Normal
Extremity Edema:: None: Bilateral:
[2025-03-06 11:52] LABS: Glucose - Point of Care 156 mg/dl (70-99)
--- NOTE | 2025-03-06 12:56 | W.PN.HOSP.TC ---
Today's Communication/Plan
-
Plan for clears with n.p.o. past midnight
Upper GI series planned for tomorrow
Continue with IV PPI
Continue with IV Reglan
Trial of clears
Assessment / Plan
Assessment / Plan
General: Mild distress due to pain
HEENT: Moist mucous membranes
Respiratory: Clear; No Wheezes, Rales or Rhonchi
Cardiac: S1/S2 and Tachycardia; No Murmur
GI: Soft, obese, bowel sounds present, no guarding or rigidity
Musculoskeletal: No Clubbing, No Cyanosis and No Edema
Neuro: AO x 3
A/P: Patient is a 59y F with PMH significant for hypertension, DM and ESRD on PD who presents to ED complaining of abdominal pain with N/V.
Abdominal Pain
Gastroparesis
Esophageal Dysmotility / Schatzki's Ring / ? Achalasia/Hiatal hernia
- antiemetics, pain control, etc. advance as to improvement in pain noted. valium prn.
- Follow for clinical improvement with supportive measures..
- GI evaluation for additional recommendations.
- Restarted Reglan. PPI twice daily. Pain control. Troponin was negative.
- Diet advanced to clears.
- Plan for upper GI series tomorrow
- GI following along
ESRD on PD
- Stable. Dialysate currently present. Uses nightly on weeknights. Peritoneal fluid negative for organism. Not concerned for peritonitis
- Nephrology following
- IMU bed for PD.
- No evidence of acute infection. Follow temp curve / monitor for any new symptoms.
- Follow labs / lytes.
Benign Hypertension
- Uncontrolled in the ED, likely due to pain.
- Continue usual home medication and adjust regimen as needed for BP control.
DM-II
- Restart Lantus 8u qhs
- Follow glucose and cover with SSI as needed.
- A1C = 7.4% on 02/17/25.
Hypothyroidism
- Update TFTs - not done in some time here.
- Continue current T4 replacement for now.
Anemia of CKD
- Stable. Hgb is at / near known baseline.
- Follow for changes.
DVT Prophylaxis: SCDs
Code Status: Full
Discussed with patient daughter at bedside in details
Anticipated Discharge: > 48 hours
Subjective/Interval History
-
Date of Service: March 06, 2025
States of mild improvement in epigastric abdominal pain
Denies any any vomiting. Had episode of nausea earlier and received IV medication
Patient daughter at bedside assisting in translation
Objective Data
-
Labs:
Laboratory Results
03/06/25
05:49
WBC 14.5 H
Hgb 10.3 L
Hct 30.8 L
Plt Count 357
Sodium 136
Potassium 4.2
Chloride 101
Carbon Dioxide 25
BUN 49 H
Creatinine 5.9 H*
Glucose 209 H
Calcium 8.9
Vital Signs:
Vital Signs
Temp Pulse Resp BP Pulse Ox
98.0 F 90 16 136/65 94
03/06/25 11:28 03/06/25 10:00 03/06/25 10:00 03/06/25 10:00 03/06/25 10:00
I&O
03/05/25 03/06/25 03/07/25
06:59 06:59 06:59
Intake Total 300 / 300 60 / 60
Output Total 501 / 501 100 / 100
Balance -201 / -201 -40 / -40
Data Reviewed
-
Total Time Spent with Patient (in minutes): 55
--- NOTE | 2025-03-06 13:58 | PTCARENOTE ---
Patient going to IR for abdominal drain to be placed.
--- NOTE | 2025-03-06 14:23 | CM ---
Chart reviewed. Case Management will continue to monitor for needs and support when needs identified
--- NOTE | 2025-03-06 15:52 | PTCARENOTE ---
Patient was medicated with one dose of zofran earlier and this helped her nausea. Patient tolerating clear liquids so far. She was had an apple juice, jello and water. Assistance x1 to bathroom. VS stable.
[2025-03-06] MEDS: FLUSH (NSS) 1 FLUSH IV (16:21)
[2025-03-06 18:29] LABS: Glucose - Point of Care 134 mg/dl (70-99)
[2025-03-06] MEDS: NOVOLOG FLEXPEN-LOW RESISTANCE SC ×2 (19:33→23:27)
[2025-03-06] MEDS: DILAUDID 0.25 MG IV (21:29)
[2025-03-06] MEDS: LANTUS 0.08 UNITS SC (23:27)
[2025-03-06 23:37] LABS: Glucose - Point of Care 149 mg/dl (70-99)
[2025-03-07] VITALS (9 sets, daily range): BP systolic 110–166; BP diastolic 59–103; BMI 28.7; BMI 27.6
--- NOTE | 2025-03-07 04:36 | PTCARENOTE ---
Assumed care of patient from [facility] RN. Pt aaox3, costa rican speaking. NSR on monitor, SpO2 94% on RA. VS and assessment as documented. PD ongoing (see worklist). Pt c/o aching pain in her upper abdomen twice overnight. PRN pain medication
administered both times (see MAR). Patient is currently asleep in bed, with call zuleta in reach.
[2025-03-07] MEDS: NOVOLOG FLEXPEN-LOW RESISTANCE SC ×2 (06:02→12:08)
[2025-03-07] MEDS: SYNTHROID 100 MCG PO (06:02)
[2025-03-07 06:07] LABS: Glucose - Point of Care 124 mg/dl (70-99)
[2025-03-07] MEDS: DILAUDID 0.5 MG IV ×3 (06:15→23:37)
[2025-03-07 06:32] LABS: Hematocrit 32.8 % (37.0-47.0); Hemoglobin 10.5 g/dL (12.0-16.0); Mean Corp Hgb Conc. 32.0 g/dL (33.0-37.0); Mean Corpuscular Volume 89.6 fL (81.0-99.0); Platelet Count 352 10^3/uL (130-400); Red Cell Dist. Width 14.2 % (11.5-14.5)
[2025-03-07 06:59] LABS: Blood Urea Nitrogen 41 mg/dl (7-17); Calcium 8.8 mg/dl (8.4-10.2); Carbon Dioxide 26 mmol/L (22-30); Chloride 100 mmol/L (98-107); Estimated Creatinine Clearance 8 ml/min; Glucose 130 mg/dl (70-99); Potassium 3.5 mmol/L (3.5-5.1); Sodium 135 mmol/L (135-145); eGFR 8.52
--- NOTE | 2025-03-07 09:07 | CM ---
Patient chart reviewed
for upper GI series today
PLAN: Case Management will continue to monitor for needs and support when needs identified
[2025-03-07] MEDS: PROCARDIA XL (EXTENDED RELEASE) 60 MG PO ×2 (10:07→20:11)
[2025-03-07] MEDS: REGLAN 5 MG IV ×3 (10:08→23:36)
[2025-03-07] MEDS: NSS (PRESERVATIVE FREE) 10 ML IV (10:08)
[2025-03-07] MEDS: PROTONIX IV 40 MG IV (10:08)
--- NOTE | 2025-03-07 11:07 | W.PN.NEPH.PH ---
Today's Communication / Plan
-
Continue current peritoneal dialysis prescription
Assessment/Plan
-
Assessment:
Intractable epigastric pain and vomiting
Coronary artery calcification
Diabetes mellitus type 2
End-stage renal disease on PD at [facility] PD script-all 1.5% bags, NIPD 8hrs. 5days/week
Hypothyroidism
Hyperlipidemia
Hypertension
Anxiety/depression
Chronic pain on tramadol
Fatty liver
Obesity
Anemia possibly of CKD
Nephrolithiasis, incidental
Plan:
continue PD
2L every 5 hours at 1.5%
Dialysate culture negative to date
Cell count 56 with no abdominal pain no indication that she has peritonitis
Patient seen with PD in progress
GI series
Follow BMP
-
-
Date of Service: March 07, 2025
CC / HPI / ROS
-
Chief Complaint:
Abdominal discomfort
History of Present Illness:
End-stage renal disease on peritoneal dialysis with abdominal discomfort and history of gastroparesis
Review of Systems:
Substernal discomfort
No abdominal pain
Labs
-
Labs:
WBC 13.1 10^3/uL (4.8-10.8) H 03/07/25 05:57
RBC 3.66 10^6/uL (4.20-5.40) L 03/07/25 05:57
Hgb 10.5 g/dL (12.0-16.0) L 03/07/25 05:57
Hct 32.8 % (37.0-47.0) L 03/07/25 05:57
Plt Count 352 10^3/uL (130-400) 03/07/25 05:57
Sodium 135 mmol/L (135-145) 03/07/25 05:57
Potassium 3.5 mmol/L (3.5-5.1) 03/07/25 05:57
Chloride 100 mmol/L (98-107) 03/07/25 05:57
Carbon Dioxide 26 mmol/L (22-30) 03/07/25 05:57
BUN 41 mg/dl (7-17) H 03/07/25 05:57
Creatinine 5.4 mg/dL (0.6-1.0) H* 03/07/25 05:57
eGFR 8.52 03/07/25 05:57
Glucose 130 mg/dl (70-99) H 03/07/25 05:57
Calcium 8.8 mg/dl (8.4-10.2) 03/07/25 05:57
Phosphorus 7.3 mg/dl (2.5-4.5) H 03/05/25 05:05
Albumin 4.0 g/dl (3.5-5.0) 03/05/25 05:05
Physical Exam
-
Vital Signs:
Vital Signs
Temp Pulse Resp BP Pulse Ox
98.5 F 93 11 110/69 95
03/07/25 07:12 03/07/25 06:00 03/07/25 06:00 03/07/25 04:00 03/07/25 06:00
Cardiovascular:: Regular rate and rhythm
Respiratory:: Bilateral: CTA
Lung Excursion:: Normal
Abdomen:: Nontender and Soft
Bowel Sounds:: Normal
Extremity Edema:: None: Bilateral:
--- NOTE | 2025-03-07 12:09 | W.PN.HOSP.TC ---
Today's Communication/Plan
-
Upper Gi series
Gi recs
may trial of clears later today
IV ppi/IV reglan
Adjust synthroid dose
PD ongoing
Assessment / Plan
Assessment / Plan
General: Mild distress due to pain
HEENT: Moist mucous membranes
Respiratory: Clear; No Wheezes, Rales or Rhonchi
Cardiac: S1/S2 and Tachycardia; No Murmur
GI: Soft, obese, bowel sounds present, no guarding or rigidity
Musculoskeletal: No Clubbing, No Cyanosis and No Edema
Neuro: AO x 3
A/P: Patient is a 59y F with PMH significant for hypertension, DM and ESRD on PD who presents to ED complaining of abdominal pain with N/V.
Abdominal Pain
Gastroparesis
Esophageal Dysmotility / Schatzki's Ring / ? Achalasia/Hiatal hernia
- antiemetics, pain control, etc. advance as to improvement in pain noted. valium prn.
- Follow for clinical improvement with supportive measures..
- GI evaluation for additional recommendations.
- Restarted Reglan. PPI twice daily. Pain control. Troponin was negative.
- currently npo for imaging.
- Plan for upper GI series today
- GI following along
ESRD on PD
- Stable. Dialysate currently present. Uses nightly on weeknights. Peritoneal fluid negative for organism. Not concerned for peritonitis
- Nephrology following
- IMU bed for PD.
- No evidence of acute infection. Follow temp curve / monitor for any new symptoms.
- Follow labs / lytes.
Benign Hypertension
- Uncontrolled in the ED, likely due to pain.
- Continue usual home medication and adjust regimen as needed for BP control.
DM-II
- Restart Lantus 8u qhs
- Follow glucose and cover with SSI as needed.
- A1C = 7.4% on 02/17/25.
- POC am 124
Sublcinical Hypothyroidism
- TSH significantly elevated
- Levothyroxine dose increased to 112 mcg
- Repeat TFTs in 4-5 weeks
Anemia of CKD
- Stable. Hgb is at / near known baseline.
- Follow for changes.
DVT Prophylaxis: SCDs
Code Status: Full
Discussed with patient daughter Sarah over the phone in details
d/w with GI team
Anticipated Discharge: > 48 hours
Subjective/Interval History
-
Date of Service: March 07, 2025
states of some epigastric and Left side abd pain
Objective Data
-
Labs:
Laboratory Results
03/07/25
05:57
WBC 13.1 H
Hgb 10.5 L
Hct 32.8 L
Plt Count 352
Sodium 135
Potassium 3.5
Chloride 100
Carbon Dioxide 26
BUN 41 H
Creatinine 5.4 H*
Glucose 130 H
Calcium 8.8
Vital Signs:
Vital Signs
Temp Pulse Resp BP Pulse Ox
98.5 F 93 11 110/69 95
03/07/25 07:12 03/07/25 06:00 03/07/25 06:00 03/07/25 04:00 03/07/25 06:00
I&O
03/06/25 03/07/25 03/08/25
06:59 06:59 06:59
Intake Total 300 / 300 905 / 905
Output Total 501 / 501 100 / 100
Balance -201 / -201 805 / 805
[2025-03-07 12:18] LABS: Glucose - Point of Care 146 mg/dl (70-99)
--- NOTE | 2025-03-07 12:25 | W.PN.GI.CBS2 ---
Today's Communication / Plan
-
-- advance diet as tolerated to soft/moist/gastroparesis diet
Assessment / Plan
-
The patient is a 59-year-old Divehi-speaking female know to GI service with a past medical history significant for type 2 diabetes, hyperlipidemia, gastroparesis, esophageal dysmotility, schatzki's ring, moderate HH, prior pancreatitis with
improvement on follow up MRI in 10/2023, hypothyroidism, GERD, CHF, chronic anemia, ESRD on peritoneal dialysis over last several months who presented to the emergency room with complaints of intractable epigastric pain along with vomiting. In
review of chart pt was admitted in January with similar symptoms. During that admission she was noted with pancolitis possible PD related. Fluid sample was neg for SBP. She improved off PD but wanted to restart. She started pancrelipase and was
recommended OP follow up with GI which in not scheduled to consider OP EGD and pt to continue Protonix. After discharge pt did return 2 weeks late with similar symptoms and concern for gastroparesis flare. During last 2 visits pt was treated with
continued Reglan, pain medications with improvement on discharge. She now returns with recurrent epigastric pain with nausea without vomiting. In ER noted with emesis with dark brown material with partially digested food. CT was repeated on
admission with moderate ascites, PD cath stable, moderate HH enlarged. Tiny effusion stable
-nausea/vomiting/abdominal pain
-reported streak of blood with vomiting
-hx gastroparesis with prior uncontrolled DM
-acute on chronic anemia
-moderate HH on CT, prior noted pancolitis in January
-tachycardia
-HTN urgency on admission
-alk phos elevation-- chronic
-prior UGI with Possible mild achalasia versus mild esophageal dysmotility
-CKD now on PD
-hx pancreatitis 08/2023
other medical problems:
-IDDM
-GERD
-hypothyroidism
-Obesity
-Anemia of chronic disease
-Vitamin D deficiency
- Abnormal celiac serologies but normal duodenal biopsies
- s/p noe
- s/p appendectomy with prior h/o abscess
-hepatic steatosis
-pancreatic atrophy
PLAN:
03/07/25 UGI (single contrast due to inability for patient to stand)
1. Markedly limited exam as described.
2. Mild gastroesophageal reflux.
3. Small to moderate size hiatal hernia.
4. Mild presbyesophagus.
-- overall, no objective findings to explain her degree of pain based on CT, labs, UGI; she is on chronic ppi so doubt an ulcer
-- treat like a gastroparesis flare
-- told daughter she would benefit from an outpatient esophageal manometry and pH impedance study
-- diet should be gastroparesis (multiple soft low fat meals) - advance as tolerated.
Subjective
Subjective
Date of Service: March 07, 2025
not much change from yesterday but better than admission
Objective
Data Reviewed
Laboratory Data:
Laboratory Results
03/07/25 05:57
03/07/25 05:57
Laboratory Results
Phosphorus 7.3 mg/dl (2.5-4.5) H 03/05/25 05:05
Magnesium 1.9 mg/dl (1.6-2.3) 03/05/25 05:05
Total Bilirubin 0.7 mg/dl (0.2-1.3) 03/05/25 05:05
AST 27 U/L (14-36) 03/05/25 05:05
ALT 32 U/L (0-35) 03/05/25 05:05
Alkaline Phosphatase 163 U/L (38-126) H 03/05/25 05:05
Lipase 190 U/L (23-300) 03/05/25 01:22
Vital Signs and I&O:
Vital Signs
Temp Pulse Resp BP Pulse Ox
98.5 F 93 11 110/69 95
03/07/25 07:12 03/07/25 06:00 03/07/25 06:00 03/07/25 04:00 03/07/25 06:00
I&O
03/06/25 03/07/25 03/08/25
06:59 06:59 06:59
Intake Total 300 / 300 905 / 905
Output Total 501 / 501 100 / 100
Balance -201 / -201 805 / 805
Physical Exam
Physical Exam
GI: Soft and Tender
[2025-03-07 17:39] LABS: Glucose - Point of Care 185 mg/dl (70-99)
[2025-03-07] MEDS: NOVOLOG FLEXPEN-LOW RESISTANCE 1 UNITS SC (17:40)
[2025-03-07] MEDS: DILAUDID 0.25 MG IV (20:12)
[2025-03-07] MEDS: PROTONIX 40 MG PO (20:12)
[2025-03-07] MEDS: VALIUM INJECTION 2 MG IV (20:20)
[2025-03-07] MEDS: LANTUS 0.08 UNITS SC (21:47)
[2025-03-07 21:57] LABS: Glucose - Point of Care 166 mg/dl (70-99)
[2025-03-08] VITALS (10 sets, daily range): BP systolic 110–144; BP diastolic 52–90; BMI 27.4
--- NOTE | 2025-03-08 00:31 | PTCARENOTE ---
Assumed care of patient from diazgareji RN. Pt aaox3 and greenlandic speaking. NSR on monitor. SpO2 97% on RA. VS and assessment as documented. PD ongoing (see worklist). Pt currently dwelling, next exchange to be started at 0455. Pt c/o /10 aching pain
in her upper abdomen and some spasming/nausea. PRN medication administered (see MAR). Patient is currently asleep in bed, with call zuleta in reach.
[2025-03-08] MEDS: DILAUDID 0.25 MG IV ×2 (02:25→08:44)
[2025-03-08] MEDS: ZOFRAN 4 MG IV (02:26)
[2025-03-08] MEDS: SYNTHROID 112 MCG PO (05:14)
[2025-03-08] MEDS: DILAUDID 0.5 MG IV ×3 (05:37→22:31)
--- NOTE | 2025-03-08 05:40 | W.PN.GI.CBS2 ---
Today's Communication / Plan
-
Please see assessment and plan for details.
Assessment / Plan
-
1. Epigastric pain/vomiting: With symptoms consistent with delayed gastric emptying, likely related to underlying diabetes and poor glycemic control on admission, with previous vomiting and report of coffee-ground's, likely significant esophagitis
to account for her epigastric/chest discomfort. At this point her sugars are better controlled, blood pressure better controlled, upper GI without other significant pathology that was limited. At this point would continue glycemic control, PPI
twice daily, Reglan. Will advance to diabetic/gastroparesis diet, add Carafate suspension for now and continue supportive care.
Subjective
Subjective
Date of Service: March 08, 2025
Patient still complains of some ongoing chest/epigastric discomfort, did receive pain medicine overnight, no vomiting, did tolerate clear liquids. Blood pressure better controlled overnight.
Objective
Data Reviewed
Laboratory Data:
Laboratory Results
Phosphorus 7.3 mg/dl (2.5-4.5) H 03/05/25 05:05
Magnesium 1.9 mg/dl (1.6-2.3) 03/05/25 05:05
Total Bilirubin 0.7 mg/dl (0.2-1.3) 03/05/25 05:05
AST 27 U/L (14-36) 03/05/25 05:05
ALT 32 U/L (0-35) 03/05/25 05:05
Alkaline Phosphatase 163 U/L (38-126) H 03/05/25 05:05
Lipase 190 U/L (23-300) 03/05/25 01:22
Vital Signs and I&O:
Vital Signs
Temp Pulse Resp BP Pulse Ox
97.8 F 89 12 117/59 89
03/08/25 03:00 03/08/25 00:00 03/08/25 00:00 03/07/25 23:36 03/08/25 00:00
I&O
03/06/25 03/07/25 03/08/25
06:59 06:59 06:59
Intake Total 300 / 300 905 / 905 200 / 200
Output Total 501 / 501 100 / 100 400 / 400
Balance -201 / -201 805 / 805 -200 / -200
Physical Exam
Physical Exam
General: NAD
Abdomen: normal bowel sounds, soft, minimal epigastric tenderness, no masses or bruits, no ascites
[2025-03-08 06:41] LABS: Blood Urea Nitrogen 35 mg/dl (7-17); Calcium 8.6 mg/dl (8.4-10.2); Carbon Dioxide 27 mmol/L (22-30); Chloride 100 mmol/L (98-107); Estimated Creatinine Clearance 8 ml/min; Glucose 156 mg/dl (70-99); Potassium 3.4 mmol/L (3.5-5.1); Sodium 135 mmol/L (135-145); eGFR 9.58
[2025-03-08 07:35] LABS: Hematocrit 31.5 % (37.0-47.0); Hemoglobin 10.3 g/dL (12.0-16.0); Mean Corp Hgb Conc. 32.7 g/dL (33.0-37.0); Mean Corpuscular Volume 87.5 fL (81.0-99.0); Red Cell Dist. Width 13.8 % (11.5-14.5)
[2025-03-08] MEDS: PROTONIX 40 MG PO ×2 (08:43→20:02)
[2025-03-08] MEDS: CARAFATE SUSPENSION 1 GM PO ×4 (08:43→22:30)
[2025-03-08] MEDS: REGLAN 5 MG IV ×2 (08:43→17:42)
[2025-03-08] MEDS: PROCARDIA XL (EXTENDED RELEASE) 60 MG PO ×2 (08:45→20:01)
[2025-03-08] MEDS: NOVOLOG FLEXPEN-LOW RESISTANCE SC (08:59)
[2025-03-08 09:10] LABS: Glucose - Point of Care 136 mg/dl (70-99)
--- NOTE | 2025-03-08 09:11 | W.PN.NEPH.PH ---
Today's Communication / Plan
-
Maintain current peritoneal dialysis
UF around 200 cc negative per exchange
Assessment/Plan
-
Assessment:
Intractable epigastric pain and vomiting
Coronary artery calcification
Diabetes mellitus type 2
End-stage renal disease on PD at [place] unit PD script-all 1.5% bags, NIPD 8hrs. 5days/week
Hypothyroidism
Hyperlipidemia
Hypertension
Anxiety/depression
Chronic pain on tramadol
Fatty liver
Obesity
Anemia possibly of CKD
Nephrolithiasis, incidental
Plan:
continue PD
2L every 5 hours at 1.5%
Dialysate culture negative to date
Cell count 56 with no abdominal pain no indication that she has peritonitis
Patient seen with PD in progress
GI consult reviewed
replete K
Follow BMP
-
-
Date of Service: March 08, 2025
CC / HPI / ROS
-
Chief Complaint:
Abdominal discomfort
History of Present Illness:
End-stage renal disease on peritoneal dialysis with abdominal discomfort and history of gastroparesis
Hemodynamically stable on nifedipine
Review of Systems:
no fevers
Substernal discomfort
No abdominal pain
Labs
-
Labs:
WBC 8.6 10^3/uL (4.8-10.8) 03/08/25 05:52
RBC 3.60 10^6/uL (4.20-5.40) L 03/08/25 05:52
Hgb 10.3 g/dL (12.0-16.0) L 03/08/25 05:52
Hct 31.5 % (37.0-47.0) L 03/08/25 05:52
Plt Count 10^3/uL (130-400) 03/08/25 05:52
Sodium 135 mmol/L (135-145) 03/08/25 05:52
Potassium 3.4 mmol/L (3.5-5.1) L 03/08/25 05:52
Chloride 100 mmol/L (98-107) 03/08/25 05:52
Carbon Dioxide 27 mmol/L (22-30) 03/08/25 05:52
BUN 35 mg/dl (7-17) H 03/08/25 05:52
Creatinine 4.9 mg/dL (0.6-1.0) H* 03/08/25 05:52
eGFR 9.58 03/08/25 05:52
Glucose 156 mg/dl (70-99) H 03/08/25 05:52
Calcium 8.6 mg/dl (8.4-10.2) 03/08/25 05:52
Phosphorus 7.3 mg/dl (2.5-4.5) H 03/05/25 05:05
Albumin 4.0 g/dl (3.5-5.0) 03/05/25 05:05
Physical Exam
-
Vital Signs:
Vital Signs
Temp Pulse Resp BP Pulse Ox
98.7 F 89 12 115/58 93
03/08/25 09:06 03/08/25 06:00 03/08/25 06:00 03/08/25 06:00 03/08/25 06:00
Cardiovascular:: Regular rate and rhythm
Respiratory:: Bilateral: CTA
Lung Excursion:: Normal
Abdomen:: Nontender and Soft
Bowel Sounds:: Normal
Extremity Edema:: None: Bilateral:
--- NOTE | 2025-03-08 10:33 | CM ---
chart reviewed
continue PD
GI series yesterday
diet ordered
PLAN: TBD, CM will continue to monitor for needs and support when needs identified
--- NOTE | 2025-03-08 11:01 | W.PN.HOSP.TC ---
Addendum entered and electronically signed by Bret Reinoso MD 03/08/25 13:58:
update daughter erika over the phone in details.
Original Note:
Today's Communication/Plan
-
Monitor for diet tolerance
Continue PPI, Reglan and Carafate
Continue with PD per nephrology
Assessment / Plan
Assessment / Plan
General: Mild distress due to pain
HEENT: Moist mucous membranes
Respiratory: Clear; No Wheezes, Rales or Rhonchi
Cardiac: S1/S2 and Tachycardia; No Murmur
GI: Soft, obese, bowel sounds present, no guarding or rigidity
Musculoskeletal: No Clubbing, No Cyanosis and No Edema
Neuro: AO x 3
A/P: Patient is a 59y F with PMH significant for hypertension, DM and ESRD on PD who presents to ED complaining of abdominal pain with N/V.
Abdominal Pain
Gastroparesis
Esophageal Dysmotility / Schatzki's Ring / ? Achalasia/Hiatal hernia
- antiemetics, pain control, etc. advance as to improvement in pain noted. valium prn.
- Follow for clinical improvement with supportive measures..
- GI evaluation for additional recommendations.
- Restarted Reglan. PPI twice daily. Pain control. Troponin was negative.
- currently on gastroparesis diet
- Upper GI series with mild gastro esophageal reflux. Small to moderate hiatal hernia. Mild presbyesophagus
- Carafate also ordered.
- GI following along
ESRD on PD
- Stable. Dialysate currently present. Uses nightly on weeknights. Peritoneal fluid negative for organism. Not concerned for peritonitis
- Nephrology following
- IMU bed for PD.
- No evidence of acute infection. Follow temp curve / monitor for any new symptoms.
- Follow labs / lytes.
Benign Hypertension
-Controlled
- Continue usual home medication and adjust regimen as needed for BP control.
DM-II
- Restart Lantus 8u qhs
- Follow glucose and cover with SSI as needed.
- A1C = 7.4% on 02/17/25.
- POC am 136
Sublcinical Hypothyroidism
- TSH significantly elevated
- Levothyroxine dose increased to 112 mcg
- Repeat TFTs in 4-5 weeks
Anemia of CKD
- Stable. Hgb is at / near known baseline.
- Follow for changes.
Mild hypokalemia
DVT Prophylaxis: SCDs
Code Status: Full
Anticipated Discharge: Within 24 hours
Subjective/Interval History
-
Date of Service: March 08, 2025
Was able to tolerate some breakfast.
remains with epigastric abd pain/discomfort
Objective Data
-
Labs:
Laboratory Results
03/08/25
05:52
WBC 8.6
Hgb 10.3 L
Hct 31.5 L
Plt Count
Sodium 135
Potassium 3.4 L
Chloride 100
Carbon Dioxide 27
BUN 35 H
Creatinine 4.9 H*
Glucose 156 H
Calcium 8.6
Vital Signs:
Vital Signs
Temp Pulse Resp BP Pulse Ox
98.7 F 87 12 117/52 95
03/08/25 09:06 03/08/25 08:50 03/08/25 08:50 03/08/25 08:50 03/08/25 09:56
I&O
03/07/25 03/08/25 03/09/25
06:59 06:59 06:59
Intake Total 905 / 905 200 / 200
Output Total 100 / 100 500 / 500
Balance 805 / 805 -300 / -300
[2025-03-08] MEDS: NOVOLOG FLEXPEN-LOW RESISTANCE 1 UNITS SC ×2 (12:07→17:42)
[2025-03-08 12:16] LABS: Glucose - Point of Care 158 mg/dl (70-99)
[2025-03-08 17:56] LABS: Glucose - Point of Care 187 mg/dl (70-99)
--- NOTE | 2025-03-08 20:16 | PTCARENOTE ---
Care assumed of Pt from dayshift RN after change of shift report. Pts at bedside. Pt is aaox3, primary language is German & account strategist device at bedside. NSR on monitor, HR 100bpm. satting 98% on RA. does not c/o pain at this time. took Hs
pills whole with water. call light in reach. plan of care is ongoing.
[2025-03-08 21:19] LABS: Glucose - Point of Care 251 mg/dl (70-99)
[2025-03-08] MEDS: LANTUS 0.08 UNITS SC (22:31)
[2025-03-09] VITALS (12 sets, daily range): BP systolic 98–140; BP diastolic 49–95
[2025-03-09] MEDS: REGLAN 5 MG IV ×3 (03:01→16:52)
[2025-03-09] MEDS: DILAUDID 0.25 MG IV ×3 (04:06→21:26)
[2025-03-09] MEDS: SYNTHROID 112 MCG PO (06:13)
--- NOTE | 2025-03-09 07:28 | W.PN.GI.CBS2 ---
Today's Communication / Plan
-
Please see assessment and plan for details.
Assessment / Plan
-
1. Epigastric pain/vomiting: With symptoms consistent with delayed gastric emptying, likely related to underlying diabetes and poor glycemic control on admission, with previous vomiting and report of coffee-ground's, likely significant esophagitis
to account for her epigastric/chest discomfort. At this point her sugars are better controlled, blood pressure better controlled, leukocytosis has resolved, upper GI without other significant pathology that was limited. At this point would
continue glycemic control, PPI twice daily, Reglan. Will check stools for C. difficile given diarrhea. She asked about going home and we discussed needs to tolerate some food before going home.
Subjective
Subjective
Date of Service: March 09, 2025
Patient interviewed via translation line. Still complaining of pain, now lower abdominal. She admits to diarrhea. She denies any vomiting, though was afraid to eat when her diarrhea. No fevers or chills, no bloody diarrhea.
Objective
Data Reviewed
Laboratory Data:
Laboratory Results
03/08/25 05:52
Laboratory Results
Phosphorus 7.3 mg/dl (2.5-4.5) H 03/05/25 05:05
Magnesium 1.9 mg/dl (1.6-2.3) 03/05/25 05:05
Total Bilirubin 0.7 mg/dl (0.2-1.3) 03/05/25 05:05
AST 27 U/L (14-36) 03/05/25 05:05
ALT 32 U/L (0-35) 03/05/25 05:05
Alkaline Phosphatase 163 U/L (38-126) H 03/05/25 05:05
Lipase 190 U/L (23-300) 03/05/25 01:22
Vital Signs and I&O:
Vital Signs
Temp Pulse Resp BP Pulse Ox
98.0 F 90 17 129/66 96
03/09/25 04:10 03/09/25 04:00 03/09/25 04:00 03/09/25 04:00 03/09/25 04:00
I&O
03/08/25 03/09/25 03/10/25
06:59 06:59 06:59
Intake Total 200 / 200
Output Total 500 / 500 100 / 100
Balance -300 / -300 -100 / -100
Physical Exam
Physical Exam
General: NAD
Abdomen: normal bowel sounds, soft, mild diffuse tenderness, no rebound, out of proportion to exam, no masses or bruits
--- NOTE | 2025-03-09 08:30 | W.PN.NEPH.PH ---
Today's Communication / Plan
-
PD prescription provided at 1.5% 1500 cc fill volume
Replete potassium IN
Assessment/Plan
-
Assessment:
Intractable epigastric pain and vomiting
Coronary artery calcification
Diabetes mellitus type 2
End-stage renal disease on PD at [place] unit PD script-all 1.5% bags, NIPD 8hrs. 5days/week
Hypothyroidism
Hyperlipidemia
Hypertension
Anxiety/depression
Chronic pain on tramadol
Fatty liver
Obesity
Anemia possibly of CKD
Nephrolithiasis, incidental
Plan:
continue PD
2L every 5 hours at 1.5%, will decrease fill volume to only 1500 cc as we are unable to infuse the full 2 L
Dialysate culture negative to date
Cell count 56 with no abdominal pain no indication that she has peritonitis
Patient seen with PD in progress
Flow sheets reviewed: discussed with nursing, patient is essentially even with exchanges but her weights are stable
Patient still with persistent epigastric pain
replete K as needed
Follow BMP, refused today
-
-
Date of Service: March 09, 2025
CC / HPI / ROS
-
Chief Complaint:
Abdominal discomfort
History of Present Illness:
End-stage renal disease on peritoneal dialysis with abdominal discomfort and history of gastroparesis
Hemodynamically stable on nifedipine
Review of Systems:
no fevers
Midepigastric discomfort
Poor appetite
Labs
-
Labs:
WBC 8.6 10^3/uL (4.8-10.8) 03/08/25 05:52
RBC 3.60 10^6/uL (4.20-5.40) L 03/08/25 05:52
Hgb 10.3 g/dL (12.0-16.0) L 03/08/25 05:52
Hct 31.5 % (37.0-47.0) L 03/08/25 05:52
Plt Count 10^3/uL (130-400) 03/08/25 05:52
eGFR 9.58 03/08/25 05:52
Phosphorus 7.3 mg/dl (2.5-4.5) H 03/05/25 05:05
Albumin 4.0 g/dl (3.5-5.0) 03/05/25 05:05
Physical Exam
-
Vital Signs:
Vital Signs
Temp Pulse Resp BP Pulse Ox
98.0 F 90 17 129/66 96
03/09/25 04:10 03/09/25 04:00 03/09/25 04:00 03/09/25 04:00 03/09/25 04:00
Cardiovascular:: Regular rate and rhythm
Respiratory:: Bilateral: CTA
Lung Excursion:: Normal
Abdomen:: Nontender and Soft
Bowel Sounds:: Normal
Extremity Edema:: None: Bilateral:
[2025-03-09 08:49] LABS: Glucose - Point of Care 142 mg/dl (70-99)
[2025-03-09] MEDS: CARAFATE SUSPENSION 1 GM PO ×4 (09:34→21:26)
[2025-03-09] MEDS: NOVOLOG FLEXPEN-LOW RESISTANCE SC ×3 (09:34→18:18)
[2025-03-09] MEDS: PROTONIX 40 MG PO ×2 (09:34→21:24)
[2025-03-09] MEDS: PROCARDIA XL (EXTENDED RELEASE) 60 MG PO ×2 (09:34→21:24)
[2025-03-09] MEDS: FLUSH (NSS) 1 FLUSH IV ×2 (09:35→10:05)
[2025-03-09] MEDS: ZOFRAN 4 MG IV (10:04)
[2025-03-09] MEDS: DILAUDID 0.5 MG IV (10:04)
[2025-03-09 11:30] LABS: Glucose - Point of Care 137 mg/dl (70-99)
--- NOTE | 2025-03-09 13:13 | W.PN.HOSP.TC ---
Today's Communication/Plan
-
await cdiff
monitor for po tolerance to some extent
cont w/conservative management
refused bmp
Assessment / Plan
Assessment / Plan
General: Mild distress due to pain
HEENT: Moist mucous membranes
Respiratory: Clear; No Wheezes, Rales or Rhonchi
Cardiac: S1/S2 and Tachycardia; No Murmur
GI: Soft, obese, bowel sounds present, no guarding or rigidity
Musculoskeletal: No Clubbing, No Cyanosis and No Edema
Neuro: AO x 3
A/P: Patient is a 59y F with PMH significant for hypertension, DM and ESRD on PD who presents to ED complaining of abdominal pain with N/V.
Abdominal Pain
Gastroparesis
Esophageal Dysmotility / Schatzki's Ring / ? Achalasia/Hiatal hernia
Diarrhea
- Check cdiff
- antiemetics, pain control, etc. advance as to improvement in pain noted. valium prn.
- Follow for clinical improvement with supportive measures..
- GI evaluation for additional recommendations.
- Restarted Reglan. PPI twice daily. Pain control. Troponin was negative.
- currently on gastroparesis diet
- Upper GI series with mild gastro esophageal reflux. Small to moderate hiatal hernia. Mild presbyesophagus
- Carafate also ordered.
- GI following along
ESRD on PD
- Stable. Dialysate currently present. Uses nightly on weeknights. Peritoneal fluid negative for organism. Not concerned for peritonitis
- Nephrology following
- IMU bed for PD.
- No evidence of acute infection. Follow temp curve / monitor for any new symptoms.
- Follow labs / lytes.
Benign Hypertension
-Controlled
- Continue usual home medication and adjust regimen as needed for BP control.
DM-II
- Restart Lantus 8u qhs
- Follow glucose and cover with SSI as needed.
- A1C = 7.4% on 02/17/25.
- POC 137
Sublcinical Hypothyroidism
- TSH significantly elevated
- Levothyroxine dose increased to 112 mcg
- Repeat TFTs in 4-5 weeks
Anemia of CKD
- Stable. Hgb is at / near known baseline.
- Follow for changes.
Mild hypokalemia
DVT Prophylaxis: SCDs/hep sc
Code Status: Full
update daughter erika over the phone in details.
Anticipated Discharge: Within 24 hours
Subjective/Interval History
-
Date of Service: March 09, 2025
states of epigastric abd pain
no vomiting
appetite not much
Objective Data
-
Vital Signs:
Vital Signs
Temp Pulse Resp BP Pulse Ox
98.7 F 88 17 98/58 98
03/09/25 07:45 03/09/25 12:00 03/09/25 12:00 03/09/25 12:00 03/09/25 12:00
I&O
03/08/25 03/09/25 03/10/25
06:59 06:59 06:59
Intake Total 200 / 200
Output Total 500 / 500 100 / 100
Balance -300 / -300 -100 / -100
--- NOTE | 2025-03-09 13:37 | PTCARENOTE ---
Patient ate a good amount of her breakfast about 75%. Soon after she had a large loose stool on commode. During walking rounds in am patient was complaining of sever upper abdominal pain rating 10/10 and nausea. Medicated with 0.5 mg IV dialudud
and zofran. Pain went down to 6/10 and patient was able to eat her breakfast. VS stable,afebrile. SR on monitor.
[2025-03-09 16:30] LABS: Glucose - Point of Care 206 mg/dl (70-99)
[2025-03-09] MEDS: NOVOLOG FLEXPEN-LOW RESISTANCE 2 UNITS SC (18:30)
[2025-03-09] MEDS: HEPARIN 5000 UNITS SC (21:24)
[2025-03-09] MEDS: LANTUS 0.08 UNITS SC (21:27)
[2025-03-09 21:34] LABS: Glucose - Point of Care 198 mg/dl (70-99)
[2025-03-09 22:31] LABS: Glucose - Point of Care 223 mg/dl (70-99)
--- NOTE | 2025-03-09 22:35 | PTCARENOTE ---
Assumed care of Pt from dayshift RN after change of shift report. Pt is aaox3. at bedside. consumer electronics merchandiser ipad at bedside, pt is [place]oth[place] speaking. pt c/o 12/18 abdominal pain .25 dilaudid admin per order, see mar. urinating very small amounts.
assessment as documented. call light in reach.
[2025-03-10] VITALS (7 sets, daily range): BP systolic 104–132; BP diastolic 43–83; BMI 27.2
[2025-03-10] MEDS: REGLAN 5 MG IV ×2 (02:39→09:23)
--- NOTE | 2025-03-10 04:00 | PTCARENOTE ---
Per Shaun Ching PA-C, cont with infusing 2nd unit PRBC at slow rate.
[2025-03-10] MEDS: SYNTHROID 112 MCG PO (06:33)
[2025-03-10] MEDS: DILAUDID 0.25 MG IV ×2 (06:33→12:15)
--- NOTE | 2025-03-10 08:01 | W.PN.GI.CBS2 ---
Today's Communication / Plan
-
Please see assessment and plan for details.
Assessment / Plan
-
1. Epigastric pain/vomiting: With symptoms consistent with delayed gastric emptying, likely related to underlying diabetes and poor glycemic control on admission, with previous vomiting and report of coffee-ground's, likely significant esophagitis
to account for her epigastric/chest discomfort. Abdominal fluid negative for infection. Her glucose is better controlled, blood pressure better controlled, leukocytosis has resolved, upper GI without other significant pathology that was limited.
At this point would continue glycemic control, PPI twice daily. Will await C. difficile that is pending, and if negative is okay to TX from GI standpoint. Would switch Reglan to as needed as an outpatient. She will follow-up with Dr. Casiano in the
office.
Subjective
Subjective
Date of Service: March 10, 2025
Patient feeling okay, still with episodes of migrating pain, sometimes lower, sometimes upper. She did have a couple of loose stools, this morning happens 1 small semiformed stool that I witnessed. No melena or hematochezia. She did eat much
better yesterday per her without difficulties. She is eager to go home.
Objective
Data Reviewed
Laboratory Data:
Laboratory Results
03/08/25 05:52
Laboratory Results
Phosphorus 7.3 mg/dl (2.5-4.5) H 03/05/25 05:05
Magnesium 1.9 mg/dl (1.6-2.3) 03/05/25 05:05
Total Bilirubin 0.7 mg/dl (0.2-1.3) 03/05/25 05:05
AST 27 U/L (14-36) 03/05/25 05:05
ALT 32 U/L (0-35) 03/05/25 05:05
Alkaline Phosphatase 163 U/L (38-126) H 03/05/25 05:05
Lipase 190 U/L (23-300) 03/05/25 01:22
Vital Signs and I&O:
Vital Signs
Temp Pulse Resp BP Pulse Ox
98.5 F 81 10 104/81 97
03/10/25 03:11 03/10/25 06:00 03/10/25 06:00 03/10/25 06:00 03/10/25 06:00
I&O
03/09/25 03/10/25 03/11/25
06:59 06:59 06:59
Intake Total 1205 / 1205
Output Total 100 / 100 100 / 100
Balance -100 / -100 1105 / 1105
Physical Exam
Physical Exam
General: NAD
Abdomen: normal bowel sounds, soft, no tenderness, no masses or bruits, no ascites
[2025-03-10] MEDS: PROTONIX 40 MG PO (09:17)
[2025-03-10] MEDS: CARAFATE SUSPENSION 1 GM PO ×2 (09:17→12:16)
[2025-03-10] MEDS: HEPARIN 5000 UNITS SC (09:23)
[2025-03-10] MEDS: PROCARDIA XL (EXTENDED RELEASE) 60 MG PO (09:23)
[2025-03-10] MEDS: NOVOLOG FLEXPEN-LOW RESISTANCE SC (09:24)
[2025-03-10 09:29] LABS: Glucose - Point of Care 113 mg/dl (70-99)
--- NOTE | 2025-03-10 09:47 | W.PN.UPDATE ---
Update Note
Progress Note Update
Noted C. difficile positive, is started on oral vancomycin. She had 1 semiformed stool this morning, resolution of leukocytosis and overall improving. Is still okay to DC from a GI standpoint to complete a course of oral vancomycin. We will sign
off for now, please call back with any further questions.
--- NOTE | 2025-03-10 10:36 | W.PN.HOSP.TC ---
Today's Communication/Plan
-
po vanc-complete course
OP GI f/u
ppi/reglan
gastroparesis diet
Assessment / Plan
Assessment / Plan
General: Mild distress due to pain
HEENT: Moist mucous membranes
Respiratory: Clear; No Wheezes, Rales or Rhonchi
Cardiac: S1/S2 and Tachycardia; No Murmur
GI: Soft, obese, bowel sounds present, no guarding or rigidity
Musculoskeletal: No Clubbing, No Cyanosis and No Edema
Neuro: AO x 3
A/P: Patient is a 59y F with PMH significant for hypertension, DM and ESRD on PD who presents to ED complaining of abdominal pain with N/V.
Abdominal Pain
Gastroparesis
Esophageal Dysmotility / Schatzki's Ring / ? Achalasia/Hiatal hernia
Diarrhea secondary to C. difficile
- C. difficile positive. Starting p.o. vancomycin. Complete course.
- antiemetics, pain control, etc. advance as to improvement in pain noted. valium prn.
- Follow for clinical improvement with supportive measures..
- GI evaluation for additional recommendations.
- Restarted Reglan. PPI twice daily. Pain control. Troponin was negative. Leukocytosis resolved. afebrile.
- currently on gastroparesis diet
- Upper GI series with mild gastro esophageal reflux. Small to moderate hiatal hernia. Mild presbyesophagus
- GI following along
ESRD on PD
- Stable. Dialysate currently present. Uses nightly on weeknights. Peritoneal fluid negative for organism. Not concerned for peritonitis
- Nephrology following
- IMU bed for PD.
- No evidence of acute infection. Follow temp curve / monitor for any new symptoms.
- Follow labs / lytes.
Benign Hypertension
-Controlled
- Continue usual home medication and adjust regimen as needed for BP control.
DM-II
- Restart Lantus 8u qhs
- Follow glucose and cover with SSI as needed.
- A1C = 7.4% on 02/17/25.
- POC 113
Sublcinical Hypothyroidism
- TSH significantly elevated
- Levothyroxine dose increased to 112 mcg
- Repeat TFTs in 4-5 weeks
Anemia of CKD
- Stable. Hgb is at / near known baseline.
- Follow for changes.
Mild hypokalemia
DVT Prophylaxis: SCDs/hep sc
Code Status: Full
Discussed with patient at bedside in detail
Discussed with nephrology
Discussed with GI-okay for discharge
More than 30 minutes spent in discharge including
Final examination of the patient
Summarizing hospital stay
Instructions for continuing care to all relevant caregivers
Preparation of discharge records, prescriptions, and referral forms
Total time spent (in minutes): 55
Anticipated Discharge: Today
Subjective/Interval History
-
Date of Service: March 10, 2025
Spouse at bedside assisting with translation
Spouse if patient is feeling better
Patient ate better yesterday
Objective Data
-
Labs:
Laboratory Results
03/10/25
07:35
Sodium Pending
Potassium Pending
Chloride Pending
Carbon Dioxide Pending
BUN Pending
Creatinine Pending
Glucose Pending
Calcium Pending
Vital Signs:
Vital Signs
Temp Pulse Resp BP Pulse Ox
98.5 F 96 22 124/83 99
03/10/25 03:11 03/10/25 10:00 03/10/25 10:00 03/10/25 08:00 03/10/25 08:00
I&O
03/09/25 03/10/25 03/11/25
06:59 06:59 06:59
Intake Total 1205 / 1205
Output Total 100 / 100 100 / 100 300 / 300
Balance -100 / -100 1105 / 1105 -300 / -300
--- NOTE | 2025-03-10 10:45 | W.DCSUMMARY ---
Discharge Summary
Discharge Data
Date of Admission: 03/05/25
Date of Discharge: 03/10/25
-
Pending Results: No
Hospital Course
59-year-old female past medical history of ESRD on peritoneal dialysis, hypertension, diabetes mellitus, subclinical hypothyroidism, anemia of CKD, gastroparesis, cervical dysmotility was presented with complaint of abdominal pain nausea vomiting.
Patient was started on IV antiemetics. Antiacid medication with PPI. Gastroenterology was consulted. Patient underwent upper GI series with mild gastro esophageal reflux. Small to moderate hiatal hernia. Mild presbyesophagus. Nephrology was
consulted who was managing patient peritoneal dialysis. Patient blood pressure was controlled. Blood glucose was controlled. Patient diet was slowly advanced from liquids to gastroparesis diet. Patient required IV pain medication multiple times.
Patient pain slowly improved. Patient was tolerating diet. Patient was also complaining of diarrhea and stool studies were checked. Patient was found to be C. difficile positive and started on p.o. vancomycin. Patient will need to follow-up as
outpatient with her primary hematology specialist. Patient potassium was also low and after discussion with nephrology was aggressively repleted. Per Nephrology peritoneal dialysis further reduces potassium. Patient will be restarted on her
outpatient peritoneal dialysis starting Tuesday. Discharge plan was discussed with patient and spouse at bedside in detail.
Discharge Plan
-
Patient Disposition: Home (Routine Discharge)
Discharge Diagnosis/Procedures: Abdominal pain, nausea and vomiting likely secondary gastroparesis flareup
Hypokalemia
Diarrhea due to C.diff infection
Condition: Fair
Diet: Other diet
Additional Diets: multiple soft low fat meals
Activity: As tolerated
Driving Restrictions: As prior to admission
Blood Work: Repeat thyroid function testing in 4 to 5 weeks via family doctor
BMP in 2 to 3 days via florist designer or primary doctor.
Referrals:
Elias Evans MD [Family Provider, Family Practice] - in less than 1 week
Elisha Casiano DO [Active, Gastroenterology]
Prescriptions:
New
vancomycin 125 mg capsule
125 mg PO QID Qty: 40 0RF
potassium chloride 20 mEq packet
20 meq PO DAILY Qty: 3 0RF
Continued
levothyroxine 100 MCG tablet
100 mcg PO DAILY@07
atorvastatin 10 mg Tablet
10 mg PO DAILY
ezetimibe 10 MG tablet
10 mg PO HS Qty: 30 0RF
cholecalciferol (vitamin D3) 25 mcg (1,000 unit) Tablet
25 mcg PO DAILY Qty: 30 0RF
torsemide 20 mg Tablet
40 mg PO DAILY
nortriptyline 75 mg Capsule
75 mg PO HSPRN PRN (Reason: anxiety)
calcitriol 0.5 mcg Capsule
0.5 mcg PO DAILY
calcium carbonate [Tums] 200 mg calcium (500 mg) Tablet,Chewable
200 mg PO BIDPRN PRN (Reason: Indigestion)
nifedipine 60 mg Tablet Extended Release
60 mg PO BID
Zenpep 10,000-32,000 -42,000 unit Capsule,Delayed Release(Dr/Ec)
1 cap PO MEALS Qty: 90 0RF
gentamicin 0.1 % cream
1 applic TOPICAL DAILYPRN PRN (Reason: incontinence sores)
lidocaine 4 % Adhesive Patch,Medicated
1 patch topical HS Qty: 30 0RF
ondansetron 8 mg Tablet,Disintegrating
8 mg PO DAILYPRN PRN (Reason: nausea) Qty: 30 0RF
pantoprazole 40 mg tablet,delayed release (DR/EC)
40 mg PO BID 30 Days Qty: 60 0RF
insulin lispro [Humalog KwikPen Insulin] 100 unit/mL insulin pen
3 unit SC AC Qty: 0 0RF
insulin glargine [Basaglar KwikPen U-100 Insulin] 100 unit/mL (3 mL) insulin pen
8 unit SC HS Qty: 0 0RF
tramadol 50 mg Tablet
50 mg PO BIDPRN PRN (Reason: moderate pain) Qty: 10 0RF
metoclopramide HCl 5 mg tablet
5 mg PO AC 30 Days Qty: 90 0RF
Discharge Orders:
Discharge Patient (As Directed); Ordered 03/10/25
Ordered By: Bret Reinoso
Discharge Date and Time
Discharge Date/Time: 03/10/25 16:35
Print Language: ALBANIAN
[2025-03-10] MEDS: FIRVANQ 125 MG PO (10:51)
[2025-03-10 12:19] LABS: Blood Urea Nitrogen 30 mg/dl (7-17); Calcium 8.2 mg/dl (8.4-10.2); Carbon Dioxide 28 mmol/L (22-30); Chloride 99 mmol/L (98-107); Estimated Creatinine Clearance 8 ml/min; Glucose 209 mg/dl (70-99); Potassium 2.7 mmol/L (3.5-5.1); Sodium 133 mmol/L (135-145); eGFR 9.58
--- NOTE | 2025-03-10 12:19 | CM ---
MD indicated patient ready for discharge today.
Spoke with Buddy [phone] she said he will drive patient home today.
He said he and dgt anthony care for her at home.
Offered VN he declined need .
PLAn Home no needs
[2025-03-10] MEDS: KCL ELIXIR 40 MEQ PO ×2 (12:46→14:48)
[2025-03-10] MEDS: KCL 270 MEQ IV (12:46)
[2025-03-10 13:14] LABS: Glucose - Point of Care 192 mg/dl (70-99)
[2025-03-10] MEDS: NOVOLOG FLEXPEN-LOW RESISTANCE 1 UNITS SC (13:48)
--- NOTE | 2025-03-10 14:58 | PTCARENOTE ---
Refusing IV access, multiple attempts - d/w Dr. Reinoso- po dose ordered and given. PD drained and capped for discharge.
--- NOTE | 2025-03-10 15:20 | VATNOTE ---
pt with iv infiltrate left hand. heat applied, arm elevated. attempted to establish new iv site x3 without success.pt refused iv/ us guided line at this time. primary RN aware
== END 2025-03-10 16:35 | disposition home or self-care (01) | DRG 73 ==
LOC: IMU 03:33
PROVIDERS: Nurse Practitioner Family; ADMITTING PHYSICIAN Hospitalist; ATTENDING PHYSICIAN Hospitalist; CONSULT PHYSICIAN Specialist; EMERGENCY PHYSICIAN Emergency Medicine; FAMILY PHYSICIAN Family Medicine; OTHER PHYSICIAN Internal Medicine
DX: E11.43 Type 2 diabetes mellitus with diabetic autonomic (poly)neuropathy (principal); N18.6 End stage renal disease; I13.2 Hypertensive heart and chronic kidney disease with heart failure and with stage 5 chronic kidney disease, or end stage renal disease; A04.72 Enterocolitis due to Clostridium difficile, not specified as recurrent; R18.8 Other ascites; K31.84 Gastroparesis; I16.0 Hypertensive urgency; D63.1 Anemia in chronic kidney disease; E03.9 Hypothyroidism, unspecified; E11.22 Type 2 diabetes mellitus with diabetic chronic kidney disease; E78.00 Pure hypercholesterolemia, unspecified; E87.6 Hypokalemia; E21.3 Hyperparathyroidism, unspecified; E55.9 Vitamin D deficiency, unspecified; E66.9 Obesity, unspecified; Z68.27 Body mass index [BMI] 27.0-27.9, adult; F32.A Depression, unspecified; F41.9 Anxiety disorder, unspecified; G89.29 Other chronic pain; I25.10 Atherosclerotic heart disease of native coronary artery without angina pectoris; I50.9 Heart failure, unspecified; K21.9 Gastro-esophageal reflux disease without esophagitis; K22.2 Esophageal obstruction; K22.89 Other specified disease of esophagus; Z79.899 Other long term (current) drug therapy; K44.9 Diaphragmatic hernia without obstruction or gangrene; Z99.2 Dependence on renal dialysis; K76.0 Fatty (change of) liver, not elsewhere classified; K86.89 Other specified diseases of pancreas; N20.0 Calculus of kidney; K29.80 Duodenitis without bleeding; K27.9 Peptic ulcer, site unspecified, unspecified as acute or chronic, without hemorrhage or perforation; K29.70 Gastritis, unspecified, without bleeding; Z79.890 Hormone replacement therapy
CPT/HCPCS: 74176; 74240; 80048; 80053; 82248; 82962; 83690; 83735; 84100; 84439; 84443; 84484; 85025; 85027; 87015; 87070; 87205; 87324; 87449; 89051; 93005; 96361; 96374; 96375; 99285

== ENCOUNTER 2025-05-20 13:56 | Emergency (ER) | payer OTHER, SELFPAY ==
[2025-05-20 13:58] VITALS: BP 170/100
--- NOTE | 2025-05-20 15:38 | ED.GENMED ---
History of Present Illness
General
Chief Complaint: Abdominal Pain
Source: patient
Exam Limitations: none
Time Seen by Provider: 05/20/25 15:20
History of Present Illness
History of Present Illness:
59-year-old female presents complaining of epigastric abdominal pain that radiates to the back. This is similar to prior episodes of pain she has had in the past. She is on peritoneal dialysis at night at home she is due for some tonight. Her
or family member who is in the room states that she has had this pain in similar ways in the past. Tramadol was not helping at home. She denies chest pain or shortness of breath. No other complaints at this time
Past History
Past History
ED Past Medical History: GERD, HTN, Hypercholesterolemia, NIDDM, Renal failure and Other (anemia)
ED Past Surgical History: Appendectomy, Cholecystectomy and
Patient has exhibited threatening behavior?: No
Social History
Tobacco: Non-smoker
Alcohol: None
Drug: None
Personal:
Living: with family
Employment: Not employed
Family History
Family History: Hypertension
Phy Exam
Physical Exam
Physical Exam:
General: Well-appearing female no acute respiratory distress
HEENT: Normal cephalic atraumatic
Heart: Regular rate and rhythm lungs: Clear no wheeze
Abdomen is soft tender to the epigastric region no guarding or rebound nondistended
Extremities: No cyanosis
Skin: Warm no rash
Course
Orders/Labs/Results
Orders:
Orders
05/20/25 13:57
EKG [Electrocardiogram (*1)] Urgent
Reason for Study: Chest Pain
EKG- Treatment ONCE
05/20/25 15:37
0.9% Sodium Chloride 1000 ml [Nss] 1,000 ml IV BOLUS
Famotidine [Pepcid] 20 mg IV NOW STA
HYDROmorphone [Dilaudid] 0.5 mg IV NOW STA
05/20/25 15:38
CT Abd/pel Without Iv Or Oral Urgent
Comment:
Reason For Exam: abdominal pain
05/20/25 15:39
Ondansetron Injectable [Zofran] 4 mg IV NOW STA
05/20/25 18:05
Famotidine [Pepcid] 20 mg .ROUTE .STK-MED ONE
HYDROmorphone [Dilaudid] 0.5 mg .ROUTE .STK-MED ONE
05/20/25 18:09
Ondansetron Injectable [Zofran] 4 mg .ROUTE .STK-MED ONE
05/20/25 18:14
Complete Blood Count/With Diff Urgent
Comprehensive Metabolic Panel Urgent
Lipase Urgent
05/20/25 20:57
Mag Hydrox/Al Hydrox/Simeth [Maalox] 30 ml Phenobarb/Hyoscy/Atropine/Scop [] 10 ml Viscous Lidocaine 2% [Xylocaine Viscous Cup] 10 ml PO NOW
05/20/25 20:59
Mag Hydrox/Al Hydrox/Simeth [Maalox] 30 ml .ROUTE .STK-MED ONE
Phenobarb/Hyoscy/Atropine/Scop [] 10 ml .ROUTE .STK-MED ONE
Viscous Lidocaine 2% [Xylocaine Viscous Cup] 15 ml .ROUTE .STK-MED ONE
Abnormal Lab Results
05/20/25
18:14
WBC 12.0 H 10^3/uL
(4.8-10.8)
RBC 4.05 L 10^6/uL
(4.20-5.40)
Hgb 11.6 L g/dL
(12.0-16.0)
Hct 36.5 L %
(37.0-47.0)
MCHC 31.8 L g/dL
(33.0-37.0)
RDW 14.6 H %
(11.5-14.5)
Abs Immat Gran (auto) 0.2 H 10^3/uL
(0-0.05)
Absolute Neuts (auto) 10.8 H 10^3/uL
(1.4-6.5)
Absolute Lymphs (auto) 0.8 L 10^3/uL
(1.2-3.4)
Immature Gran % 1.3 H %
(0-0.5)
Neutrophils % 90.1 H %
(42.2-75.2)
Lymphocytes % 6.8 L %
(20.5-51.1)
Monocytes % 1.3 L %
(1.7-9.3)
Sodium 133 L mmol/L
(135-145)
Potassium 5.7 H mmol/L
(3.5-5.1)
Carbon Dioxide 21 L mmol/L
(22-30)
BUN 74 H mg/dl
(7-17)
Creatinine 8.8 H* mg/dL
(0.6-1.0)
Glucose 240 H mg/dl
(70-99)
Alkaline Phosphatase 142 H U/L
(38-126)
05/20/25 18:14
05/20/25 18:14
Vital Signs
Initial and Last Documented VS:
Initial Vital Signs
Temp Pulse Resp BP Pulse Ox
98.3 F 103 16 170/100 98
05/20/25 13:58 05/20/25 13:58 05/20/25 13:58 05/20/25 13:58 05/20/25 13:58
Last Documented Vital Signs
Temp Pulse Resp BP Pulse Ox
98.3 F 107 20 162/80 96
05/20/25 13:58 05/20/25 18:11 05/20/25 18:11 05/20/25 18:11 05/20/25 18:11
MDM/Problems Addressed
Differential Diagnosis Includes:
Patient with epigastric abdominal pain onset last night similar to prior episodes. She has had gastritis in the past. Also consider pancreatitis versus constipation
Patient is quite tender on exam. Will obtain CT scan.
Check labs. Fluids Zofran Dilaudid ordered as well as Pepcid
*Pulse Oximetry
SaO2: 98
Oxygen Mode of Delivery: Room air
Patient hypoxic: no
*Critical Care Note
Total Time (30-74mins, 75-104mins- exclusive of procedures): Not Applicable
Update Note
Update Note:
CT of the abdomen without acute findings. Labs reviewed consistent with chronic kidney disease. Potassium is 5.7 but she is due for dialysis tonight. She does peritoneal dialysis at home. I suspect gastritis. Symptoms are relieved after
treatment here. Patient stable for discharge. Encouraged her to perform dialysis tonight as planned
ED Attending Note
-
Portions of this chart may have been created with voice recognition software.� Occasional wrong word or��sound alike� substitutions may have occurred due to the inherent limitations of voice recognition software.
Discharge Plan
Departure
Patient Disposition: Home (Routine Discharge)
Date of Disposition: 05/20/25
Time of Disposition: 21:26
Patient with high blood pressure during this ER visit?: No
Discharge Problem:
Abdominal pain
Instructions: Abdominal Pain
Prescriptions:
No Action
levothyroxine 100 MCG tablet
100 mcg PO DAILY@07
atorvastatin 10 mg Tablet
10 mg PO DAILY
ezetimibe 10 MG tablet
10 mg PO HS Qty: 30 0RF
cholecalciferol (vitamin D3) 25 mcg (1,000 unit) Tablet
25 mcg PO DAILY Qty: 30 0RF
torsemide 20 mg Tablet
40 mg PO DAILY
nortriptyline 75 mg Capsule
75 mg PO HSPRN PRN (Reason: anxiety)
calcitriol 0.5 mcg Capsule
0.5 mcg PO DAILY
calcium carbonate [Tums] 200 mg calcium (500 mg) Tablet,Chewable
200 mg PO BIDPRN PRN (Reason: Indigestion)
nifedipine 60 mg Tablet Extended Release
60 mg PO BID
Zenpep 10,000-32,000 -42,000 unit Capsule,Delayed Release(Dr/Ec)
1 cap PO MEALS Qty: 90 0RF
gentamicin 0.1 % cream
1 applic TOPICAL DAILYPRN PRN (Reason: incontinence sores)
lidocaine 4 % Adhesive Patch,Medicated
1 patch topical HS Qty: 30 0RF
ondansetron 8 mg Tablet,Disintegrating
8 mg PO DAILYPRN PRN (Reason: nausea) Qty: 30 0RF
pantoprazole 40 mg tablet,delayed release (DR/EC)
40 mg PO BID 30 Days Qty: 60 0RF
insulin lispro [Humalog KwikPen Insulin] 100 unit/mL insulin pen
3 unit SC AC Qty: 0 0RF
insulin glargine [Basaglar KwikPen U-100 Insulin] 100 unit/mL (3 mL) insulin pen
8 unit SC HS Qty: 0 0RF
vancomycin 125 mg capsule
125 mg PO QID Qty: 40 0RF
tramadol 50 mg Tablet
50 mg PO BIDPRN PRN (Reason: moderate pain) Qty: 10 0RF
metoclopramide HCl 5 mg tablet
5 mg PO AC 30 Days Qty: 90 0RF
potassium chloride 20 mEq packet
20 meq PO DAILY Qty: 3 0RF
Referrals:
Stephy Reyes CRNP [Family Provider, Family Practice]
Activity Restrictions/Additional Instructions:
Continue dialysis tonight as planned. Continue current medication. Return if worse otherwise follow-up with your doctor
Interventions
Interventions:
*General Assessment Last Done: 05/20/25 13:58
*Neglect/Abuse Screening Last Done: 05/20/25 13:58
[facility] Assessment Last Done: 05/20/25 15:15
Discharge Date and Time
Print Language: ALGERIAN
[2025-05-20] MEDS: NSS 1000 IV (18:06)
[2025-05-20] MEDS: DILAUDID 0.5 MG IV (18:07)
[2025-05-20] MEDS: PEPCID 20 MG IV (18:08)
[2025-05-20] MEDS: ZOFRAN 4 MG IV (18:09)
[2025-05-20 18:11] VITALS: BP 162/80
[2025-05-20 18:19] LABS: Hematocrit 36.5 % (37.0-47.0); Hemoglobin 11.6 g/dL (12.0-16.0); Mean Corp Hgb Conc. 31.8 g/dL (33.0-37.0); Mean Corpuscular Volume 90.1 fL (81.0-99.0); Nucleated Red Blood Cells % 0 %; Platelet Count 350 10^3/uL (130-400); Red Cell Dist. Width 14.6 % (11.5-14.5)
[2025-05-20 18:40] LABS: ALT (SGPT) 25 U/L (0-35); AST (SGOT) 18 U/L (14-36); Albumin 3.9 g/dl (3.5-5.0); Alkaline Phosphatase 142 U/L (38-126); Blood Urea Nitrogen 74 mg/dl (7-17); Calcium 9.5 mg/dl (8.4-10.2); Carbon Dioxide 21 mmol/L (22-30); Chloride 99 mmol/L (98-107); Glucose 240 mg/dl (70-99); Lipase 157 U/L (23-300); Potassium 5.7 mmol/L (3.5-5.1); Sodium 133 mmol/L (135-145); Total Protein 6.6 g/dl (6.3-8.2); eGFR 4.74
--- NOTE | 2025-05-20 19:04 | VATNOTE ---
Addendum entered by Meg Tamayo RN 05/20/25 19:10:
RT hematoma was below the insertion site, size of a tangerine
Original Note:
05/20 Patient required midline for PVA. right arm evaluated and attempted the brachial vein under sterile technique. vein was accessed and wire advanced. the Transducer would not advance half way in. Transducer was removed and pressure applied to
site that was bleeding. Attempt on left side with success under sterile technique. Left brachial vein accessed. Midline TCL 13cm ECL0 UAC 29cm, to be redressed tomorrow. Right arm hematoma occurred during process of left arm replacement- pressure
applied. palpable pulse in right radial wrist. provider notified- possible US of the right arm. RN aware.
[2025-05-20] MEDS: MAALOX 50 PO (21:00)
[2025-05-20 21:30] VITALS: BP 188/68
== END 2025-05-20 21:49 | disposition home or self-care (01) ==
LOC: EMR 13:56
PROVIDERS: Emergency Medicine; EMERGENCY PHYSICIAN Emergency Medicine; FAMILY PHYSICIAN Nurse Practitioner Family
DX: R10.13 Epigastric pain (principal); K21.9 Gastro-esophageal reflux disease without esophagitis; I10 Essential (primary) hypertension; E78.00 Pure hypercholesterolemia, unspecified; E11.9 Type 2 diabetes mellitus without complications; Z82.49 Family history of ischemic heart disease and other diseases of the circulatory system; Z90.49 Acquired absence of other specified parts of digestive tract; Z99.2 Dependence on renal dialysis
CPT/HCPCS: 99284; 96374; 96375; 96361; 74176; 80053; 82010; 83690; 85025; 93005

== ENCOUNTER 2025-05-21 12:14 | Inpatient (IN) | payer OTHER, SELFPAY ==
[2025-05-21] VITALS (18 sets, daily range): BP systolic 108–204; BP diastolic 71–141; BMI 30.6
[2025-05-21 08:05] LABS: Glucose - Point of Care 405 mg/dl (70-99)
--- NOTE | 2025-05-21 08:41 | ED.GENMED ---
History of Present Illness
<Abraham Che PA-C - Last Filed: 05/21/25 13:41>
General
Chief Complaint: Seizure
Time Seen by Provider: 05/21/25 08:07
History of Present Illness
History of Present Illness:
59-year-old female with history of insulin-dependent diabetes, CHF, hypertension, hyperlipidemia, hypothyroidism, and end-stage renal disease on peritoneal dialysis presents to the emergency department for evaluation of witnessed seizure activity x
2 this morning. Reportedly had been receiving her PD treatment this morning when the first episode occurred. Family describes it as muscle rigidity and eyes rolling back, she was profoundly confused after the event. EMS witnessed a 30 second
tonic-clonic seizure as well on arrival. No antiepileptics were administered. On arrival to the ED the patient is alert and oriented fully and denies any complaints. She is noted to be febrile on arrival. Was seen in this emergency department
yesterday for abdominal pain at which time labs and CT scan were unremarkable. Family notes that her PD treatment was not completed this morning due to the event
Past History
<Abraham Che PA-C - Last Filed: 05/21/25 13:41>
Past History
ED Past Medical History: GERD, HTN, Hypercholesterolemia, NIDDM, Renal failure and Other (anemia)
ED Past Surgical History: Appendectomy, Cholecystectomy and
Patient has exhibited threatening behavior?: No
Social History
Tobacco: Non-smoker
Alcohol: None
Drug: None
Personal:
Living: with family
Employment: Not employed
Family History
Family History: Hypertension
Review of Systems
<Abraham Che PA-C - Last Filed: 05/21/25 13:41>
Review of Systems
Allergies reviewed?: Yes
All Other Systems: ROS reviewed and negative except as documented in HPI and ROS
Phy Exam
<Abraham Che PA-C - Last Filed: 05/21/25 13:41>
Physical Exam
Physical Exam:
GEN: Well appearing, NAD, WDWN
HEENT: Oral mucosa moist, no scleral icterus
Cardiac: Tachycardic, regular
Lung: No respiratory distress, no tachypnea, lungs clear to auscultation bilaterally
Abdomen: Soft, nontender, PD catheter in the right lower quadrant site clean dry and intact
MSK: No gross deformity or injuries
Skin: Good color, no pallor or jaundice, no rashes
Neuro: AO x3, moves all extremities freely. Cranial nerves II through XII grossly intact however exam somewhat limited by baseline right vision loss which is reportedly chronic
Psych: Calm, cooperative
Course
<Abraham Che PA-C - Last Filed: 05/21/25 13:41>
Orders/Labs/Results
Orders:
Orders
05/21/25 08:02
EKG [Electrocardiogram (*1)] Urgent
Reason for Study: Fatigue / Weakness
05/21/25 08:03
EKG- Treatment ONCE
05/21/25 08:21
COVID-19 Antigen Urgent
Source: Nasal Swab
Influenza A+B Rapid Molecular Urgent
TROY Source: Nasal Swab
Specimen Description:
05/21/25 08:40
CT Head W/o Iv Contrast Urgent
Comment:
Reason For Exam: seizure
CR Chest Portable - 1 View Urgent
Comment:
Reason For Exam: seizure/fever
Reason Study Needs to be Portable: Other
05/21/25 08:50
Complete Blood Count/With Diff Urgent
05/21/25 08:51
Comprehensive Metabolic Panel Urgent
Lactic Acid Q4H
Comment: CANCEL 2nd LACTIC ACID IF 1st LACTIC ACID IS LESS THAN 2
Prothrombin Time Urgent
TSH Reflex To Free T4 Urgent
Comment: ADD ON
Blood Culture Q30M
TROY Source: Blood/Venous
Specimen Description:
Blood Culture Q30M
TROY Source: Blood/Venous
Specimen Description:
05/21/25 08:58
Urinalysis Reflex To Culture Urgent
Date Specimen was Collected: 05/21/25
Time Specimen was Collected: 08:57
Urine Microscopic Reflex Cult Urgent
05/21/25 09:37
0.9% Sodium Chloride 500 ml [Nss] 500 ml IV BOLUS
05/21/25 09:45
Add On- LAB Urgent
Tests Added?: beta-hydroxybutyrate
05/21/25 Lunch
2000 calorie (17 carb) Diabetic
05/21/25 10:09
Venous Blood Gas Urgent
%Oxygen/Room Air: 97
05/21/25 11:28
Admit/Transfer Patient As Directed
Co-Sign Provider:
Level of Care: Inpatient admission
Assign to:: Telemetry
Physician / Group: Dr. Willy Candelaria
Diagnosis: Seizures
Reason for Telemetry: Arrhythmia
Date to Stop Telemetry: 05/24/25
Time to Stop Telemetry: 11:00
Reason for Hospitalization: Seizures
Expected length of stay greater than two midnights?: Yes
ELOS- Estimated Length of Stay in days: 2
I certify the patient meets the requirements for IP care: Yes
05/21/25 11:29
PRN Pain Medication Management As Directed
May give lesser potent ordered pain med per pt: Yes
preference::
Protocol:: Medication orders for pain may be administered in a
manner that supports deferring to patient preference
when the pt is:
- Requesting an ordered lesser potent pain medication.
Least to most potent pain medications are defined
as: acetaminophen < NSAID < tramadol < opioids
(morphine, oxycodone, hydromorphone).
- Requesting a lesser dose of the same medication IF
ORDERED.
- Requesting a less intrusive route of administration
if both routes are prescribed by the provider (PO <
IV).
05/21/25 11:39
Code Status As Directed
Resuscitation Status: Full Code
05/21/25 12:45
Lactic Acid Q4H
Comment: CANCEL 2nd LACTIC ACID IF 1st LACTIC ACID IS LESS THAN 2
05/24/25 11:00
DC Protocol for Telemetry ONCE
Abnormal Lab Results
05/21/25 05/21/25 05/21/25
08:03 08:50 08:51
WBC 12.5 H 10^3/uL
(4.8-10.8)
RBC 3.77 L 10^6/uL
(4.20-5.40)
Hgb 11.1 L g/dL
(12.0-16.0)
Hct 33.6 L %
(37.0-47.0)
MPV 11.0 H fL
(7.4-10.4)
Abs Immat Gran (auto) 0.1 H 10^3/uL
(0-0.05)
Absolute Neuts (auto) 11.6 H 10^3/uL
(1.4-6.5)
Absolute Lymphs (auto) 0.5 L 10^3/uL
(1.2-3.4)
Neutrophils % 92.6 H %
(42.2-75.2)
Lymphocytes % 4.2 L %
(20.5-51.1)
PT 15.4 H Sec
(11.4-14.6)
VBG pO2
VBG HCO3
Sodium 132 L mmol/L
(135-145)
Carbon Dioxide 17 L mmol/L
(22-30)
BUN 63 H mg/dl
(7-17)
Creatinine 7.7 H* mg/dL
(0.6-1.0)
Glucose 393 H mg/dl
(70-99)
Lactic Acid 6.8 H* mmol/L
(0.7-2.0)
Ur Occult Blood Reflex
Urine Bacteria (Reflex)
Urine Glucose
Urine Albumin (Reflex)
POC Glucose 405 H mg/dl
(70-99)
05/21/25 05/21/25
08:58 10:09
WBC
RBC
Hgb
Hct
MPV
Abs Immat Gran (auto)
Absolute Neuts (auto)
Absolute Lymphs (auto)
Neutrophils %
Lymphocytes %
PT
VBG pO2 212 H mmHg
(30-50)
VBG HCO3 19.6 L mmol/L
(22-27)
Sodium
Carbon Dioxide
BUN
Creatinine
Glucose
Lactic Acid
Ur Occult Blood Reflex 1+ A
(Negative)
Urine Bacteria (Reflex) Few A
(Negative)
Urine Glucose 4+ A
(Negative)
Urine Albumin (Reflex) 4+ A
(Neg - Trace)
POC Glucose
05/21/25 08:50
05/21/25 08:51
Vital Signs
Initial and Last Documented VS:
Initial Vital Signs
Temp Pulse Resp BP Pulse Ox
100.4 F H 111 16 161/81 98
05/21/25 08:04 05/21/25 08:04 05/21/25 08:04 05/21/25 08:04 05/21/25 08:04
Last Documented Vital Signs
Temp Pulse Resp BP Pulse Ox
98.7 F 97 15 164/90 100
05/21/25 10:20 05/21/25 13:15 05/21/25 13:15 05/21/25 13:00 05/21/25 13:20
<Don Rodriguez MD - Last Filed: 05/21/25 09:40>
Orders/Labs/Results
Orders:
Orders
05/21/25 08:02
EKG [Electrocardiogram (*1)] Urgent
Reason for Study: Fatigue / Weakness
05/21/25 08:03
EKG- Treatment ONCE
05/21/25 08:21
COVID-19 Antigen Urgent
Source: Nasal Swab
Influenza A+B Rapid Molecular Urgent
TROY Source: Nasal Swab
Specimen Description:
05/21/25 08:40
CT Head W/o Iv Contrast Urgent
Comment:
Reason For Exam: seizure
CR Chest Portable - 1 View Urgent
Comment:
Reason For Exam: seizure/fever
Reason Study Needs to be Portable: Other
05/21/25 08:50
Complete Blood Count/With Diff Urgent
05/21/25 08:51
Comprehensive Metabolic Panel Urgent
Lactic Acid Q4H
Comment: CANCEL 2nd LACTIC ACID IF 1st LACTIC ACID IS LESS THAN 2
Prothrombin Time Urgent
TSH Reflex To Free T4 Urgent
Comment: ADD ON
Blood Culture Q30M
TROY Source: Blood/Venous
Specimen Description:
Blood Culture Q30M
TROY Source: Blood/Venous
Specimen Description:
05/21/25 08:58
Urinalysis Reflex To Culture Urgent
Date Specimen was Collected: 05/21/25
Time Specimen was Collected: 08:57
Urine Microscopic Reflex Cult Urgent
05/21/25 09:37
0.9% Sodium Chloride 500 ml [Nss] 500 ml IV BOLUS
05/21/25 09:45
Add On- LAB Urgent
Tests Added?: beta-hydroxybutyrate
05/21/25 Lunch
2000 calorie (17 carb) Diabetic
05/21/25 10:09
Venous Blood Gas Urgent
%Oxygen/Room Air: 97
05/21/25 11:28
Admit/Transfer Patient As Directed
Co-Sign Provider:
Level of Care: Inpatient admission
Assign to:: Telemetry
Physician / Group: Dr. Willy Candelaria
Diagnosis: Seizures
Reason for Telemetry: Arrhythmia
Date to Stop Telemetry: 05/24/25
Time to Stop Telemetry: 11:00
Reason for Hospitalization: Seizures
Expected length of stay greater than two midnights?: Yes
ELOS- Estimated Length of Stay in days: 2
I certify the patient meets the requirements for IP care: Yes
05/21/25 11:29
PRN Pain Medication Management As Directed
May give lesser potent ordered pain med per pt: Yes
preference::
Protocol:: Medication orders for pain may be administered in a
manner that supports deferring to patient preference
when the pt is:
- Requesting an ordered lesser potent pain medication.
Least to most potent pain medications are defined
as: acetaminophen < NSAID < tramadol < opioids
(morphine, oxycodone, hydromorphone).
- Requesting a lesser dose of the same medication IF
ORDERED.
- Requesting a less intrusive route of administration
if both routes are prescribed by the provider (PO <
IV).
05/21/25 11:39
Code Status As Directed
Resuscitation Status: Full Code
05/21/25 12:45
Lactic Acid Q4H
Comment: CANCEL 2nd LACTIC ACID IF 1st LACTIC ACID IS LESS THAN 2
05/24/25 11:00
DC Protocol for Telemetry ONCE
Abnormal Lab Results
05/21/25 05/21/25 05/21/25
08:03 08:50 08:51
WBC 12.5 H 10^3/uL
(4.8-10.8)
RBC 3.77 L 10^6/uL
(4.20-5.40)
Hgb 11.1 L g/dL
(12.0-16.0)
Hct 33.6 L %
(37.0-47.0)
MPV 11.0 H fL
(7.4-10.4)
Abs Immat Gran (auto) 0.1 H 10^3/uL
(0-0.05)
Absolute Neuts (auto) 11.6 H 10^3/uL
(1.4-6.5)
Absolute Lymphs (auto) 0.5 L 10^3/uL
(1.2-3.4)
Neutrophils % 92.6 H %
(42.2-75.2)
Lymphocytes % 4.2 L %
(20.5-51.1)
PT 15.4 H Sec
(11.4-14.6)
VBG pO2
VBG HCO3
Sodium 132 L mmol/L
(135-145)
Carbon Dioxide 17 L mmol/L
(22-30)
BUN 63 H mg/dl
(7-17)
Creatinine 7.7 H* mg/dL
(0.6-1.0)
Glucose 393 H mg/dl
(70-99)
Lactic Acid 6.8 H* mmol/L
(0.7-2.0)
Ur Occult Blood Reflex
Urine Bacteria (Reflex)
Urine Glucose
Urine Albumin (Reflex)
POC Glucose 405 H mg/dl
(70-99)
05/21/25 05/21/25
08:58 10:09
WBC
RBC
Hgb
Hct
MPV
Abs Immat Gran (auto)
Absolute Neuts (auto)
Absolute Lymphs (auto)
Neutrophils %
Lymphocytes %
PT
VBG pO2 212 H mmHg
(30-50)
VBG HCO3 19.6 L mmol/L
(22-27)
Sodium
Carbon Dioxide
BUN
Creatinine
Glucose
Lactic Acid
Ur Occult Blood Reflex 1+ A
(Negative)
Urine Bacteria (Reflex) Few A
(Negative)
Urine Glucose 4+ A
(Negative)
Urine Albumin (Reflex) 4+ A
(Neg - Trace)
POC Glucose
05/21/25 08:50
05/21/25 08:51
Vital Signs
Initial and Last Documented VS:
Initial Vital Signs
Temp Pulse Resp BP Pulse Ox
100.4 F H 111 16 161/81 98
05/21/25 08:04 05/21/25 08:04 05/21/25 08:04 05/21/25 08:04 05/21/25 08:04
Last Documented Vital Signs
Temp Pulse Resp BP Pulse Ox
98.7 F 97 15 164/90 100
05/21/25 10:20 05/21/25 13:15 05/21/25 13:15 05/21/25 13:00 05/21/25 13:20
Procedures
<Abraham Che PA-C - Last Filed: 05/21/25 13:41>
IV Access
Indication: Emergent access required and RN unable to obtain
Performed by:: Abraham Che PA-C
Site:: L upper arm
Gauge:: 20g
Ultrasound Guidance: Yes
<Abraham Che PA-C - Last Filed: 05/21/25 13:41>
MDM/Problems Addressed
MDM/Problems Addressed:
Unclear cause of the patient's seizure activity however she remains seizure-free in the emergency department. No evidence of DKA. CT of the head is unremarkable. She was notably febrile on arrival but I suspect this was due to seizure activity as
the fever resolved without antipyretics and she has no other infectious signs or symptoms. Not encephalopathic thus no need for LP from the ED standpoint. Marked lactic acidosis again likely secondary to seizure activity will admit for further
workup and management
<Abraham Che PA-C - Last Filed: 05/21/25 13:41>
Comment
Comment:
EKG independently interpreted by me shows a sinus tachycardia at a rate of 111 with a normal QT interval, no ST changes concerning for ischemia
*Pulse Oximetry
SaO2: 98
Oxygen Mode of Delivery: Room air
Patient hypoxic: no
*Critical Care Note
Total Time (30-74mins, 75-104mins- exclusive of procedures): Not Applicable
ED Attending Note
<Abraham Che PA-C - Last Filed: 05/21/25 13:41>
-
Portions of this chart may have been created with voice recognition software.� Occasional wrong word or��sound alike� substitutions may have occurred due to the inherent limitations of voice recognition software.
<Don Rodriguez MD - Last Filed: 05/21/25 09:40>
ED Attending Note
Patient seen and examined by attending physician: Yes
I performed the substantive portion of visit, reviewed & personally made and approve the management plan that is documented in note by myself or JALEN.: Yes
ED Attending Note:
I have seen and evaluated the patient with a [id number] encounter. I have spoken to the [JALEN] and involved in the medical history, the physical exam, medical decision making.
Evaluation and management service: agree unless noted differently below.
Results interpretation: agree unless noted differently below.
Patient is a 59-year-old woman with history of diabetes CHF hypertension hyperlipidemia ESRD on peritoneal dialysis presenting to the emergency department after seizure activity at home. Per family patient was receiving PD and then had stiffening
and eyes rolling and then was confused after the event. Upon EMS arrival she had a generalized tonic-clonic seizure that did not require any antiepileptics. Since her arrival here patient has returned back to her baseline. No history of seizures.
Otherwise patient has been at her baseline. Per chart review patient was seen here yesterday for abdominal pain had a full workup completed and discharged home. During my evaluation patient is resting comfortably. She is ANO x 3 with no
neurological deficits. Her abdomen is soft nontender nondistended. Her lungs are clear to auscultation bilaterally.
59-year-old woman with history of ESRD on peritoneal dialysis, CHF, hypertension, diabetes presenting to the emergency department with seizure-like activity. On arrival patient is also febrile. Exam is otherwise reassuring. Will complete broad
workup with CAT scan blood work EKG x-rays. Patient has returned to baseline with no further neuro deicits or confusion so less likely to be meningitis or encephalitis. Will hold off on LP.
Discharge Plan
Departure
Patient Disposition: Admit
Date of Disposition: 05/21/25
Time of Disposition: 09:46
Admit to: Med/Surg
Presentation/result/management discussed w/ accepting MD/DO: Hospitalist
Discharge Problem:
New onset seizure, Acidosis, lactic
Interventions
Interventions:
*Risk Screen - Suicide Last Done: 05/21/25 08:04
*General Assessment Last Done: 05/21/25 09:18
*Neglect/Abuse Screening Last Done: 05/21/25 08:04
*ED- Fall Risk Assessment Last Done: 05/21/25 09:18
*ED COVID-19 Vaccine History Last Done: 05/21/25 09:18
*ED Influenza Vaccine History Last Done: 05/21/25 09:18
ED- Cardiac Assessment Last Done: 05/21/25 11:47
ED- Neurological Assessment Last Done: 05/21/25 11:47
ED- Pulmonary Assessment Last Done: 05/21/25 11:47
[2025-05-21 08:57] LABS: COVID-19 Antigen Negative (Negative)
[2025-05-21 09:18] LABS: Urine Character Clear (Clear)
[2025-05-21 09:18] LABS: Hematocrit 33.6 % (37.0-47.0); Hemoglobin 11.1 g/dL (12.0-16.0); Mean Corp Hgb Conc. 33.0 g/dL (33.0-37.0); Mean Corpuscular Volume 89.1 fL (81.0-99.0); Nucleated Red Blood Cells % 0 %; Platelet Count 353 10^3/uL (130-400); Red Cell Dist. Width 14.5 % (11.5-14.5)
[2025-05-21 09:21] LABS: INR 1.19; PT 15.4 Sec (11.4-14.6)
[2025-05-21 09:30] LABS: Urine Red Blood Cell 0-2 /HPF (0-2); Urine White Cell 0-2 /HPF (0-5)
[2025-05-21 09:33] LABS: AST (SGOT) 20 U/L (14-36); Albumin 3.6 g/dl (3.5-5.0); Alkaline Phosphatase 103 U/L (38-126); Blood Urea Nitrogen 63 mg/dl (7-17); Calcium 9.2 mg/dl (8.4-10.2); Carbon Dioxide 17 mmol/L (22-30); Chloride 99 mmol/L (98-107); Estimated Creatinine Clearance 6 ml/min; Glucose 393 mg/dl (70-99); Potassium 4.9 mmol/L (3.5-5.1); Sodium 132 mmol/L (135-145); Total Protein 6.3 g/dl (6.3-8.2); eGFR 5.57
[2025-05-21 09:52] LABS: ALT (SGPT) 28 U/L (0-35)
--- NOTE | 2025-05-21 10:03 | HPS.HSE ---
Family Physician
-
Family Physician: INTERVIEWE UNKNOWN - PT NOT
Chief Complaint
-
Seizures
History of Present Illness
Patient and family Danish-speaking. Used customer service technician service line DC [id number].
59-year-old [id number] female with history of type II DM on insulin, CHF, hypertension, hyperlipidemia, hypothyroidism, and end-stage renal disease on peritoneal dialysis presents to the emergency department for evaluation of witnessed
seizure activity that happened this morning. Patient has been receiving her peritoneal dialysis this morning when the first episode occurred, around 4 AM. describes it as muscle rigidity and eyes rolling back, she had postictal confusion
lasting for about 3 minutes. Patient had a second episode later at around 7 AM, EMS was called and they witnessed a 30 second tonic-clonic seizure as well on arrival. No antiepileptics were administered. On arrival to the ED the patient is alert
and oriented fully and denies any complaints. She is noted to be febrile on arrival. Was seen in this emergency department yesterday for abdominal pain at which time labs and CT scan were unremarkable. Family notes that her PD treatment was
almost completed by the time the second episode of seizures occurred around 7 AM.
Recent hospital admission in February 2025 for abdominal pain, C. difficile infection.
ED course�febrile on arrival 100.4, BP 170/100, heart rate 103,
WBC�12.5, hemoglobin�11.1, sodium 132, BUN/creatinine�63/7.7, glucose 393, lactate 6.8, urinalysis�no evidence of UTI, COVID/flu negative, blood sent for cultures,
Chest x-ray with no evidence of pneumonia, CT head�no acute intracranial abnormality/mass, hemorrhage. EKG with sinus tachycardia.
Medical History
Past Medical History
Past Medical History: Reports Other (insulin-dependent diabetes, CHF, hypertension, hyperlipidemia, hypothyroidism, and end-stage renal disease on peritoneal dialysis , anemia)
Past Surgical History: Reports Appendectomy, Cholecystectomy and
Social History
Tobacco: Non-smoker
Alcohol: None
Drug: None
Personal:
Living: With Family
Family History
Family History: Not pertinent
Allergies / Home Medications
Allergies reflects when Allergies were last updated in [facility].
Home Medications with original date entered in [facility]
Allergy/Medication List:
Allergies
Allergy/AdvReac Type Severity Reaction Status Date / Time
metformin AdvReac DIARRHEA Verified 05/21/25 08:01
sitagliptin (From Januvia) AdvReac diarrhea Verified 05/21/25 08:01
Home Medications
levothyroxine 100 mcg tablet 100 mcg PO DAILY@07 Thyroid 11/17/20
atorvastatin 10 mg tablet 10 mg PO DAILY High cholesterol 02/23/22
ezetimibe 10 mg tablet 10 mg PO HS High cholesterol #30 tabs 02/27/22
cholecalciferol (vitamin D3) 25 mcg (1,000 unit) tablet 25 mcg PO DAILY vit d def #30 tabs 08/22/23
calcitriol 0.5 mcg capsule 0.5 mcg PO DAILY Hyperparathyroidism 01/15/25
calcium carbonate (Tums) 200 mg PO BIDPRN PRN Indigestion 01/15/25
nifedipine 60 mg tablet,extended release 60 mg PO BID Blood Pressure 01/15/25
nortriptyline 75 mg capsule 75 mg PO HSPRN PRN anxiety 01/15/25
torsemide 20 mg tablet 40 mg PO DAILY Fluid Retention/Swelling 01/15/25
civldb-khdqdghf-ksvbffq(pork)10,000-32,000-42,000 unit capsule,del rel (Zenpep) 1 cap PO MEALS #90 caps 01/20/25
insulin glargine 100 unit/mL (3 mL) subcutaneous pen (Basaglar KwikPen U-100 Insulin) 8 unit (0.08 mL) SC HS Diabetes #0 mL 02/19/25
insulin lispro 100 unit/mL subcutaneous pen (Humalog KwikPen (U-100) Insulin) 3 unit (0.03 mL) SC AC Diabetes #0 mL 02/19/25
lidocaine 4 % topical patch 1 patch topical HS #30 ea 02/19/25
ondansetron 8 mg disintegrating tablet 8 mg PO DAILYPRN PRN nausea #30 tabs 02/19/25
pantoprazole 40 mg tablet,delayed release 40 mg PO BID Gastrointestinal Issue 30 days #60 tabs 02/19/25
metoclopramide HCl 5 mg tablet 5 mg PO AC nausea/vomiting 30 days #90 tabs 03/10/25
potassium chloride 20 mEq oral packet 20 meq PO DAILY #3 ea 03/10/25
escitalopram oxalate 10 mg tablet 10 mg PO DAILY 05/21/25
losartan 50 mg tablet 50 mg PO DAILY 05/21/25
nifedipine 90 mg tablet,extended release 24 hr 90 mg PO DAILY 05/21/25
sevelamer carbonate 800 mg tablet 800 mg PO MEALS Kidney Disease 05/21/25
Review of Systems
-
A 12 point ROS was completed and negative except as noted: Yes
Physical Exam
Vital Signs
Vital Signs
Temp Pulse Resp BP Pulse Ox
100.4 F H 111 16 161/81 98
05/21/25 08:04 05/21/25 08:04 05/21/25 08:04 05/21/25 08:04 05/21/25 09:08
Physical Exam
General: No Apparent Distress
HEENT: NormoCephalic and Atraumatic
Respiratory: Clear
Cardiac: S1/S2 and Tachycardia
GI: Soft, Non Tender and Other (PD catheter in the right lower quadrant site clean dry and intact)
Skin: Warm and Dry
Neuro: Awake, Alert, Oriented, AO x 3, Nonfocal/grossly intact and Other (Right eye vision loss.)
Psych: Calm; No Confused
Laboratory Results
-
05/21/25 08:50
05/21/25 08:51
Laboratory Results
PT 15.4 Sec (11.4-14.6) H 05/21/25 08:51
INR 1.19 05/21/25 08:51
Lactic Acid 6.8 mmol/L (0.7-2.0) H* 05/21/25 08:51
Total Bilirubin 0.5 mg/dl (0.2-1.3) 05/21/25 08:51
AST 20 U/L (14-36) 05/21/25 08:51
ALT 28 U/L (0-35) 05/21/25 08:51
Alkaline Phosphatase 103 U/L (38-126) 05/21/25 08:51
Impression/Plan
-
IMPRESSION:
59-year-old female with history of ESRD on dialysis, hypertension, hypothyroidism, hypercholesterolemia, CHF, type II DM on insulin, GERD presenting to the ER for evaluation of seizures.
PLAN:
#Seizures
Etiology unclear at this point
Possible differentials likely metabolic (hyperglycemia, hyponatremia) versus infectious cause versus medication induced
No evidence of UTI, CT head�no evidence of mass, hemorrhage
Chest x-ray with no evidence of pneumonia
Neurology consulted
May consider brain MRI to rule out mass/intracranial pathology
Blood cultures pending
Follow fever curve, white count
Will monitor off of antibiotics
Monitor for any recurrence
Will hold off on tramadol for now (patient takes it for epigastric pain)
Will check peritoneal fluid�cytology/cell count/culture.
#Anion gap metabolic acidosis
Anion gap 16
Likely due to lactic acidosis/starvation ketosis
Will trend lactate
No ketonuria
Although hyperglycemic (BS�393, 405) unlikely to be in DKA.
Will monitor BMP for now
#ESRD on PD
Stable. Dialysate currently present. Uses nightly on weeknights.
Nephrology consult for PD needs during hospital stay.
No evidence of acute infection.
Follow labs / lytes.
#Benign Hypertension
Uncontrolled in the ED, likely due to pain. Patient did not take her blood pressure medications today
Continue usual home medication and adjust regimen as needed for BP control.
#DM-II
Stable.
Will follow home regimen
Follow glucose and cover with SSI as needed.
#Hypothyroidism
Continue levothyroxine
#Hypercholesterolemia
Atorvastatin
Ezetimibe
#Hyperparathyroidism
Continue calcitriol
#GERD
Continue pantoprazole, metoclopramide.
#Anemia of CKD
Stable. Hgb is at / near known baseline.
Follow for changes.
Diet�carb controlled
DVT prophylaxis�subcu heparin
Full code
[2025-05-21 10:18] LABS: Venous Blood Gas B.E. -6.0 mmol/L (-4 to +4); Venous Blood Gas O2 Sat % 98.7 %
[2025-05-21] MEDS: NSS 500 IV (10:18)
--- NOTE | 2025-05-21 11:31 | EDRN ---
Dr. Candelaria in room w/ pt.
--- NOTE | 2025-05-21 13:07 | CON.NEURO4 ---
Addendum entered and electronically signed by Alexandru Acuña MD 05/22/25 11:30:
Follow up with Neurology as an outpatient.
Fall precautions.
Addendum entered and electronically signed by Alexandru Acuña MD 05/21/25 18:21:
I saw and examined the patient today with nurse practitioner Maggie Gilbert and I agree with her assessment and the management plan. My addendum is given below.
The patient is a 59 years old female who presented to the hospital with a complaint of 3 witnessed seizures starting at 4 AM in the morning today which was followed by another seizure at 7 AM and the third seizure occurred when the EMS arrived. The
patient had tonic-clonic seizures with loss of consciousness however there was no history of a tongue bite or urinary incontinence. The patient's mental status has returned to his baseline however there appears to be a postictal state lasting about
20 minutes after the seizures as per history.
Neurologic Examination:
The patient is alert and oriented x 3,
Speech is clear,
The cranial nerves II to XII are grossly intact,
The strength is grossly 5/5 bilaterally in the upper and lower extremities,
The sensations are grossly intact,
The cerebellar examination does not show ataxia.
ASSESSMENT AND PLAN:
The patient is a 59 years old female who presented with 3 new onset witnessed seizures. The patient does not have history of seizures. The patient had the first seizure this morning at around 4 a.m. after initiating peritoneal dialysis treatment.
It was followed by a seizure at around 7 AM today and the third seizure was witnessed by the EMS upon arrival.
. The EEG shows mild diffuse slowing bilaterally however there was no definite epileptiform activity seen.
. MRI of the brain with and without contrast is pending.
. Will use Ativan as needed for any breakthrough seizure and will consider the use of antiepileptic medications after the workup is complete and after discussion with the family.
. Seizure precautions including no driving for 6 months and to report to [facility] according to the [place] law.
The patient's and [id number] provided the history.
Original Note:
Consultation - Neurology 4
-
CONSULTING PHYSICIAN: Alexandru Acuña MD
REFERRING PHYSICIAN: Hospitalists/Dr. Maria Esther MD Resident
DICTATED BY: BRIAN Iqbal
DATE/TIME OF REQUEST: 05/21/25
DATE/TIME OF CONSULTATION: 05/21/25
Reason for Consultation: Seizures
History of Present Illness:
This is a 59-year-old right-handed female who has presented to the hospital with report of seizures. Patient is Norwegian-speaking and her family at bedside is interpreting this interview. Patient was evaluated in the ER here yesterday for report of
epigastric pain radiating to her back. She was discharged home with presumed gastritis. Patient's spouse and family report that this morning around 0400 after initiating a peritoneal dialysis treatment she suddenly became rigid, eyes were bulging,
and her body was shaking mildly. She was confused for about 3 minutes following this event before returning to baseline. Then around 0700 she had a similar event. Upon EMS arrival she had a witnessed seizure with whole body shaking lasting about one
minute. They report about 25 minutes following that event before she returned to her baseline. She denies any tongue biting or incontinence. The patient reports somewhat recalling the first two events but denies any recollection of the third event.
CT head was obtained on arrival and was negative for any acute abnormalities. Blood sugar on arrival was 393. She denies any history of seizure in the past.
Past Medical History: HTN, HLD, DM requiring insulin, ESRD on PD, hypothyroidism, CHF, chronic abdominal pain/gastroparesis/opioid dependence, anemia
Surgical History: Appendectomy, cholecystectomy,
Family History: Reviewed and noncontributory.
Social History: Denies tobacco, alcohol, and illicit drug use.
Allergies: Metformin, sitagliptin.
Home Medications: See below.
Review of Symptoms:
Patient denies any fever, headache, chest pain, shortness of breath, GI or symptoms.
�Per the HPI.�All systems are reviewed negative except above.
Physical Exam:
The patient is afebrile, abdomen is nondistended, breathing is unlabored, skin is warm and dry, no edema. Right arm ecchymosis.
Neurologic Examination:
The patient is awake, alert and oriented x 3. She is able to follow commands and answer questions appropriately. There is no aphasia or dysarthria. On cranial nerve assessment, pupils are 3 mm bilateral, round and reactive to light and
accommodation. Visual masters are full. Extraocular movements are intact. Facial sensations are intact and bilaterally symmetrical, there is no facial asymmetry. Hearing is intact bilaterally to normal conversation volume. Tongue palate and uvula are
midline. Sternocleidomastoid strengths are full bilaterally. Motor strengths are 5/5 bilateral upper and lower extremities on medical research [place] scale. There is no drift or involuntary movement noted. Deep tendon reflexes are 2+ bilateral
upper and lower extremities and Babinski is absent bilaterally. There was no extinction noted on double simultaneous stimulation. Coordination is intact by finger to nose bilaterally.
Lab Results: See below.
Neuro Imaging:
1. CT Head 05/21/25: No acute intracranial abnormality noted.
Differentials for the patient's presentation include:
1. New onset seizure-like events x3; etiology is possibly a metabolic disturbance, cannot entirely rule out a structural brain abnormality contributing to events.
Patient has the following risk factors for their symptoms: hyperglycemia, PD
Recommendations:
-MRI brain w/ and w/o contrast pending.
-Routine EEG pending.
-Holding off on starting an antiseizure medication at this point, will consider based on testing results.
-Seizure precautions.
Discussed patient care with: Dr. Acuña, the patient, patient's family
Vital Signs and Labs
-
Vital Signs and Labs:
Vital Signs
Temp Pulse Resp BP Pulse Ox
98.7 F 101 14 140/101 97
05/21/25 10:20 05/21/25 12:15 05/21/25 12:15 05/21/25 12:00 05/21/25 12:08
Lab Results
05/21/25 08:50
05/21/25 08:51
PT 15.4 Sec (11.4-14.6) H 05/21/25 08:51
INR 1.19 05/21/25 08:51
Sodium 132 mmol/L (135-145) L 05/21/25 08:51
Potassium 4.9 mmol/L (3.5-5.1) 05/21/25 08:51
BUN 63 mg/dl (7-17) H 05/21/25 08:51
Glucose 393 mg/dl (70-99) H 05/21/25 08:51
Calcium 9.2 mg/dl (8.4-10.2) 05/21/25 08:51
Medications
-
Home Medications
�Medication �Instructions �Recorded
levothyroxine 100 mcg tablet 100 mcg PO DAILY@07 Thyroid 11/17/20
atorvastatin 10 mg tablet 10 mg PO DAILY High cholesterol 02/23/22
ezetimibe 10 mg tablet 10 mg PO HS High cholesterol #30 02/27/22
tabs
calcitriol 0.5 mcg capsule 0.5 mcg PO DAILY 01/15/25
Hyperparathyroidism
calcium carbonate (Tums) 200 mg PO BIDPRN PRN Indigestion 01/15/25
nortriptyline 75 mg capsule 75 mg PO HSPRN PRN anxiety 01/15/25
vwqoma-txyrsxph-hpbuucm(pork)10,000-32,000-42,000 1 cap PO MEALS #90 caps 01/20/25
unit capsule,del rel (Zenpep)
insulin glargine 100 unit/mL (3 12 unit SC HS Diabetes 05/21/25
mL) subcutaneous pen (Basaglar
KwikPen U-100 Insulin)
insulin lispro 100 unit/mL 8 unit SC AC Diabetes 05/21/25
subcutaneous pen (Humalog KwikPen
(U-100) Insulin)
lidocaine 4 % topical patch 1 patch topical HSPRN PRN back pain 05/21/25
losartan 50 mg tablet 50 mg PO DAILY 05/21/25
metoclopramide HCl 5 mg tablet 5 mg PO DAILY stomach pains 05/21/25
nifedipine 90 mg tablet,extended 90 mg PO HS 05/21/25
release 24 hr
pantoprazole 40 mg tablet,delayed 40 mg PO DAILY Gastrointestinal 05/21/25
release Issue
tramadol 50 mg tablet 50 mg PO BIDPRN PRN severe pain 05/21/25
--- NOTE | 2025-05-21 13:17 | CM ---
Chart reviewed and spoke with patient, and MAYRA Leong
Pt lives in 1 SH with 3 +1 SEBASTIAN
per family she is independent with all ADLs, ambulation
no DME except Peritoneal Dialysis supplies
is very supportive
PCP Dr. Godoy
[facility] [place]
no hx of VN nor SNF
DCP is to go home
can drive
Local HD center [facility]

CM will continue to follow up for any dcp needs
--- NOTE | 2025-05-21 13:18 | EDRN ---
Unable to draw blood off of US IV in L upper arm, flushes well. Attempted to draw blood for lactic x2 w/out success. [facility] ED PCT is in room looking to see if he can find a vein. Phlebotomy was TT'd.
--- NOTE | 2025-05-21 13:22 | EDRN ---
[facility] ED PCT unable to find a vein to draw blood. No response from phlebotomy. Message status in TT delivered.
--- NOTE | 2025-05-21 13:28 | EDRN ---
Fouzia Finch RN attempting lactic now. Phlebotomy did read TT.
--- NOTE | 2025-05-21 13:48 | EDRN ---
Fouzia Chicas RN Charge was able to draw the lactic level at this time. Dr. Acuña was in to see pt (neurologist).
--- NOTE | 2025-05-21 14:05 | EDRN ---
Dr. Candelaria and VAT RN texted about pt's IV access and need for future labs as vein situation is next to none.
--- NOTE | 2025-05-21 14:34 | EDRN ---
Attempted to call report to IMU and nurse not available. Will retry when return from IVU.
--- NOTE | 2025-05-21 14:47 | EDRN ---
Cardiac services going to room at this time to perform an EEG.
--- NOTE | 2025-05-21 15:03 | EDRN ---
attempting to call report to IMU at this time.
--- NOTE | 2025-05-21 15:08 | W.CON.NEPH ---
Consultation
-
Date/Time Consultation Requested: 05/21/25 1445
Date/Time Consultation Performed: 05/21/25 1500
Requesting Provider: hema Trimble
Performing Provider: Hermelinda Corbin
Reason for Consultation: ESRD-PD
Medical History
-
Chief Complaint: SZ-new
History of Present Illness:
59-year-old Thai-speaking female who has ESRD likely from diabetic nephropathy, started PD early 2024 5days/week, chronic GI issues from gastroparesis, diabetes mellitus type 2 on insulin therapy, hypertension controlled on a multidrug regimen,
CHF, hyperlipidemia, hypothyroidism,presents to the emergency department for evaluation of witnessed seizure activity at home this morning. Patient was almost completing her peritoneal dialysis this morning when the first episode occurred, around 4
AM. describes it as muscle rigidity and eyes rolling back, she had postictal confusion lasting for about 3 minutes. Patient had a second episode later at around 7 AM, EMS was called and they witnessed a 30 second tonic-clonic seizure as
well on arrival. On arrival to the ED the patient is alert and oriented fully and denies any complaints other than starting MARSHALL after having CT today. Her BPs are also elevated at 200. She reports BPs are high at home 180s as well. NOte she was in ER
here yesterday for abd pain and CT with out acute findings and improved symp hence was discharged. She has no abd pain today. No n/v. No CP or sob. NO fever or cough. Ct head was negative for acute findings. Had low grade fever 100.4, WBC
12.5.lactate 6.8. She is hard to get labs, midline unsuccessful yesterday.
Recent hospital admission in February 2025 for abdominal pain, C. difficile infection.
Past Medical History
Coronary artery calcification, ESRD on peritoneal dialysis, diabetes, hypothyroidism, hypertension, hyperlipidemia, anemia of chronic disease, obesity, peptic ulcer disease
Past Surgical History: Other (cholecystectomy, , appendectomy, PD catheter)
Social History
Tobacco: Non-Smoker
Alcohol: None
Personal:
Living: With Family
Employment: Not Employed
Family History
daughter on HD
Family History: Not Pertinent
Allergies / Home Medications
Allergy/AdvReac Type Severity Reaction Status Date / Time
metformin AdvReac DIARRHEA Verified 05/21/25 08:01
[facility] AdvReac diarrhea Verified 05/21/25 08:01
�Medication �Instructions �Recorded �Confirmed �Type
levothyroxine 100 mcg tablet 100 mcg PO DAILY@07 Thyroid 11/17/20 05/21/25 History
atorvastatin 10 mg tablet 10 mg PO DAILY High cholesterol 02/23/22 05/21/25 History
ezetimibe 10 mg tablet 10 mg PO HS High cholesterol #30 02/27/22 05/21/25 Rx
tabs
calcitriol 0.5 mcg capsule 0.5 mcg PO DAILY 01/15/25 05/21/25 History
Hyperparathyroidism
calcium carbonate (Tums) 200 mg PO BIDPRN PRN Indigestion 01/15/25 05/21/25 History
nortriptyline 75 mg capsule 75 mg PO HSPRN PRN anxiety 01/15/25 05/21/25 History
loavvi-kclqkckc-rqxfwvk(pork)10,000-32,000-42,000 1 cap PO MEALS #90 caps 01/20/25 05/21/25 Rx
unit capsule,del rel (Zenpep)
insulin glargine 100 unit/mL (3 12 unit SC HS Diabetes 05/21/25 05/21/25 History
mL) subcutaneous pen (Basaglar
KwikPen U-100 Insulin)
insulin lispro 100 unit/mL 8 unit SC AC Diabetes 05/21/25 05/21/25 History
subcutaneous pen (Humalog KwikPen
(U-100) Insulin)
lidocaine 4 % topical patch 1 patch topical HSPRN PRN back pain 05/21/25 05/21/25 History
losartan 50 mg tablet 50 mg PO DAILY 05/21/25 05/21/25 History
metoclopramide HCl 5 mg tablet 5 mg PO DAILY stomach pains 05/21/25 05/21/25 History
nifedipine 90 mg tablet,extended 90 mg PO HS 05/21/25 05/21/25 History
release 24 hr
pantoprazole 40 mg tablet,delayed 40 mg PO DAILY Gastrointestinal 05/21/25 05/21/25 History
release Issue
tramadol 50 mg tablet 50 mg PO BIDPRN PRN severe pain 05/21/25 05/21/25 History
Review of Systems
-
All other systems: Negative unless noted
Physical Exam
Vital Signs
Vital Signs
Temp Pulse Resp BP Pulse Ox
98.7 F 96 19 182/79 100
05/21/25 10:20 05/21/25 14:30 05/21/25 14:30 05/21/25 14:00 05/21/25 14:35
Lab Results
WBC 12.5 10^3/uL (4.8-10.8) H 05/21/25 08:50
RBC 3.77 10^6/uL (4.20-5.40) L 05/21/25 08:50
Hgb 11.1 g/dL (12.0-16.0) L 05/21/25 08:50
Hct 33.6 % (37.0-47.0) L 05/21/25 08:50
Plt Count 353 10^3/uL (130-400) 05/21/25 08:50
Sodium 132 mmol/L (135-145) L 05/21/25 08:51
Potassium 4.9 mmol/L (3.5-5.1) 05/21/25 08:51
Chloride 99 mmol/L (98-107) 05/21/25 08:51
Carbon Dioxide 17 mmol/L (22-30) L 05/21/25 08:51
BUN 63 mg/dl (7-17) H 05/21/25 08:51
Creatinine 7.7 mg/dL (0.6-1.0) H* 05/21/25 08:51
eGFR 5.57 05/21/25 08:51
Glucose 393 mg/dl (70-99) H 05/21/25 08:51
Calcium 9.2 mg/dl (8.4-10.2) 05/21/25 08:51
Albumin 3.6 g/dl (3.5-5.0) 05/21/25 08:51
Physical Exam
General: Awake, Alert, Oriented, AOx3 and No Distress
HEENT: EOMI, Anicteric, Conjunctivae Clear and Facial Symmetry
Respiratory: Clear, Normal Excursion and Nonlabored Respirations
Cardiac: S1/S2 and Regular Rate/Rhythm
Breast: Deferred by me
Abdomen: Soft, Nontender and Nondistended
Musculoskeletal: No Cyanosis, No Edema and Other (UE mild edema with bruising from attempted IV line)
Skin: No Rash
Neuro: Nonfocal/Grossly Intact
Psych: Mood/afflect pleasant, Insight/judgement good and Appropriate
Assessment/Plan
-
Assessment:
new onset of SZ
Fever -possibly due to seizure
Hyponatremia
MEt acidosis with lactic acid
Diabetes mellitus type 2
End-stage renal disease on PD at [place] unit PD script-all 1.5% bags, NIPD 8hrs. 5days/week(weekend break)
Hypothyroidism
Hyperlipidemia
Hypertension wiht urgency
Anxiety/depression
Chronic pain on tramadol
Fatty liver
Obesity
Anemia possibly of CKD
Nephrolithiasis, incidental
Coronary artery calcification
Plan:
A/w new SZ
was in ER yesterday for abd pain-ct noted likely need GI f/u outpt
will resume PD
2L every 5 hours at 1.5%
given low grade fever and high WBC check PD fluid cell count and cx
neuro follows and need MRI and EEG , no AEDs yet
repeat L acid is better
Bp high, resume home meds
d/w pt and family at bedside, family helped in translation
--- NOTE | 2025-05-21 15:09 | EDRN ---
Report called to Esmer LY in IMU.
--- NOTE | 2025-05-21 15:46 | EDRN ---
Dr. Barnett in room w/ pt at this time.(nephrology)
--- NOTE | 2025-05-21 16:04 | EEG.RPT ---
Electroencephalogram Report
Recording
Date of EE05/21/25
Type of EEG: Routine
Length of EEG recordin minutes
Done with Video Recording: Yes
Patient Status: Inpatient
Recording Conditions: Awake and Drowsy
Hyperventilation Performed: No
Photic Stimulation Performed: Yes
Report
The posterior dominant rhythm reaches up to 9 Hz, however, the posterior dominant rhythm mostly stayed around 7-8 Hz.
The background rhythm does not show asymmetry of frequency or amplitude between the left and right hemispheres.
Drowsiness was seen.
No epileptiform discharges are seen.
Photic stimulation did not show any significant change.
Interpretation:
This is a mildly abnormal EEG due to mild diffuse background slowing, however, there was no epileptiform activity seen. Clinical correlation is recommended.
--- NOTE | 2025-05-21 17:00 | VATNOTE ---
Dr mendoza ordered midline for this pt. However, midline was attempted last gabriella by this VAT RN assisting and introducer would not go into vein. Large hematoma developed right arm in spite of pressure being applied. Midline attempted on left and
access was achieved. Pt. has returned to ED and has a left upper arm 20g US guided IV by ED PA.This VAT RN does not recommend removing USG IV in order to place left upper arm midline again. Consulted DR. Say Daly via phone and TT; he shared this
all with Dr. Desai; pt currently has NO IV meds; access would be for labs at this time. Called IR for possibiity of picc however they will not place picc in left upper arm either nor right arm due to extensive hematoma from yest midline attempt.
IR recommended IJ TLC for labs. Dr Daly informed dr. Lemon and instructions to 'hold off for now.' Esmer YA, informed of decision.
[2025-05-21] MEDS: NOVOLOG FLEXPEN-LOW RESISTANCE SC (17:47)
[2025-05-21 17:48] LABS: Glucose - Point of Care 139 mg/dl (70-99)
[2025-05-21] MEDS: REGLAN 5 MG PO (17:49)
[2025-05-21] MEDS: PROTONIX 40 MG PO (17:49)
[2025-05-21] MEDS: ZENPEP DELAYED RELEASE CAPSULE 1 CAPSULE PO (17:51)
[2025-05-21] MEDS: NOVOLOG FLEXPEN 8 UNITS SC (17:51)
[2025-05-21] MEDS: HEPARIN 5000 UNITS SC ×2 (17:51→23:44)
[2025-05-21] MEDS: COZAAR 50 MG PO (17:51)
--- NOTE | 2025-05-21 18:02 | PTCARENOTE ---
Patient arrived to IMU from ED. Slid from stretcher to bed. AOx3. German speaking. Storekeeper Steward utilized. Sinus tach on the monitor. BP elevated. Dr. Deal aware. On RA with SpO2 greater than 92%. Patient has IV on L upper arm. R arm has +2 edema and
has large amount of bruising. Patient c/o that she is unable to void. Bladder scanned patient for 405 and straight cathed patient for 500. Tolerating oral diet. Call zuleta within reach, bed in lowest position, and bed of wheels locked. Son at bedside.
[2025-05-21] MEDS: APRESOLINE 10 MG IV (18:20)
--- NOTE | 2025-05-21 18:27 | PTCARENOTE ---
BP 193/119. Dr. Deal made aware and ordered PRN hydralazine. Administered per SEP. Care ongoing.
[2025-05-21] MEDS: ZETIA 10 MG PO (21:14)
[2025-05-21] MEDS: LANTUS 0.12 UNITS SC (21:21)
[2025-05-21] MEDS: PROCARDIA XL (EXTENDED RELEASE) 90 MG PO (21:21)
[2025-05-21 21:29] LABS: Glucose - Point of Care 113 mg/dl (70-99)
[2025-05-21 22:00] LABS: Glucose - Point of Care 128 mg/dl (70-99)
[2025-05-21] MEDS: TYLENOL 650 MG PO (22:39)
[2025-05-22] VITALS (10 sets, daily range): BP systolic 127–186; BP diastolic 63–84; BMI 28.3
--- NOTE | 2025-05-22 02:52 | PTCARENOTE ---
Assumed care of patient from daysdcft RN. Patient aaox3 and Nicaraguan speaking. at bedside. NSR on the monitor, hr 80-110s. SpO2 98% on RA. VS and assessment as documented. Peritoneal dialysis completed per order. Minimal drainage from PD
catheter despite movement including standing at bedside. FORENSIC TECHNICIAN made aware. Per ED report patient did not finish her PD cycle this am at home and patient and family do not believe she filled. Patient currently dwelling and next PD to be started at
0510. Patient resting in bed with call zuleta in reach and bed alarm on.
[2025-05-22] MEDS: SYNTHROID 100 MCG PO (05:33)
[2025-05-22] MEDS: DILAUDID IV (06:20)
[2025-05-22] MEDS: ULTRAM 25 MG PO (06:47)
[2025-05-22] MEDS: LIDOCAINE 4% PATCH 1 PATCH TOPICAL (06:50)
[2025-05-22 07:42] LABS: Glucose - Point of Care 196 mg/dl (70-99)
[2025-05-22 08:00] LABS: Body Fluid Second Tech ASW
[2025-05-22] MEDS: DILAUDID 0.25 MG IV ×3 (08:10→15:26)
[2025-05-22] MEDS: PROTONIX 40 MG PO (08:10)
[2025-05-22] MEDS: LIPITOR 10 MG PO (08:10)
[2025-05-22] MEDS: COZAAR 50 MG PO (08:10)
[2025-05-22] MEDS: ROCALTROL 0.5 MCG PO (08:10)
[2025-05-22] MEDS: REGLAN 5 MG PO ×3 (08:11→21:13)
[2025-05-22] MEDS: HEPARIN 5000 UNITS SC ×2 (08:11→17:30)
[2025-05-22] MEDS: ZENPEP DELAYED RELEASE CAPSULE 1 CAPSULE PO ×2 (08:11→17:30)
[2025-05-22] MEDS: NOVOLOG FLEXPEN 8 UNITS SC ×3 (08:19→17:35)
[2025-05-22] MEDS: NOVOLOG FLEXPEN-LOW RESISTANCE SC ×3 (08:19→17:36)
[2025-05-22 08:20] LABS: Hematocrit 31.6 % (37.0-47.0); Hemoglobin 10.2 g/dL (12.0-16.0); Mean Corp Hgb Conc. 32.3 g/dL (33.0-37.0); Mean Corpuscular Volume 90.8 fL (81.0-99.0); Nucleated Red Blood Cells % 0 %; Platelet Count 346 10^3/uL (130-400); Red Cell Dist. Width 14.9 % (11.5-14.5)
[2025-05-22 08:56] LABS: ALT (SGPT) 18 U/L (0-35); AST (SGOT) 18 U/L (14-36); Albumin 3.5 g/dl (3.5-5.0); Alkaline Phosphatase 98 U/L (38-126); Blood Urea Nitrogen 63 mg/dl (7-17); Calcium 8.8 mg/dl (8.4-10.2); Carbon Dioxide 22 mmol/L (22-30); Chloride 101 mmol/L (98-107); Estimated Creatinine Clearance 6 ml/min; Glucose 186 mg/dl (70-99); Potassium 3.8 mmol/L (3.5-5.1); Sodium 135 mmol/L (135-145); Total Protein 5.8 g/dl (6.3-8.2); eGFR 5.75
[2025-05-22 09:46] LABS: Glycohemoglobin (HgbA1c) 6.4 % (4.0-5.9)
[2025-05-22] MEDS: APRESOLINE 10 MG IV ×2 (10:20→17:42)
--- NOTE | 2025-05-22 11:41 | W.DS.TRANS ---
DC Summary - Service Order Taker
-
Discharge Instructions:
Sleep Apnea Risk Low
Discharge Diagnosis/Procedures Seizure
Diet 2 Gram Sodium
Activity As tolerated
Driving Restrictions no driving for 6 months
Bathing Restrictions None
Instructions:
Stand-Alone Forms:
Changes to Home Medications: No
Discharge Medications:
DC Medications w/original date entered in [email or web address]
levothyroxine 100 mcg tablet 100 mcg PO DAILY@07 Thyroid 11/17/20
atorvastatin 10 mg tablet 10 mg PO DAILY High cholesterol 02/23/22
ezetimibe 10 mg tablet 10 mg PO HS High cholesterol #30 tabs 02/27/22
calcitriol 0.5 mcg capsule 0.5 mcg PO DAILY Hyperparathyroidism 01/15/25
calcium carbonate (Tums) 200 mg PO BIDPRN PRN Indigestion 01/15/25
nortriptyline 75 mg capsule 75 mg PO HSPRN PRN anxiety 01/15/25
souwge-rflbgxpn-yrwdaqd(pork)10,000-32,000-42,000 unit capsule,del rel (Zenpep) 1 cap PO MEALS #90 caps 01/20/25
insulin glargine 100 unit/mL (3 mL) subcutaneous pen (Basaglar KwikPen U-100 Insulin) 12 unit SC HS Diabetes 05/21/25
insulin lispro 100 unit/mL subcutaneous pen (Humalog KwikPen (U-100) Insulin) 8 unit SC AC Diabetes 05/21/25
lidocaine 4 % topical patch 1 patch topical HSPRN PRN back pain 05/21/25
losartan 50 mg tablet 50 mg PO DAILY Blood Pressure 05/21/25
metoclopramide HCl 5 mg tablet 5 mg PO DAILY stomach pains 05/21/25
nifedipine 90 mg tablet,extended release 24 hr 90 mg PO HS Blood Pressure 05/21/25
pantoprazole 40 mg tablet,delayed release 40 mg PO DAILY Gastrointestinal Issue 05/21/25
tramadol 50 mg tablet 50 mg PO BIDPRN PRN severe pain 05/21/25
Home Medication Changes
Pending Results: No
--- NOTE | 2025-05-22 11:41 | W.PN.HOSP.TC ---
Addendum entered and electronically signed by Willy Candelaria DO 05/22/25 13:26:
Updated daughter at bedside.
Patient now having chest pain.
Will cancel discharge.
Check EKG, troponin.
Suspect esophagitis as cause of CP, will consult GI.
Change protonix to IV BID.
Original Note:
Today's Communication/Plan
-
Discharge
Assessment / Plan
Assessment / Plan
Gen-AAOx3, NAD
HEENT-NC, AT, anicteric, clear oral mm
Neck-supple
CV-reg, no M, +S1/S2
Lungs-clear B/L
Abd-soft, NT, ND
Ext-no edema
Musculoskeletal-no cyanosis, clubbing
Skin-warm and dry
Neuro-grossly non-focal
Psych-calm, cooperative
New onset seizures -apparently had 3 seizures yesterday morning, witnessed by her at home.
Neurology feels that peritoneal dialysis may have been the trigger.
Brain MRI without acute disease.
Neurology is not recommending antiepileptic therapy on discharge. Recommend outpatient follow-up. No driving for at least 6 months.
Fever -possibly due to seizure. No signs or symptoms of sepsis. Does have mild leukocytosis, likely leukemoid reaction. Blood cultures negative so far.
COVID, influenza negative.
No evidence of peritonitis on fluid analysis.
Hyponatremia -appears chronic.
Chronic abdominal pain/chronic opiate dependence -suspect due to chronic gastroparesis. On chronic tramadol. Known to Dr. Casiano from gastroenterology service.
ESRD on PD -consult nephrology.
DM2 with hyperglycemia -resume home insulin.
Essential HTN -accelerated hypertension noted. Repeat blood pressure now improved. Resume home medications.
Hypothyroidism - on Levothyroxine.
Chronic anemia - due to ESRD. Hgb stable and at baseline.
Obesity due to excess calories
Full code
Dispo -medically stable for discharge home today. Discussed with neurology, nephrology.
Recommend outpatient follow-up with PCP, neurology.
Updated at the bedside.
32 minutes spent in discharge process.
Anticipated Discharge: Today
Subjective/Interval History
-
Date of Service: May 22, 2025
Patient seen and examined. Complaining of abdominal pain.
Objective Data
-
Labs:
Laboratory Results
05/22/25
08:01
WBC 15.4 H
Hgb 10.2 L
Hct 31.6 L
Plt Count 346
Sodium 135
Potassium 3.8
Chloride 101
Carbon Dioxide 22
BUN 63 H
Creatinine 7.5 H*
Glucose 186 H
Calcium 8.8
Total Bilirubin 0.4
AST 18
ALT 18
Alkaline Phosphatase 98
Vital Signs:
Vital Signs
Temp Pulse Resp BP Pulse Ox
98.5 F 93 13 185/83 97
05/22/25 07:50 05/22/25 08:22 05/22/25 08:22 05/22/25 10:20 05/22/25 08:41
I&O
05/21/25 05/22/25 05/23/25
06:59 06:59 06:59
Intake Total 240 / 240
Output Total 500 / 500
Balance -260 / -260
Review of Systems
-
Unable to obtain full review of systems at this time due to: Language Barrier
History Source: Patient
All other systems: Reviewed and negative
--- NOTE | 2025-05-22 11:45 | W.DS.TRANS ---
DC Summary - Cap Maker
-
Discharge Instructions:
Sleep Apnea Risk Low
Discharge Diagnosis/Procedures Seizure
Diet 2 Gram Sodium
Activity As tolerated
Driving Restrictions no driving for 6 months
Bathing Restrictions None
Instructions:
Stand-Alone Forms:
Changes to Home Medications: No
Discharge Medications:
DC Medications w/original date entered in [employer]
levothyroxine 100 mcg tablet 100 mcg PO DAILY@07 Thyroid 11/17/20
atorvastatin 10 mg tablet 10 mg PO DAILY High cholesterol 02/23/22
ezetimibe 10 mg tablet 10 mg PO HS High cholesterol #30 tabs 02/27/22
calcitriol 0.5 mcg capsule 0.5 mcg PO DAILY Hyperparathyroidism 01/15/25
calcium carbonate (Tums) 200 mg PO BIDPRN PRN Indigestion 01/15/25
nortriptyline 75 mg capsule 75 mg PO HSPRN PRN anxiety 01/15/25
jparxp-mhlodcyk-gtakpoh(pork)10,000-32,000-42,000 unit capsule,del rel (Zenpep) 1 cap PO MEALS #90 caps 01/20/25
insulin glargine 100 unit/mL (3 mL) subcutaneous pen (Basaglar KwikPen U-100 Insulin) 12 unit SC HS Diabetes 05/21/25
insulin lispro 100 unit/mL subcutaneous pen (Humalog KwikPen (U-100) Insulin) 8 unit SC AC Diabetes 05/21/25
lidocaine 4 % topical patch 1 patch topical HSPRN PRN back pain 05/21/25
losartan 50 mg tablet 50 mg PO DAILY Blood Pressure 05/21/25
metoclopramide HCl 5 mg tablet 5 mg PO DAILY stomach pains 05/21/25
nifedipine 90 mg tablet,extended release 24 hr 90 mg PO HS Blood Pressure 05/21/25
pantoprazole 40 mg tablet,delayed release 40 mg PO DAILY Gastrointestinal Issue 05/21/25
tramadol 50 mg tablet 50 mg PO BIDPRN PRN severe pain 05/21/25
Home Medication Changes
Pending Results: No
--- NOTE | 2025-05-22 11:52 | W.PN.NEPH.PH ---
Today's Communication / Plan
-
No signs of peritonitis. Okay for discharge from renal standpoint
Assessment/Plan
-
Assessment:
new onset of SZ
Fever -possibly due to seizure
Hyponatremia
MEt acidosis with lactic acid
Diabetes mellitus type 2
End-stage renal disease on PD at [facility] PD script-all 1.5% bags, NIPD 8hrs. 5days/week(weekend break)
Hypothyroidism
Hyperlipidemia
Hypertension wiht urgency
Anxiety/depression
Chronic pain on tramadol
Fatty liver
Obesity
Anemia possibly of CKD
Nephrolithiasis, incidental
Coronary artery calcification
Plan:
A/w new SZ
Continue PD
2L every 5 hours at 1.5%
No evidence of peritonitis on cell count
d/w pt and family at bedside, family helped in translation
-
-
Date of Service: May 22, 2025
CC / HPI / ROS
-
Chief Complaint:
Abdominal pain fever
History of Present Illness:
ESRD on PD
Review of Systems: .
No chest pain, mild abdominal
Labs
-
Labs:
WBC 15.4 10^3/uL (4.8-10.8) H 05/22/25 08:01
RBC 3.48 10^6/uL (4.20-5.40) L 05/22/25 08:01
Hgb 10.2 g/dL (12.0-16.0) L 05/22/25 08:01
Hct 31.6 % (37.0-47.0) L 05/22/25 08:01
Plt Count 346 10^3/uL (130-400) 05/22/25 08:01
Sodium 135 mmol/L (135-145) 05/22/25 08:01
Potassium 3.8 mmol/L (3.5-5.1) 05/22/25 08:01
Chloride 101 mmol/L (98-107) 05/22/25 08:01
Carbon Dioxide 22 mmol/L (22-30) 05/22/25 08:01
BUN 63 mg/dl (7-17) H 05/22/25 08:01
Creatinine 7.5 mg/dL (0.6-1.0) H* 05/22/25 08:01
eGFR 5.75 05/22/25 08:01
Glucose 186 mg/dl (70-99) H 05/22/25 08:01
Calcium 8.8 mg/dl (8.4-10.2) 05/22/25 08:01
Albumin 3.5 g/dl (3.5-5.0) 05/22/25 08:01
Physical Exam
-
Vital Signs:
Vital Signs
Temp Pulse Resp BP Pulse Ox
98.5 F 93 13 185/83 97
05/22/25 07:50 05/22/25 08:22 05/22/25 08:22 05/22/25 10:20 05/22/25 08:41
Cardiovascular:: Regular rate and rhythm
Respiratory:: Bilateral: CTA
Lung Excursion:: Normal
Abdomen:: Nontender and Soft
Bowel Sounds:: Normal
Extremity Edema:: None: Bilateral:
[2025-05-22 12:35] LABS: Glucose - Point of Care 166 mg/dl (70-99)
[2025-05-22] MEDS: ZENPEP DELAYED RELEASE CAPSULE PO (12:36)
--- NOTE | 2025-05-22 12:54 | PTCARENOTE ---
Pt for d/c home. This RN to room to update family. Pt noted to be curled in a ball crying d/t abdominal pain. When questioned, pt rated pain 10/10. Medicated with PRN Dilaudid, see MAR. Pt's daughter questioning d/c. She states family brings pt to
ED when she is in this much pain. Dr. Candelaria notified that family is questioning d/c, states he will be up to speak with pt and family. Family updated.
--- NOTE | 2025-05-22 13:36 | PTCARENOTE ---
Dr Candelaria up to bedside. D/c canceled. Pt and family requesting new MD. Dr. Candelaria and Dr. Orozco notified.
[2025-05-22 14:20] LABS: Troponin I 0.027 ng/ml
--- NOTE | 2025-05-22 14:56 | CON.GI ---
Addendum entered and electronically signed by Altagracia Plaza Do, MD 05/22/25 16:38:
I saw and evaluated the patient. I reviewed the resident�s note and agree with findings and plan as documented in the resident�s note.
Estelita is a 59yo W with h/o DM, ESRD on HD and gastroparesis who was admitted for seizure like activity. GI consulted for abd pain and poor oral intake. She has episodes of this issue in the past thought to be related to gastroparesis flare in
02/2025. She recently FU with Dr Oh STROUD few weeks ago in GI office and has had several EGDs with GI workup. She was given tramadol for PRN pain. Vitals AF with BP 170s/ 79. epigastric TTP. Labs reviewed WBC mild anemia Cell count neg for
peritonitis
Impression
- Acute on chronic abd pain
Suspect gastroparesis flare up and constipation
Cell count neg for peritonitis
- Seizure like activity
- ESRD on HD
- DM
- HTN
- Obesity
Recommendations
- Increase reglan to 5mg TID
- AXR to assess fecal burden
- Miralax daily basis
- Add carafate QID
- C/w PPI BID IV
- If she does not improve will d/w renal to see if ok to repeat CTAP with IV and oral conctrast
Will follow with you.
Original Note:
Consultation
-
Date/Time Consultation Requested: 05/22/25 13:18
Date/Time Consultation Performed: 05/22/25 14:00
Requesting Provider: Dr Willy Candelaria
Performing Provider: Dr. Altagracia Rubin
Reason for Consultation: esophagitis
Medical History
Chief Complaint / HPI
Chief Complaint: abdominal pain
History of Present Illness:
59yoF PMH IDDM, CHF, ESRD on peritoneal dialysis here for new onset of seizure consulted for epigastric pain.
Speaking with Ms Johnson through sleeve setter lockstitch line [id number], she describes similar pain as to prior episodes of sharp pain that feels like it goes straight through to the back. She reports being in the ED for the same pain two days ago that resolved
temporarily on its own. She denies improvement with prescribed tramadol, sitting up/lying down, eating, or not eating. She is unable to associate the pain with any specific trigger. History taking was limited due to severity of pain. Pt described
pain with breathing and worsening with talking.
Ms. Johnson sees Dr. Oh ricketts, well known in the GI clinic. She has chronic gastroparesis and intractable, abdominal pain. She has had multiple EGD, most recently 07/07/23 with findings of schatzki ring, and erythemtous mucosa.
Daughter in room describes only recent medication changes were regarding dialysis and BP. She now takes 90mg nifedipine daily and losartan rather then 60mg nifedipine BID. Daughter reports worse BP control on current regimen that she has ntoed at
home. Pt has also started taking Zenpep and another medication for regulation of her electrolytes. Daughter corroborates that nothing seems to help except a long time ago carafate seemed to make a big difference, but they were unable to afford the
medication at the time when her mother did not have insurance but now she does and might be more likely to be able to afford it.
Past Medical History
Past Medical History: CHF, GERD, HTN, Hypercholesterolemia, IDDM and Renal Failure (on peritoneal dialysis)
Social History
Living: With Family
Allergies / Home Medications
Allergy/AdvReac Type Severity Reaction Status Date / Time
metformin AdvReac DIARRHEA Verified 05/21/25 08:01
sitagliptin (From Januvia) AdvReac diarrhea Verified 05/21/25 08:01
�Medication �Instructions �Recorded
levothyroxine 100 mcg tablet 100 mcg PO DAILY@07 Thyroid 11/17/20
atorvastatin 10 mg tablet 10 mg PO DAILY High cholesterol 02/23/22
ezetimibe 10 mg tablet 10 mg PO HS High cholesterol #30 02/27/22
tabs
calcitriol 0.5 mcg capsule 0.5 mcg PO DAILY 01/15/25
Hyperparathyroidism
calcium carbonate (Tums) 200 mg PO BIDPRN PRN Indigestion 01/15/25
nortriptyline 75 mg capsule 75 mg PO HSPRN PRN anxiety 01/15/25
xmmdjb-djvrqqlm-vxkxugj(pork)10,000-32,000-42,000 1 cap PO MEALS #90 caps 01/20/25
unit capsule,del rel (Zenpep)
insulin glargine 100 unit/mL (3 12 unit SC HS Diabetes 05/21/25
mL) subcutaneous pen (Basaglar
KwikPen U-100 Insulin)
insulin lispro 100 unit/mL 8 unit SC AC Diabetes 05/21/25
subcutaneous pen (Humalog KwikPen
(U-100) Insulin)
lidocaine 4 % topical patch 1 patch topical HSPRN PRN back pain 05/21/25
losartan 50 mg tablet 50 mg PO DAILY Blood Pressure 05/21/25
metoclopramide HCl 5 mg tablet 5 mg PO DAILY stomach pains 05/21/25
nifedipine 90 mg tablet,extended 90 mg PO HS Blood Pressure 05/21/25
release 24 hr
pantoprazole 40 mg tablet,delayed 40 mg PO DAILY Gastrointestinal 05/21/25
release Issue
tramadol 50 mg tablet 50 mg PO BIDPRN PRN severe pain 05/21/25
Review of Systems
-
History Source: Patient (limited ROS in setting of severity of pain)
Vital Signs
Temp Pulse Resp BP Pulse Ox
98.5 F 109 13 150/64 98
05/22/25 07:50 05/22/25 12:00 05/22/25 08:22 05/22/25 12:00 05/22/25 12:00
Physical Exam
Exam
General: Pain (curled up in bed, moaning in pain)
HEENT: Anicteric and Moist Mucous Membranes
Respiratory: Non Labored Respirations
GI: Soft, Non Distended and Tender (pt reports pain, nonperitonitic, no rebound or guarding)
Skin: Warm and Dry
Neuro: AO x 3 and Nonfocal/Grossly Intact
Psych: Calm
Results
WBC 15.4 10^3/uL (4.8-10.8) H 05/22/25 08:01
Hgb 10.2 g/dL (12.0-16.0) L 05/22/25 08:
Hct 31.6 % (37.0-47.0) L 05/22/25 08:01
MCV 90.8 fL (81.0-99.0) 05/22/25 08:
Plt Count 346 10^3/uL (130-400) 05/22/25 08:
Absolute Neuts (auto) 13.1 10^3/uL (1.4-6.5) H 05/22/25 08:01
PT 15.4 Sec (11.4-14.6) H 05/21/25 08:51
INR 1.19 05/21/25 08:51
Sodium 135 mmol/L (135-145) 05/22/25 08:01
Potassium 3.8 mmol/L (3.5-5.1) 05/22/25 08:01
Chloride 101 mmol/L (98-107) 05/22/25 08:01
Carbon Dioxide 22 mmol/L (22-30) 05/22/25 08:
BUN 63 mg/dl (7-17) H 05/22/25 08:01
Creatinine 7.5 mg/dL (0.6-1.0) H* 05/22/25 08:01
Calcium 8.8 mg/dl (8.4-10.2) 05/22/25 08:01
Total Bilirubin 0.4 mg/dl (0.2-1.3) 05/22/25 08:01
AST 18 U/L (14-36) 05/22/25 08:01
ALT 18 U/L (0-35) 05/22/25 08:01
Alkaline Phosphatase 98 U/L (38-126) 05/22/25 08:01
Diagnostic Image Results:
CT 05/20/25
IMPRESSION: Findings suggesting mild acute pancreatitis. Clinical and laboratory correlation recommended. Progressed. Previous study showed moderate ascites. This has resolved.
Moderate hiatal hernia. Stable
Moderate circumferential wall thickening of the distal esophagus. Progressed. This can be seen with esophagitis. A mural mass cannot be excluded.
1 mm nonobstructing right renal stone. Stable
Tiny pericardial effusion. Stable
Prior GI Procedures:
UGI 03/07/25
EGD: 07/07/25
Impression: - Abnormal esophageal motility with spasm.
- Low-grade of narrowing Schatzki ring. Attempted to
break up with forceps since patient was not consented
for dilation. Biopsied.
- Erythematous mucosa in the antrum. Biopsied.
- Normal examined duodenum. Biopsied.
Colonoscopy: 12/20/19
Impression: No appendiceal pathology seen on the luminal side.
- The entire examined colon is normal.
- The examined portion of the ileum was normal.
- No specimens collected.
Assessment / Plan
-
59yoF PMH IDDM, CHF, ESRD on peritoneal dialysis, gastroparesis with recurrent abdominal pain here for new onset of seizure consulted for intractable epigastric pain.
Pt has recurring abdominal pain that she presented to the ED with 2 days ago that has reappeared. Outpt work up has been negative for cause of pain with care plan focusing on controlling breakthrough pain to prevent hospitalization. Pt has been
diagnosed with gastroparesis and esophageal motility dysfunction, but no caue of her pain. Nothing seems to help now per the pt with no associated trigger. Daughter reports success with carafate in the past. Pt takes many medications, few of which
are implicated with esophagitis. Nifedipine very rarely can cause esophagitis, but pt has been on since 2019 with recent dose change to 90mg rather than 60mg BID. CT demonstrated circumferential wall thickening of the distal esophagus; large food
burden in stomach. Prior EGD have demonstrated abnormal esophageal motility with spasm with Schtazki ring; pathology positive only for signs of chronic inflammation 2022.
#intractable abdominal pain
- start Daily carafate. Upon discharge, pt can be prescribed pills NOT LIQUID and can make her own slurry so that she can better afford medication
- Pain management: hospitalist team increased dilaudid dose to 0.5q4
- Continue PPI
-
-
Thank you for consultation and allowing me to participate in the patient's care. Please call the electronic communications technician GI physician during the after hours with any questions or concerns.
--- NOTE | 2025-05-22 16:40 | PTCARENOTE ---
Pt resting comfortably at this time.
[2025-05-22] MEDS: CARAFATE SUSPENSION 1 GM PO ×2 (17:30→21:13)
[2025-05-22 17:45] LABS: Glucose - Point of Care 172 mg/dl (70-99)
--- NOTE | 2025-05-22 18:19 | PTCARENOTE ---
Pt hypertensive, medicated with PRN Hydralazine- see MAR.
[2025-05-22] MEDS: NSS (PRESERVATIVE FREE) 10 ML IV (19:30)
[2025-05-22] MEDS: PROTONIX IV 40 MG IV (19:30)
[2025-05-22] MEDS: DILAUDID 0.5 MG IV (19:32)
--- NOTE | 2025-05-22 19:58 | W.PN.NEURO.1 ---
Today's Communication / Plan
-
The patient is a 59 years old female who presented with 3 new onset witnessed seizures. The patient does not have history of seizures. The patient had the first seizure at around 4 a.m on 05/21/2025 after initiating peritoneal dialysis treatment.
It was followed by a seizure at around 7 AM today and the third seizure was witnessed by the EMS upon arrival. The history was provided by the patient's and daughter who witnessed the seizures.
. The EEG shows mild diffuse slowing bilaterally however there was no definite epileptiform activity seen.
. MRI of the brain with and without contrast did not show a definite acute intracranial abnormality. There was a concern about some postictal changes.
. Will use Ativan as needed for any breakthrough seizure and will consider the use of antiepileptic medications after the workup is complete and after discussion with the family.
. Seizure precautions including no driving for 6 months and to report to [facility] according to the [place] law.
. Will hold antiepileptic medication at this time as the patient had sleep deprivation prior to the seizure because she was at the hospital all night and the seizures started after initiation of peritoneal dialysis in the morning at 4 AM.
The patient is to follow-up in the neurology clinic in about 2 weeks after discharge.
Will sign off. Please call if you have any question.
Subjective/Objective
Subjective Data
Date of Service: May 22, 2025
The patient is a 59 years old female who presented to the hospital with a complaint of 3 witnessed seizures, the first one was at 4 AM in the morning on 05/21/2025 after initiating peritoneal dialysis treatment, which was followed by another
seizure at 7 AM and the third seizure occurred when the EMS arrived. The patient had tonic-clonic seizures with loss of consciousness however there was no history of a tongue bite or urinary incontinence. The patient's mental status has returned
to her baseline however there appears to be a postictal state lasting about 20 minutes after the seizures as per history.
Neurologic Examination:
The patient is alert and oriented x 3,
Speech is clear,
The cranial nerves II to XII are grossly intact,
The strength is grossly 5/5 bilaterally in the upper and lower extremities,
The sensations are grossly intact,
The cerebellar examination does not show ataxia.
ASSESSMENT AND PLAN:
The patient is a 59 years old female who presented with 3 new onset witnessed seizures. The patient does not have history of seizures. The patient had the first seizure at around 4 a.m on 05/21/2025 after initiating peritoneal dialysis treatment.
It was followed by a seizure at around 7 AM today and the third seizure was witnessed by the EMS upon arrival. The history was provided by the patient's and daughter who witnessed the seizures.
. The EEG shows mild diffuse slowing bilaterally however there was no definite epileptiform activity seen.
. MRI of the brain with and without contrast did not show a definite acute intracranial abnormality. There was a concern about some postictal changes.
. Will use Ativan as needed for any breakthrough seizure and will consider the use of antiepileptic medications after the workup is complete and after discussion with the family.
. Seizure precautions including no driving for 6 months and to report to [facility] according to the [place] law.
. Will hold antiepileptic medication at this time as the patient had sleep deprivation prior to the seizure because she was at the hospital all night and the seizures started after initiation of peritoneal dialysis in the morning at 4 AM.
. Follow-up with the neurology clinic in 2 weeks after discharge.
Objective Data
Vital Signs
Temp Pulse Resp BP Pulse Ox
37.1 C 113 13 180/72 97
05/22/25 19:19 05/22/25 18:00 05/22/25 08:22 05/22/25 18:00 05/22/25 18:00
Lab Results
05/22/25 08:01
05/22/25 08:01
PT 15.4 Sec (11.4-14.6) H 05/21/25 08:51
INR 1.19 05/21/25 08:51
Sodium 135 mmol/L (135-145) 05/22/25 08:01
Potassium 3.8 mmol/L (3.5-5.1) 05/22/25 08:01
BUN 63 mg/dl (7-17) H 05/22/25 08:01
Glucose 186 mg/dl (70-99) H 05/22/25 08:01
Calcium 8.8 mg/dl (8.4-10.2) 05/22/25 08:01
Patient Allergies
metformin Adverse Reaction (Verified 05/21/25 08:01)
DIARRHEA
sitagliptin (From Banneria) Adverse Reaction (Verified 05/21/25 08:01)
diarrhea
Vital Signs and Labs
-
Vital Signs and Labs:
Vital Signs
Temp Pulse Resp BP Pulse Ox
37.1 C 113 13 180/72 96
05/22/25 19:19 05/22/25 18:00 05/22/25 08:22 05/22/25 18:00 05/22/25 19:58
Lab Results
05/22/25 08:01
05/22/25 08:01
PT 15.4 Sec (11.4-14.6) H 05/21/25 08:51
INR 1.19 05/21/25 08:51
Sodium 135 mmol/L (135-145) 05/22/25 08:01
Potassium 3.8 mmol/L (3.5-5.1) 05/22/25 08:01
BUN 63 mg/dl (7-17) H 05/22/25 08:01
Glucose 186 mg/dl (70-99) H 05/22/25 08:01
Calcium 8.8 mg/dl (8.4-10.2) 05/22/25 08:01
Medications
-
Active Medications
Generic Name Dose Route Start Last Admin
Trade Name Freq PRN Reason Stop Dose Admin
Acetaminophen 650 mg 05/21/25 22:26 05/21/25 22:39
Acetaminophen 325 Mg Tablet PO 06/18/25 22:25 650 mg
Q4HPRN PRN Administration
mild pain/ fever>100.5F
Atorvastatin Calcium 10 mg 05/22/25 08:00 05/22/25 08:10
Atorvastatin (Lipitor) 10 Mg Tablet PO 06/19/25 07:59 10 mg
DAILY MARIA INES Administration
Bisacodyl 10 mg 05/21/25 16:06
Bisacodyl 10 Mg Rectal Suppository RECTAL 06/18/25 16:05
[id number] PRN
constipation
Calcitriol 0.5 mcg 05/22/25 08:00 05/22/25 08:10
Calcitriol 0.25 Microgram Capsule PO 06/19/25 07:59 0.5 mcg
DAILY MARIA INES Administration
Calcium Carbonate 200 mg 05/21/25 16:06
Calcium Antacid 200 Mg (Calcium Carbonate 500 Mg) Chew Tablet PO 06/18/25 16:05
BIDPRN PRN
Indigestion
Dextrose 12.5 grams 05/21/25 16:06
Dextrose 50% (0.5 Grams/Ml) 50 Ml Syringe IV 06/18/25 16:05
[id number] PRN
hypoglycemia
Protocol
Ezetimibe 10 mg 05/21/25 22:00 05/21/25 21:14
Ezetimibe (Zetia) 10 Mg Tablet PO 06/18/25 21:59 10 mg
HS MARIA INES Administration
Glucagon 1 mg 05/21/25 16:06
Glucagon 1 Mg Vial IM 06/18/25 16:05
PRN PRN
hypoglycemia
Protocol
Heparin Sodium 5,000 units 05/21/25 16:06 05/22/25 17:30
Heparin 5,000 Units/Ml 1 Ml Vial SC 06/18/25 16:05 5,000 units
Q8 MARIA INES Administration
Hydralazine HCl 10 mg 05/21/25 18:10 05/22/25 17:42
Hydralazine 20 Mg/Ml Vial IV 06/18/25 18:09 10 mg
Q6HPRN PRN Administration
SBP>170
Hydromorphone HCl 0.5 mg 05/22/25 14:00 05/22/25 19:32
Hydromorphone 0.25 Mg/0.5 Ml Syringe IV 06/05/25 06:09 0.5 mg
Q4HPRN PRN Administration
severe pain
Insulin Glargine 12 units/ 0.12 mls @ 0 mls/hr 05/21/25 22:00 05/21/25 21:21
Device SC 06/18/25 21:59 0.12 mls
HS MARIA INES Administration
As Directed
Insulin Aspart 8 units 05/21/25 16:30 05/22/25 17:35
Insulin Aspart (Novolog) 100 Units/Ml 3 Ml Flexpen SC 06/18/25 16:29 8 units
AC MARIA INES Administration
Insulin Aspart 0 units 05/21/25 16:30 05/22/25 17:36
Insulin Aspart Low Resistance 300 Units/3 Ml Pen.Injctr SC 06/18/25 16:29 Not Given
AC MARIA INES
Protocol
Levothyroxine Sodium 100 mcg 05/22/25 06:00 05/22/25 05:33
Levothyroxine 100 Mcg Tablet PO 06/19/25 05:59 100 mcg
DAILY@0600 MARIA INES Administration
Lidocaine 1 patch 05/21/25 16:06 05/22/25 06:50
Lidocaine 4% Topical Patch TOPICAL 06/18/25 16:05 1 patch
HSPRN PRN Administration
back pain
Protocol
Lorazepam 1 mg 05/22/25 07:39
Lorazepam 2 Mg/Ml Vial IV 06/19/25 07:38
Q4HPRN PRN
seizure
Losartan Potassium 50 mg 05/21/25 16:06 05/22/25 08:10
Losartan 50 Mg Tablet PO 06/18/25 16:05 50 mg
DAILY MARIA INES Administration
Metoclopramide HCl 5 mg 05/22/25 16:00 11/12/25 17:30
Metoclopramide 5 Mg Tablet PO 06/19/25 15:59 5 mg
TID MARIA INES Administration
Nifedipine 90 mg 05/21/25 22:00 05/21/25 21:21
Nifedipine 30 Mg Extended Release Tablet PO 06/18/25 21:59 90 mg
HS MARIA INES Administration
Nortriptyline HCl 75 mg 05/21/25 16:18
Nortriptyline 25 Mg Capsule PO 06/18/25 16:17
HSPRN PRN
anxiety
Pancrelipase 1 capsule 05/21/25 17:30 05/22/25 17:30
Pancrelipase (Zenpep) Delayed Release Capsule PO 06/18/25 17:29 1 capsule
MEALS MARIA INES Administration
Pantoprazole Sodium 40 mg 05/22/25 20:00 05/22/25 19:30
Pantoprazole Sodium 40 Mg/10 Ml Vial IV 06/19/25 19:59 40 mg
BID MARIA INES Administration
Patch Removal 0 patch 05/21/25 16:15
Remove Lidocaine Patch REMOVE 06/18/25 16:14
DAILYPRN PRN
if patch applied to back
Polyethylene Glycol 17 grams 05/21/25 16:06
Polyethylene Glycol Powder 17 Grams Packet PO 06/18/25 16:05
DAILYPRN PRN
constipation
Senna/Docusate Sodium 1 tablet 05/21/25 16:06
Docusate W/Senna (Tala-Colace) Tablet PO 06/18/25 16:05
BIDPRN PRN
constipation
Sodium Chloride 0 flush 05/21/25 17:00
Sodium Chloride 0.9% (Flush) Syringe IV 06/18/25 16:59
PER PROTOCOL MARIA INES
Sodium Chloride 0 ml 05/22/25 08:00
Sodium Chloride 0.9% (Preservative Free) 10 Ml Vial IV 06/19/25 07:59
PRN PRN
IV Lorazepam dilution
Protocol
Sodium Chloride 10 ml 05/22/25 20:00 05/22/25 19:30
Sodium Chloride 0.9% (Preservative Free) 10 Ml Vial IV 06/19/25 19:59 10 ml
BID MARIA INES Administration
Sucralfate 1 gm 05/22/25 16:30 05/22/25 17:30
Sucralfate (Carafate) 1 Gm/10 Ml Cup PO 06/19/25 16:29 1 gm
ACHS MARIA INES Administration
Home Medications
�Medication �Instructions �Recorded
levothyroxine 100 mcg tablet 100 mcg PO DAILY@07 Thyroid 11/17/20
atorvastatin 10 mg tablet 10 mg PO DAILY High cholesterol 02/23/22
ezetimibe 10 mg tablet 10 mg PO HS High cholesterol #30 02/27/22
tabs
calcitriol 0.5 mcg capsule 0.5 mcg PO DAILY 01/15/25
Hyperparathyroidism
calcium carbonate (Tums) 200 mg PO BIDPRN PRN Indigestion 01/15/25
nortriptyline 75 mg capsule 75 mg PO HSPRN PRN anxiety 01/15/25
[id number]-izkgdbfz-phobnho(pork)10,000-32,000-42,000 1 cap PO MEALS #90 caps 01/20/25
unit capsule,del rel (Zenpep)
insulin glargine 100 unit/mL (3 12 unit SC HS Diabetes 05/21/25
mL) subcutaneous pen (Basaglar
KwikPen U-100 Insulin)
insulin lispro 100 unit/mL 8 unit SC AC Diabetes 05/21/25
subcutaneous pen (Humalog KwikPen
(U-100) Insulin)
lidocaine 4 % topical patch 1 patch topical HSPRN PRN back pain 05/21/25
losartan 50 mg tablet 50 mg PO DAILY Blood Pressure 05/21/25
metoclopramide HCl 5 mg tablet 5 mg PO DAILY stomach pains 05/21/25
nifedipine 90 mg tablet,extended 90 mg PO HS Blood Pressure 05/21/25
release 24 hr
pantoprazole 40 mg tablet,delayed 40 mg PO DAILY Gastrointestinal 05/21/25
release Issue
tramadol 50 mg tablet 50 mg PO BIDPRN PRN severe pain 05/21/25
[2025-05-22] MEDS: PROCARDIA XL (EXTENDED RELEASE) 90 MG PO (21:13)
[2025-05-22] MEDS: ZETIA 10 MG PO (21:13)
[2025-05-22] MEDS: TYLENOL 650 MG PO (21:13)
[2025-05-22] MEDS: LANTUS 0.12 UNITS SC (21:17)
[2025-05-22 21:29] LABS: Glucose - Point of Care 178 mg/dl (70-99)
[2025-05-23] VITALS: BP 95/47
[2025-05-23] MEDS: HEPARIN 5000 UNITS SC ×2 (00:59→10:06)
[2025-05-23 04:00] VITALS: BP 137/55
[2025-05-23 05:14] VITALS: BMI 29.0
[2025-05-23] MEDS: SYNTHROID 100 MCG PO (05:15)
[2025-05-23 06:21] LABS: Hematocrit 31.3 % (37.0-47.0); Hemoglobin 10.5 g/dL (12.0-16.0); Mean Corp Hgb Conc. 33.5 g/dL (33.0-37.0); Mean Corpuscular Volume 87.2 fL (81.0-99.0); Platelet Count 347 10^3/uL (130-400); Red Cell Dist. Width 14.7 % (11.5-14.5)
[2025-05-23 06:51] LABS: Blood Urea Nitrogen 55 mg/dl (7-17); Calcium 8.5 mg/dl (8.4-10.2); Carbon Dioxide 26 mmol/L (22-30); Chloride 101 mmol/L (98-107); Estimated Creatinine Clearance 6 ml/min; Glucose 155 mg/dl (70-99); Potassium 3.4 mmol/L (3.5-5.1); Sodium 135 mmol/L (135-145); eGFR 6.58
--- NOTE | 2025-05-23 07:58 | W.PN.HOSP.TC ---
Today's Communication/Plan
-
Her abdominal pain is likely an exacerbation of chronic gastroparesis. Appreciate GIs recommendations. Discharge the patient on Carafate liquid formulation.
Assessment / Plan
Assessment / Plan
IMPRESSION:
59-year-old female with history of ESRD on dialysis, hypertension, hypothyroidism, hypercholesterolemia, CHF, type II DM on insulin, GERD presenting to the ER for evaluation of seizures.
HPI
59-year-old [id number] female with history of type II DM on insulin, CHF, hypertension, hyperlipidemia, hypothyroidism, and end-stage renal disease on peritoneal dialysis, presents to the emergency department for evaluation of witnessed
seizure activity that happened this morning. Patient has been receiving her peritoneal dialysis this morning when the first episode occurred, around 4 AM. describes it as muscle rigidity and eyes rolling back, she had postictal confusion
lasting for about 3 minutes. Patient had a second episode later at around 7 AM, EMS was called and they witnessed a 30 second tonic-clonic seizure as well on arrival. No antiepileptics were administered. On arrival to the ED the patient is alert
and oriented fully and denies any complaints. She is noted to be febrile on arrival. Was seen in this emergency department yesterday for abdominal pain at which time labs and CT scan were unremarkable. Family notes that her PD treatment was
almost completed by the time the second episode of seizures occurred around 7 AM.
Recent hospital admission in February 2025 for abdominal pain, C. difficile infection.
ED course�febrile on arrival 100.4, BP 170/100, heart rate 103,
WBC�12.5, hemoglobin�11.1, sodium 132, BUN/creatinine�63/7.7, glucose 393, lactate 6.8, urinalysis�no evidence of UTI, COVID/flu negative, blood sent for cultures,
Chest x-ray with no evidence of pneumonia, CT head�no acute intracranial abnormality/mass, hemorrhage. EKG with sinus tachycardia.
PLAN:
#Chest pain�new 05/22/2025
Patient was going to be discharged on 05/22/2025, but she developed chest pain, so discharge was canceled.
EKG sinus tachycardia 105. QTc 41 ms
Troponin 0.027 not elevated
� Suspect esophagitis.
� GI consulted: Recommended Reglan 5 mg 3 times daily. We will discharge on home Reglan 5 mg daily, as it may cause EPS side effects, which could be confused with seizure
� Provided sucralfate liquid suspension on discharge
� Switched Protonix p.o. to 40 mg IV twice daily. Switch back to p.o. for discharge
#New onset seizures (admitting diagnosis)- 3 seizures witnessed by her at home.
Neurology feels that peritoneal dialysis may have been the trigger.
Brain MRI without acute disease.
Neurology is not recommending antiepileptic therapy on discharge. Recommended outpatient follow-up. No driving for at least 6 months.
#Fever -possibly due to seizure. No signs or symptoms of sepsis. Does have mild leukocytosis, likely leukemoid reaction. Blood cultures negative so far.
COVID, influenza negative.
No evidence of peritonitis on fluid analysis.
#Chronic abdominal pain/chronic opiate dependence -suspect due to chronic gastroparesis. On chronic tramadol. Known to Dr. Casiano from gastroenterology service.
#ESRD on PD
Stable. Dialysate currently present. Uses nightly on weeknights.
Nephrology consult for PD needs during hospital stay.
No evidence of acute infection.
Follow labs / lytes.
# DM2
Stable. Follow glucose and cover with SSI as needed.
Continue ENVIRONMENTAL FIELD SERVICES TECHNICIAN regimen: Glargine 12 units nightly and lispro 8 units AC
#Essential HTN
� Continue ENVIRONMENTAL FIELD SERVICES TECHNICIAN losartan 50 mg p.o. daily
� Continue nifedipine 90 mg p.o. nightly
#Hypothyroidism
Continue ENVIRONMENTAL FIELD SERVICES TECHNICIAN levothyroxine 100 mcg daily
#Hypercholesterolemia
Continue ENVIRONMENTAL FIELD SERVICES TECHNICIAN atorvastatin 10 mg daily
Continue ENVIRONMENTAL FIELD SERVICES TECHNICIAN ezetimibe 10 mg nightly
Chronic anemia - due to ESRD. Hgb stable and at baseline.
#Hyperparathyroidism
Continue calcitriol
#GERD
Continue pantoprazole, metoclopramide.
#Anemia of CKD
Stable. Hgb is at / near known baseline.
Follow for changes.
Full code
Dispo - Discussed with neurology, nephrology.
Recommend outpatient follow-up with PCP, neurology.
Diet�carb controlled
DVT prophylaxis�subcu heparin
Anticipated Discharge: Today
Subjective/Interval History
-
Date of Service: May 23, 2025
No acute events overnight. Chest pain is much decreased. Abdominal pain is also decreased. She has tolerating her low residue diet.
Objective Data
-
Labs:
Laboratory Results
05/23/25
05:55
WBC 13.8 H
Hgb 10.5 L
Hct 31.3 L
Plt Count 347
Sodium 135
Potassium 3.4 L
Chloride 101
Carbon Dioxide 26
BUN 55 H
Creatinine 6.7 H*
Glucose 155 H
Calcium 8.5
Vital Signs:
Vital Signs
Temp Pulse Resp BP Pulse Ox
98.3 F 107 13 137/55 96
05/23/25 03:45 05/23/25 06:00 05/22/25 08:22 05/23/25 04:00 05/23/25 06:00
I&O
05/22/25 05/23/25 05/24/25
06:59 06:59 06:59
Intake Total 240 / 240 400 / 400
Output Total 500 / 500 100 / 100
Balance -260 / -260 300 / 300
Review of Systems
-
History Source: Patient
All other systems: Reviewed and negative
Physical Exam
-
General: Well Developed, Well Nourished, No Apparent Distress, Comfortable and Conversant
HEENT: Normocephalic, Atraumatic, Anicteric, No Ptosis, Nose Appears Normal and Ears Appear Normal
Respiratory: Clear to Auscultation
Cardiac: Regular Rhythm and S1/S2
GI: Soft, Nondistended, Normal Bowel Sounds and Tender (Mild tenderness to palpation)
Musculoskeletal: No Clubbing and No Cyanosis
Skin: Warm and Dry
Neuro: Awake and Alert
Psych: Calm
[2025-05-23 08:00] VITALS: BP 143/64
[2025-05-23 08:18] LABS: Glucose - Point of Care 167 mg/dl (70-99)
[2025-05-23] MEDS: CARAFATE SUSPENSION 1 GM PO ×2 (10:02→12:08)
[2025-05-23] MEDS: NOVOLOG FLEXPEN 8 UNITS SC ×2 (10:02→12:08)
[2025-05-23] MEDS: NOVOLOG FLEXPEN-LOW RESISTANCE 1 UNITS SC (10:04)
[2025-05-23] MEDS: COZAAR 50 MG PO (10:05)
[2025-05-23] MEDS: NSS (PRESERVATIVE FREE) 10 ML IV (10:08)
[2025-05-23] MEDS: LIPITOR 10 MG PO (10:08)
[2025-05-23] MEDS: PROTONIX IV 40 MG IV (10:11)
[2025-05-23] MEDS: ROCALTROL 0.5 MCG PO (10:14)
[2025-05-23] MEDS: REGLAN PO (10:14)
[2025-05-23] MEDS: KCL 40 MEQ PO (10:15)
[2025-05-23] MEDS: ZENPEP DELAYED RELEASE CAPSULE 1 CAPSULE PO ×2 (10:15→12:16)
[2025-05-23] MEDS: REGLAN 5 MG PO (10:19)
--- NOTE | 2025-05-23 10:24 | W.PN.UPDATE ---
Update Note
Progress Note Update
I saw and evaluated the patient. I reviewed the resident�s note and agree with findings and plan as documented in the resident�s note.
Gen: NAD, Awake and alert
Eyes: EOMI, PERRLA, no scleral icterus.
Neck: supple.
CV: RRR, +S1/S2, no m/r/g.
Resp: CTAB, no rales, wheezes, or rhonchi.
Abd: +BS, soft, NT, ND
Skin: No rashes.
Neuro: CN 2-12 intact, non-focal.
Psych: Normal mood and affect.
New onset seizures:
-had 3 seizures prior to admission
-neurology feels that peritoneal dialysis may have been the trigger.
-Brain MRI without acute disease.
-Neurology is not recommending antiepileptic therapy on discharge. Recommend outpatient follow-up. No driving for at least 6 months. I personally confirmed with neurology on 05/23/2025 that no AEDs are required at this time and that they did send
the DL�13 form to [facility].
Fever:
-likely due to seizure
-Currently no evidence of infection. Leukocytosis is likely a leukemoid reaction. Blood cultures are no growth. COVID and flu testing were negative. No evidence of peritonitis on fluid analysis.
Other problems:
Hyponatremia, mild, resolved
Chronic abdominal pain/chronic opiate dependence: suspect due to chronic gastroparesis. On chronic tramadol. Known to Dr. Casiano from gastroenterology service. GI saw in c/s.
ESRD on PD: renal saw in c/s
DM2: cont basal/bolus insulin
Essential HTN: Cont Losartan/Procardia XL
Hypothyroidism: cont Levothyroxine
Anemia of chronic disease
Obesity due to excess calories
FULL
Medically cleared for discharge. The discharge plan was discussed with the patient's daughter and at bedside on May 23, 2025 and they are in agreement with this discharge plan.
Total time spent on d/c = 40 min. This included today's physical exam, progress note, review of laboratory and diagnostic data, preparation of discharge documents and prescriptions, and discussions about the pt's hospital course and discharge plan
with the patient and other medical lab technician involved in the patient's care.
--- NOTE | 2025-05-23 11:01 | W.PN.GI.CBS2 ---
Addendum entered and electronically signed by Altagracia Plaza Do, MD 05/23/25 12:15:
I saw and evaluated the patient. I reviewed the resident�s note and agree with findings and plan as documented in the resident�s note.
Her abd pain much improved today. She ate 85% of DM diet. She denies nausea/vomiting. Vitals stable. exam obese abd NTTP
Recommendations
- C/w carafate QID
- Reglan 5mg TID with meals
- C/w miralax daily basis
- Given tolerance of diet ok from GI perspective for hosp d/c today
She will FU with Dr Casiano. Above d/w hospitalist. GI will sign off please call for ?
Original Note:
Today's Communication / Plan
-
PENDING ATTENDING RECOMMENDATIONS
Advance diet as tolerated
Continue carafate slurry
Continued TID reglan
Assessment / Plan
-
59yoF PMH IDDM, CHF, ESRD on peritoneal dialysis, gastroparesis with recurrent abdominal pain here for new onset of seizure consulted for intractable epigastric pain.
Pt has recurring abdominal pain that she presented to the ED with 2 days ago that has reappeared. Outpt work up has been negative for cause of pain with care plan focusing on controlling breakthrough pain to prevent hospitalization. Pt has been
diagnosed with gastroparesis and esophageal motility dysfunction, but no caue of her pain. Nothing seems to help now per the pt with no associated trigger. Daughter reports success with carafate in the past. Pt takes many medications, few of which
are implicated with esophagitis. Nifedipine very rarely can cause esophagitis, but pt has been on since 2019 with recent dose change to 90mg rather than 60mg BID. CT demonstrated circumferential wall thickening of the distal esophagus; large food
burden in stomach. Prior EGD have demonstrated abnormal esophageal motility with spasm with Schtazki ring; pathology positive only for signs of chronic inflammation 2022.
Today, Ms Johnson reports improved abdominal pain from yesterday with the increased frequency of reglan TID and carafate. We discussed plans to continue this new regimen upon discharge. Pt demonstrated understanding and was encouraged to voice pain
if it recurs today. Advance diet as tolerated.
#intractable abdominal pain
- Daily carafate. Upon discharge, pt can be prescribed pills NOT LIQUID and can make her own slurry so that she can better afford medication
- Pain management
- Continue PPI
- Reglan TID
- Advance diet as tolerated
Subjective
Subjective
Date of Service: May 23, 2025
Pt reports significantly improved pain from yesterday. She describes continued abdominal pain that is at her baseline. She reports that both the reglan and carafate seemed to have made a difference. We discussed being sent home taking this amount of
reglan and getting carafate tablets outpt that she can make into the slurry herself.
Objective
Data Reviewed
Laboratory Data:
Laboratory Results
05/23/25 05:55
05/23/25 05:55
Laboratory Results
PT 15.4 Sec (11.4-14.6) H 05/21/25 08:51
INR 1.19 05/21/25 08:51
Total Bilirubin 0.4 mg/dl (0.2-1.3) 05/22/25 08:01
AST 18 U/L (14-36) 05/22/25 08:01
ALT 18 U/L (0-35) 05/22/25 08:01
Alkaline Phosphatase 98 U/L (38-126) 05/22/25 08:01
Vital Signs and I&O:
Vital Signs
Temp Pulse Resp BP Pulse Ox
99.7 F 101 13 143/64 96
05/23/25 08:07 05/23/25 10:05 05/22/25 08:22 05/23/25 10:05 05/23/25 06:00
I&O
05/22/25 05/23/25 05/24/25
06:59 06:59 06:59
Intake Total 240 / 240 400 / 400
Output Total 500 / 500 100 / 100
Balance -260 / -260 300 / 300
Physical Exam
Physical Exam
HEENT: Anicteric and Moist mucous membranes
Cardiology: Normal Sinus Rhythm
Pulmonary: Clear
GI: Soft, Non Distended and Tender (everywhere mildly tender)
Neuro: Non Focal
--- NOTE | 2025-05-23 11:06 | W.PN.NEPH.PH ---
Today's Communication / Plan
-
Continue PD with increased solution 2.5%
Assessment/Plan
-
Assessment:
new onset of SZ
Fever -possibly due to seizure
Hyponatremia
MEt acidosis with lactic acid
Diabetes mellitus type 2
End-stage renal disease on PD at [facility] PD script-all 1.5% bags, NIPD 8hrs. 5days/week(weekend break)
Hypothyroidism
Hyperlipidemia
Hypertension wiht urgency
Anxiety/depression
Chronic pain on tramadol
Fatty liver
Obesity
Anemia possibly of CKD
Nephrolithiasis, incidental
Coronary artery calcification
Plan:
A/w new SZ
Continue PD
2L every 5 hours at 1.5%
No evidence of peritonitis on cell count
Increased next exchanges to 2.5% with only 1600 out the last exchange and even on the last 2 exchange
d/w pt and family at bedside, family helped in translation
-
-
Date of Service: May 23, 2025
CC / HPI / ROS
-
Chief Complaint:
Abdominal pain fever
History of Present Illness:
ESRD on PD
Review of Systems: .
No chest pain, mild abdominal
Labs
-
Labs:
WBC 13.8 10^3/uL (4.8-10.8) H 05/23/25 05:55
RBC 3.59 10^6/uL (4.20-5.40) L 05/23/25 05:55
Hgb 10.5 g/dL (12.0-16.0) L 05/23/25 05:55
Hct 31.3 % (37.0-47.0) L 05/23/25 05:55
Plt Count 347 10^3/uL (130-400) 05/23/25 05:55
Sodium 135 mmol/L (135-145) 05/23/25 05:55
Potassium 3.4 mmol/L (3.5-5.1) L 05/23/25 05:55
Chloride 101 mmol/L (98-107) 05/23/25 05:55
Carbon Dioxide 26 mmol/L (22-30) 05/23/25 05:55
BUN 55 mg/dl (7-17) H 05/23/25 05:55
Creatinine 6.7 mg/dL (0.6-1.0) H* 05/23/25 05:55
eGFR 6.58 05/23/25 05:55
Glucose 155 mg/dl (70-99) H 05/23/25 05:55
Calcium 8.5 mg/dl (8.4-10.2) 05/23/25 05:55
Albumin 3.5 g/dl (3.5-5.0) 05/22/25 08:01
Physical Exam
-
Vital Signs:
Vital Signs
Temp Pulse Resp BP Pulse Ox
99.7 F 101 13 143/64 96
05/23/25 08:07 05/23/25 10:05 05/22/25 08:22 05/23/25 10:05 05/23/25 06:00
Cardiovascular:: Regular rate and rhythm
Respiratory:: Bilateral: CTA
Lung Excursion:: Normal
Abdomen:: Nontender and Soft
Bowel Sounds:: Normal
Extremity Edema:: None: Bilateral:
[2025-05-23 12:00] VITALS: BP 156/82
[2025-05-23] MEDS: NOVOLOG FLEXPEN-LOW RESISTANCE SC (12:08)
[2025-05-23 12:16] LABS: Glucose - Point of Care 123 mg/dl (70-99)
--- NOTE | 2025-05-23 12:28 | W.DCSUMMARY ---
Discharge Summary
Discharge Data
Date of Admission: 05/21/25
Date of Discharge: 05/23/25
Total time spent discharging patient (in min): 45
-
Pending Results: No
Hospital Course
Discharging Physician : Dr. Ybarra and Dr. Felix
Disposition : Home
Primary care physician : not known
Principal Discharge diagnosis : Seizure
Chronic Discharge diagnosis : gastroparesis
Hospital Course :
Ms. Johnson is a 59-year-old female with history of ESRD on dialysis, hypertension, hypothyroidism, hypercholesterolemia, CHF, type II DM on insulin, GERD, who presented with seizures. Patient was receiving peritoneal dialysis when the first episode
occurred. described it as muscle rigidity and eyes rolling back. She had postictal confusion lasting for about 3 minutes. Patient had a second episode 3 hours later when PD was finishing. EMS was called and they witnessed a 30 second
tonic-clonic seizure arrival. No antiepileptics were administered. On arrival to the ED, the patient was alert and oriented fully and denied any complaints. She was noted to be febrile.
Was seen in this emergency department yesterday for abdominal pain at which time labs and CT scan were unremarkable.
Problem 1: Seizures
3 seizures witnessed by her at home. Brain MRI without acute disease. Neurology felt that peritoneal dialysis may have been the trigger and did not recommend antiepileptic therapy on discharge. They recommended outpatient follow-up and AEDs
may be considered if seizures recur. No driving for at least 6 months.
Problem 2: Fever
One documented fever, on admission. Possibly due to seizure. No signs or symptoms of sepsis. Mild leukocytosis, likely leukemoid reaction. Blood cultures negative. COVID and influenza negative. No evidence of peritonitis on fluid analysis. No
evidence of acute infection.
Problem 3: Chest and abdominal pain
Patient was going to be discharged but she developed chest pain that day. Troponin was not elevated. EKG demonstrated sinus tachycardia. Since she also had abdominal pain and has chronic gastroparesis causing pain requiring tramadol, the chest pain
was suspected to be GI in origin. GI was consulted and recommended increasing her sucralfate and Reglan. The primary team discharged on home Reglan 5 mg daily, as Reglan may cause EPS side effects, which could be confused with seizure. Provided
sucralfate liquid suspension on discharge, as this forumlation is more effective for the patient and is less expensive with new insurance.
Important imaging findings :
CT AP 05/20/25
Findings suggesting mild acute pancreatitis. Clinical and laboratory correlation recommended. Progressed. Previous study showed moderate ascites. This has resolved.
Moderate hiatal hernia. Stable
Moderate circumferential wall thickening of the distal esophagus. Progressed. This can be seen with esophagitis. A mural mass cannot be excluded.
1 mm nonobstructing right renal stone. Stable
Tiny pericardial effusion. Stable
CXR 05/21/25
Mild elevation of the right hemidiaphragm with minimal basilar opacities favored to represent atelectasis.
Head CT 05/21/25
No acute intracranial abnormality noted.
Brain MRI 05/22/25
Probable postictal changes as described.
Otherwise no acute intracranial abnormality noted.
Abd xray 05/22/25
The amount of stool within the colon appears to be within normal limits. No significantly dilated air-filled loops of bowel.
Procedure findings : none
Discharge Plan
-
Patient Disposition: Home (Routine Discharge)
Discharge Diagnosis/Procedures: Seizure
Condition: Good
Diet: Low Cholesterol, 2 Gram Sodium and Diabetic, Carb Controlled
Activity: As tolerated
Driving Restrictions: no driving for 6 months
Bathing Restrictions: None
Specialty Instructions: Weigh Daily- Call MD for wt gain/loss 3 lbs overnight/5 lbs in 1 week
Referrals:
Marjan Kolb CRNP [Specified Professional Personl, Neurology] - in one to two weeks
UNKNOWN - PT NOT,INTERVIEWE [Family Provider] - in less than 1 week
Elisha Casiano DO [Active, Gastroenterology]
Referral Note: 4 weeks for gastroparesis and chronic abd pain
Additional Discharge Medication Instructions: You were provided a prescription for liquid Carafate (sucralfate). The therapeutic case manager check the hugo with your insurance and it is $1. Please take the Carafate with meals and at night when you have
abdominal pain.
Prescriptions:
New
polyethylene glycol 3350 17 gram Powder In Packet
17 g PO DAILY Qty: 0 0RF
sucralfate 100 mg/mL suspension
1 g PO ACHS 28 Days Qty: 1120 0RF
Continued
levothyroxine 100 MCG tablet
100 mcg PO DAILY@07
atorvastatin 10 mg Tablet
10 mg PO DAILY
ezetimibe 10 MG tablet
10 mg PO HS Qty: 30 0RF
nortriptyline 75 mg Capsule
75 mg PO HSPRN PRN (Reason: anxiety)
calcitriol 0.5 mcg Capsule
0.5 mcg PO DAILY
calcium carbonate [Tums] 200 mg calcium (500 mg) Tablet,Chewable
200 mg PO BIDPRN PRN (Reason: Indigestion)
Zenpep 10,000-32,000 -42,000 unit Capsule,Delayed Release(Dr/Ec)
1 cap PO MEALS Qty: 90 0RF
losartan 50 mg tablet
50 mg PO DAILY
nifedipine 90 mg tablet extended release 24hr
90 mg PO HS
lidocaine 4 % adhesive patch,medicated
1 patch topical HSPRN PRN (Reason: back pain)
metoclopramide HCl 5 mg tablet
5 mg PO DAILY
insulin lispro [Humalog KwikPen Insulin] 100 unit/mL insulin pen
8 unit SC AC
insulin glargine [Basaglar KwikPen U-100 Insulin] 100 unit/mL (3 mL) insulin pen
12 unit SC HS
pantoprazole 40 mg tablet,delayed release (DR/EC)
40 mg PO BID Qty: 60 0RF
Discontinued
tramadol 50 mg tablet
50 mg PO BIDPRN PRN (Reason: severe pain)
Discharge Orders:
Discharge Patient (As Directed); Ordered 05/23/25
Ordered By: Omar Ybarra
Discharge Date and Time
Discharge Date/Time: 05/23/25 13:10
Print Language: UKRAINIAN
--- NOTE | 2025-05-23 13:33 | PTCARENOTE ---
Pt lalitha. to home with family. Reviewed all home med orders. Family expressed understanding regarding all meds and follow up appts
--- NOTE | 2025-05-23 15:02 | CM ---
F/U: Hospital team is ready to discharge the patient and asked to check a medication, liquid: Carafte. Called [facility] in [place] and it is $1, but not ready until tomorrow afternoon. Daughter aware of the cost and when it is ready as well as
Hospital team. There are no other needs. PLAN: Home No Needs.
== END 2025-05-23 13:10 | disposition home or self-care (01) | DRG 100 ==
LOC: IMU 12:14
PROVIDERS: Physician Assistant; Student in an Organized Health Care Education/Training Program; ADMITTING PHYSICIAN Hospitalist; ATTENDING PHYSICIAN Internal Medicine; CONSULT PHYSICIAN Internal Medicine; CONSULT PHYSICIAN Internal Medicine Gastroenterology; CONSULT PHYSICIAN Psychiatry & Neurology Neurology; EMERGENCY PHYSICIAN Student in an Organized Health Care Education/Training Program
DX: R56.9 Unspecified convulsions (principal); N18.6 End stage renal disease; I13.2 Hypertensive heart and chronic kidney disease with heart failure and with stage 5 chronic kidney disease, or end stage renal disease; E87.20 Acidosis, unspecified; E87.1 Hypo-osmolality and hyponatremia; F11.20 Opioid dependence, uncomplicated; R18.8 Other ascites; E66.09 Other obesity due to excess calories; G89.29 Other chronic pain; K31.84 Gastroparesis; E11.65 Type 2 diabetes mellitus with hyperglycemia; E11.22 Type 2 diabetes mellitus with diabetic chronic kidney disease; E03.9 Hypothyroidism, unspecified; F32.A Depression, unspecified; F41.9 Anxiety disorder, unspecified; K76.0 Fatty (change of) liver, not elsewhere classified; I25.10 Atherosclerotic heart disease of native coronary artery without angina pectoris; N20.0 Calculus of kidney; D72.823 Leukemoid reaction; I16.0 Hypertensive urgency; E11.43 Type 2 diabetes mellitus with diabetic autonomic (poly)neuropathy; E21.3 Hyperparathyroidism, unspecified; E78.00 Pure hypercholesterolemia, unspecified; K59.00 Constipation, unspecified; K22.4 Dyskinesia of esophagus; D63.1 Anemia in chronic kidney disease; K21.00 Gastro-esophageal reflux disease with esophagitis, without bleeding; K44.9 Diaphragmatic hernia without obstruction or gangrene; Z72.820 Sleep deprivation; Z60.3 Acculturation difficulty; Z99.2 Dependence on renal dialysis; Z90.49 Acquired absence of other specified parts of digestive tract; Z82.49 Family history of ischemic heart disease and other diseases of the circulatory system; Z79.890 Hormone replacement therapy; Z68.30 Body mass index [BMI] 30.0-30.9, adult; Z79.4 Long term (current) use of insulin; Z88.8 Allergy status to other drugs, medicaments and biological substances; Z86.19 Personal history of other infectious and parasitic diseases; Z11.52 Encounter for screening for COVID-19; Z79.899 Other long term (current) drug therapy; Z87.11 Personal history of peptic ulcer disease
CPT/HCPCS: 70450; 70553; 71045; 74018; 80048; 80053; 81003; 81015; 82805; 82962; 83036; 83605; 84443; 84484; 85025; 85027; 85610; 87015; 87040; 87070; 87205; 87502; 87811; 89051; 93005; 95816; 96360; 99285; A9575

== ENCOUNTER → 2025-06-21 08:20 | Outpatient (REF) | payer OTHER, SELFPAY ==
[2025-06-21 08:46] VITALS: BP 112/50; BP_SYST 78
[2025-06-21] MEDS: ANCEF 10 IV (09:21)
[2025-06-21 09:28] LABS: Glucose - Point of Care 106 mg/dl (70-99)
--- NOTE | 2025-06-21 10:20 | PTCARENOTE ---
pt prepped for port placement in IR with daughter present, consent obtained via dietary aid by Dr. Milligan. Pt given pre procedure ancef as ordered by , then brought into IR suite. Upon getting ready to transfer to table pt began
complaining of abdominal pain, then appeared to have a seizure with decorticate posturing. Not responding to staff and agonal breathing noted, rapid response called, pt placed on monitors, pulse present and ambu bag utilized for rescue breathing
until rapid response team arrived. See IT TECHNICIAN note for further details-pt transferred to ED, pt's daughter went home but was updated via phone by Dr. Milligan and ED MD Barbosa.
== END ==
LOC: RADI 08:20
PROVIDERS: ATTENDING PHYSICIAN Internal Medicine; FAMILY PHYSICIAN Nurse Practitioner Family
DX: N18.4 Chronic kidney disease, stage 4 (severe) (principal); R56.9 Unspecified convulsions; R10.9 Unspecified abdominal pain; Z53.8 Procedure and treatment not carried out for other reasons
CPT/HCPCS: 82962

== ENCOUNTER 2025-06-21 12:43 | Inpatient (IN) | payer OTHER, SELFPAY ==
[2025-06-21] VITALS (76 sets, daily range): BP systolic 47–164; BP diastolic 35–107; BMI 30.3
--- NOTE | 2025-06-21 09:54 | ED.GENMED ---
History of Present Illness
General
Chief Complaint: CODE
Source: patient and family
Exam Limitations: none
Time Seen by Provider: 06/21/25 09:53
Nursing documentation reviewed up to this point in time: agreed with
History of Present Illness
History of Present Illness:
59-year-old female presents the emergency department after being called as a rapid response. She became unresponsive while awaiting interventional radiology procedure. She lost pulses, and briefly received CPR and a dose of epinephrine. She then
awoke. She was brought to the emergency department, where she has been responsive throughout. She complains of chronic abdominal pain. She was to get a Port-A-Cath for her frequent blood draws. She is on peritoneal dialysis.
Past History
Past History
ED Past Medical History: GERD, HTN, Hypercholesterolemia, NIDDM, Renal failure and Other (anemia)
ED Past Surgical History: Appendectomy, Cholecystectomy and
Patient has exhibited threatening behavior?: No
Social History
Tobacco: Non-smoker
Alcohol: None
Drug: None
Personal:
Living: with family
Employment: Not employed
Family History
Family History: Hypertension
Review of Systems
Review of Systems
Allergies reviewed?: Yes
All Other Systems: Not applicable
Constitutional: Reports no symptoms
EENT: Reports no symptoms
Respiratory: Reports trouble breathing
Cardiac: Reports no symptoms
ABD/GI: Reports abdominal pain
: Reports no symptoms
Musculoskeletal: Reports no symptoms
Skin: Reports no symptoms
Neurological: Reports no symptoms
Endocrine: Reports no symptoms
Hematologic/Lymphatic: Reports no symptoms
Psychiatric: Reports no symptoms
Phy Exam
Physical Exam
Physical Exam:
Physical Exam
General: Moderate distress, ill-appearing, mildly hypotensive
Neck: supple. no meningeal signs. normal posterior pharynx
Heart: s1/s2 regular rate and rhythm, no murmur. equal radial
pulses.
HEENT: Pupils equal round reactive to light, EOMI
Lungs: no acute respiratory distress. clear bilaterally
Abdomen: normal bowel sounds. not tender. no CVAT, peritoneal dialysis catheter
Neuro: alert and oriented. no focal neurological deficits cranial nerves II through XII intact
Skin: no rash
Psychiatric: well kept. interactive and cooperative
Extremities: no edema. no calf tenderness. negative homans. good distal pulses
Course
Orders/Labs/Results
Orders:
Orders
06/21/25 09:53
CR Chest Portable - 1 View Urgent
Comment:
Reason For Exam: short of breath
Reason Study Needs to be Portable: Patient Unstable
06/21/25 09:54
Electrocardiogram (*1) Urgent
Reason for Study: Shortness of Breath
EKG- Treatment ONCE
06/21/25 10:16
Complete Blood Count/With Diff Urgent
Comprehensive Metabolic Panel Urgent
Troponin I Urgent
06/21/25 10:23
Fentanyl Citrate/Pf [Sublimaze] 50 mcg IV NOW STA
Pantoprazole [Protonix IV] 40 mg IV NOW STA
06/21/25 10:25
IV Insert/Care/Rem.- Treatment PRN
06/21/25 10:26
Lactic Acid Q4H
Comment: CANCEL 2nd LACTIC ACID IF 1st LACTIC ACID IS LESS THAN 2
06/21/25 10:27
0.9% Sodium Chloride 1000 ml [Nss] 1,000 ml IV BOLUS
NORepinephrine 4 MG/250 ML [Levophed] 4 mg in 250 ml IV NOW
Initial dose in mcg/min, then titrate:: 4
Titrate to keep:: MAP > 65 mmHg
Titrate by mcg/min:: 1-2 mcg/min
Frequency of titrations (minutes):: 5
Maximum dose in ICU in mcg/min:: 30
Maximum dose in IMU in mcg/min:: 8
Maximum dose in IVU in mcg/min:: 4
Begin to taper infusion when:: Remained at goal for 4hrs
Taper by mcg/min:: 1-2 mcg/min
Frequency of taper (minutes) if patient maintains goal:: 30
Taper to off?: Yes
If infusion off & no longer maintaining goal:: Contact Provider
06/21/25 10:39
Blood Culture Q30M
[facility] Source: Blood/Venous
Specimen Description:
06/21/25 11:00
Blood Culture Q30M
[facility] Source: Blood/Venous
Specimen Description:
06/21/25 14:30
Lactic Acid Q4H
Comment: CANCEL 2nd LACTIC ACID IF 1st LACTIC ACID IS LESS THAN 2
Abnormal Lab Results
06/21/25 06/21/25
10:16 10:26
WBC 11.7 H 10^3/uL
(4.8-10.8)
Hct 36.7 L %
(37.0-47.0)
Abs Immat Gran (auto) 0.2 H 10^3/uL
(0-0.05)
Absolute Neuts (auto) 7.9 H 10^3/uL
(1.4-6.5)
Immature Gran % 1.7 H %
(0-0.5)
Sodium 130 L mmol/L
(135-145)
Carbon Dioxide 17 L mmol/L
(22-30)
BUN 62 H mg/dl
(7-17)
Creatinine 7.5 H* mg/dL
(0.6-1.0)
Glucose 172 H mg/dl
(70-99)
Lactic Acid 4.2 H* mmol/L
(0.7-2.0)
Calcium 7.9 L mg/dl
(8.4-10.2)
Alkaline Phosphatase 151 H U/L
(38-126)
Total Protein 4.9 L g/dl
(6.3-8.2)
Albumin 2.7 L g/dl
(3.5-5.0)
06/21/25 10:16
06/21/25 10:16
Vital Signs
Initial and Last Documented VS:
Initial Vital Signs
Pulse Resp Pulse Ox
114 18 97
06/21/25 09:50 06/21/25 09:50 06/21/25 09:50
Last Documented Vital Signs
Pulse Resp BP Pulse Ox
95 11 77/53 97
06/21/25 10:22 06/21/25 10:22 06/21/25 10:22 06/21/25 09:50
MDM/Problems Addressed
Differential Diagnosis Includes:
Dysrhythmia, seizure, sepsis
MDM/Problems Addressed:
59-year-old female with episode of unresponsiveness and possible cardiac arrest versus hypotension. Chronic kidney disease on dialysis. Admit to hospitalist, IV fluids and Levophed ordered.
Chronic conditions affecting care: DM, HTN and Kidney disease
Acute Exacerbation and/or Progression of Chronic Illness: DM and Kidney disease
*Radiology
Radiology exam reviewed: radiology read reviewed (Chest x-ray no acute findings)
*Pulse Oximetry
SaO2: 99
Oxygen Mode of Delivery: Non-rebreather mask
Patient hypoxic: yes
*EKG
Interpreted by ED Provider?: Yes
EKG Intrepretation Date: 06/21/25
EKG Intrepretation Time: 10:25
Interpretation: normal
Comparison EKG: no comparison EKG present
Heart Rate: 88
Rate: normal
Rhythm: sinus
[place]: normal axis
Interval: normal interval
QRS Pattern: normal QRS
Ischemia: no ischemia
*[employer] Interpretation
Rate: normal
Interpretation: normal
Heart Rate: 85
Rhythm: sinus
*Critical Care Note
Total Time (30-74mins, 75-104mins- exclusive of procedures): 30
comment:
Critical care statement: A total of 30 minutes of critical care time was provided for this patient. This includes management of unstable vital signs, evaluation of the patient at bedside, reviewing the patient's pertinent medical records, discussion
with consultants, review of old EKGs and review of pertinent medical records. This time with separate from time utilized to perform the aforementioned documented procedures
Patient Management
Social determinants of health affecting care: Living situation and Strong social support
Discussion with other providers: Hospitalist
Escalation/DeEscalation of care consider admission/obs:
admit indicated
ED Attending Note
-
Portions of this chart may have been created with voice recognition software.� Occasional wrong word or��sound alike� substitutions may have occurred due to the inherent limitations of voice recognition software.
Discharge Plan
Departure
Patient Disposition: Admit
Date of Disposition: 06/21/25
Time of Disposition: 11:07
Admit to: ICU
Presentation/result/management discussed w/ accepting MD/DO: Hospitalist
Patient with high blood pressure during this ER visit?: No
Condition: Fair
Discharge Problem:
Episode of unresponsiveness, Chronic kidney disease, stage 3b, Type II diabetes mellitus, Gastro-esophageal reflux disease without esophagitis, Acute hypotension
Prescriptions:
No Action
levothyroxine 100 MCG tablet
100 mcg PO DAILY@07
atorvastatin 10 mg Tablet
10 mg PO DAILY
ezetimibe 10 MG tablet
10 mg PO HS Qty: 30 0RF
nortriptyline 75 mg Capsule
75 mg PO HSPRN PRN (Reason: anxiety)
calcitriol 0.5 mcg Capsule
0.5 mcg PO DAILY
calcium carbonate [Tums] 200 mg calcium (500 mg) Tablet,Chewable
200 mg PO BIDPRN PRN (Reason: Indigestion)
Zenpep 10,000-32,000 -42,000 unit Capsule,Delayed Release(Dr/Ec)
1 cap PO MEALS Qty: 90 0RF
losartan 50 mg tablet
50 mg PO DAILY
nifedipine 90 mg tablet extended release 24hr
90 mg PO HS
lidocaine 4 % adhesive patch,medicated
1 patch topical HSPRN PRN (Reason: back pain)
metoclopramide HCl 5 mg tablet
5 mg PO DAILY
insulin lispro [Humalog KwikPen Insulin] 100 unit/mL insulin pen
8 unit SC AC
insulin glargine [Basaglar KwikPen U-100 Insulin] 100 unit/mL (3 mL) insulin pen
12 unit SC HS
polyethylene glycol 3350 17 gram Powder In Packet
17 g PO DAILY Qty: 0 0RF
sucralfate 100 mg/mL suspension
1 g PO ACHS 28 Days Qty: 1120 0RF
pantoprazole 40 mg tablet,delayed release (DR/EC)
40 mg PO BID Qty: 60 0RF
Referrals:
UNKNOWN - PT DOES,NOT KNOW [Family Provider]
Interventions
Interventions:
*Risk Screen - Suicide Last Done: 06/21/25 11:00
*Neglect/Abuse Screening Last Done: 06/21/25 11:00
[facility] Risk Assessment Tool Last Done: 06/21/25 09:49
Discharge Date and Time
Print Language: GREENLANDIC
[2025-06-21 10:29] LABS: Hematocrit 36.7 % (37.0-47.0); Hemoglobin 12.2 g/dL (12.0-16.0); Mean Corp Hgb Conc. 33.2 g/dL (33.0-37.0); Mean Corpuscular Volume 87.2 fL (81.0-99.0); Nucleated Red Blood Cells % 0 %; Platelet Count 298 10^3/uL (130-400); Red Cell Dist. Width 13.5 % (11.5-14.5)
[2025-06-21] MEDS: NSS 1000 IV (10:40)
[2025-06-21] MEDS: SUBLIMAZE 50 MCG IV (10:41)
[2025-06-21] MEDS: PROTONIX IV 40 MG IV (10:41)
[2025-06-21 10:45] LABS: ALT (SGPT) 25 U/L (0-35); AST (SGOT) 20 U/L (14-36); Albumin 2.7 g/dl (3.5-5.0); Alkaline Phosphatase 151 U/L (38-126); Blood Urea Nitrogen 62 mg/dl (7-17); Calcium 7.9 mg/dl (8.4-10.2); Carbon Dioxide 17 mmol/L (22-30); Chloride 99 mmol/L (98-107); Glucose 172 mg/dl (70-99); Potassium 3.9 mmol/L (3.5-5.1); Sodium 130 mmol/L (135-145); Total Protein 4.9 g/dl (6.3-8.2); eGFR 5.75
[2025-06-21 10:52] LABS: Troponin I 0.020 ng/ml
[2025-06-21] MEDS: LEVOPHED 250 IV (10:52)
--- NOTE | 2025-06-21 11:20 | EDRN ---
After medications for pain management, patient is more calm in the stretcher, no longer flipping side to side making monitoring accurately difficult. Took patient off NRB at 15 liters to room air while monitoring patient. Patient is casually
conversing now with daughter appearing in no distress with SPO2 remaining 99% for the past 5 minutes as this RN was titrating norepinephrine Q5 min.
--- NOTE | 2025-06-21 11:31 | HPS.HSE ---
Translation Services
-
Preferred Language: Ukrainian
Glass Embosser service via: Phone
Glass Embosser's ID Number: [id number]
Family Physician
-
Family Physician: NOT KNOW UNKNOWN - PT DOES
Chief Complaint
-
Post code 9 in the IR department for elective port placement
History of Present Illness
59 years old female who was going to have port placement electively in the interventional department today suffered cardiopulmonary arrest. Patient gets peritoneal dialysis and was going to have port to help with blood work as ordered by her
camera maker at [facility]
According to personal present during the event. Patient did not get her port. She was getting prepped for it when she became suddenly unresponsive, clenching her upper arms and ceased her breathing. They were not sure if they had pulse but they
started as a rapid response that progressed to code 9. Patient received chest compressions when 1 shot of epinephrine when they could not feel her pulse.
Patient was transferred to the emergency room when she started to regain her consciousness. She was noted to have hypotension and started on Levophed. Upon being more alert, patient started to complain of chest pain and was given fentanyl that
helped a lot.
Patient does not recall what happened. She reports history of seizure but her usual pattern described as sudden loss of consciousness without aura. Per patient, I wake up and people tell me I had seizure. Patient was n.p.o. today. She did not
get all her blood pressure medications this morning. Family noted that the new addition of labetalol to her regimen has been causing low blood pressure at home. Patient is fully oriented. She is requesting to go home but understand the need to
stay in the hospital for hypotension.
Medical History
Past Medical History
Past Medical History: Reports Other (CKD/anemia of chronic disease/GERD/hyperparathyroid/hyperlipidemia/hypothyroidism/hypertension/diabetes with diabetic neuropathy and gastroparesis, end-stage renal disease on peritoneal dialysis per patient's
preference/chronic pain/seizure disorder)
Past Surgical History: Reports Other (No recent major surgery)
Social History
Tobacco: Non-smoker
Alcohol: None
Drug: None
Personal:
Living: With Family
Employment: Retired
Family History
Family History: Other (History of kidney disease)
Allergies / Home Medications
Allergies reflects when Allergies were last updated in [facility].
Home Medications with original date entered in [facility]
Allergy/Medication List:
Allergies
Allergy/AdvReac Type Severity Reaction Status Date / Time
metformin AdvReac DIARRHEA Verified 06/21/25 09:58
sitagliptin (From [email or web address]) AdvReac diarrhea Verified 06/21/25 09:58
Home Medications
levothyroxine 100 mcg tablet 100 mcg PO DAILY@07 Thyroid 11/17/20
atorvastatin 10 mg tablet 10 mg PO DAILY High cholesterol 02/23/22
ezetimibe 10 mg tablet 10 mg PO HS High cholesterol #30 tabs 02/27/22
calcitriol 0.5 mcg capsule 0.5 mcg PO DAILY Hyperparathyroidism 01/15/25
nortriptyline 75 mg capsule 75 mg PO HSPRN PRN anxiety 01/15/25
insulin glargine 100 unit/mL (3 mL) subcutaneous pen (Basaglar KwikPen U-100 Insulin) 12 unit SC HS Diabetes 05/21/25
insulin lispro 100 unit/mL subcutaneous pen (Humalog KwikPen (U-100) Insulin) 3 sliding scale dose SC AC Diabetes 05/21/25
lidocaine 4 % topical patch 1 patch topical HSPRN PRN back pain 05/21/25
losartan 50 mg tablet 50 mg PO DAILY Blood Pressure 05/21/25
metoclopramide HCl 5 mg tablet 5 mg PO DAILY stomach pains 05/21/25
nifedipine 90 mg tablet,extended release 24 hr 90 mg PO HS Blood Pressure 05/21/25
pantoprazole 40 mg tablet,delayed release 40 mg PO BID Gastrointestinal Issue #60 tabs 05/23/25
ergocalciferol (vitamin D2) 1,250 mcg (50,000 unit) capsule 1,250 mcg PO QWEEK 06/21/25
gentamicin 0.1 % topical cream 1 applic topical DAILY 06/21/25
labetalol 200 mg tablet 200 mg PO BID 06/21/25
lacosamide 200 mg tablet 200 mg PO BID 06/21/25
yxgiit-ggvltvuq-vodaenv(pork)10,000-32,000-42,000 unit capsule,del rel (Zenpep) 1 cap PO AC 06/21/25
polyethylene glycol 3350 17 gram oral powder packet 17 g PO DAILYPRN PRN constipation 06/21/25
sevelamer carbonate 800 mg tablet 800 mg PO AC 06/21/25
sucralfate 100 mg/mL oral suspension 1 g PO ACHS 06/21/25
torsemide 100 mg tablet 100 mg PO DAILY 06/21/25
Review of Systems
-
History Source: Patient
A 12 point ROS was completed and negative except as noted: Yes
Constitutional: Denies Fever
EENT: Denies Sore Throat
Respiratory: Denies Cough
Cardiac: Reports Chest Pain
Abdomen/GI: Denies Abdominal Pain
: Denies Dysuria
Musculoskeletal: Denies Joint Pain
Neurological: Denies Headache or Numbness
Hematologic/Lymphatic: Denies Bruising
Psych: Denies Panic Disorder
Physical Exam
Vital Signs
Vital Signs
Pulse Resp BP Pulse Ox
95 11 77/53 99
06/21/25 10:22 06/21/25 10:22 06/21/25 10:22 06/21/25 11:09
Physical Exam
General: No Apparent Distress, Comfortable and Appears Chronically Ill
HEENT: Moist mucous membranes and Atraumatic
Respiratory: Clear
Cardiac: S1/S2
GI: Soft and Non Tender
Genito-urinary: No Granados
Musculoskeletal: No Clubbing and No Edema
Skin: No Jaundice
Neuro: AO x 3 and Nonfocal/grossly intact; No Facial Droop or Tremors
Psych: Calm and Intact Judgment/Insight
Laboratory Results
-
06/21/25 10:16
06/21/25 10:16
Laboratory Results
Lactic Acid 4.2 mmol/L (0.7-2.0) H* 06/21/25 10:26
Total Bilirubin 0.2 mg/dl (0.2-1.3) 06/21/25 10:16
AST 20 U/L (14-36) 06/21/25 10:16
ALT 25 U/L (0-35) 06/21/25 10:16
Alkaline Phosphatase 151 U/L (38-126) H 06/21/25 10:16
Troponin I 0.020 ng/ml 06/21/25 10:16
Impression/Plan
-
59 years old female who had code 9 while getting elective port placement in interventional department at [facility]
#Post cardiopulmonary arrest/code 9 code.
Lactic acidosis
Differential diagnosis includes seizure disorder versus others including cardiac.
Patient has history of seizure disorder, recently diagnosed and being treated since May 2025.
She has no known severe coronary artery disease. Initial troponin is negative. She is having chest pain but seems consistent with musculoskeletal secondary to chest compressions
She is also having hypotension which could be combination not n.p.o./hypovolemia and taking blood pressure medication earlier today
Given 500 cc of NS bolus. Careful with the fluid resuscitation due to renal failure.
Continue supportive measure include Levophed drip until weaned down slowly. ICU monitoring.
Patient reportedly was at her baseline this morning with no fever or respiratory/GI symptoms. Doubt infectious source although lactic acid was elevated which can be explained by this seizure event/unresponsive
Will order echocardiogram/ trend troponin. She had nuclear stress test in 2022 that did not show acute findings.
Continue statin
Hold BP medications for now
Add low dose aspirin.
DVT prophylaxis.
Case discussed with cardiology/ Neurology/camera maker/ burlapper, appreciate help.
# Elective port placement. Port was not placed due to the event. Will verify the need for it and help facilitate with possible.
#Leukocytosis. Likely reactive. Monitor. No fever.
#Chronic abdominal pain/ Chronic gastroparesis. On chronic Reglan.
#ESRD on PD/ Hyperparathyroidism
Patient gets peritoneal dialysis. She was started on Dialysis since October 2024. Peritoneal dialysis was patient preference to be able to do it at home.
Continue her chronic medication and follow-up with nephrology recommendations.
# DM2
Continue with insulin sign scale for now and long-acting insulin. Monitor blood glucose
# hyponatremia
#Essential HTN
She is on losartan, torsemide, nifedipine. Labetalol was added recently. Per family: Low blood pressure at times since the addition of labetalol. Will hold blood pressure medication while hypotensive reintroduce them slowly and as tolerated
#Hypothyroidism
Continue PAPER SORTER AND COUNTER levothyroxine.
#Hypercholesterolemia
Continue PAPER SORTER AND COUNTER atorvastatin 10 mg daily
Continue PAPER SORTER AND COUNTER ezetimibe 10 mg nightly
Chronic anemia - due to ESRD. Hgb stable and at baseline.
#Hyperparathyroidism
Continue calcitriol
#GERD
Continue pantoprazole, Carafate/ metoclopramide.
#Anemia of CKD
Full code
Diet�carb controlled
DVT prophylaxis�subcu heparin
Total time spent to see the patient, examined the patient, reviewed data and lab result, discuss treatment plan with patient- her family, ER doctor, consultants/ IR staff, nursing staff around 75 minutes
--- NOTE | 2025-06-21 12:37 | W.CON.NEPH ---
Consultation
-
Date/Time Consultation Requested: 06/21/2025 12:30 PM
Date/Time Consultation Performed: 06/21/2025 12:30 PM
Requesting Provider: Dr. Granaod
Performing Provider: Dr. Koch
Reason for Consultation: ESRD (PD)
Medical History
-
Chief Complaint: SZ/ESRD
History of Present Illness:
59-year-old Slovenian-speaking female who has ESRD likely from diabetic nephropathy, started PD early 2024 5days/week, chronic GI issues from gastroparesis, diabetes mellitus type 2 on insulin therapy, hypertension controlled on a multidrug regimen,
CHF, hyperlipidemia, hypothyroidism,presents to the emergency department for evaluation of witnessed seizure activity at home this morning. Patient had just been admitted in May with new onset of seizure. The patient presented from IR right
before procedure where she was supposed to have a Mediport placement and was transferred to ER for possibly witnessed seizure prior to procedure which was not performed. Of note the patient does not appear to be postictal. Nephrology was consulted
for end-stage renal disease management for her peritoneal dialysis. The patient's peritoneal prescription is usually all 1.5% on cycler 5 days a week with skipping weekends.
Past Medical History
Coronary artery calcification, ESRD on peritoneal dialysis, diabetes, hypothyroidism, hypertension, hyperlipidemia, anemia of chronic disease, obesity, peptic ulcer disease
Secondary hyperparathyroidism, hyperphosphatemia, seizure disorder diagnosed in May 2025
Past Surgical History: Other (cholecystectomy, , appendectomy, PD catheter)
Social History
Tobacco: Non-Smoker
Alcohol: None
Personal:
Living: With Family
Employment: Not Employed
Family History
daughter on HD
Family History: Not Pertinent
Allergies / Home Medications
Allergy/AdvReac Type Severity Reaction Status Date / Time
metformin AdvReac DIARRHEA Verified 06/21/25 09:58
sitagliptin (From Juluvnprogress) AdvReac diarrhea Verified 06/21/25 09:58
�Medication �Instructions �Recorded �Confirmed �Type
levothyroxine 100 mcg tablet 100 mcg PO DAILY@07 Thyroid 11/17/20 06/21/25 History
atorvastatin 10 mg tablet 10 mg PO DAILY High cholesterol 02/23/22 06/21/25 History
ezetimibe 10 mg tablet 10 mg PO HS High cholesterol #30 02/27/22 06/21/25 Rx
tabs
calcitriol 0.5 mcg capsule 0.5 mcg PO DAILY 01/15/25 06/21/25 History
Hyperparathyroidism
nortriptyline 75 mg capsule 75 mg PO HSPRN PRN anxiety 01/15/25 06/21/25 History
insulin glargine 100 unit/mL (3 12 unit SC HS Diabetes 05/21/25 06/21/25 History
mL) subcutaneous pen (Basaglar
KwikPen U-100 Insulin)
insulin lispro 100 unit/mL 3 sliding scale dose SC AC Diabetes 05/21/25 06/21/25 History
subcutaneous pen (Humalog KwikPen
(U-100) Insulin)
lidocaine 4 % topical patch 1 patch topical HSPRN PRN back pain 05/21/25 06/21/25 History
losartan 50 mg tablet 50 mg PO DAILY Blood Pressure 05/21/25 06/21/25 History
metoclopramide HCl 5 mg tablet 5 mg PO DAILY stomach pains 05/21/25 06/21/25 History
nifedipine 90 mg tablet,extended 90 mg PO HS Blood Pressure 05/21/25 06/21/25 History
release 24 hr
pantoprazole 40 mg tablet,delayed 40 mg PO BID Gastrointestinal 05/23/25 06/21/25 Rx
release Issue #60 tabs
ergocalciferol (vitamin D2) 1,250 1,250 mcg PO QWEEK 06/21/25 06/21/25 History
mcg (50,000 unit) capsule
gentamicin 0.1 % topical cream 1 applic topical DAILY 06/21/25 06/21/25 History
labetalol 200 mg tablet 200 mg PO BID 06/21/25 06/21/25 History
lacosamide 200 mg tablet 200 mg PO BID 06/21/25 06/21/25 History
tgdqqo-hrwquhdh-ktnhbjl(pork)10,000-32,000-42,000 1 cap PO AC 06/21/25 06/21/25 History
unit capsule,del rel (Zenpep)
polyethylene glycol 3350 17 gram 17 g PO DAILYPRN PRN constipation 06/21/25 06/21/25 History
oral powder packet
sevelamer carbonate 800 mg tablet 800 mg PO AC 06/21/25 06/21/25 History
sucralfate 100 mg/mL oral 1 g PO ACHS 06/21/25 06/21/25 History
suspension
torsemide 100 mg tablet 100 mg PO DAILY 06/21/25 06/21/25 History
Review of Systems
-
Unable to obtain full review of systems at this time due to: Language Barrier
History Source: Family
All other systems: Negative unless noted
Physical Exam
Vital Signs
Vital Signs
Pulse Resp BP Pulse Ox
96 18 126/76 97
06/21/25 11:45 06/21/25 11:45 06/21/25 11:40 06/21/25 11:32
Lab Results
06/21/25 10:16
06/21/25 10:16
WBC 11.7 10^3/uL (4.8-10.8) H 06/21/25 10:16
RBC 4.21 10^6/uL (4.20-5.40) 06/21/25 10:16
Hgb 12.2 g/dL (12.0-16.0) 06/21/25 10:16
Hct 36.7 % (37.0-47.0) L 06/21/25 10:16
Plt Count 298 10^3/uL (130-400) 06/21/25 10:16
Sodium 130 mmol/L (135-145) L 06/21/25 10:16
Potassium 3.9 mmol/L (3.5-5.1) 06/21/25 10:16
Chloride 99 mmol/L (98-107) 06/21/25 10:16
Carbon Dioxide 17 mmol/L (22-30) L 06/21/25 10:16
BUN 62 mg/dl (7-17) H 06/21/25 10:16
Creatinine 7.5 mg/dL (0.6-1.0) H* 06/21/25 10:16
eGFR 5.75 06/21/25 10:16
Glucose 172 mg/dl (70-99) H 06/21/25 10:16
Calcium 7.9 mg/dl (8.4-10.2) L 06/21/25 10:16
Albumin 2.7 g/dl (3.5-5.0) L 06/21/25 10:16
Physical Exam
General: AOx3, Nontoxic , NAD
HEENT: PERRL, EOMI, Anicteric, Conjunctivae Clear, Ear/Nose Intact, Hearing Normal, Oropharynx Clear/Moist, Dentition Intact, Facial Symmetry, Neck Supple, Neck: Trachea Midline, No JVD and No Thyromegaly, no Bruits
Respiratory: Clear to auscultation bilaterally with normal lung excursion
Cardiac: S1/S2 and Regular Rate/Rhythm
Breast: Deferred by me
Abdomen: Soft, Nontender, Nondistended, Normal Bowel Sounds and No Hepatosplenomegaly, PD catheter exit site clean
Rectal: Deferred by Provider
Genito-urinary: No Costovertebral Tenderness
Extremities: No Clubbing, No Cyanosis and No Edema
Skin: No Rash or open lesions
Neuro: Nonfocal/Grossly Intact, CN II-XII (Intact) and Strength (Musculoskeletal exam 5 out of 5 both upper and lower extremities)
Hematologic/Lymphatic: No Cervical Lymphadenopathy, No Submandibular Lymphadenopathy and No Supraclavicular Lymphadenopathy
Psych: Withdrawn, but answers questions from daughter appropriately
Vascular: plus 1 pedal and radial pulses
Data Reviewed
-
Radiology: Image Personally Visualized and interpreted (Chest x-ray personally reviewed by myself no evidence of congestive heart failure or pneumonic process)
Labs: Labs Reviewed by me (BMP CBC)
Old Records: Reviewed (Reviewed previous nephrology consult from 05/21/2025 when patient presented with new onset seizure)
Assessment/Plan
-
Assessment:
Seizure (possible: during procedure for mediport placement at )(was not actually done)
Hyponatremia
Metabolic acidosis/elevated lactic acid
Diabetes mellitus type 2
End-stage renal disease on PD at [facility] PD script-all 1.5% bags, NIPD 8hrs. 5days/week(weekend break)
Hypothyroidism
Hyperlipidemia
Hypertension
Anxiety/depression
Chronic pain on tramadol
Fatty liver
Obesity
Anemia
Nephrolithiasis, incidental
Coronary artery calcification
Hyperphosphatemia
Secondary hyperparathyroidism
Plan:
Will provide PD orders
2L q4hrs 1.5%
Orders provided
Maintain antihypertensives when patient can take p.o.
Maintain sevelamer with meals for hyperphosphatemia
Fluid restriction at 48 ounces daily re: hyponatremia
--- NOTE | 2025-06-21 12:47 | CON.NEURO4 ---
Addendum entered and electronically signed by Alexandru Acuña MD 06/21/25 20:49:
I saw and examined the patient along with the nurse practitioner Maggie Gilbert and I agree with her assessment and management plan. I personally performed the medical decision making of this encounter and my assessment and management plan is as
given below.
The patient is a 59-year-old female who suffered a cardiopulmonary arrest while she was waiting for an elective port placement in the interventional radiology department. She reportedly suddenly became unresponsive, clenching her upper arms and
sees breathing. The patient was transferred to the ER where she regained her consciousness and returned back to her baseline. The patient's and the patient's daughter were present at the bedside to provide information and according to them
the patient had returned to her baseline. There is a less likelihood of a seizure in the etiology of patient's loss of consciousness associated with pulselessness appears likely to be cardiogenic.
The patient was started on lacosamide 100 mg twice a day by neurology at the [facility] on 06/13/2025. The patient was admitted in May, for seizures. The MRI of the brain done on 05/22/2025 did not show any acute intracranial
abnormality. The EEG was done on 05/21/2025 that showed mild diffuse background slowing but it did not show any epileptiform activity. The plan is to switch lacosamide 100 mg twice a day to Keppra 500 mg twice a day, due to concern for the side
effect of Vimpat causing cardiac arrhythmia.
Seizure precautions including no driving for 6 months and reporting to be done to [facility] as per law.
I had a detailed discussion with the patient's daughter and her , regarding the assessment and management plan and they verbalized understanding of our discussion.
Follow-up in neurology as outpatient in 4 weeks.
Original Note:
Translation Services
-
Preferred Language: [place]
School Manager service via: In Person (daughter at bedside)
Consultation - Neurology 4
-
CONSULTING PHYSICIAN: Alexandru Acuña MD
REFERRING PHYSICIAN: Hospitalists/Dr. Granado
DICTATED BY: BRIAN Iqbal
DATE/TIME OF REQUEST: 06/21/25
DATE/TIME OF CONSULTATION: 30/06/25
Reason for Consultation: Loss of consciousness
History of Present Illness:
This is a 59-year-old right-handed female who has presented to the hospital with report of loss of consciousness with loss of pulse. Patient was previously evaluated by our inpatient Neurology service in May 2025 for new onset of 3 generalized
seizures.
From my previous inpatient evaluation on 05/21/25:
'This is a 59-year-old right-handed female who has presented to the hospital with report of seizures. Patient is [place]-speaking and her family at bedside is interpreting this interview. Patient was evaluated in the ER here yesterday for report of
epigastric pain radiating to her back. She was discharged home with presumed gastritis. Patient's spouse and family report that this morning around 0400 after initiating a peritoneal dialysis treatment she suddenly became rigid, eyes were bulging,
and her body was shaking mildly. She was confused for about 3 minutes following this event before returning to baseline. Then around 0700 she had a similar event. Upon EMS arrival she had a witnessed seizure with whole body shaking lasting about one
minute. They report about 25 minutes following that event before she returned to her baseline. She denies any tongue biting or incontinence. The patient reports somewhat recalling the first two events but denies any recollection of the third event.
CT head was obtained on arrival and was negative for any acute abnormalities. Blood sugar on arrival was 393. She denies any history of seizure in the past.'
MRI brain and EEG imaging were obtained and are negative for any acute abnormalities. Patient followed-up with the [facility] Dr. Lashonda Grant on 06/13/25 and was started on lacosamide 100mg twice a day. She has been event free since
05/21/25.
Today (06/21/25), patient was in [facility] Interventional Radiology awaiting port placement for easy blood draw access when she suddenly became unresponsive, arms were flexed, and she stopped breathing. No pulse was detected and CPR was initiated. She
received epinephrine x1 and ROSC was obtained. Patient regained consciousness en route to the ER. She was hypotensive in the ER and Levophed was initiated. She currently is oriented x3. She reports chest discomfort and received IV Fentanyl. There is
no tongue laceration and there was no bladder/bowel incontinence. She denies any headache, dizziness, vision changes, speech/swallow difficulty, numbness, and weakness.
Past Medical History: Seizure disorder, HTN, HLD, DM requiring insulin, ESRD on PD, hypothyroidism, CHF, chronic abdominal pain/gastroparesis/opioid dependence, anemia
Surgical History: Appendectomy, cholecystectomy,
Family History: Reviewed and noncontributory.
Social History: Denies tobacco, alcohol, and illicit drug use.
Allergies: Metformin, sitagliptin.
Home Medications: See below.
Review of Symptoms:
Patient denies any fever, headache, shortness of breath, GI or symptoms.
�Per the HPI.�All systems are reviewed negative except above.
Physical Exam:
The patient is afebrile, abdomen is nondistended, breathing is unlabored, skin is warm and dry, no edema.
Neurologic Examination:
The patient is drowsy. Opens eyes spontaneously or to voice. She is oriented x3. She is able to follow commands and answer questions appropriately. There is no aphasia or dysarthria. On cranial nerve assessment, pupils are 3 mm bilateral, round and
reactive to light and accommodation. Visual masters are full. Extraocular movements are intact. There is no facial asymmetry. Hearing is intact bilaterally to normal conversation volume. Tongue palate and uvula are midline. Sternocleidomastoid
strengths are full bilaterally. Motor strengths are 5/5 bilateral upper and lower extremities on medical research [place] scale. There is no drift or involuntary movement noted. There was no extinction noted on double simultaneous stimulation.
Coordination is intact by finger to nose bilaterally.
Lab Results: See below.
Neuro Imaging:
1. MRI brain 05/22/25: There is scattered cerebral cortical T2/FLAIR hyperintensity within the frontoparietal and occipital regions bilaterally. No associated enhancement. Findings likely reflect postictal changes.
Otherwise no acute intracranial abnormality noted.
2. EEG 05/21/25: This is a mildly abnormal EEG due to mild diffuse background slowing, however, there was no epileptiform activity seen. Clinical correlation is recommended
Differentials for the patient's presentation include:
1. Loss of consciousness associated with pulselessness. Etiology is likely cardiogenic. Low likelihood of seizure given lack of tongue laceration, incontinence, and quick return to patient's baseline neurological status.
2. Lacosamide 100mg twice a day was a new medication as of 06/13/25 per outpatient records. This medication can be associated with an increased CO interval; unclear if this is related to today's event.
Patient has the following risk factors for their symptoms: Lacosamide new medication, hx seizures.
Recommendations:
-Consideration for switching lacosamide 100mg twice a day to Keppra 500mg twice a day if there is any concern from Cardiology that this medication contributed to today's events.
-Do not see a role for further neurological imaging at this time.
Discussed patient care with: Dr. Acuña, the patient, patient's family
Vital Signs and Labs
-
Vital Signs and Labs:
Vital Signs
Pulse Resp BP Pulse Ox
93 20 100/58 97
06/21/25 12:40 06/21/25 12:40 06/21/25 12:40 06/21/25 11:32
Lab Results
06/21/25 10:16
06/21/25 10:16
Sodium 130 mmol/L (135-145) L 06/21/25 10:16
Potassium 3.9 mmol/L (3.5-5.1) 06/21/25 10:16
BUN 62 mg/dl (7-17) H 06/21/25 10:16
Glucose 172 mg/dl (70-99) H 06/21/25 10:16
Calcium 7.9 mg/dl (8.4-10.2) L 06/21/25 10:16
Medications
-
Active Medications
Generic Name Dose Route Start Last Admin
Trade Name Freq PRN Reason Stop Dose Admin
Hydromorphone HCl 0.5 mg 06/21/25 12:34
Hydromorphone 0.5 Mg/0.5 Ml Syringe IV 07/05/25 12:33
Q4HPRN PRN
mod to severe pain
Home Medications
�Medication �Instructions �Recorded
levothyroxine 100 mcg tablet 100 mcg PO DAILY@07 Thyroid 11/17/20
atorvastatin 10 mg tablet 10 mg PO DAILY High cholesterol 02/23/22
ezetimibe 10 mg tablet 10 mg PO HS High cholesterol #30 02/27/22
tabs
calcitriol 0.5 mcg capsule 0.5 mcg PO DAILY 01/15/25
Hyperparathyroidism
nortriptyline 75 mg capsule 75 mg PO HSPRN PRN anxiety 01/15/25
insulin glargine 100 unit/mL (3 12 unit SC HS Diabetes 05/21/25
mL) subcutaneous pen (Basaglar
KwikPen U-100 Insulin)
insulin lispro 100 unit/mL 3 sliding scale dose SC AC Diabetes 05/21/25
subcutaneous pen (Humalog KwikPen
(U-100) Insulin)
lidocaine 4 % topical patch 1 patch topical HSPRN PRN back pain 05/21/25
losartan 50 mg tablet 50 mg PO DAILY Blood Pressure 05/21/25
metoclopramide HCl 5 mg tablet 5 mg PO DAILY stomach pains 05/21/25
nifedipine 90 mg tablet,extended 90 mg PO HS Blood Pressure 05/21/25
release 24 hr
pantoprazole 40 mg tablet,delayed 40 mg PO BID Gastrointestinal 05/23/25
release Issue #60 tabs
ergocalciferol (vitamin D2) 1,250 1,250 mcg PO QWEEK 06/21/25
mcg (50,000 unit) capsule
gentamicin 0.1 % topical cream 1 applic topical DAILY 06/21/25
labetalol 200 mg tablet 200 mg PO BID 06/21/25
lacosamide 200 mg tablet 200 mg PO BID 06/21/25
tlvowk-mjlmaine-lvmikew(pork)10,000-32,000-42,000 1 cap PO AC 06/21/25
unit capsule,del rel (Zenpep)
polyethylene glycol 3350 17 gram 17 g PO DAILYPRN PRN constipation 06/21/25
oral powder packet
sevelamer carbonate 800 mg tablet 800 mg PO AC 06/21/25
sucralfate 100 mg/mL oral 1 g PO ACHS 06/21/25
suspension
torsemide 100 mg tablet 100 mg PO DAILY 06/21/25
[2025-06-21 13:58] LABS: Glucose - Point of Care 197 mg/dl (70-99)
[2025-06-21] MEDS: TYLENOL 1000 MG PO (13:59)
--- NOTE | 2025-06-21 14:00 | PTCARENOTE ---
Received pt. from ER into rm [id number]; max assisted from stretcher to bed; completed hygiene provided. Pt. completely Macanese speaking; language line utilized. Pt. Ox3, c/o of severe CP s/p CPR, medicated- see SEP. SR on monitor. SpO2 97% on RA, c/o
some dyspnea at rest and exertion. +BS, abd soft/round/obese. Tolerating intake. Cont b/b. Peritoneal extension c/d/i. # 22 R wrist patent, dressing c/d/i. #20 SEE w levo gtt- see flow sheet. Pt. instructed on how to report care concerns and
call zuleta placed w in reach. Family @ bedside, daughter and , updated.
[2025-06-21 14:56] LABS: Magnesium 2.0 mg/dl (1.6-2.3)
[2025-06-21 14:59] LABS: APTT 23.1 Sec (23.4-35.0); INR 1.24; PT 15.7 Sec (11.4-14.6)
--- NOTE | 2025-06-21 14:59 | CON.CAR ---
Addendum entered and electronically signed by John Aguirre DO 06/21/25 16:24:
I saw and examined the patient.
The Motivational Speaker's note was reviewed and I agree with the note.
Comment:
Patient is a 59-year-old female with a past medical history significant for hypertension, hyperlipidemia, diabetes mellitus type 2, end-stage renal disease on peritoneal dialysis, reported heart failure, seizure disorder on medical therapy, anemia,
hypothyroidism, chronic abdominal pain/gastroparesis, opioid dependence who presented to interventional radiology for an elective Port-A-Cath placement however patient lost pulse and received 1 round of CPR with a single dose of epinephrine.
Patient regained consciousness and was hypotensive started on vasopressors (Levophed). Patient reported chest soreness and pain due to chest compression. Patient evaluated by neurology which is likely related to seizure disorder in this particular
episode. No strips not available for review from interventional radiology. Lab work sent demonstrating a leukocytosis of 11.7, lactic acid of 4.2, sodium of 130, potassium 3.9, creatinine of 7.5, glucose of 172, calcium of 7.9, phosphorus of 6.5,
and a troponin of 0.02. Repeat troponin resulted at 0.235. Initial EKG demonstrated sinus tachycardia, right axis deviation, LVH, inferior infarct pattern, and a QT/QTc that is prolonged. Repeat EKG unchanged demonstrating similar pattern. In
comparison to EKG from May 22, 2025, there is no significant change showing sinus tachycardia with inferior infarct pattern, anterior infarct pattern. In discussion with patient, her family (daughter and ) with use of seismic interpreter
services and translation by her daughter, they had reported patient experienced chest tightness over the last few weeks with activity and exertion relieved with rest with occasional radiation down the left arm. No other recent episodes of syncope.
Additionally, she had reported shortness of breath at rest and with activity and exertion. Patient currently reports no chest tightness but does no chest soreness due to chest compressions
GENERAL: no acute distress, sleepy but easily arousable, tender to palpation on chest.
EYE: sclera anicteric
NECK: Supple, no JVD, no carotid bruit appreciated
ENT: normal nose, moist mucosal membranes
CARDIAC: Regular rate and rhythm, +S1/S2, no murmur, rubs, or gallops
CHEST/PULMONARY: Normal effort, clear breath sounds
ABDOMEN: Soft, without focal tenderness or distention
NEUROLOGICAL: Alert and oriented x3
SKIN: Warm and dry, no rash
PSYCH: Normal and appropriate interaction.
Telemetry shows sinus rhythm, sinus tachycardia
A/P as below
Echocardiogram demonstrates small LV size, moderate concentric LVH, hyperdynamic LV systolic function with no regional wall motion abnormality, EF 70-75%, normal diastolic function, small pericardial effusion (reported as trivial in 2020), no
significant valve disease, no significant change from 2020 echocardiogram
Patient presenting for elective IR procedure we developed sudden loss of consciousness with concern for loss of pulse who received CPR with epinephrine. Patient regained consciousness and was hypotensive on Levophed. Unclear at this time,
patient's etiology for her loss of consciousness, loss of pulse, arrest. Patient had been reporting chest discomfort which is typical sounding for angina over the last few weeks. Patient's last stress testing in 2022 demonstrated normal myocardial
perfusion with normal EF. Additionally, patient with prolonged QT/QTc on ECG on medical therapy that may prolong QT/QTc as well as chronic electrolyte abnormalities in the setting of renal disease. She is on beta-favian (labetalol) which is
currently on hold.
Monitor on telemetry continue to assess for other etiologies for patient's recent episode. Recommend inpatient ischemic evaluation given elevation in troponin and concern for cardiac arrest. EKG at this time demonstrates sinus rhythm without
significant ST-T abnormality change from prior ECG. Trend troponin to peak. And assess for other etiologies for loss of consciousness/possible arrest.
d/w family, nursing
Original Note:
Translation Services
-
Preferred Language: Ecuadorean
Global Compensation Analyst's ID Number: [id number]
Comment: daughter also assisted with translation. Son Quentin assisted with translation.
Consultation
Consultation Request
Date/Time Consultation Requested: 06/21/2025, 1133
Date/Time Consultation Performed: 06/21/2025, 1500
Requesting Provider: Dr. Granado
Performing Provider: BRIAN Juárez for Dr. Aguirre
Reason for Consultation: Cardiac arrest
Medical History
-
Chief Complaint: cardiac arrest
History of Present Illness:
59-year-old female with PMH hypertension, hyperlipidemia, diabetes mellitus, end-stage renal disease on peritoneal dialysis, heart failure, seizure disorder, anemia, hypothyroidism, chronic abdominal pain/gastroparesis/opioid dependence who was
awaiting procedure in interventional radiology today (Port-A-Cath) when she became unresponsive. She lost pulse and received one round of CPR and a dose of epinephrine. She regained consciousness and was hypotensive and started on Levophed. Upon
awakening she complained of chest pain/soreness. Did not appear postictal per reports.
Troponin 0.02
Initial EKG: Normal sinus rhythm, inferior infarct, QTc 492
Labs: NA 130, K3.9, mag 2.0, BUN/creatinine 62/7.5, lactic acid 4.2
In outpatient setting she is on multiple antihypertensives including losartan 50 mg daily, nifedipine 90 mg daily, torsemide 100 mg daily, Labetalol 200 mg twice daily, which was recently added and patient had low BPs at home after starting it.
Spoke with patient with son Quentin at bedside as housekeeping director.
Denies history of ME, CAD, heart failure, arrhythmia. Denies prior syncopal episodes.
Patient currently complaining of chest soreness and flinches when I placed stethoscope on chest. Daughter reported patient has chest pain rating to left arm with exertion. Denies shortness of breath, diaphoresis, nausea, palpitation,
lightheadedness
Past Medical History
Past Medical History: Other (As above)
Past Surgical History: Other
Social History
Tobacco: Non-Smoker
Alcohol: None
Living: With Family
Employment: Retired
Family History
Family History: Reviewed & Not Pertinent
Allergies / Home Medications
Allergy/AdvReac Type Severity Reaction Status Date / Time
metformin AdvReac DIARRHEA Verified 06/21/25 09:58
sitagliptin (From Jul) AdvReac diarrhea Verified 06/21/25 09:58
�Medication �Instructions �Recorded �Confirmed �Type
levothyroxine 100 mcg tablet 100 mcg PO DAILY@07 Thyroid 11/17/20 06/21/25 History
atorvastatin 10 mg tablet 10 mg PO DAILY High cholesterol 02/23/22 06/21/25 History
ezetimibe 10 mg tablet 10 mg PO HS High cholesterol #30 02/27/22 06/21/25 Rx
tabs
calcitriol 0.5 mcg capsule 0.5 mcg PO DAILY 01/15/25 06/21/25 History
Hyperparathyroidism
nortriptyline 75 mg capsule 75 mg PO HSPRN PRN anxiety 01/15/25 06/21/25 History
insulin glargine 100 unit/mL (3 12 unit SC HS Diabetes 05/21/25 06/21/25 History
mL) subcutaneous pen (Basaglar
KwikPen U-100 Insulin)
insulin lispro 100 unit/mL 3 sliding scale dose SC AC Diabetes 05/21/25 06/21/25 History
subcutaneous pen (Humalog KwikPen
(U-100) Insulin)
lidocaine 4 % topical patch 1 patch topical HSPRN PRN back pain 05/21/25 06/21/25 History
losartan 50 mg tablet 50 mg PO DAILY Blood Pressure 05/21/25 06/21/25 History
metoclopramide HCl 5 mg tablet 5 mg PO DAILY stomach pains 05/21/25 06/21/25 History
nifedipine 90 mg tablet,extended 90 mg PO HS Blood Pressure 05/21/25 06/21/25 History
release 24 hr
pantoprazole 40 mg tablet,delayed 40 mg PO BID Gastrointestinal 05/23/25 06/21/25 Rx
release Issue #60 tabs
ergocalciferol (vitamin D2) 1,250 1,250 mcg PO QWEEK 06/21/25 06/21/25 History
mcg (50,000 unit) capsule
gentamicin 0.1 % topical cream 1 applic topical DAILY 06/21/25 06/21/25 History
labetalol 200 mg tablet 200 mg PO BID 06/21/25 06/21/25 History
lacosamide 200 mg tablet 200 mg PO BID 06/21/25 06/21/25 History
nejjct-ccmeyizm-xyrnlgy(pork)10,000-32,000-42,000 1 cap PO AC 06/21/25 06/21/25 History
unit capsule,del rel (Zenpep)
polyethylene glycol 3350 17 gram 17 g PO DAILYPRN PRN constipation 06/21/25 06/21/25 History
oral powder packet
sevelamer carbonate 800 mg tablet 800 mg PO AC 06/21/25 06/21/25 History
sucralfate 100 mg/mL oral 1 g PO ACHS 06/21/25 06/21/25 History
suspension
torsemide 100 mg tablet 100 mg PO DAILY 06/21/25 06/21/25 History
Review of Systems
-
History Source: Patient and Family
All other systems: Negative unless noted
Physical Exam
Vital Signs
Temp Pulse Resp BP Pulse Ox
97.8 F 108 19 156/62 97
06/21/25 13:51 06/21/25 14:00 06/21/25 14:00 06/21/25 14:00 06/21/25 14:54
Lab Results
06/21/25 10:16
06/21/25 10:16
Troponin I 0.020 ng/ml 06/21/25 10:16
GEN: sleeping, arousable, chest sore with touch
HEENT: supple, anicteric, mmm
LUNGS: CTA, no wheezes/rales
CV: Reg, S1/S2, no murmur
ABD: soft, BS+, NT/ND
EXT: No edema
NEURO: Gross non-focal
SKIN: No rash
Impression / Plan
-
PCP: Unknown
Primary parking inspector: none
Impression:
Cardiac arrest
Chest pain, chest wall pain likely secondary to CPR and also reports exertional chest pain radiating to left arm in outpatient setting
Hypertension
Hyperlipidemia
End-stage renal disease on peritoneal dialysis
Seizures
Type 2 diabetes
Anemia
Long QT on EKG
Previous cardiovascular testing:
Lexiscan nuclear stress test 02/22/2023: Normal myocardial perfusion, EF 64%
Echocardiogram 11/20/2020: Normal LV size and function, EF 60%.
Plan:
59-year-old female with PMH hypertension, hyperlipidemia, diabetes mellitus, end-stage renal disease on peritoneal dialysis, heart failure, seizure disorder, anemia, hypothyroidism, chronic abdominal pain/gastroparesis/opioid dependence who was
awaiting procedure in interventional radiology today (Port-A-Cath) when she became unresponsive. She lost pulse and received one round of CPR and a dose of epinephrine. She regained consciousness and was hypotensive and started on Levophed.
- Initial workup with negative troponin, trending to peak
-Echo pending, preliminarily EF is normal
-Patient/family report history of exertional chest and left arm pain and home setting. She had a nuclear stress test in 2022 that showed normal perfusion. Given exertional symptoms in setting of syncopal episode/cardiac arrest today would perform
ischemic evaluation as inpatient. Consider left heart cath vs Lexiscan nuclear stress test on Tuesday
-Continue statin/Zetia, goal LDL less than 55 in setting of diabetes
-Monitor on telemetry
-QTc prolonged on EKG. Avoid QT prolonging medications. Repeat EKG in a.m.
-Keep K greater than 4, mag greater than 2
-Antihypertensives currently on hold in setting of hypotension. Wean off Levophed as tolerated and slowly reintroduce antihypertensives
Data Reviewed
-
EKG: Tracing Personally Visualized and interpreted
Labs: Labs Reviewed by me
--- NOTE | 2025-06-21 15:03 | CON.INTV ---
Translation Services
-
Preferred Language: Bengali
Manager General service via: Video
Manager General's ID Number: [id number]
Consultation
Consultation Request
Date/Time Consultation Requested: 06/21 1337
Date/Time Consultation Performed: 06/21 1430
Requesting Provider: Dr. Granado
Performing Provider: Dr. Freed; Dr. Shoemaker
Reason for Consultation: ICU management
Medical History
-
Chief Complaint: Unresponsivess; hypotension
History of Present Illness:
Patient is a 59-year-old female with PMH of ESRD on PD, IDDM, gastroparesis, HTN, GERD, HLD, anemia, and seizure disorder who is being upgraded to the ICU for management of hypotension requiring pressors following suspected in-hospital
cardiopulmonary arrest this morning. Patient is seen at the bedside with daughter and present. Per chart review, patient was scheduled to undergo a port placement with interventional radiology this morning. The patient was brought to be
transferred to the bed prior to the procedure beginning, patient reportedly became developed abdominal pain and became unresponsive with agonal breathing and no pulse. Rapid response was called. Patient underwent CPR, epinephrine x 1 dose was
given, and ROSC achieved at 0944 this morning. Patient was then transferred to the ED, she was found to be hypotensive. Blood pressures was persistently low (as low as 47/35), which necessitated a Levophed drip and fluid bolus. ED labs
remarkable, as follows: Lactate 4.2, WBCs 11.7 with left shift, sodium 130, HCO3 17, BUN 62, and creatinine 7.5. Patient was then transferred to the ICU for further management.
At the bedside with family present, patient appears tired and mildly uncomfortable, but she is able to answer questions. Hemodynamically stable on 3 L NC. Per family, patient has recently complained of chest pain and shortness of breath that is
worse when she walks. Patient currently endorses chest pain with palpation and deep breathing, there is notable that she underwent CPR this morning. Patient was hospitalized for seizures x 3 in May, when she was diagnosed with a seizure
disorder. She followed up with an epilepsy neurologist at [place] who prescribed lacosamide on 06/13. Patient has been taking the medication for the last several days. No history of passing out, stroke, or heart disease.
Past Medical History
Past Medical History: GERD, HTN, Hypercholesterolemia, Hypothyroidism, IDDM, Renal Failure (On peritoneal dialysis), Seizures and Other (Gastroparesis; anemia)
Past Surgical History: Appendectomy, Cholecystectomy, and Other (Peritoneal dialysis catheter placement)
Social History
Tobacco: Non-smoker
Alcohol: None
Drug: None
Personal:
Living: With Family
Allergies / Home Medications
Allergies
Allergy/AdvReac Type Severity Reaction Status Date / Time
metformin AdvReac DIARRHEA Verified 06/21/25 09:58
[facility] Adv[facility] diarrhea Verified 06/21/25 09:58
Home Medications
�Medication �Instructions �Recorded �Confirmed �Last Taken �Type
levothyroxine 100 mcg tablet 100 mcg PO DAILY@07 Thyroid 11/17/20 06/21/25 05/20/25 History
atorvastatin 10 mg tablet 10 mg PO DAILY High cholesterol 02/23/22 06/21/25 05/20/25 History
ezetimibe 10 mg tablet 10 mg PO HS High cholesterol #30 02/27/22 06/21/25 05/20/25 Rx
tabs
calcitriol 0.5 mcg capsule 0.5 mcg PO DAILY 01/15/25 06/21/25 05/20/25 History
Hyperparathyroidism
nortriptyline 75 mg capsule 75 mg PO HSPRN PRN anxiety 01/15/25 06/21/25 Unknown History
insulin glargine 100 unit/mL (3 12 unit SC HS Diabetes 05/21/25 06/21/25 05/20/25 History
mL) subcutaneous pen (Basaglar
KwikPen U-100 Insulin)
insulin lispro 100 unit/mL 3 sliding scale dose SC AC Diabetes 05/21/25 06/21/25 05/20/25 History
subcutaneous pen (Humalog KwikPen
(U-100) Insulin)
lidocaine 4 % topical patch 1 patch topical HSPRN PRN back pain 05/21/25 06/21/25 Unknown History
losartan 50 mg tablet 50 mg PO DAILY Blood Pressure 05/21/25 06/21/25 05/20/25 History
metoclopramide HCl 5 mg tablet 5 mg PO DAILY stomach pains 05/21/25 06/21/25 05/20/25 History
nifedipine 90 mg tablet,extended 90 mg PO HS Blood Pressure 05/21/25 06/21/25 05/20/25 History
release 24 hr
pantoprazole 40 mg tablet,delayed 40 mg PO BID Gastrointestinal 05/23/25 06/21/25 05/20/25 Rx
release Issue #60 tabs
ergocalciferol (vitamin D2) 1,250 1,250 mcg PO QWEEK 06/21/25 06/21/25 Unknown History
mcg (50,000 unit) capsule
gentamicin 0.1 % topical cream 1 applic topical DAILY 06/21/25 06/21/25 Unknown History
labetalol 200 mg tablet 200 mg PO BID 06/21/25 06/21/25 Unknown History
lacosamide 200 mg tablet 200 mg PO BID 06/21/25 06/21/25 Unknown History
yizzja-rzwduelr-qkldikn(pork)10,000-32,000-42,000 1 cap PO AC 06/21/25 06/21/25 Unknown History
unit capsule,del rel (Zenpep)
polyethylene glycol 3350 17 gram 17 g PO DAILYPRN PRN constipation 06/21/25 06/21/25 Unknown History
oral powder packet
sevelamer carbonate 800 mg tablet 800 mg PO AC 06/21/25 06/21/25 Unknown History
sucralfate 100 mg/mL oral 1 g PO ACHS 06/21/25 06/21/25 Unknown History
suspension
torsemide 100 mg tablet 100 mg PO DAILY 06/21/25 06/21/25 Unknown History
Review of Systems
-
Respiratory: Trouble Breathing
Cardiac: Chest Pain
Abdomen/GI: Other (Denies abdominal pain)
Vitals / Labs / Diagnostic Testing
Vital Signs
Temp Pulse Resp BP Pulse Ox
97.8 F 108 19 156/62 97
06/21/25 13:51 06/21/25 14:00 06/21/25 14:00 06/21/25 14:00 06/21/25 14:54
Lab Data
06/21/25 10:16
06/21/25 10:16
Laboratory Results
06/21/25
14:38
PT 15.7 H
INR 1.24
APTT 23.1 L
Diagnostic Testing:
Physical Exam
-
HEENT: Normocephalic and Anicteric
Cardiovascular: S1/S2, Regular Rhythm and Other (No M/R/G; no peripheral edema; pulses 2+ all extremities; chest pain on palpation and worse with deep breathing s/p CPR this morning)
Respiratory: Clear and Non-Labored Respirations
GI: Soft, Non Distended and Non Tender
Neurology: Awake, Alert and Other (CN II through XII grossly intact; moving all extremities)
Skin: Warm, Dry and Good Color
Assessment
-
Assessment: Patient is a 59-year-old female with PMH of seizure disorder, ESRD on PD, IDDM, gastroparesis, HTN, GERD, HLD, and anemia who suffered a suspected cardiopulmonary arrest while in the [place] IR suite just prior to undergoing port
placement this morning. Patient experienced abdominal pain followed by unresponsiveness, agonal breathing, and lost pulses, which prompted rapid response to be called. Patient underwent CPR and received epinephrine x 1 dose, with subsequent ROSC.
Patient was then transferred to the ED where she was found to be hypotensive, which necessitated Levophed drip and fluid bolus. Patient had a prolonged period of MAPs <65 (~40 minutes). Patient was then transferred to the ICU for further
management. Today's labs remarkable for the following: Lactate 4.2, WBCs 11.7 with left shift, HCO3 17, BUN 62, creatinine 7.5, alk phos 151, troponin 0.02. CXR shows no acute pathology. In the ICU, patient is awake and able to answer questions
appropriately. Hemodynamically stable on Levophed 4 mcg/min and 3 L NC.
Plan:
#Suspected in-hospital cardiopulmonary arrest
#Possible seizure w/ recently diagnosed seizure disorder
#Lactic acidosis
#Hypotension
#Chest pain
#Leukocytosis
Continue Levophed for MAP >65; add additional pressors as necessary; wean as tolerated
Hydromorphone for chest pain suspected 2/2 CPR this morning
Echo pending
Labs pending: Lactate, troponin, blood cultures, urinalysis
CXR 06/21 unremarkable for acute pathology
Consider ischemic evaluation, per cardiology
Leukocytosis and lactic acidosis, but patient is afebrile without signs of infection on exam
Antibiotics not warranted at this time, but will monitor temperature curve, CBC, lactate, blood cx, UA, clinical status
Per neurology, levetiracetam started, lacosamide held given potential cardiac side effects
#ESRD on PD
Patient undergoes PD
Cr 7.5, BUN 65, K 3.9
Continue home PD regimen, per nephrology
Nephrology following
Monitor BMP
#IDDM
#Gastroparesis
Lantus 12 units at bedtime with additional moderate resistance SSI
Continue home metoclopramide
#Hyperlipidemia
Continue home atorvastatin, ezetimibe
#Hypothyroidism
Continue home levothyroxine
#GERD
Continue pantoprazole
#HTN
Home medications on hold due to hypotension
DVT PPx: SQH
GI PPx: Pantoprazole
Consults: Nephrology, cardiology, neurology, c d stripper
--- NOTE | 2025-06-21 15:14 | CARDSERVLU ---
Echocardiogram with [facility] completed after protocol screening completed. Allergies verified.
Patent IV site: __existing 22P R FA___
IV site flushed with 0.9% NaCl pre and post administration.
Diluted bolus method utilized to enhance visualization of ventricular mirza.
Total volume given: _3.0___ mL
Patient tolerated all procedures well without complications.
[2025-06-21 15:25] LABS: Troponin I 0.235 ng/ml
[2025-06-21] MEDS: CARAFATE SUSPENSION 1 GM PO ×2 (16:21→22:02)
[2025-06-21] MEDS: DILAUDID 0.5 MG IV ×2 (16:21→22:21)
[2025-06-21] MEDS: RENVELA 800 MG PO (16:21)
[2025-06-21] MEDS: ZENPEP DELAYED RELEASE CAPSULE 1 CAPSULE PO (17:07)
[2025-06-21] MEDS: NOVOLOG FLEXPEN-MODERATE RESISTANCE 3 UNITS SC (17:08)
[2025-06-21 17:16] LABS: Glucose - Point of Care 226 mg/dl (70-99)
--- NOTE | 2025-06-21 18:10 | PTCARENOTE ---
pt. w minimal pain relief from Tylenol admin; admin PRN IV Dilaudid- see SEP. Pt. reported improved CP s/p doctor of dental medicine. Blood work drawn and sent to lab; critical results relayed to Dr. Shoemaker. ECHO completed @ bedside this afternoon. Attempted
to taper levo gtt to off, unable to maintain MAP >65- levo gtt back on- see flow sheet. Pt. known to nephrology MD; pt. uses PD cycler @ HS; empty during day. PD treatment initiated per orders- see flow sheet. Family remains @ bedside. Call song
w in reach.
--- NOTE | 2025-06-21 20:00 | PTCARENOTE ---
on assessment pt AAOx3, brazilian speaking, family at bedside, SR on the monitor, LEVO on starting dose, + pulses, RA 95%, +BS round belly, used bedside commode to void, urine sent, PD site C/D/I, PD initiated per orders and tolerating well, call zuleta
in reach
[2025-06-21] MEDS: HEPARIN 5000 UNITS SC (22:01)
[2025-06-21] MEDS: KEPPRA 500 MG PO (22:02)
[2025-06-21] MEDS: PROTONIX 40 MG PO (22:02)
[2025-06-21] MEDS: LANTUS 0.12 UNITS SC (22:02)
[2025-06-21] MEDS: ZETIA 10 MG PO (22:05)
[2025-06-21 22:16] LABS: Glucose - Point of Care 153 mg/dl (70-99)
[2025-06-21 23:02] LABS: Urine Character Cloudy (Clear)
[2025-06-21 23:24] LABS: Urine Squamous Cell >30 /LPF (Few)
[2025-06-21 23:41] LABS: Troponin I 0.238 ng/ml
[2025-06-22] VITALS (44 sets, daily range): BP systolic 87–165; BP diastolic 53–87; PULSE 85; O2SAT 98; BMI 30.3
--- NOTE | 2025-06-22 | PTCARENOTE ---
pt appears to be resting comfortably in bed, trying to wean off LEVO gtt per orders, family remains at bedside, call zuleta in reach
--- NOTE | 2025-06-22 05:41 | PTCARENOTE ---
PD completed at 0520, tolerated well, remains at bedside, call zuleta in reach
[2025-06-22] MEDS: NOVOLOG FLEXPEN-MODERATE RESISTANCE SC (07:48)
[2025-06-22 07:53] LABS: Glucose - Point of Care 134 mg/dl (70-99)
--- NOTE | 2025-06-22 08:00 | PTCARENOTE ---
Received pt @ change of shift, full assessment per charting- see flow sheet. AM blood work drawn and sent to lab. AM EKG obtained. Levo gtt remains off and MAP>65. PD maintained per orders. Plan for cardiac cath Tuesday per cards. Pt.'s @
bedside, updated on plan of care.
[2025-06-22] MEDS: LIPITOR 10 MG PO (08:09)
[2025-06-22] MEDS: ZENPEP DELAYED RELEASE CAPSULE 1 CAPSULE PO ×3 (08:09→15:51)
[2025-06-22] MEDS: ROCALTROL 0.5 MCG PO (08:09)
[2025-06-22] MEDS: CARAFATE SUSPENSION 1 GM PO ×4 (08:09→21:05)
[2025-06-22] MEDS: HEPARIN 5000 UNITS SC ×2 (08:09→21:04)
[2025-06-22] MEDS: RENVELA 800 MG PO ×3 (08:09→15:51)
[2025-06-22] MEDS: PROTONIX 40 MG PO ×2 (08:09→21:04)
[2025-06-22] MEDS: DILAUDID 0.5 MG IV ×3 (08:10→22:57)
[2025-06-22] MEDS: SYNTHROID 100 MCG PO (08:13)
[2025-06-22 08:14] LABS: Hematocrit 29.6 % (37.0-47.0); Hemoglobin 10.0 g/dL (12.0-16.0); Mean Corp Hgb Conc. 33.8 g/dL (33.0-37.0); Mean Corpuscular Volume 84.8 fL (81.0-99.0); Platelet Count 239 10^3/uL (130-400); Red Cell Dist. Width 13.2 % (11.5-14.5)
--- NOTE | 2025-06-22 08:29 | W.PN.INTV ---
Today's Communication / Plan
Recommendations
Ischemic eval via left heart cath on Tuesday (06/24)
Pain control for chest pain s/p CPR
Maintain SpO2 >90-94%
Keep MAP >65 (off pressors since overnight shortly after midnight)
Encourage incentive spirometer
Patient is stable for downgrade out of ICU to IMU. Manager Recovery/Pulmonary service will now sign off. Please call back with any questions or concerns.
Assessment
-
Assessment: 59-year-old F with PMHx of seizures, ESRD on PD, DM type II, chronic pain syndrome, gastroparesis, Hx of C diff and HTN who presents with cardiac arrest.� She presented to IR for a port due to frequent outpatient blood draws.� She became
unresponsive and went into cardiac arrest with ROSC obtained after 2 minutes s/p 1 dose of epi.�� She was responsive s/p ROSC.� She was hypotensive and started on levophed.� Labs showed WBC 11.7, blood gas 7.32/38/212/98.7%, Na 130, glucose 172, and
lactate 4.2.� Blood Cx collected.� No evidence of pneumonia on CXR.� Given 1L NS 0.99% and PPI in ER, and brought to ICU for further care.� She follows with an epileptic doctor at [place] and takes lacosamide as an outpatient.
Impression:
#In-hospital cardiac arrest (suspected) s/p ROSC
#Circulatory shock - resolved
#Seizure disorder
#Chest pain (present on admission)
#HTN
#Chronic pain syndrome
#ESRD on PD
#DM type II
#History of C. difficile
Plan:
- Unclear if pt lost pulse - keep MAP>65
- Post-ROSC EKG shows no evidence of STEMI
- Slowly resume home anti-hypertensives otherwise she will become hypertensive
- Echo from yesterday shows small pericardial effusion with no significant changes compared to prior echo from November 2020
- Cardiology on board � ischemic eval via LHC on Tuesday (06/24/2025)
- Unclear if she had a seizure or not
- Defer AEDs to Neurology - -> lacosamide changed to Keppra
- Patient is now awake and alert, although initially confused when she first came to the ICU yesterday- ->no need for EEG at this time (ultimate decision deferred to neuro)
- Consider CT head given suspected seizure - as of now, patient is awake, speaking to me in complete sentences, with no nystagmus, tonic�clonic movements, and moving all 4 extremities, hence have low suspicion for an acute stroke at this juncture;
defer brain imaging to Neuro
- Maintain SpO2 >90-94%, using supplemental O2 as needed (currently patient is on room air breathing comfortably, saturating 95%)
- Maintain MAP>65 - off levophed since 1245AM this morning
- Replete electrolytes with K>4, Mg>2
- Continue with PD
- Nephrology on board and recs appreciated
- Renally adjust all meds
- Maintain euglycemia with goal BG 140-180; HbA1c: 6.4 on 05/22/2025
- Trend H/H and transfuse if needed to keep Hb>7g/dL; keep plt>20k, unless there is concern for bleeding then keep plt>50k
- prn nebulized bronchodilators - not currently bronchospastic
- Incentive spirometer encouraged 10x per hour for at least 4 hrs a day
- DVT ppx: HSQ
Patient is stable for downgrade out of ICU to IMU. Manager Recovery/Pulmonary service will now sign off. Thank you for allowing us to be involved in the care of this patient. Please call back with any questions or concerns.
Total time spent today was 57 minutes for this encounter. Time includes reviewing laboratory tests/imaging results, reviewing pertinent medical records, obtaining and reviewing medical history, performing an appropriate physical exam, ordering
medications, tests and procedures. Time also includes documentation of this encounter, coordinating patient care and communicating with other healthcare professionals. Total time does not include separately billed tests or procedures performed on
this date of service.
Subjective Dataa
Subjective Data
Date of Service:
Date of Service: June 22, 2025
Chief Complaint: Manager Recovery Follow Up
Subjective:
Patient seen this morning. Multiple family members at bedside. Still has chest discomfort but it is not worsening. Breathing clinically on room air, tolerating her breakfast without any nausea/vomiting/abdominal pain.
Review of Systems
General: Other (Negative unless mentioned above)
Objective Data
Data Reviewed
Vital Signs / I&O / Oxygen:
Vital Signs
Temp Pulse Resp BP Pulse Ox
98.6 F 84 12 113/65 96
06/22/25 07:48 06/22/25 07:00 06/22/25 07:00 06/22/25 07:00 06/22/25 09:51
Intake and Output
06/21/25 06/22/25 06/23/25
06:59 06:59 06:59
Intake Total 642.5 / 642.5 360 / 360
Output Total 200 / 200 200 / 200
Balance 442.5 / 442.5 160 / 160
SaO2 96
Physical Exam
General: Respiratory Distress (negative), Comfortable, Pain (chest pain when she takes deep breath where CPR occurred) and Chills (negative)
HEENT: Normocephalic and Anicteric
Cardiovascular: S1-S2 and Peripheral Edema (negative)
Respiratory: Clear, Wheeze (negative), Crackles (negative), Rhonchi (negative) and Stridor (negative)
GI: Soft, Non Distended, Non Tender and Normal Bowel Sounds
Neurology: Awake, Alert and Tremors (negative)
Skin: Warm, Dry, Cyanosis (negative) and Jaundice (negative)
Labs/Micro/Reports
Lab Data
06/22/25 07:53
06/22/25 07:53
Laboratory Results
06/21/25
14:38
PT 15.7 H
INR 1.24
APTT 23.1 L
[2025-06-22 08:39] LABS: Troponin I 0.109 ng/ml
[2025-06-22 08:48] LABS: Glycohemoglobin (HgbA1c) 7.7 % (4.0-5.9)
--- NOTE | 2025-06-22 09:07 | W.PN.NEPH.PH ---
Today's Communication / Plan
-
PD orders provided
Follow daily labs
Assessment/Plan
-
Assessment:
Seizure (possible: during procedure for mediport placement at IR)(was not actually done)
Hyponatremia
Metabolic acidosis/elevated lactic acid
Diabetes mellitus type 2
End-stage renal disease on PD at [place] unit PD script-all 1.5% bags, NIPD 8hrs. 5days/week(weekend break)
Hypothyroidism
Hyperlipidemia
Hypertension
Anxiety/depression
Chronic pain on tramadol
Fatty liver
Obesity
Anemia
Nephrolithiasis, incidental
Coronary artery calcification
Hyperphosphatemia
Secondary hyperparathyroidism
Plan:
Will provide PD orders
2L q4hrs 1.5%
Orders provided
Maintain antihypertensives when patient can take p.o.
Maintain sevelamer with meals for hyperphosphatemia
Fluid restriction at 48 ounces daily re: hyponatremia
Possible eventual cardiac catheterization/positive troponin and need to rule out for ischemic cardiac event following code during IR procedure
Off pressors
-
-
Date of Service: June 22, 2025
CC / HPI / ROS
-
Chief Complaint:
ESRD on PD
History of Present Illness:
Remains on PD
Hemodynamically stable
Now off pressors
Review of Systems:
Weight stable
No reported chest pain or shortness of breath
Labs
-
Labs:
WBC 9.2 10^3/uL (4.8-10.8) 06/22/25 07:53
RBC 3.49 10^6/uL (4.20-5.40) L 06/22/25 07:53
Hgb 10.0 g/dL (12.0-16.0) L 06/22/25 07:53
Hct 29.6 % (37.0-47.0) L 06/22/25 07:53
Plt Count 239 10^3/uL (130-400) 06/22/25 07:53
eGFR 5.75 06/21/25 10:16
Phosphorus 6.6 mg/dl (2.5-4.5) H 06/21/25 10:16
Albumin 2.7 g/dl (3.5-5.0) L 06/21/25 10:16
Physical Exam
-
Vital Signs:
Vital Signs
Temp Pulse Resp BP Pulse Ox
98.6 F 84 12 113/65 98
06/22/25 07:48 06/22/25 07:00 06/22/25 07:00 06/22/25 07:00 06/22/25 07:00
Cardiovascular:: Regular rate and rhythm
Respiratory:: Bilateral: CTA
Lung Excursion:: Normal
Abdomen:: Nontender and Soft
Bowel Sounds:: Normal
Extremity Edema:: None: Bilateral:
--- NOTE | 2025-06-22 09:34 | W.PN.HOSP.TC ---
Translation Services
-
Preferred Language: Faroese
Building Construction Professor service via: Phone
Building Construction Professor's ID Number: [id number]
Today's Communication/Plan
-
.
Assessment / Plan
Assessment / Plan
Physical Exam
General: No Apparent Distress, Comfortable and Appears Chronically Ill
HEENT: Moist mucous membranes and Atraumatic
Respiratory: Clear
Cardiac: S1/S2
GI: Soft and Non Tender
Genito-urinary: No Granados
Musculoskeletal: No Clubbing and No Edema
Skin: No Jaundice
Neuro: AO x 3 and Nonfocal/grossly intact; No Facial Droop or Tremors
Psych: Calm and Intact Judgment/Insight
59 years old female who had code 9 while getting elective port placement in interventional department at [facility]
#Post cardiopulmonary arrest/code 9 code. To rule out cardiogenic shock
Lactic acidosis
DDX Seizure, rule out cardiac reasons
Positive troponin, possible ischemic origin, for cath on Tuesday.
She is feeling well expect MSK pain from chest compression. c/w pain control using Tylenol, avoid opioid as possible ( she seems to report severe pain on the scale)
Stable BP, off Levophed.
Stable echo with LVEF 70%
d/w cardiology: plan for inpt Cath for ischemic evaluation
d/w neurology: change to Keppra medication, stopped Lacosamide.
Will resume BP meds slowly
Appreciate cardiology, neurology, ICU help
# Elective port placement. Port was not placed due to the event.
#Leukocytosis. Likely reactive. Monitor. No fever. Resolved.
#Chronic abdominal pain/ Chronic gastroparesis. On chronic Reglan.
#ESRD on PD/ Hyperparathyroidism
Patient gets peritoneal dialysis. She was started on Dialysis since October 2024. Peritoneal dialysis was patient preference to be able to do it at home.
Continue her chronic medication and follow-up with nephrology recommendations.
Appreciate nephrology help
# DM2
HGB A1C 7.7
Continue with insulin sign scale for now and long-acting insulin. Monitor blood glucose
# hyponatremia
#Essential HTN
She was on losartan, torsemide, nifedipine.
#Hypothyroidism
Continue MACHINE STRAW HAT PRESSER levothyroxine.
#Hypercholesterolemia
Continue MACHINE STRAW HAT PRESSER atorvastatin 10 mg daily
Continue MACHINE STRAW HAT PRESSER ezetimibe 10 mg nightly
Chronic anemia - due to ESRD. Hgb stable and at baseline.
#Hyperparathyroidism
Continue calcitriol
#GERD
Continue pantoprazole, Carafate/ metoclopramide.
#Anemia of CKD
Full code
Diet�carb controlled
DVT prophylaxis�subcu heparin
Total time spent to see the patient, examined the patient, reviewed data and lab result, discuss treatment plan with patient, family, cardiology, nursing staff around 57 minutes
Anticipated Discharge: > 48 hours
Subjective/Interval History
-
Date of Service: June 22, 2025
She slept well. She continues to have chest pain/musculoskeletal.
No shortness of breath
Off Levophed, stable blood pressure
Objective Data
-
Labs:
Laboratory Results
06/22/25
07:53
WBC 9.2
Hgb 10.0 L
Hct 29.6 L
Plt Count 239
Sodium Pending
Potassium Pending
Chloride Pending
Carbon Dioxide Pending
BUN Pending
Creatinine Pending
Glucose Pending
Calcium Pending
Vital Signs:
Vital Signs
Temp Pulse Resp BP Pulse Ox
98.6 F 84 12 113/65 98
06/22/25 07:48 06/22/25 07:00 06/22/25 07:00 06/22/25 07:00 06/22/25 07:00
I&O
06/21/25 06/22/25 06/23/25
06:59 06:59 06:59
Intake Total 642.5 / 642.5 360 / 360
Output Total 200 / 200
Balance 442.5 / 442.5 360 / 360
[2025-06-22 09:36] LABS: Blood Urea Nitrogen 60 mg/dl (7-17); Calcium 8.5 mg/dl (8.4-10.2); Carbon Dioxide 22 mmol/L (22-30); Chloride 98 mmol/L (98-107); Estimated Creatinine Clearance 5 ml/min; Glucose 138 mg/dl (70-99); Potassium 4.1 mmol/L (3.5-5.1); Sodium 131 mmol/L (135-145); eGFR 6.04
--- NOTE | 2025-06-22 11:15 | W.PN.CARDCBS ---
Today's Communication / Plan
-
Stable cardiology status
For cardiac catheterization on Sunday 06/24
Impression / Plan
-
PCP: Unknown
Primary barrel drum cutter: none
Impression:
Cardiac arrest 06/21/2025
Chest pain, chest wall pain likely secondary to CPR and also reports exertional chest pain radiating to left arm in outpatient setting
Elevated troponin, likely nonischemic myocardial injury
Hypotension requiring pressors, resolved
Hypertension
Hyperlipidemia
End-stage renal disease on peritoneal dialysis
Seizures
Type 2 diabetes
Anemia
Previous cardiovascular testing:
Lexiscan nuclear stress test 02/22/2023: Normal myocardial perfusion, EF 64%
Echocardiogram 11/20/2020: Normal LV size and function, EF 60%.
Echocardiogram 06/21/2025: Ejection fraction 70 to 75%, small pericardial effusion
Plan:
Etiology of cardiac arrest is unclear but need to exclude ischemia given episodes of chest pain in the past
We will do cardiac catheterization on Sunday 06/24
Discussed with patient and at bedside
PREADMIT DATA
59-year-old female with PMH hypertension, hyperlipidemia, diabetes mellitus, end-stage renal disease on peritoneal dialysis, heart failure, seizure disorder, anemia, hypothyroidism, chronic abdominal pain/gastroparesis/opioid dependence who was
awaiting procedure in interventional radiology today (Port-A-Cath) when she became unresponsive. She lost pulse and received one round of CPR and a dose of epinephrine. She regained consciousness and was hypotensive and started on Levophed.
Progress Note - Bed Operator
Subjective
Date of Service: June 22, 2025
No complaints
Objective
Labs:
06/22/25 07:53
06/22/25 07:53
Labs
Hgb 10.0 g/dL (12.0-16.0) L 06/22/25 07:53
Hct 29.6 % (37.0-47.0) L 06/22/25 07:53
Plt Count 239 10^3/uL (130-400) 06/22/25 07:53
PT 15.7 Sec (11.4-14.6) H 06/21/25 14:38
INR 1.24 06/21/25 14:38
APTT 23.1 Sec (23.4-35.0) L 06/21/25 14:38
Sodium 131 mmol/L (135-145) L 06/22/25 07:53
Potassium 4.1 mmol/L (3.5-5.1) 06/22/25 07:53
BUN 60 mg/dl (7-17) H 06/22/25 07:53
Creatinine 7.2 mg/dL (0.6-1.0) H* 06/22/25 07:53
Glucose 138 mg/dl (70-99) H 06/22/25 07:53
Troponins
06/21/25 06/21/25 06/21/25
10:16 14:38 22:50
Troponin I 0.020 0.235 H* D 0.238 H*
06/22/25 06/22/25
07:53 07:53
Troponin I 0.109 H* Cancelled
Vital Signs and I&O:
Vital Signs
Temp Pulse Resp BP Pulse Ox
98.6 F 84 12 96
06/22/25 07:48 06/22/25 07:00 06/22/25 07:00 06/22/25 07:00 06/22/25 09:51
Vital Signs
Temp Pulse Resp BP Pulse Ox
98.6 F 84 12 96
06/22/25 07:48 06/22/25 07:00 06/22/25 07:00 06/22/25 07:00 06/22/25 09:51
Intake & Output
12/11/25 12/12/25 12/13/25 12/14/25
06:59 06:59 06:59 06:59
Intake Total 642.5 / 642.5 360 / 360
Output Total 200 / 200 200 / 200
Balance 442.5 / 442.5 160 / 160
Physical Exam
Physical Exam
General: Well developed, well nourished in NAD.
Neck: Supple, no JVD, HJR, carotids +2 B/L, no bruits bilaterally.
Heart: Non displaced PMI, RRR, no murmurs, No S3, S4, no rubs.
Lungs: Scattered rhonchi
Extremities: No clubbing, cyanosis or edema bilaterally.
Neuro: Grossly nonfocal, awake, alert and oriented x3.
[2025-06-22] MEDS: NOVOLOG FLEXPEN-MODERATE RESISTANCE 1 UNITS SC ×2 (12:12→15:52)
[2025-06-22] MEDS: TYLENOL 1000 MG PO ×3 (12:12→21:04)
[2025-06-22 12:19] LABS: Glucose - Point of Care 164 mg/dl (70-99)
--- NOTE | 2025-06-22 14:35 | PTCARENOTE ---
Assessment remains unchanged from previous. Pt. OOB prn for BR and OOB x1 to chair; tolerated position for approx 4H then stand by assisted back to bed. PD maintained per orders. Family remains @ bedside. Call song woody in reach.
[2025-06-22 15:59] LABS: Glucose - Point of Care 175 mg/dl (70-99)
[2025-06-22] MEDS: ZETIA 10 MG PO (21:04)
[2025-06-22] MEDS: LANTUS 0.12 UNITS SC (21:05)
[2025-06-22] MEDS: KEPPRA 500 MG PO (21:05)
[2025-06-22 21:18] LABS: Glucose - Point of Care 182 mg/dl (70-99)
[2025-06-23] VITALS (10 sets, daily range): BP systolic 102–194; BP diastolic 59–101
[2025-06-23] MEDS: SYNTHROID 100 MCG PO (05:34)
[2025-06-23] MEDS: DILAUDID 0.5 MG IV ×4 (07:03→22:59)
[2025-06-23] MEDS: NOVOLOG FLEXPEN-MODERATE RESISTANCE SC ×2 (08:00→12:05)
--- NOTE | 2025-06-23 08:00 | PTCARENOTE ---
Pt anxious and restless. NSR, lungs are diminished in RA, pt co of cp due to CPR that was delivered. at bedsied, very helpful. Pt is a PD pt 4 hr dwelling time.
[2025-06-23] MEDS: LIPITOR 10 MG PO (08:41)
[2025-06-23] MEDS: ROCALTROL 0.5 MCG PO (08:41)
[2025-06-23] MEDS: PROTONIX 40 MG PO ×2 (08:41→21:01)
[2025-06-23] MEDS: CARAFATE SUSPENSION 1 GM PO ×4 (08:42→21:01)
[2025-06-23] MEDS: TYLENOL 1000 MG PO ×3 (08:42→21:01)
[2025-06-23] MEDS: RENVELA 800 MG PO ×3 (08:42→17:30)
[2025-06-23] MEDS: ZENPEP DELAYED RELEASE CAPSULE 1 CAPSULE PO ×3 (08:42→17:30)
[2025-06-23] MEDS: HEPARIN 5000 UNITS SC ×2 (08:42→21:01)
[2025-06-23 08:47] LABS: Hematocrit 28.5 % (37.0-47.0); Hemoglobin 9.7 g/dL (12.0-16.0); Mean Corp Hgb Conc. 34.0 g/dL (33.0-37.0); Mean Corpuscular Volume 86.1 fL (81.0-99.0); Platelet Count 244 10^3/uL (130-400); Red Cell Dist. Width 13.6 % (11.5-14.5)
--- NOTE | 2025-06-23 08:53 | W.PN.NEPH.PH ---
Today's Communication / Plan
-
Maintain dialysis today
PD orders provided
for cardiac catheterization tomorrow
Assessment/Plan
-
Assessment:
Seizure (possible: during procedure for mediport placement at IR)(was not actually done)
Hyponatremia
Metabolic acidosis/elevated lactic acid
Diabetes mellitus type 2
End-stage renal disease on PD at [place] unit PD script-all 1.5% bags, NIPD 8hrs. 5days/week(weekend break)
Hypothyroidism
Hyperlipidemia
Hypertension
Anxiety/depression
Chronic pain on tramadol
Fatty liver
Obesity
Anemia
Nephrolithiasis, incidental
Coronary artery calcification
Hyperphosphatemia
Secondary hyperparathyroidism
Plan:
Will provide PD orders
2L q4hrs 1.5%
Orders provided
Cardiac cath tomorrow
Flowsheets reviewed: Essentially even exchanged balance
Maintain antihypertensives when patient can take p.o.
Maintain sevelamer with meals for hyperphosphatemia
Fluid restriction at 48 ounces daily re: hyponatremia
Possible eventual cardiac catheterization/positive troponin and need to rule out for ischemic cardiac event following code during IR procedure
Off pressors
-
-
Date of Service: June 23, 2025
CC / HPI / ROS
-
Chief Complaint:
ESRD on PD
History of Present Illness:
Remains on PD q4hr exchanges 1.5%
Hemodynamically stable
Now off pressors
Review of Systems:
Weight stable
No reported chest pain or shortness of breath
Labs
-
Labs:
WBC 8.7 10^3/uL (4.8-10.8) 06/23/25 08:32
RBC 3.31 10^6/uL (4.20-5.40) L 06/23/25 08:32
Hgb 9.7 g/dL (12.0-16.0) L 06/23/25 08:32
Hct 28.5 % (37.0-47.0) L 06/23/25 08:32
Plt Count 244 10^3/uL (130-400) 06/23/25 08:32
eGFR 6.04 06/22/25 07:53
Phosphorus 6.6 mg/dl (2.5-4.5) H 06/21/25 10:16
Albumin 2.7 g/dl (3.5-5.0) L 06/21/25 10:16
Physical Exam
-
Vital Signs:
Vital Signs
Temp Pulse Resp BP Pulse Ox
98.1 F 88 12 164/79 99
06/23/25 08:32 06/23/25 06:00 06/23/25 06:00 06/23/25 06:00 06/23/25 06:00
Cardiovascular:: Regular rate and rhythm
Respiratory:: Bilateral: CTA
Lung Excursion:: Normal
Abdomen:: Nontender and Soft
Bowel Sounds:: Normal
Extremity Edema:: None: Bilateral:
[2025-06-23 09:02] LABS: Glucose - Point of Care 144 mg/dl (70-99)
[2025-06-23 09:20] LABS: Blood Urea Nitrogen 53 mg/dl (7-17); Calcium 8.5 mg/dl (8.4-10.2); Carbon Dioxide 25 mmol/L (22-30); Chloride 96 mmol/L (98-107); Estimated Creatinine Clearance 6 ml/min; Glucose 139 mg/dl (70-99); Potassium 3.7 mmol/L (3.5-5.1); Sodium 131 mmol/L (135-145); eGFR 6.24
--- NOTE | 2025-06-23 10:46 | W.PN.HOSP.TC ---
Translation Services
-
Preferred Language: Nepali
Human Resources Associate service via: Phone
Human Resources Associate's ID Number: [id number]
Today's Communication/Plan
-
Restart blood pressure medications slowly
Continue with pain control
Assessment / Plan
Assessment / Plan
Physical Exam
General: No Apparent Distress, Comfortable and Appears Chronically Ill
HEENT: Moist mucous membranes and Atraumatic
Respiratory: Clear
Cardiac: S1/S2
GI: Soft and Non Tender
Genito-urinary: No Granados
Musculoskeletal: No Clubbing and No Edema
Skin: No Jaundice
Neuro: AO x 3 and Nonfocal/grossly intact; No Facial Droop or Tremors
Psych: Calm and Intact Judgment/Insight
59 years old female who had code 9 while getting elective port placement in interventional department at [facility]
#Post cardiopulmonary arrest/code 9 code. To rule out cardiogenic shock
Lactic acidosis
DDX Seizure, rule out cardiac reasons
Positive troponin, possible ischemic origin, for cath on Tuesday.
She is feeling well expect MSK pain from chest compression. c/w pain control using Tylenol, avoid opioid as possible ( she seems to report severe pain on the scale).
Stable BP, off Levophed.
Stable echo with LVEF 70%
d/w cardiology: plan for inpt Cath for ischemic evaluation
d/w neurology: change to Keppra medication, stopped Lacosamide.
Will resume BP meds slowly as blood pressure started to go up
Appreciate cardiology, neurology, ICU help
# Elective port placement. Port was not placed due to the event.
#Leukocytosis. Likely reactive. Monitor. No fever. Resolved.
#Chronic abdominal pain/ Chronic gastroparesis. On chronic Reglan.
#ESRD on PD/ Hyperparathyroidism
Patient gets peritoneal dialysis. She was started on Dialysis since October 2024. Peritoneal dialysis was patient preference to be able to do it at home.
Continue her chronic medication and follow-up with nephrology recommendations.
Appreciate nephrology help
# DM2
HGB A1C 7.7
Continue with insulin sign scale for now and long-acting insulin. Monitor blood glucose
# hyponatremia
#Essential HTN
She was on losartan, torsemide, nifedipine. Her blood pressure started to go up, discussed with nephrology, will restart losartan and nifedipine for now
#Hypothyroidism
Continue LIGHT CLEANER levothyroxine.
#Hypercholesterolemia
Continue LIGHT CLEANER atorvastatin 10 mg daily
Continue LIGHT CLEANER ezetimibe 10 mg nightly
Chronic anemia - due to ESRD. Hgb stable and at baseline.
#Hyperparathyroidism
Continue calcitriol
#GERD
Continue pantoprazole, Carafate/ metoclopramide.
#Anemia of CKD
Full code
Diet�carb controlled
DVT prophylaxis�subcu heparin
Total time spent to see the patient, examined the patient, reviewed data and lab result, discuss treatment plan with patient, family, nursing staff around 59 minutes
Anticipated Discharge: > 48 hours
Subjective/Interval History
-
Date of Service: June 23, 2025
She still having chest discomfort, mainly lower chest on the left
No shortness of breath
Off oxygen
Objective Data
-
Labs:
Laboratory Results
06/23/25
08:32
WBC 8.7
Hgb 9.7 L
Hct 28.5 L
Plt Count 244
Sodium 131 L
Potassium 3.7
Chloride 96 L
Carbon Dioxide 25
BUN 53 H
Creatinine 7.0 H*
Glucose 139 H
Calcium 8.5
Vital Signs:
Vital Signs
Temp Pulse Resp BP Pulse Ox
98.1 F 84 19 149/59 96
06/23/25 08:32 06/23/25 08:00 06/23/25 08:00 06/23/25 08:00 06/23/25 08:00
I&O
06/22/25 06/23/25 06/24/25
06:59 06:59 06:59
Intake Total 642.5 / 642.5 600 / 600
Output Total 200 / 200 500 / 500
Balance 442.5 / 442.5 100 / 100
--- NOTE | 2025-06-23 11:50 | CM ---
Initial assessment completed with and pt at bedside.
Pt is a 59yr old female admitted after cardiopulminary arrest during elective port placement in interventional department. Port was being placed to assist with bloodwork for peritoneal dialysis.
At baseline, pt lives with her in a 1story home with 1ste.
Pt is indep with mobility and ADLs and does at home dialysis through [facility].
pt has no equip.
CM Consult was placed for advanced directives. When offered, pt and declined, saying they already have the paperwork at home.
Pt and declined any needs for dc. Will have dialysis while in the hospital and scheduled for Cardiac Cath Tuesday.
PCP; Dr Evans
Pharm; [facility]
PLAN; Home with no needs anticipated
[2025-06-23] MEDS: CARAFATE SUSPENSION PO (11:56)
[2025-06-23] MEDS: COZAAR 50 MG PO (12:00)
[2025-06-23] MEDS: PROCARDIA XL (EXTENDED RELEASE) 30 MG PO (12:01)
[2025-06-23 12:03] LABS: Glucose - Point of Care 138 mg/dl (70-99)
[2025-06-23 17:04] LABS: Glucose - Point of Care 171 mg/dl (70-99)
[2025-06-23] MEDS: NOVOLOG FLEXPEN-MODERATE RESISTANCE 1 UNITS SC (17:26)
[2025-06-23] MEDS: ZETIA 10 MG PO (21:01)
[2025-06-23] MEDS: KEPPRA 500 MG PO (21:01)
[2025-06-23] MEDS: LANTUS 0.12 UNITS SC (21:06)
[2025-06-23] MEDS: REGLAN 5 MG PO (21:12)
[2025-06-23 21:14] LABS: Glucose - Point of Care 185 mg/dl (70-99)
[2025-06-24] VITALS (30 sets, daily range): BP systolic 108–178; BP diastolic 51–111; BMI 30.7
[2025-06-24] MEDS: DILAUDID 0.5 MG IV ×4 (02:45→20:01)
[2025-06-24] MEDS: DILAUDID IV (02:55)
[2025-06-24] MEDS: SYNTHROID 100 MCG PO (05:30)
[2025-06-24 05:46] LABS: Glucose - Point of Care 180 mg/dl (70-99)
--- NOTE | 2025-06-24 05:46 | PTCARENOTE ---
Caring for patient overnight. aaox3, [place] citizen speaking. stayed overnight, helps translate & ipad shoe fitter is in the room. NSR, remains RA. NPO after midnight for cardiac cath. PD overnight, no issues. Pt still c/o severe CP, prn dilaudid
given. Reached out to WASTE COTTON CLEANER for additional dose overnight. VSS. Will monitor.
[2025-06-24] MEDS: NOVOLOG FLEXPEN-MODERATE RESISTANCE 1 UNITS SC (06:05)
[2025-06-24 06:18] LABS: Hematocrit 32.1 % (37.0-47.0); Hemoglobin 10.8 g/dL (12.0-16.0); Mean Corp Hgb Conc. 33.6 g/dL (33.0-37.0); Mean Corpuscular Volume 86.1 fL (81.0-99.0); Platelet Count 274 10^3/uL (130-400); Red Cell Dist. Width 13.6 % (11.5-14.5)
[2025-06-24 06:35] LABS: Blood Urea Nitrogen 49 mg/dl (7-17); Calcium 8.8 mg/dl (8.4-10.2); Carbon Dioxide 23 mmol/L (22-30); Chloride 95 mmol/L (98-107); Estimated Creatinine Clearance 6 ml/min; Glucose 191 mg/dl (70-99); Potassium 4.0 mmol/L (3.5-5.1); Sodium 130 mmol/L (135-145); eGFR 7.08
[2025-06-24] MEDS: ZENPEP DELAYED RELEASE CAPSULE PO (08:27)
[2025-06-24] MEDS: RENVELA PO (08:27)
[2025-06-24] MEDS: CARAFATE SUSPENSION PO (08:27)
[2025-06-24] MEDS: PROTONIX PO ×2 (08:30→08:32)
[2025-06-24] MEDS: HEPARIN 5000 UNITS SC ×2 (08:31→19:57)
[2025-06-24] MEDS: TYLENOL PO ×2 (08:32→09:11)
[2025-06-24] MEDS: COZAAR PO (08:33)
[2025-06-24] MEDS: LIPITOR PO (08:33)
[2025-06-24] MEDS: ROCALTROL PO (08:33)
--- NOTE | 2025-06-24 09:00 | PTCARENOTE ---
Patient drained only at 08:40 for PD due to going to cathode washer now. 2000 ml drained of clear fluid in total.
--- NOTE | 2025-06-24 09:01 | PTCARENOTE ---
Report given pipelines laborer. Pt c/o 04/19 pain undescribable- PRN Dilaudid given. PD drained 2000ml no fill prior to cath. CHG completed and bed changed.
--- NOTE | 2025-06-24 09:15 | W.PN.HOSP.TC ---
Today's Communication/Plan
-
Cardiac cath today.
Assessment / Plan
Assessment / Plan
Physical exam:
General: Chronically ill
HEENT: Normocephalic, Atraumatic and Moist Mucous Membranes
Respiratory: Clear to Auscultation; Negative Wheezes, Rales or Rhonchi
Cardiac: Regular Rhythm and S1/S2
GI: Soft, Nontender and Nondistended
Musculoskeletal: No Clubbing, No Cyanosis and No Edema
Neuro: Awake, Alert and Oriented, no neurological deficit
Psych: Calm
A/P:
Cardiac arrest:
Unclear etiology but cardiac cath today no obstructive CAD
Neurology evaluation appreciated and they feel less likely seizures related
Cardiology following
Nephrology following
Discussed with family at bedside
Patient and family asked about if port will be placed as inpatient-will wait for nephrology input.
Elevated troponin:
Elevated troponin due to non-ischemic myocardial injury
Cardiac cath as above
Hypotension/shock of unclear etiology:
Resolved
Off pressors
End-stage renal disease on peritoneal dialysis:
Continue PD per nephrology
Continue Renvela and calcitriol
Leukocytosis:
Likely reactive
Hypertension:
Continue home antihypertensives, losartan 50 mg p.o. daily.
Hyperlipidemia:
Continue home statin and Zetia
Diabetes mellitus type 2:
Continue Lantus 12 units daily and insulin sliding scale
Latest hemoglobin A1c 7.7
Seizures:
Continue Keppra 500 mg every night
Discontinue Vimpat
Anemia of chronic disease:
Continue to monitor
Hyponatremia:
Continue to monitor
Hypothyroidism:
Continue thyroid replace
Chronic pancreatic insufficiency:
Continue pancreatic replacement therapy
GERD:
Continue PPI and sucralfate
DVT prophylaxis:
Heparin SQ
CODE STATUS:
Full code
Total time spent on today's encounter was 52 minutes which included time spent in counseling the patient/family regarding diagnosis and treatment plan as listed above, goals of care, and symptom management. Case was discussed with nursing staff,
specialists, and care coordinators/case management. All labs and imaging personally reviewed by me. Remainder the time spent in detailed review of previous records, lab data, imaging, and other medical provider documentation.
Anticipated Discharge: 24 - 48 hours
Subjective/Interval History
-
Date of Service: June 24, 2025
Objective Data
-
Labs:
Laboratory Results
06/24/25
05:59
WBC 11.4 H
Hgb 10.8 L
Hct 32.1 L
Plt Count 274
Sodium 130 L
Potassium 4.0
Chloride 95 L
Carbon Dioxide 23
BUN 49 H
Creatinine 6.3 H*
Glucose 191 H
Calcium 8.8
Vital Signs:
Vital Signs
Temp Pulse Resp BP Pulse Ox
98.3 F 88 16 108/51 91
06/24/25 08:30 06/24/25 08:00 06/24/25 08:00 06/24/25 08:00 06/24/25 08:00
I&O
06/23/25 06/24/25 06/25/25
06:59 06:59 06:59
Intake Total 600 / 600 100 / 100
Output Total 500 / 500 400 / 400
Balance 100 / 100 -300 / -300
[2025-06-24 11:20] LABS: ACT-LR - POC 281 Seconds (116-155)
[2025-06-24] MEDS: NSS 1000 IV (12:25)
[2025-06-24 12:37] LABS: ACT-LR - POC 199 Seconds (116-155)
--- NOTE | 2025-06-24 12:52 | ITS.CL.CATH ---
Disability Insurance Claim Examiner - Catheterization
Cardiac Catheterization
Procedure Report:
LEFT HEART CATHETERIZATION
Date of Procedure: June 24, 2025
Referring: Lucila Simeon.
PROCEDURES:
1. Left heart catheterization, coronary angiogram.
2. Moderate sedation.
INDICATION: NSTEMI
ACCESS: We attempted right radial artery access however despite getting a 5 Turkmen sheath in we could not advance or torque catheters due to subclavian tortuosity and spasm and therefore this access was aborted in favor of right common femoral
artery, 5 Turkmen sheath, under ultrasound guidance using a micropuncture kit
HEMODYNAMICS : (mmHg)
AO (s/d) : 101/61
LVEDP : 11
No significant gradient across the aortic valve to suggest aortic stenosis.
CORONARY FINDINGS
Dominance: Right
Left Main Trunk (LMT): Large caliber vessel that gives rise to the LAD and LCx branches and is free of angiographic disease.
Left Anterior Descending Artery (LAD): Large caliber vessel that gives off 2 major diagonal branches as it courses along the anterior inter-ventricular groove before wrapping around the cardiac apex. The LAD and its branches are free of
angiographic disease.
Left Circumflex Artery (LCx): Large caliber vessel that gives off 1 major obtuse marginal (OM) branch as it courses along the atrio-ventricular (AV) groove. The LCx and its branches are free of angiographic disease.
Right Coronary Artery (RCA): Large caliber dominant vessel that gives rise to the posterior descending artery (RPDA) and postero-lateral ventricular (RPLV) branches distally. There is mild diffuse atherosclerotic plaque.
SEDATION: 27 minutes of procedural sedation was utilized. IV Midazolam and IV Fentanyl were administered. An independent medical coding instructor was present to assist with and help manage the patient's level of consciousness and physiologic status.
RADIATION SUMMARY: Fluoro Time (min): 8.0, Dose (mGy): 323.9, DAP (Gy.cm2) : 22.6
Closure Device: There were no immediate intra-procedural complications. The sheath was pulled in the senior cytogenetics laboratory director and a vascular-band applied to the right wrist for radial artery hemostasis using the patent hemostasis technique.
CONCLUSIONS
1. No obstructive coronary artery disease.
2. LVEDP of 11 mmHg.
RECOMMENDATIONS
1. Wean radial band per protocol. Monitor right hand perfusion and for bleeding from the radial site following removal of the vascular-band following trans-radial access.
2. Continue aggressive medical therapy and risk factor modification for secondary CAD prevention.
3. Hydrate with normal saline to mitigate the risk of contrast-induced acute kidney injury.
Maranda Morejon MD, FACC, [facility]
Copy to: Lucila Simeon.
[2025-06-24 13:27] LABS: ACT-LR - POC 187 Seconds (116-155)
[2025-06-24 13:36] LABS: Glucose - Point of Care 103 mg/dl (70-99)
[2025-06-24 15:29] LABS: Glucose - Point of Care 96 mg/dl (70-99)
[2025-06-24] MEDS: CARAFATE SUSPENSION 1 GM PO ×3 (15:32→21:25)
[2025-06-24] MEDS: TYLENOL 1000 MG PO ×2 (15:32→21:25)
[2025-06-24] MEDS: LIPITOR 10 MG PO (15:32)
[2025-06-24] MEDS: ROCALTROL 0.5 MCG PO (15:32)
[2025-06-24] MEDS: COZAAR 50 MG PO (15:33)
[2025-06-24] MEDS: NOVOLOG FLEXPEN-MODERATE RESISTANCE SC (15:33)
[2025-06-24] MEDS: RENVELA 800 MG PO ×2 (15:34→18:40)
[2025-06-24] MEDS: ZENPEP DELAYED RELEASE CAPSULE 1 CAPSULE PO ×2 (15:34)
--- NOTE | 2025-06-24 15:57 | PTCARENOTE ---
Returned from [facility] dental lab technician, accu check 96- po diet ordered. HOB up in time frame per orders. PD completed / now dwelling. Tearful/ pain 04/19 chest- Scheduled Tylenol and meds given, IV Dilaudid also given. Family at bedside they will help her eat
alittle.
--- NOTE | 2025-06-24 17:09 | W.PN.NEPH.PH ---
Today's Communication / Plan
-
PD
Assessment/Plan
-
Assessment:
Seizure (possible: during procedure for mediport placement at )(was not actually done)
Hyponatremia
Metabolic acidosis/elevated lactic acid
Diabetes mellitus type 2
End-stage renal disease on PD at [place] unit PD script-all 1.5% bags, NIPD 8hrs. 5days/week(weekend break)
Hypothyroidism
Hyperlipidemia
Hypertension
Anxiety/depression
Chronic pain on tramadol
Fatty liver
Obesity
Anemia
Nephrolithiasis, incidental
Coronary artery calcification
Hyperphosphatemia
Secondary hyperparathyroidism
Plan:
Will provide PD orders
2L q4hrs 1.5% still. can use 2/5 if needed for shortage
Flowsheets reviewed: Essentially even exchanged balance
Maintain antihypertensives
Maintain sevelamer with meals for hyperphosphatemia
Fluid restriction at 48 ounces daily re: hyponatremia
-
-
Date of Service: June 24, 2025
CC / HPI / ROS
-
Chief Complaint:
ESRD on PD
History of Present Illness:
Remains on PD q4hr exchanges 1.5%
Hemodynamically stable
s/p cardiac cath 06/24. nonobstructive
Review of Systems:
Weight stable
No reported chest pain or shortness of breath
Labs
-
Labs:
WBC 11.4 10^3/uL (4.8-10.8) H 06/24/25 05:59
RBC 3.73 10^6/uL (4.20-5.40) L 06/24/25 05:59
Hgb 10.8 g/dL (12.0-16.0) L 06/24/25 05:59
Hct 32.1 % (37.0-47.0) L 06/24/25 05:59
Plt Count 274 10^3/uL (130-400) 06/24/25 05:59
Sodium 130 mmol/L (135-145) L 06/24/25 05:59
Potassium 4.0 mmol/L (3.5-5.1) 06/24/25 05:59
Chloride 95 mmol/L (98-107) L 06/24/25 05:59
Carbon Dioxide 23 mmol/L (22-30) 06/24/25 05:59
BUN 49 mg/dl (7-17) H 06/24/25 05:59
Creatinine 6.3 mg/dL (0.6-1.0) H* 06/24/25 05:59
eGFR 7.08 06/24/25 05:59
Glucose 191 mg/dl (70-99) H 06/24/25 05:59
Calcium 8.8 mg/dl (8.4-10.2) 06/24/25 05:59
Phosphorus 6.6 mg/dl (2.5-4.5) H 06/21/25 10:16
Albumin 2.7 g/dl (3.5-5.0) L 06/21/25 10:16
Physical Exam
-
Vital Signs:
Vital Signs
Temp Pulse Resp BP Pulse Ox
98.4 F 93 13 159/80 100
06/24/25 15:31 06/24/25 16:00 06/24/25 16:00 06/24/25 16:00 06/24/25 14:30
Cardiovascular:: Regular rate and rhythm
Respiratory:: Bilateral: CTA
Lung Excursion:: Normal
Abdomen:: Nontender and Soft
Bowel Sounds:: Normal
Extremity Edema:: None: Bilateral:
[2025-06-24 18:18] LABS: Glucose - Point of Care 202 mg/dl (70-99)
[2025-06-24] MEDS: NOVOLOG FLEXPEN-MODERATE RESISTANCE 3 UNITS SC (18:39)
[2025-06-24] MEDS: PROTONIX 40 MG PO (19:57)
[2025-06-24] MEDS: LANTUS 0.12 UNITS SC (21:25)
[2025-06-24] MEDS: KEPPRA 500 MG PO (21:25)
[2025-06-24] MEDS: ZETIA 10 MG PO (21:25)
[2025-06-24 21:38] LABS: Glucose - Point of Care 141 mg/dl (70-99)
[2025-06-25] VITALS (12 sets, daily range): BP systolic 90–198; BP diastolic 53–99; BMI 29.4
[2025-06-25] MEDS: DILAUDID 0.5 MG IV ×4 (00:02→17:52)
--- NOTE | 2025-06-25 01:44 | PTCARENOTE ---
Pt c/o 04/19 pain, medicated per MAR. PD performed per orders, see worklist. Prior to next dose PRN med due, pt c/o 04/19 pain, tearful, rocking back and forth, clutching L chest/ribs. PRESS OFFBEARER contacted. Ice pack offered and refused. Lidocaine patch
offered and refused. Finally pt due for medication, dose provided per SEP with relief. Care ongoing.
[2025-06-25 05:50] LABS: Hematocrit 30.1 % (37.0-47.0); Hemoglobin 10.2 g/dL (12.0-16.0); Mean Corp Hgb Conc. 33.9 g/dL (33.0-37.0); Mean Corpuscular Volume 86.5 fL (81.0-99.0); Platelet Count 264 10^3/uL (130-400); Red Cell Dist. Width 13.2 % (11.5-14.5)
[2025-06-25] MEDS: REGLAN 5 MG PO (06:14)
[2025-06-25 06:16] LABS: Blood Urea Nitrogen 46 mg/dl (7-17); Calcium 8.8 mg/dl (8.4-10.2); Carbon Dioxide 21 mmol/L (22-30); Chloride 99 mmol/L (98-107); Estimated Creatinine Clearance 6 ml/min; Glucose 124 mg/dl (70-99); Sodium 132 mmol/L (135-145); eGFR 7.08
[2025-06-25] MEDS: SYNTHROID 100 MCG PO (06:23)
[2025-06-25 06:26] LABS: Potassium 3.7 mmol/L (3.5-5.1)
--- NOTE | 2025-06-25 06:26 | PTCARENOTE ---
Pt continued with 10/10 pain one hour prior to when PRN Q4H pain medication was due, SECURITY POLICE OFFICER contacted. Medication given per new orders of Q3H. Call zuleta within reach. Care ongoing.
[2025-06-25] MEDS: MIRALAX 17 GRAMS PO (08:24)
[2025-06-25] MEDS: PROTONIX 40 MG PO ×2 (08:24→19:51)
[2025-06-25] MEDS: RENVELA 800 MG PO ×3 (08:24→17:00)
[2025-06-25] MEDS: TYLENOL 1000 MG PO ×3 (08:24→22:29)
[2025-06-25] MEDS: COZAAR 50 MG PO (08:24)
[2025-06-25] MEDS: LIPITOR 10 MG PO (08:24)
[2025-06-25] MEDS: ZENPEP DELAYED RELEASE CAPSULE 1 CAPSULE PO ×3 (08:24→17:11)
[2025-06-25] MEDS: ROCALTROL 0.5 MCG PO (08:24)
[2025-06-25] MEDS: HEPARIN 5000 UNITS SC ×3 (08:25→22:29)
[2025-06-25] MEDS: CARAFATE SUSPENSION 1 GM PO ×4 (08:25→19:51)
--- NOTE | 2025-06-25 08:31 | W.PN.HOSP.TC ---
Today's Communication/Plan
-
Pain control. GI eval. CXR and US abdomen.
Assessment / Plan
Assessment / Plan
Physical exam:
General: Chronically ill
HEENT: Normocephalic, Atraumatic and Moist Mucous Membranes
Respiratory: Clear to Auscultation; Negative Wheezes, Rales or Rhonchi
Cardiac: Regular Rhythm and S1/S2
GI: Soft, Nontender and Nondistended
Musculoskeletal: No Clubbing, No Cyanosis and No Edema
Neuro: Awake, Alert and Oriented, no neurological deficit
Psych: Calm
A/P:
Cardiac arrest:
Unclear etiology but cardiac cath today no obstructive CAD
Neurology evaluation appreciated and they feel less likely seizures related (?)
Cardiology following
Nephrology following
Discussed with family at bedside again today
I put a consult for Port placement but IR discussed with dental detail representative who reach out to me and nephrology and nephrology okay to postpone as outpatient. Therefore cancelled IR consult.
Persistent nausea/vomiting:
Obtain ultrasound abdomen
I was going to place her on Reglan but cardiology discontinue to avoid QT prolonging medications.
I am going to add more consistent bowel regimen
Will change IV Dilaudid to oral oxycodone
GI consult-discussed with GI today
Persistent pain chest ribs and abdomen area:
Cont pain meds but changed to oral for longer duration
Can still use IV if not improved
Cont multimodal pain regimen
Obtain US abd
Obtain CXR Ribs B/L today
HTN:
At home regimen of labetalol, losartan, and nifedipine.
Here losartan and changed labetalol to Toprol xl.
Will restart Nifedipine XL 90 mg daily
Elevated troponin:
Elevated troponin due to non-ischemic myocardial injury
Cardiac cath as above
Hypotension/shock of unclear etiology:
Resolved
Off pressors
End-stage renal disease on peritoneal dialysis:
Continue PD per nephrology
Continue Renvela and calcitriol
Leukocytosis:
Likely reactive
Hypertension:
Continue home antihypertensives, losartan 50 mg p.o. daily.
Hyperlipidemia:
Continue home statin and Zetia
Diabetes mellitus type 2:
Continue Lantus 12 units daily and insulin sliding scale
Latest hemoglobin A1c 7.7
Seizures:
Continue Keppra 500 mg every night
Discontinue Vimpat
Anemia of chronic disease:
Continue to monitor
Hyponatremia:
Continue to monitor
Hypothyroidism:
Continue thyroid replace
Chronic pancreatic insufficiency:
Continue pancreatic replacement therapy
GERD:
Continue PPI and sucralfate
DVT prophylaxis:
Heparin SQ
CODE STATUS:
Full code
Total time spent on today's encounter was 52 minutes which included time spent in counseling the patient/family regarding diagnosis and treatment plan as listed above, goals of care, and symptom management. Case was discussed with nursing staff,
specialists, and care coordinators/case management. All labs and imaging personally reviewed by me. Remainder the time spent in detailed review of previous records, lab data, imaging, and other medical provider documentation.
Anticipated Discharge: Within 24 hours
Subjective/Interval History
-
Date of Service: June 25, 2025
Patient complaints of persistent nausea and persistent chest and upper abdomen pain reproducible by palpation. BP significantly elevated. No fever.
Objective Data
-
Labs:
Laboratory Results
06/25/25
05:04
WBC 11.7 H
Hgb 10.2 L
Hct 30.1 L
Plt Count 264
Sodium 132 L
Potassium 3.7
Chloride 99
Carbon Dioxide 21 L
BUN 46 H
Creatinine 6.3 H*
Glucose 124 H
Calcium 8.8
Vital Signs:
Vital Signs
Temp Pulse Resp BP Pulse Ox
98.6 F 99 12 148/74 96
06/25/25 03:00 06/25/25 06:01 06/25/25 04:00 06/25/25 04:00 06/24/25 20:09
I&O
06/24/25 06/25/25 06/26/25
06:59 06:59 06:59
Intake Total 100 / 100 2200 / 2200
Output Total 400 / 400 700 / 700
Balance -300 / -300 1500 / 1500
[2025-06-25 08:33] LABS: Glucose - Point of Care 164 mg/dl (70-99)
[2025-06-25] MEDS: NOVOLOG FLEXPEN-MODERATE RESISTANCE 1 UNITS SC ×2 (08:34→17:01)
--- NOTE | 2025-06-25 09:48 | PTCARENOTE ---
Assumed care of patient at beginning of this shift from previous RN. Patient c/o nausea and vomited small amount yellow liquid. Daughter at bedside and reported patient had nausea yesterday and began to vomit today. Patient was able to take
scheduled meds; also given prn dose of miralax as she reported just having a small hard bm. Reviewed with Dr Anand, Dr FIORDALIZA Villar and Dr Berkowitz when rounding on patient. GI consulted by Dr Anand with order for US abd. See worklist for full assessment and
vital signs; refer to PD intervention for time and amount.
--- NOTE | 2025-06-25 09:57 | CON.GI ---
Addendum entered and electronically signed by Henri Marino MD 06/25/25 12:41:
I saw and examined the patient.
The PAIN MEDICINE PHYSICIAN or PA's note was reviewed and I agree with the note.
Comment: 59yo female hx gastroparesis admitted following unresponsive episode during port placement, arrest, CPR. Cardiac eval ongoing and her reglan was held due to concern for QT prolongation. She has been maintained with prn reglan, PPI as
outpt. Also reports abd pain, getting PD currently. Also has hx pancreatitis
REC:
Check fluid cell count, culture r/o SBP given her abd pain
Hold reglan and resume if ok from cardiac standpoint
Cont PPI, carafate, zenpep
check lipase
Monitor n/v symptoms and try to manage, small frequent meals, while undergoing cardiac eval
Original Note:
Consultation
-
Date/Time Consultation Requested: 06/25/25 0930
Date/Time Consultation Performed: 06/25/25 1000
Requesting Provider: Sudhir Anand MD
Performing Provider: BRIAN Ortiz, Henri Marino MD
Reason for Consultation: nausea, vomiting
Medical History
Chief Complaint / HPI
Chief Complaint: epigastric pain, vomiting
History of Present Illness:
The patient is a 59-year-old Mexican-speaking female know to GI service with a past medical history significant for type 2 diabetes, hyperlipidemia, gastroparesis, esophageal dysmotility, schatzki's ring, moderate HH, prior pancreatitis with
Zenpep use, hypothyroidism, GERD, CHF, chronic anemia, ESRD on peritoneal dialysis over last several months with multiple admission with recurrent nausea and vomiting since start of PD with concern for gastroparesis flare. PD fluid with neg for
SBP. She was last seen in May when she was admitted for seizures with complaints of abdominal pain and decreased oral intakes. She was placed on Reglan 5mg TID, PPI, Miralax and Carafate with improvement. Now presents for IR procedure for
port a cath and noted with unresponsiveness with period of CPR and epi. Since admission she completed cath with non obstructive CAD, s/p neuro eval less likely seizure related, but asked to see for continued abdominal pain and nausea. Per review
with Dr. Anand, reglan has been held with arrest and concern for QT issues and Tramadol held with concern for lowering seizure threshold.
In review with patient and daughter she has ongoing GI issues. She is better controlled at home taking Reglan, Carafate, Protonix and Zenpep. She was recently given Tramadol from Dr. Casiano after April visit. She currently has complaints of
odynophagia, nausea/vomiting yellow bilious drainage, epigastric and LLQ abdominal pain, constipation but denies bleeding. She last had EGD 06/[address] Casiano with at that time which did show abnormal esophageal motility with spasm and
low-grade narrowing of Schatzki ring with erythematous mucosa in the antrum. Biopsies taken during the EGD did not show any significant findings. Since admission she has had mild leukocytosis, hbg 9-10 range, Na 130-132, BUN 40-50, creat 6-7,
glucose in 100's.
Past Medical History
Past Medical History: CHF, GERD, Hypercholesterolemia, Hypothyroidism, IDDM, Renal Failure (ESRD on HD ) and Other (Gastroparesis, esophageal dysmotility, schatzki's ring, chronic anemia, chronic constipation, ? Celiac disease, hx pancreatitis,
moderate HH )
Past Surgical History: Appendectomy (With perforation and abscess), Cholecystectomy and
Social History
Tobacco: Non-Smoker
Alcohol: None
Drug: None
Personal:
Living: With Family
Employment: Not Employed
Family History
Family History: Other (no family hx GI malignancies )
Allergies / Home Medications
Allergy/AdvReac Type Severity Reaction Status Date / Time
metformin AdvReac DIARRHEA Verified 06/21/25 09:58
[facility] AdvReac diarrhea Verified 06/21/25 09:58
�Medication �Instructions �Recorded
levothyroxine 100 mcg tablet 100 mcg PO DAILY@06 Thyroid 11/17/20
atorvastatin 10 mg tablet 10 mg PO DAILY High cholesterol 02/23/22
ezetimibe 10 mg tablet 10 mg PO HS High cholesterol #30 02/27/22
tabs
calcitriol 0.5 mcg capsule 0.5 mcg PO DAILY 01/15/25
Hyperparathyroidism
nortriptyline 75 mg capsule 75 mg PO HSPRN PRN anxiety 01/15/25
insulin glargine 100 unit/mL (3 12 unit SC HS Diabetes 05/21/25
mL) subcutaneous pen (Basaglar
KwikPen U-100 Insulin)
insulin lispro 100 unit/mL 3 sliding scale dose SC AC Diabetes 05/21/25
subcutaneous pen (Humalog KwikPen
(U-100) Insulin)
lidocaine 4 % topical patch 1 patch topical HSPRN PRN back pain 05/21/25
losartan 50 mg tablet 50 mg PO DAILY Blood Pressure 05/21/25
metoclopramide HCl 5 mg tablet 5 mg PO DAILY stomach pains 05/21/25
nifedipine 90 mg tablet,extended 90 mg PO HS Blood Pressure 05/21/25
release 24 hr
pantoprazole 40 mg tablet,delayed 40 mg PO BID Gastrointestinal 05/23/25
release Issue #60 tabs
ergocalciferol (vitamin D2) 1,250 1,250 mcg PO QWEEK Supplement 06/21/25
mcg (50,000 unit) capsule
gentamicin 0.1 % topical cream 1 applic topical DAILY Infection 06/21/25
labetalol 200 mg tablet 200 mg PO BID Blood Pressure 06/21/25
lacosamide 200 mg tablet 200 mg PO BID Seizures 06/21/25
fsaqxa-wbubvnud-zhvnkxa(pork)10,000-32,000-42,000 1 cap PO AC Gastrointestinal Issue 06/21/25
unit capsule,del rel (Zenpep)
polyethylene glycol 3350 17 gram 17 g PO DAILYPRN PRN constipation 06/21/25
oral powder packet
sevelamer carbonate 800 mg tablet 800 mg PO AC Kidney Disease 06/21/25
sucralfate 100 mg/mL oral 1 g PO ACHS Gastrointestinal Issue 06/21/25
suspension
torsemide 100 mg tablet 100 mg PO DAILY Fluid 06/21/25
Retention/Swelling
Review of Systems
-
Unable to obtain full review of systems at this time due to: Language Barrier (use of chinese assist with family )
History Source: Patient and Family
Constitutional: Reports Fatigue
EENT: Reports No Symptoms
Respiratory: Reports No Symptoms
Cardiac: Reports Chest Pain
Abdomen/GI: Reports Abdominal Pain, Nausea, Vomiting and Constipated
: Reports Other (chronic PD)
Musculoskeletal: Reports No Symptoms
Skin: Reports No Symptoms
Neurological: Reports Weakness
Endocrine: Reports No Symptoms
Hematologic/Lymphatic: Reports Bleeding (? streak of blood with vomiting )
Vital Signs
Temp Pulse Resp BP Pulse Ox
98.6 F 99 12 140/78 96
06/25/25 03:00 06/25/25 08:24 06/25/25 08:00 06/25/25 08:24 06/24/25 20:09
Physical Exam
Exam
General: Well Developed, Well Nourished and Other (lying in bed with discomfort with abdominal pain )
HEENT: Normocephalic and Anicteric
Respiratory: Clear
Cardiac: Regular Rhythm
GI: Soft, Tender (epigastric and LLQ) and Distended (recent PD installation )
Musculoskeletal: No Clubbing and No Cyanosis
Skin: Warm and Dry
Neuro: Awake and Alert
Psych: Calm
Results
WBC 11.7 10^3/uL (4.8-10.8) H 06/25/25 05:04
Hgb 10.2 g/dL (12.0-16.0) L 06/25/25 05:04
Hct 30.1 % (37.0-47.0) L 06/25/25 05:04
MCV 86.5 fL (81.0-99.0) 06/25/25 05:04
Plt Count 264 10^3/uL (130-400) 06/25/25 05:04
Absolute Neuts (auto) 7.9 10^3/uL (1.4-6.5) H 06/21/25 10:16
PT 15.7 Sec (11.4-14.6) H 06/21/25 14:38
INR 1.24 06/21/25 14:38
APTT 23.1 Sec (23.4-35.0) L 06/21/25 14:38
Sodium 132 mmol/L (135-145) L 06/25/25 05:04
Potassium 3.7 mmol/L (3.5-5.1) 06/25/25 05:04
Chloride 99 mmol/L (98-107) 06/25/25 05:04
Carbon Dioxide 21 mmol/L (22-30) L 06/25/25 05:04
BUN 46 mg/dl (7-17) H 06/25/25 05:04
Creatinine 6.3 mg/dL (0.6-1.0) H* 06/25/25 05:04
Calcium 8.8 mg/dl (8.4-10.2) 06/25/25 05:04
Total Bilirubin 0.2 mg/dl (0.2-1.3) 06/21/25 10:16
AST 20 U/L (14-36) 06/21/25 10:16
ALT 25 U/L (0-35) 06/21/25 10:16
Alkaline Phosphatase 151 U/L (38-126) H 06/21/25 10:16
Diagnostic Image Results:
06/21/25 CXR
1. Mild cardiomegaly without radiographic evidence for acute pulmonary edema.
2. Severe calcific atherosclerotic plaque in the coronary arteries and thoracic aorta.
3. Mild to moderate elevation of the right hemidiaphragm.
05/22/15 abd X ray IMPRESSION: The amount of stool within the colon appears to be within normal limits. No significantly dilated air-filled loops of bowel.
05/20/25 CT Abd/pel Without Iv Or Oral
IMPRESSION: Findings suggesting mild acute pancreatitis. Clinical and laboratory correlation recommended. Progressed. Previous study showed moderate ascites. This has resolved.
Moderate hiatal hernia. Stable
Moderate circumferential wall thickening of the distal esophagus. Progressed. This can be seen with esophagitis. A mural mass cannot be excluded.
1 mm nonobstructing right renal stone. Stable
Tiny pericardial effusion. Stable
03/07/25 UGI series
1. Markedly limited exam as described.
2. Mild gastroesophageal reflux.
3. Small to moderate size hiatal hernia.
4. Mild presbyesophagus.
03/05/25 CT a/p without contrast Moderate abdominopelvic ascites. New. Peritoneal dialysis catheter. Stable. Moderate hiatal hernia. Enlarged Tiny pericardial effusion . Stable
02/16/25 CT A/p with IV contrast Findings again seen compatible with some bilateral chronic renal disease.Markedly limited evaluation of intestinal tract without oral contrast and with decompressed/MDD large bowel. Some thickening of the wall of
segments of large bowel such as COLITIS, possible. No intestinal obstruction or free air.Additional stable findings in comparison to recent prior study, as detailed above.
01/15/25 CT a/p with IV contrast 1. Mild diffuse pancolitis.2. Small hiatal hernia.3. Previous cholecystectomy.4. Moderate chronic bilateral renal disease.5. Moderate elevation of the right hemidiaphragm. 6. Mild cardiomegaly.
10/17/2023 MR with and without contrast Unremarkable MRI of the abdomen.
08/20/24 MRI with and without contrast Severely limited examination due to patient breathing motion. A subtle lesion on the postcontrast images could easily be missed.
1. Minimal edema about the tail of the pancreas. No discrete fluid collection. No definite lesion identified. Findings suggest mild pancreatitis.
2. Post noe, previous CT scans have revealed dystrophic calcification adjacent to the clips in the gallbladder fossa. Unchanged. There is no intraluminal filling defect in the common bile duct to suggest a residual bgallstone.
3. Mild wall thickening of the second portion of the duodenum. Nonspecific. This could be followed with either upper GI or direct visualization with endoscopy if clinically indicated.
4. No other significant interval change
08/18/23 CT A/P: There is significant stranding of the fat surrounding the pancreas, mainly the body and head of the pancreas, a new finding compared to CT of August 10, 2022. These findings would be suggestive of pancreatitis. Additionally, there is
suggestion of diffuse thickening of the wall the stomach and possible thickening of the wall of the duodenum. The above findings, possibility of pancreatitis with secondary inflammation of the stomach and duodenum. Differential consideration of
gastritis and duodenitis as a primary process and secondary stranding of the peripancreatic fat. Of note, the patient has a normal lipase value. Status post cholecystectomy with no evidence for biliary ductal dilation. There is a bilobed dystrophic
calcification in the right upper quadrant adjacent to the cholecystectomy clips, which has been present dating back to CT examinations in 2018. Small central hiatal hernia. Coronary artery calcifications are noted. Please correlate with symptoms of
and risk factors for coronary artery disease, with further workup as clinically appropriate.
08/18/23 XR abdomen: �No significantly dilated air-filled loops of bowel are identified. Status post cholecystectomy. 11 mm calcification in the right upper quadrant medial to the cholecystectomy clips, stable dating back to CT examination of May
2017, most likely a focal dystrophic calcification at the site of previous cholecystectomy.
EGD 07/07/[address] Casiano with at that time which did show abnormal esophageal motility with spasm and low-grade narrowing of Schatzki ring with erythematous mucosa in the antrum. Biopsies taken during the EGD did not show any significant
findings.
07/04/23�US abdomen for prior noe no biliary tract dilation. Left lobe of liver, pancreas and IVC significantly obscured, most likely by overlying bowel gas.
08/13/22- UGI��Possible mild achalasia versus mild esophageal dysmotility
08/10/22�CT A/P without IV or oral contrast-- limitation without contrast but noted prior appe, noe, tiny pericardial effusion and no free air.
04/18/21-�CT abdomen/pelvis-no acute inflammatory abnormality in abdomen/pelvis
12/09/20 obstruction series- no obstruction, free air, limited CXR, small left pleural effusion no pulm edema
12/03/20- abdomen X ray-oral contrast right colon
12/02/20- US abdomen with doppler-patent hepatic vasculature with appropriate directional flow, increased echogenicity of liver c/w underlying hepatocellular diseae, most commonly fatty liver
12/02/20- CT abdomen/pelvis-smith paucity of oral contrast and lack of IV contrast no gross abnormality no ostruction free air or focal fluid collection, prior appe, possible small HH, pericardial thickening unchanged
11/24/20 EGD�completed without complication--Esophagus Normal mucosa�biopsied 8 mm benign-appearing polyp at GE junction�biopsied
Stomach Diffuse, mild gastritis�biopsied for H. pylori Small amount of bile in stomach�aspirated� Duodenum Normal mucosa�biopsied for celiac disease
11/19/20-MR abdomen without contrast-�no bile duct dilation or choledocholithiasis, non specific stranding, no hydrop or obstructive uropathy
EGD:03/2020- food in stomach with small HH, Z line variable no lesion in esophagus�
Colonoscopy:� 12/2019- no appendiceal pathology on luminal side
2017 capsule�slow to pass normal per notes report not reviewed
05/09/18- CT without IV or oral contrast-increased left perinephric fat stranding and thickening of gerota fascia no nephrolithiasis or hydro
�EGD 12/21/17:�tortuous esophagus, scar, no inflammation. biopsied
otherwise, no findings to explain anemia.� Duodenum biopsied
12/23/17��Colonoscopy - hemorrhoid and 1, 1cm polyp removed from the descending colon.
-GE scan 12/2017- normal
EGD 11/11/16�LA Grade D reflux esophagitis, small HH, 1 GE junction polyp with bx showing chronic inflammation, bx distal esophagus showed ulceration, normal examined duodenum, neg Hpylori, neg celiac
EGD 12/28/16�small HH, otherwise normal.
12/2016- Ct�duodenitis
GES 12/2016�borderline suggesting mild gastroparesis.
12/2016Celiac antibodies abnormal
11/2016- CT with IV only- appendiceal distention concern for possible acute appendicitis but no abdominal pain, mild mucosal enhancement, mild intrahepatic biliary dilation with prior noe, small HH and gastric distention
Assessment / Plan
-
patient is a 59-year-old Mexican-speaking female know to GI service with a past medical history significant for type 2 diabetes, hyperlipidemia, gastroparesis, esophageal dysmotility, schatzki's ring, moderate HH, prior pancreatitis with Zenpep
use, hypothyroidism, GERD, CHF, chronic anemia, ESRD on peritoneal dialysis over last several months with multiple admission with recurrent nausea and vomiting since start of PD with concern for gastroparesis flare. PD fluid with neg for SBP.
She was last seen in May when she was admitted for seizures with complaints of abdominal pain and decreased oral intakes. She was placed on Reglan 5mg TID, PPI, Miralax and Carafate with improvement. Now presents for IR procedure for port a
cath and noted with unresponsiveness with period of CPR and epi. Since admission she completed cath with non obstructive CAD, s/p neuro eval less likely seizure related, but asked to see for continued abdominal pain and nausea. Per review with
Cheng, reglan has been held with arrest and concern for QT issues and Tramadol held with concern for lowering seizure threshold.
-nausea/vomiting/abdominal pain
-hx gastroparesis with prior uncontrolled DM
-odynophagia with vomiting
-chronic anemia
-moderate HH on CT, prior noted pancolitis in January
-alk phos elevation-- chronic
-prior UGI with Possible mild achalasia versus mild esophageal dysmotility
-CKD on PD
-hx pancreatitis and noted on CT in May
other medical problems:
-IDDM
-GERD
-hypothyroidism
-Obesity
-Anemia of chronic disease
-Vitamin D deficiency
- Abnormal celiac serologies but normal duodenal biopsies
- s/p noe
- s/p appendectomy with prior h/o abscess
-hepatic steatosis
-pancreatic atrophy
PLAN:
etiology of nausea/vomiting/abdominal pain related to flare of known gastroparesis, constipation, pancreatic related with hx pancreatitis and mild pancreatitis on CT on May
reviewed medication with Dr. Perkins as hold on Reglan with cardiac issues and Tramadol with concern for seizures
cont current regiment
add lipase to ensure pancreatitis not playing a role as still with changes on CT on May
if elevated consider repeat CT currently for US abdomen now
check PD fluid to ensure no SBP with continued PD
cont PPI BID, carafate AC/HS cont Zenpep AC
cont miralax and senna
pain control per hospitalist
good glucose control
family updated
-
-
Thank you for consultation and allowing me to participate in the patient's care. Please call the transition coach GI physician during the after hours with any questions or concerns.
--- NOTE | 2025-06-25 10:00 | W.PN.CARDCBS ---
Today's Communication / Plan
-
Avoid QT prolonging agents
Switch to metoprolol succinate [address] daily in [address] of labetalol
We will check with nephrology otherwise defer blood pressure management to them
We will arrange for cardiac follow-up and outpatient monitor
Impression / Plan
-
PCP: Unknown
Primary registrar college or university: none
Impression:
Cardiac arrest 06/21/2025
Chest pain, chest wall pain likely secondary to CPR and also reports exertional chest pain radiating to left arm in outpatient setting
Elevated troponin, likely nonischemic myocardial injury
Hypotension requiring pressors, resolved
Hypertension
Hyperlipidemia
End-stage renal disease on peritoneal dialysis
Seizures
Type 2 diabetes
Anemia
Previous cardiovascular testing:
Lexiscan nuclear stress test 02/22/2023: Normal myocardial perfusion, EF 64%
Echocardiogram 11/20/2020: Normal LV size and function, EF 60%.
Echocardiogram 06/21/2025: Ejection fraction 70 to 75%, small pericardial effusion
Plan:
She seems stable from a cardiac standpoint.
Normal LV function and no obstructive CAD.
Given resting tachycardia, and concerns regarding rhythm disturbance, would favor metoprolol over labetalol.
Otherwise defer to nephrology regarding blood pressure.
Cause of her syncopal episode is unclear, - possibly a seizure? Polymorphic VT with prolonged QT interval?
Avoid QT prolonging agents.
We will arrange for outpatient monitor and cardiac follow-up.
PREADMIT DATA
59-year-old female with PMH hypertension, hyperlipidemia, diabetes mellitus, end-stage renal disease on peritoneal dialysis, heart failure, seizure disorder, anemia, hypothyroidism, chronic abdominal pain/gastroparesis/opioid dependence who was
awaiting procedure in interventional radiology today (Port-A-Cath) when she became unresponsive. She lost pulse and received one round of CPR and a dose of epinephrine. She regained consciousness and was hypotensive and started on Levophed.
Progress Note - Manager Revenue
Subjective
06/25/2025:
59-year-old woman on peritoneal dialysis who presented to IR for Port-A-Cath, lost consciousness, lost pulse, received CPR and epinephrine. Cardiac catheterization yesterday did not show significant CAD, some QT interval prolongation on admission,
currently complains of nausea, and chest discomfort probably related to CPR
PMH: End-stage renal disease, on peritoneal dialysis, hypertension, hyperlipidemia, seizure disorder, type 2 diabetes, QT prolongation, anemia
Medications: Atorvastatin 10 mg a day, ezetimibe 10 mg a day, levothyroxine, Shilo Pap, pantoprazole, [place], sucralfate, heparin, Rocaltrol, Lantus, Keppra, acetaminophen, losartan
140/78, pulse 99, respiratory rate 12, afebrile, pulse 96, lungs are clear, regular rate and rhythm, seems uncomfortable, using daughter's automotive buyer, abdomen benign extremities without clubbing cyanosis or edema
Sodium 132, potassium 3.7, peak troponin was 0.238, magnesium was 2,
ECG: QT interval was normal
Objective
Labs:
06/25/25 05:04
06/25/25 05:04
Labs
Hgb 10.2 g/dL (12.0-16.0) L 06/25/25 05:04
Hct 30.1 % (37.0-47.0) L 06/25/25 05:04
Plt Count 264 10^3/uL (130-400) 06/25/25 05:04
PT 15.7 Sec (11.4-14.6) H 06/21/25 14:38
INR 1.24 06/21/25 14:38
APTT 23.1 Sec (23.4-35.0) L 06/21/25 14:38
Sodium 132 mmol/L (135-145) L 06/25/25 05:04
Potassium 3.7 mmol/L (3.5-5.1) 06/25/25 05:04
BUN 46 mg/dl (7-17) H 06/25/25 05:04
Creatinine 6.3 mg/dL (0.6-1.0) H* 06/25/25 05:04
Glucose 124 mg/dl (70-99) H 06/25/25 05:04
Troponins
06/22/25
07:53
Troponin I Cancelled
Vital Signs and I&O:
Vital Signs
Temp Pulse Resp BP Pulse Ox
37.0 C 99 12 140/78 96
06/25/25 03:00 06/25/25 08:24 06/25/25 08:00 06/25/25 08:24 06/24/25 20:09
Vital Signs
Temp Pulse Resp BP Pulse Ox
37.0 C 99 12 140/78 96
06/25/25 03:00 06/25/25 08:24 06/25/25 08:00 06/25/25 08:24 06/24/25 20:09
Intake & Output
06/23/25 06/24/25 06/25/25 06/26/25
07:59 07:59 07:59 07:59
Intake Total 600 / 600 100 / 100 2200 / 2200
Output Total 500 / 500 400 / 400 700 / 700
Balance 100 / 100 -300 / -300 1500 / 1500
Physical Exam
Physical Exam
See above
--- NOTE | 2025-06-25 10:06 | W.PN.NEPH.PH ---
Today's Communication / Plan
-
PD
Assessment/Plan
-
Assessment:
Seizure (possible: during procedure for mediport placement at )(was not actually done)
Hyponatremia
Metabolic acidosis/elevated lactic acid
Diabetes mellitus type 2
End-stage renal disease on PD at [place] unit PD script-all 1.5% bags, NIPD 8hrs. 5days/week(weekend break)
Hypothyroidism
Hyperlipidemia
Hypertension
Anxiety/depression
Chronic pain on tramadol
Fatty liver
Obesity
Anemia
Nephrolithiasis, incidental
Coronary artery calcification
Hyperphosphatemia
Secondary hyperparathyroidism
Plan:
Will provide PD orders
2L q4hrs 1.5% still. can use 2.5% if needed for shortage
Flowsheets reviewed: Essentially even exchanged balance
Maintain antihypertensives
Maintain sevelamer with meals for hyperphosphatemia
Fluid restriction at 48 ounces daily re: hyponatremia
possible mediport placement
-
-
Date of Service: June 25, 2025
CC / HPI / ROS
-
Chief Complaint:
ESRD on PD
History of Present Illness:
Remains on PD q4hr exchanges 1.5%
Hemodynamically stable
s/p cardiac cath 06/24. nonobstructive
Review of Systems:
Weight stable
No reported chest pain or shortness of breath
nausea this am
Labs
-
Labs:
WBC 11.7 10^3/uL (4.8-10.8) H 06/25/25 05:04
RBC 3.48 10^6/uL (4.20-5.40) L 06/25/25 05:04
Hgb 10.2 g/dL (12.0-16.0) L 06/25/25 05:04
Hct 30.1 % (37.0-47.0) L 06/25/25 05:04
Plt Count 264 10^3/uL (130-400) 06/25/25 05:04
Sodium 132 mmol/L (135-145) L 06/25/25 05:04
Potassium 3.7 mmol/L (3.5-5.1) 06/25/25 05:04
Chloride 99 mmol/L (98-107) 06/25/25 05:04
Carbon Dioxide 21 mmol/L (22-30) L 06/25/25 05:04
BUN 46 mg/dl (7-17) H 06/25/25 05:04
Creatinine 6.3 mg/dL (0.6-1.0) H* 06/25/25 05:04
eGFR 7.08 06/25/25 05:04
Glucose 124 mg/dl (70-99) H 06/25/25 05:04
Calcium 8.8 mg/dl (8.4-10.2) 06/25/25 05:04
Phosphorus 6.6 mg/dl (2.5-4.5) H 06/21/25 10:16
Albumin 2.7 g/dl (3.5-5.0) L 06/21/25 10:16
Physical Exam
-
Vital Signs:
Vital Signs
Temp Pulse Resp BP Pulse Ox
98.6 F 99 12 140/78 96
06/25/25 03:00 06/25/25 08:24 06/25/25 08:00 06/25/25 08:24 06/24/25 20:09
Cardiovascular:: Regular rate and rhythm
Respiratory:: Bilateral: Coarse
Lung Excursion:: Normal
Abdomen:: Nontender and Soft
Bowel Sounds:: Normal
Extremity Edema:: None: Bilateral:
[2025-06-25] MEDS: LIDOCAINE 4% PATCH 1 PATCH TOPICAL (10:43)
--- NOTE | 2025-06-25 11:12 | PTCARENOTE ---
Patient off unit for US abd; dept made aware she had PD and had dialysate instilled. Daughter accompanied patient; dept made aware patient speaks Romansh only.
[2025-06-25 11:23] LABS: Lipase 61 U/L (23-300)
[2025-06-25] MEDS: TOPROL XL 50 MG PO ×2 (12:06→19:51)
[2025-06-25] MEDS: SENOKOT 8.6 MG PO ×2 (12:07→19:51)
[2025-06-25 12:31] LABS: Glucose - Point of Care 151 mg/dl (70-99)
[2025-06-25] MEDS: NOVOLOG FLEXPEN-MODERATE RESISTANCE 151 UNITS SC (12:50)
[2025-06-25] MEDS: ROXICODONE 10 MG PO ×3 (12:50→22:29)
--- NOTE | 2025-06-25 13:03 | CM ---
F/U: Patient still being monitored, has been out to test today, Patient having cardiac evaluation. Patient on PD at home. PLAN: TBD, Anticipate Home VN vs. No Needs.
[2025-06-25] MEDS: PROCARDIA XL (EXTENDED RELEASE) 90 MG PO (14:47)
[2025-06-25 17:02] LABS: Glucose - Point of Care 173 mg/dl (70-99)
--- NOTE | 2025-06-25 17:29 | PTCARENOTE ---
Last PD treatment took 32 mins to instill dialysate; seemed to be more positional. Dr Berkowitz made aware via TT.
--- NOTE | 2025-06-25 17:30 | PTCARENOTE ---
Patient continues to c/o pain 04/19 to L chest/side area. Administered oxycodone 10mg po as ordered prn; given twice so far today. TT sent to Dr Anand to make him aware. He ordered rib xray and dilaudid stat. TT sent to clarify if dilaudid to be
given since oxycodone was just given. He replied to give some time and if pain persists ok to give dilaudid. Will assess follow up pain level.
[2025-06-25] MEDS: ZETIA 10 MG PO (19:51)
[2025-06-25] MEDS: REMOVE LIDOCAINE PATCH 1 PATCH REMOVE (19:51)
[2025-06-25 21:22] LABS: Body Fluid Second Tech FB
[2025-06-25 22:06] LABS: Glucose - Point of Care 180 mg/dl (70-99)
[2025-06-25] MEDS: KEPPRA 500 MG PO (22:28)
[2025-06-25] MEDS: LANTUS 0.12 UNITS SC (22:28)
[2025-06-26] VITALS (7 sets, daily range): BP systolic 111–140; BP diastolic 57–74
[2025-06-26] MEDS: ROXICODONE 10 MG PO (02:51)
[2025-06-26 04:25] LABS: Hematocrit 28.0 % (37.0-47.0); Hemoglobin 9.5 g/dL (12.0-16.0); Mean Corp Hgb Conc. 33.9 g/dL (33.0-37.0); Mean Corpuscular Volume 87.0 fL (81.0-99.0); Nucleated Red Blood Cells % 0 %; Platelet Count 273 10^3/uL (130-400); Red Cell Dist. Width 13.2 % (11.5-14.5)
[2025-06-26 05:01] LABS: ALT (SGPT) < 10 U/L (0-35); AST (SGOT) 16 U/L (14-36); Albumin 2.9 g/dl (3.5-5.0); Alkaline Phosphatase 113 U/L (38-126); Blood Urea Nitrogen 41 mg/dl (7-17); Calcium 8.8 mg/dl (8.4-10.2); Carbon Dioxide 25 mmol/L (22-30); Chloride 94 mmol/L (98-107); Estimated Creatinine Clearance 6 ml/min; Glucose 145 mg/dl (70-99); Potassium 3.4 mmol/L (3.5-5.1); Sodium 130 mmol/L (135-145); Total Protein 5.3 g/dl (6.3-8.2); eGFR 7.08
[2025-06-26] MEDS: SYNTHROID 100 MCG PO (05:40)
[2025-06-26] MEDS: ROXICODONE 5 MG PO (05:45)
--- NOTE | 2025-06-26 05:46 | PTCARENOTE ---
Pt tearful, c/o severe pain. PRN medication given per MAR. PD performed MD orders. Denies new complaints at this time. Accepts scheduled medications per MAR. Call zuleta within reach. Care ongoing.
[2025-06-26 08:06] LABS: Glucose - Point of Care 117 mg/dl (70-99)
--- NOTE | 2025-06-26 08:33 | W.PN.HOSP.TC ---
Today's Communication/Plan
-
Discharge planning today
Assessment / Plan
Assessment / Plan
Physical exam:
General: Chronically ill
HEENT: Normocephalic, Atraumatic and Moist Mucous Membranes
Respiratory: Clear to Auscultation; Negative Wheezes, Rales or Rhonchi
Cardiac: Regular Rhythm and S1/S2
GI: Soft, Nontender and Nondistended
Musculoskeletal: No Clubbing, No Cyanosis and No Edema
Neuro: Awake, Alert and Oriented, no neurological deficit
Psych: Calm
A/P:
Cardiac arrest:
Unclear etiology but cardiac cath today no obstructive CAD
Neurology evaluation appreciated and they feel less likely seizures related (?)
Cardiology cleared her for discharge and will have outpatient registered nurse cardiac telemetry
Prior to today:
Cardiology following
Nephrology following
Discussed with family at bedside again today
I put a consult for Port placement but IR discussed with [employer] district clerk who reach out to me and nephrology and nephrology okay to postpone as outpatient. Therefore cancelled IR consult.
Persistent nausea/vomiting:
Resolved
Prior to today:
Obtain ultrasound abdomen
I was going to place her on Reglan but cardiology discontinue to avoid QT prolonging medications.
I am going to add more consistent bowel regimen
Will change IV Dilaudid to oral oxycodone
GI consult-discussed with GI today
Persistent pain chest ribs and abdomen area:
Out of all medications, it seems that methocarbamol has worked the best so we will keep that and Lidoderm patch. Continue her chronic pain meds. Chest x-ray and rib no evidence of rib fractures.
Prior to today:
Cont pain meds but changed to oral for longer duration
Can still use IV if not improved
Cont multimodal pain regimen
Obtain US abd
Obtain CXR Ribs B/L today
HTN:
Improved
Prior to today:
At home regimen of labetalol, losartan, and nifedipine.
Here losartan and changed labetalol to Toprol xl.
Will restart Nifedipine XL 90 mg daily
Elevated troponin:
Elevated troponin due to non-ischemic myocardial injury
Cardiac cath as above
Hypotension/shock of unclear etiology:
Resolved
Off pressors
End-stage renal disease on peritoneal dialysis:
Continue PD per nephrology
Fluid cultures obtained and no evidence of active infection.
Continue Renvela and calcitriol
Leukocytosis:
Likely reactive
Hypertension:
Continue home antihypertensives, losartan 50 mg p.o. daily.
Hyperlipidemia:
Continue home statin and Zetia
Diabetes mellitus type 2:
Continue Lantus 12 units daily and insulin sliding scale
Latest hemoglobin A1c 7.7
Seizures:
Continue Keppra 500 mg every night
Discontinue Vimpat
Anemia of chronic disease:
Continue to monitor
Hyponatremia:
Continue to monitor
Hypothyroidism:
Continue thyroid replace
Chronic pancreatic insufficiency:
Continue pancreatic replacement therapy
GERD:
Continue PPI and sucralfate
DVT prophylaxis:
Heparin SQ
CODE STATUS:
Full code
Total time spent on today's encounter was 37 minutes which included time spent in counseling the patient/family regarding diagnosis and treatment plan as listed above, goals of care, and symptom management. Case was discussed with nursing staff,
specialists, and care coordinators/case management. All labs and imaging personally reviewed by me. Remainder the time spent in detailed review of previous records, lab data, imaging, and other medical provider documentation.
Anticipated Discharge: Today
Subjective/Interval History
-
Date of Service: June 26, 2025
Patient had musculoskeletal chest pain. No shortness of breath. No nausea or vomiting today or abdominal pain. Afebrile
Objective Data
-
Labs:
Laboratory Results
06/26/25
04:09
WBC 10.4
Hgb 9.5 L
Hct 28.0 L
Plt Count 273
Sodium 130 L
Potassium 3.4 L
Chloride 94 L
Carbon Dioxide 25
BUN 41 H
Creatinine 6.3 H*
Glucose 145 H
Calcium 8.8
Total Bilirubin 0.2
AST 16
ALT < 10
Alkaline Phosphatase 113
Vital Signs:
Vital Signs
Temp Pulse Resp BP Pulse Ox
98 F 73 13 140/67 97
06/26/25 08:32 06/26/25 06:00 06/25/25 10:00 06/26/25 06:00 06/25/25 19:43
I&O
06/25/25 06/26/25 06/27/25
06:59 06:59 06:59
Intake Total 2200 / 2200 240 / 240
Output Total 700 / 700 700 / 700
Balance 1500 / 1500 -460 / -460
[2025-06-26] MEDS: TORADOL 15 MG IV (08:49)
[2025-06-26] MEDS: RENVELA 800 MG PO (09:33)
[2025-06-26] MEDS: CARAFATE SUSPENSION 1 GM PO (09:33)
[2025-06-26] MEDS: PROCARDIA XL (EXTENDED RELEASE) 90 MG PO (09:34)
[2025-06-26] MEDS: TYLENOL 1000 MG PO (09:34)
[2025-06-26] MEDS: LIPITOR 10 MG PO (09:34)
[2025-06-26] MEDS: METHOCARBAMOL 750 MG PO (09:34)
[2025-06-26] MEDS: ROCALTROL 0.5 MCG PO (09:35)
[2025-06-26] MEDS: COZAAR 50 MG PO (09:35)
[2025-06-26] MEDS: ZENPEP DELAYED RELEASE CAPSULE 1 CAPSULE PO (09:35)
[2025-06-26] MEDS: TOPROL XL 50 MG PO (09:35)
[2025-06-26] MEDS: SENOKOT 8.6 MG PO (09:35)
[2025-06-26] MEDS: LIDOCAINE 4% PATCH 1 PATCH TOPICAL (09:36)
[2025-06-26] MEDS: HEPARIN 5000 UNITS SC (09:36)
[2025-06-26] MEDS: MIRALAX 17 GRAMS PO (09:36)
[2025-06-26] MEDS: NOVOLOG FLEXPEN-MODERATE RESISTANCE SC (09:37)
[2025-06-26] MEDS: PROTONIX 40 MG PO (09:37)
--- NOTE | 2025-06-26 10:26 | W.PN.GI.CBS2 ---
Today's Communication / Plan
-
Tolerating diet
Possible d/c later today
Hold off on reglan given concern for QT prolongation
I encouraged small frequent meals instead of using reglan
Will sign off. Can f/u with Dr Oh Aleman
Assessment / Plan
-
patient is a 59-year-old Sets[place]-speaking female know to GI service with a past medical history significant for type 2 diabetes, hyperlipidemia, gastroparesis, esophageal dysmotility, schatzki's ring, moderate HH, prior pancreatitis with Zenpep
use, hypothyroidism, GERD, CHF, chronic anemia, ESRD on peritoneal dialysis over last several months with multiple admission with recurrent nausea and vomiting since start of PD with concern for gastroparesis flare. PD fluid with neg for SBP.
She was last seen in May when she was admitted for seizures with complaints of abdominal pain and decreased oral intakes. She was placed on Reglan 5mg TID, PPI, Miralax and Carafate with improvement. Now presents for IR procedure for port a
cath and noted with unresponsiveness with period of CPR and epi. Since admission she completed cath with non obstructive CAD, s/p neuro eval less likely seizure related, but asked to see for continued abdominal pain and nausea. Per review with
Cheng, reglan has been held with arrest and concern for QT issues and Tramadol held with concern for lowering seizure threshold.
-nausea/vomiting/abdominal pain
-hx gastroparesis with prior uncontrolled DM
-odynophagia with vomiting
-chronic anemia
-moderate HH on CT, prior noted pancolitis in January
-alk phos elevation-- chronic
-prior UGI with Possible mild achalasia versus mild esophageal dysmotility
-CKD on PD
-hx pancreatitis and noted on CT in May
other medical problems:
-IDDM
-GERD
-hypothyroidism
-Obesity
-Anemia of chronic disease
-Vitamin D deficiency
- Abnormal celiac serologies but normal duodenal biopsies
- s/p noe
- s/p appendectomy with prior h/o abscess
-hepatic steatosis
-pancreatic atrophy
Subjective
Subjective
Date of Service: June 26, 2025
Had some nausea, but tolerating breakfast. Denies abd pain
Objective
Data Reviewed
Laboratory Data:
Laboratory Results
06/26/25 04:09
06/26/25 04:09
Laboratory Results
PT 15.7 Sec (11.4-14.6) H 06/21/25 14:38
INR 1.24 06/21/25 14:38
APTT 23.1 Sec (23.4-35.0) L 06/21/25 14:38
Phosphorus 6.6 mg/dl (2.5-4.5) H 06/21/25 10:16
Magnesium 2.0 mg/dl (1.6-2.3) 06/21/25 10:16
Total Bilirubin 0.2 mg/dl (0.2-1.3) 06/26/25 04:09
AST 16 U/L (14-36) 06/26/25 04:09
ALT < 10 U/L (0-35) 06/26/25 04:09
Alkaline Phosphatase 113 U/L (38-126) 06/26/25 04:09
Lipase 61 U/L (23-300) 06/25/25 05:04
Vital Signs and I&O:
Vital Signs
Temp Pulse Resp BP Pulse Ox
98 F 73 13 140/67 97
06/26/25 08:32 06/26/25 06:00 06/25/25 10:00 06/26/25 06:00 06/25/25 19:43
I&O
06/25/25 06/26/25 06/27/25
06:59 06:59 06:59
Intake Total 2200 / 2200 240 / 240 720 / 720
Output Total 700 / 700 700 / 700
Balance 1500 / 1500 -460 / -460 720 / 720
Physical Exam
Physical Exam
GI: Soft, Non Distended and Non Tender
[2025-06-26] MEDS: BenGay-Like 1 APPLIC TOPICAL (10:39)
--- NOTE | 2025-06-26 12:40 | W.PN.NEPH.PH ---
Today's Communication / Plan
-
PD orders provided
Hopeful for discharge today
Assessment/Plan
-
Assessment:
Seizure (possible: during procedure for mediport placement at IR)(was not actually done)
Hyponatremia
Metabolic acidosis/elevated lactic acid
Diabetes mellitus type 2
End-stage renal disease on PD at [place] unit PD script-all 1.5% bags, NIPD 8hrs. 5days/week(weekend break)
Hypothyroidism
Hyperlipidemia
Hypertension
Anxiety/depression
Chronic pain on tramadol
Fatty liver
Obesity
Anemia
Nephrolithiasis, incidental
Coronary artery calcification
Hyperphosphatemia
Secondary hyperparathyroidism
Plan:
Will provide PD orders
2L q4hrs 1.5% still. can use 2.5% if needed for shortage
Flowsheets reviewed: Essentially even exchanged balance
Maintain antihypertensives
Maintain sevelamer with meals for hyperphosphatemia
Fluid restriction at 48 ounces daily re: hyponatremia
Hopeful for discharge today
-
-
Date of Service: June 26, 2025
CC / HPI / ROS
-
Chief Complaint:
ESRD on PD
History of Present Illness:
Remains on PD q4hr exchanges 1.5%
Hemodynamically stable
s/p cardiac cath 06/24. nonobstructive
Review of Systems:
Weight stable
No reported chest pain or shortness of breath
nausea this am
Labs
-
Labs:
WBC 10.4 10^3/uL (4.8-10.8) 06/26/25 04:09
RBC 3.22 10^6/uL (4.20-5.40) L 06/26/25 04:09
Hgb 9.5 g/dL (12.0-16.0) L 06/26/25 04:09
Hct 28.0 % (37.0-47.0) L 06/26/25 04:09
Plt Count 273 10^3/uL (130-400) 06/26/25 04:09
Sodium 130 mmol/L (135-145) L 06/26/25 04:09
Potassium 3.4 mmol/L (3.5-5.1) L 06/26/25 04:09
Chloride 94 mmol/L (98-107) L 06/26/25 04:09
Carbon Dioxide 25 mmol/L (22-30) 06/26/25 04:09
BUN 41 mg/dl (7-17) H 06/26/25 04:09
Creatinine 6.3 mg/dL (0.6-1.0) H* 06/26/25 04:09
eGFR 7.08 06/26/25 04:09
Glucose 145 mg/dl (70-99) H 06/26/25 04:09
Calcium 8.8 mg/dl (8.4-10.2) 06/26/25 04:09
Phosphorus 6.6 mg/dl (2.5-4.5) H 06/21/25 10:16
Albumin 2.9 g/dl (3.5-5.0) L 06/26/25 04:09
Physical Exam
-
Vital Signs:
Vital Signs
Temp Pulse Resp BP Pulse Ox
98.2 F 68 13 111/69 97
06/26/25 12:06 06/26/25 08:00 06/25/25 10:00 06/26/25 08:00 06/25/25 19:43
Cardiovascular:: Regular rate and rhythm
Respiratory:: Bilateral: Coarse
Lung Excursion:: Normal
Abdomen:: Nontender and Soft
Bowel Sounds:: Normal
Extremity Edema:: None: Bilateral:
[2025-06-26 12:41] LABS: Glucose - Point of Care 157 mg/dl (70-99)
--- NOTE | 2025-06-26 12:50 | W.DCSUMMARY ---
Discharge Summary
Discharge Data
Date of Admission: 06/21/25
Date of Discharge: 06/26/25
Total time spent discharging patient (in min): 35
-
Pending Results: No
Hospital Course
Patient is 59 years old female with history of hypertension, hyperlipidemia, hypothyroidism, end-stage renal disease on peritoneal dialysis, gastroparesis, chronic anemia, chronic constipation, pancreatitis, pancreatic insufficiency, GERD, came into
the hospital with an episode of unresponsiveness followed by possible cardiac arrest. Patient was going to have elective port and she had an event where she suddenly lost pulse and she received a round of CPR and a single dose of epinephrine with
ROSC. She was initially hypotensive and required pressors. Lower suspicion for seizure event and neurology was consulted but they feel less likely although her antiseizure medications were switched from Vimpat to Keppra for less cardiac toxicity.
Cardiology was also consulted. She had a full cardiac workup including cardiac catheterization that revealed no obstructive CAD. She will continue to have outpatient monitor for further evaluation. Patient continued to have multiple other
complaints such as musculoskeletal chest pain from CPR that after several trial of medication she did responded to muscle relaxant with methocarbamol. She also had issues with nausea and vomiting probably related to gastroparesis for which GI
evaluated her but in light of some of her medications could have some cardiac toxicity some of them were completely discontinue and recommended supportive care and lifestyle changes modifications in terms of her diet. Patient had peritoneal fluid
checked for any signs of infection and preliminary results did not show any evidence of infection. Patient blood pressure also had been very labile with very high numbers and low numbers but after adjustment of her medications her blood pressure
has been more stable over the last 24 hours. Patient is very eager to go home today. PT evaluated her and recommended no garbage stoker needed. Family requested to have her port placed as an inpatient but after discussion with her eye technician as
inpatient, IR, and also steel box toe inserter decided that he would be best for her to have an as outpatient. Patient will be discharged in relatively stable condition today.
Discharge duration: 35 minutes
Discharge Plan
-
Patient Disposition: Home (Routine Discharge)
Discharge Diagnosis/Procedures: Cardiac arrest. Unresponsiveness. Status post cardiac catheterization (06/24). Seizures. Elevated troponin due to nonischemic myocardial injury. Hypertension. Hypotension/shock. End-stage renal disease on
peritoneal dialysis. Musculoskeletal chest pain. Nausea. Gastroparesis.
Diet: Low Cholesterol, Diabetic, Carb Controlled and Restrict fluids to 48 oz
Activity: As tolerated
Blood Work: Please PCP to order CBC, BMP within 1 week
Others Tests: -A 14-day ambulatory heart monitor ([employer]CAM monitor) was applied prior to your discharge from the hospital. The monitor can get wet in the shower, but avoid direct spray from the showerhead. At the end of the 14-day monitoring
period the monitor can be removed and then placed in the postage paid box and placed in any [employer] mail box for delivery back to the cardiology office for processing. We will call you with the results of the monitor.
Specialty Instructions: Weigh Daily- Call MD for wt gain/loss 3 lbs overnight/5 lbs in 1 week
Stand Alone Forms: DC Instructions- Cath/EP Lab
Referrals:
Primary care provider [Other] - in less than 1 week
Henri Marino MD [Active, Gastroenterology] - in one to two months
Alexandru Acuña MD [Active, Neurology] - in two to four weeks
UNKNOWN - PT DOES,NOT KNOW [Family Provider]
Hermelinda Reyna MD [Active, Nephrology] - in one to two weeks
John Aguirre DO [Active, Cardiology] - 07/17/25 7:40 am
Referral Note: You have an appt to see Dr. Aguirre's physician, Hailee, at the [facility] on 07/17/25 at 7:40 AM. You are then scheduled to see Dr. Aguirre at the [facility] office on 08/26/25 at 1 PM. Please call [phone] if you need to
reschedule.
Prescriptions:
New
metoprolol succinate 50 mg Tablet Extended Release 24 Hr
50 mg PO BID 30 Days Qty: 60 0RF
methocarbamol 500 mg tablet
500 mg PO TID Qty: 10 0RF
levetiracetam [Keppra] 500 mg tablet
500 mg PO QHS Qty: 30 0RF
Continued
levothyroxine 100 MCG tablet
100 mcg PO DAILY@06
atorvastatin 10 mg Tablet
10 mg PO DAILY
ezetimibe 10 MG tablet
10 mg PO HS Qty: 30 0RF
nortriptyline 75 mg Capsule
75 mg PO HSPRN PRN (Reason: anxiety)
calcitriol 0.5 mcg Capsule
0.5 mcg PO DAILY
losartan 50 mg tablet
50 mg PO DAILY
nifedipine 90 mg tablet extended release 24hr
90 mg PO HS
lidocaine 4 % adhesive patch,medicated
1 patch topical HSPRN PRN (Reason: back pain)
insulin lispro [Humalog KwikPen Insulin] 100 unit/mL insulin pen
3 sliding scale dose SC AC
insulin glargine [Basaglar KwikPen U-100 Insulin] 100 unit/mL (3 mL) insulin pen
12 unit SC HS
pantoprazole 40 mg tablet,delayed release (DR/EC)
40 mg PO BID Qty: 60 0RF
gentamicin 0.1 % Cream
1 applic TOPICAL DAILY
ergocalciferol (vitamin D2) 1,250 mcg (50,000 unit) Capsule
1,250 mcg PO QWEEK
Patient Comments:
06/21/25--no day list on [facility] discharge paperwork from [place]
sevelamer carbonate 800 mg Tablet
800 mg PO AC
Zenpep 10,000-32,000 -42,000 unit capsule,delayed release(DR/EC)
1 cap PO AC
sucralfate 100 mg/mL suspension
1 g PO ACHS
polyethylene glycol 3350 17 gram powder in packet
17 g PO DAILYPRN PRN (Reason: constipation)
Discontinued
metoclopramide HCl 5 mg tablet
5 mg PO DAILY
labetalol 200 mg Tablet
200 mg PO BID
torsemide 100 mg Tablet
100 mg PO DAILY
lacosamide 200 mg Tablet
200 mg PO BID
Discharge Orders:
Discharge Patient (As Directed); Ordered 06/26/25
Ordered By: Sudhir Anand
Discharge Date and Time
Discharge Date/Time: 06/26/25 15:03
Print Language: LATVIAN
--- NOTE | 2025-06-26 15:35 | CM ---
F/U: Patient discharge. PLAN: Home No Needs.
== END 2025-06-26 15:03 | disposition home or self-care (01) | DRG 286 ==
LOC: IMU 12:43
PROVIDERS: Internal Medicine Interventional Cardiology; Nurse Practitioner; Nurse Practitioner Adult Health; Nurse Practitioner Family; Physician Assistant; ADMITTING PHYSICIAN Internal Medicine; ATTENDING PHYSICIAN Hospitalist; CONSULT PHYSICIAN Psychiatry & Neurology Neurology; CONSULT PHYSICIAN Specialist; EMERGENCY PHYSICIAN Emergency Medicine; OTHER PHYSICIAN Internal Medicine Cardiovascular Disease; OTHER PHYSICIAN Internal Medicine Critical Care Medicine; OTHER PHYSICIAN Specialist
PROC: B2111ZZ Fluoroscopy of Multiple Coronary Arteries using Low Osmolar Contrast (ICD-10-PCS; 2025-06-24)
PROC: 4A023N7 Measurement of Cardiac Sampling and Pressure, Left Heart, Percutaneous Approach (ICD-10-PCS; 2025-06-24)
DX: I46.9 Cardiac arrest, cause unspecified (principal); N18.6 End stage renal disease; I13.2 Hypertensive heart and chronic kidney disease with heart failure and with stage 5 chronic kidney disease, or end stage renal disease; N25.81 Secondary hyperparathyroidism of renal origin; E87.1 Hypo-osmolality and hyponatremia; E87.20 Acidosis, unspecified; I31.39 Other pericardial effusion (noninflammatory); F11.20 Opioid dependence, uncomplicated; R57.9 Shock, unspecified; I5A Non-ischemic myocardial injury (non-traumatic); D63.1 Anemia in chronic kidney disease; E11.22 Type 2 diabetes mellitus with diabetic chronic kidney disease; E78.00 Pure hypercholesterolemia, unspecified; K21.00 Gastro-esophageal reflux disease with esophagitis, without bleeding; I25.10 Atherosclerotic heart disease of native coronary artery without angina pectoris; E03.9 Hypothyroidism, unspecified; E66.9 Obesity, unspecified; G40.909 Epilepsy, unspecified, not intractable, without status epilepticus; F32.A Depression, unspecified; G89.4 Chronic pain syndrome; K31.84 Gastroparesis; E11.43 Type 2 diabetes mellitus with diabetic autonomic (poly)neuropathy; F41.9 Anxiety disorder, unspecified; K76.0 Fatty (change of) liver, not elsewhere classified; N20.0 Calculus of kidney; E55.9 Vitamin D deficiency, unspecified; R13.10 Dysphagia, unspecified; Z60.3 Acculturation difficulty; Z90.49 Acquired absence of other specified parts of digestive tract; Z99.2 Dependence on renal dialysis; Z79.890 Hormone replacement therapy; Z79.4 Long term (current) use of insulin; Z79.899 Other long term (current) drug therapy; Z87.11 Personal history of peptic ulcer disease; Z87.19 Personal history of other diseases of the digestive system
CPT/HCPCS: 71045; 71111; 76700; 80048; 80053; 81003; 81015; 82962; 83036; 83605; 83690; 83735; 84100; 84484; 85025; 85027; 85347; 85610; 85730; 87015; 87040; 87070; 87086; 87205; 89051; 93005; 93306; 93458; 96365; 96366; 96375; 97161; 99152; 99153; 99291; C1769; C1894; Q9950; Q9967

== ENCOUNTER 2025-07-03 17:09 | Observation (INO) | payer OTHER, SELFPAY ==
[2025-07-03] VITALS (12 sets, daily range): BP systolic 159–210; BP diastolic 72–110; BMI 30.9
--- NOTE | 2025-07-03 12:53 | ED.GENMED ---
History of Present Illness
General
Chief Complaint: Chest Pain
Source: family
Exam Limitations: other (Language barrier)
Time Seen by Provider: 07/03/25 12:52
History of Present Illness
History of Present Illness:
Patient's family acting as translator and interpreter. Apparently started with chest pain yesterday. She was recently hospitalized after a bbt-wa-hvnahfpr cardiac arrest and CPR. She had ongoing chest pain while in the hospital that was thought to be
musculoskeletal. She had a cardiac cath done that showed nonocclusive disease. However yesterday she developed a different kind of midsternal chest pain some radiation of the back consistent with her previous reflux or pancreatitis. Some nausea.
No fever no other complaints.
Past History
Past History
ED Past Medical History: GERD, HTN, Hypercholesterolemia, NIDDM, Renal failure and Other (anemia)
ED Past Surgical History: Appendectomy, Cholecystectomy and
Patient has exhibited threatening behavior?: No
Social History
Tobacco: Non-smoker
Alcohol: None
Drug: None
Personal:
Living: with family
Employment: Not employed
Family History
Family History: Hypertension
Review of Systems
Review of Systems
All Other Systems: Not applicable
Constitutional: Denies fever
Respiratory: Reports no symptoms
Phy Exam
Physical Exam
Physical Exam:
GENERAL: Alert. Nontoxic but appears uncomfortable. Old for stated age.
EYE: Orbits normal.
NECK: Supple, no significant adenopathy.
ENT: Pharynx without erythema
CARDIAC: Regular rate and rhythm without any obvious murmurs.
LUNGS: Clear breath sounds,normal
ABDOMEN: Soft, bowel sounds present. Mostly tender in the upper quadrants. Peritoneal dialysis site in place. No rebound or guarding no mass or hernia.
NEUROLOGICAL: Alert and oriented , grossly non-focal
SKIN: Warm and dry, no rash or lesion, no discoloration, skin intact.
MUSCULOSKELETAL: No edema,no deformity.Good color
PSYCH: Normal and appropriate interaction.
Scores
Heart Score for Chest Pain Patients
STEMI patient?: Not applicable
Course
Orders/Labs/Results
Orders:
Orders
07/03/25 12:10
Electrocardiogram (*1) Urgent
Reason for Study: Chest Pain
EKG- Treatment ONCE
07/03/25 12:56
Basic Metabolic Panel Urgent
Complete Blood Count/With Diff Urgent
Lipase Urgent
Comment: ADD ON
Troponin I Urgent
07/03/25 13:01
Add On- LAB Urgent
Tests Added?: lipase
07/03/25 13:02
HYDROmorphone [Dilaudid] 0.5 mg IV NOW STA
Ondansetron Injectable [Zofran] 4 mg IV NOW STA
CXR2 [CR Chest - 2 Views ] Urgent
Comment:
Reason For Exam: chest pain
07/03/25 13:03
CT Abd/pel Without Iv Or Oral Urgent
Comment:
Reason For Exam: Abdominal pain to the back
07/03/25 13:36
Comprehensive Metabolic Panel Urgent
Direct Bilirubin Urgent
07/03/25 14:02
Add On- LAB Urgent
Tests Added?: lfts
07/03/25 15:01
HYDROmorphone [Dilaudid] 0.5 mg .ROUTE .STK-MED ONE
07/03/25 15:02
HYDROmorphone [Dilaudid] 0.5 mg IV NOW STA
07/03/25 15:49
Ondansetron Injectable [Zofran] 4 mg .ROUTE .STK-MED ONE
07/03/25 15:52
Ondansetron Injectable [Zofran] 4 mg IV NOW STA
07/03/25 16:15
Sodium Zirconium Cyclosilicate [Lokelma] 10 gram PO NOW STA
07/03/25 16:29
Admit/Transfer Patient As Directed
Co-Sign Provider:
Level of Care: Observation services
Assign to:: Telemetry
Physician / Group: Gerry
Diagnosis: Abdominal Pain
Reason for Telemetry: Chest Pain syndromes
Date to Stop Telemetry: 07/05/25
Time to Stop Telemetry: 11:00
PRN Pain Medication Management As Directed
May give lesser potent ordered pain med per pt: Yes
preference::
Protocol:: Medication orders for pain may be administered in a
manner that supports deferring to patient preference
when the pt is:
- Requesting an ordered lesser potent pain medication.
Least to most potent pain medications are defined
as: acetaminophen < NSAID < tramadol < opioids
(morphine, oxycodone, hydromorphone).
- Requesting a lesser dose of the same medication IF
ORDERED.
- Requesting a less intrusive route of administration
if both routes are prescribed by the provider (PO <
IV).
07/03/25 16:32
Code Status As Directed
Resuscitation Status: Full Code
07/03/25 16:35
NEPHROLOGY CONSULT Routine
Consulting Provider: Hermelinda Reyna
Was physician already notified: Yes
07/03/25 16:41
HydrALAZINE [Apresoline] 10 mg IV NOW STA
07/03/25 16:57
Troponin I Q6H
07/03/25 23:00
Troponin I Q6H
07/05/25 11:00
DC Protocol for Telemetry ONCE
Abnormal Lab Results
07/03/25 07/03/25 07/03/25
12:56 13:36 16:57
WBC 15.2 H 10^3/uL
(4.8-10.8)
RBC 3.88 L 10^6/uL
(4.20-5.40)
Hgb 11.2 L g/dL
(12.0-16.0)
Hct 32.8 L %
(37.0-47.0)
Plt Count 432 H 10^3/uL
(130-400)
Abs Immat Gran (auto) 0.1 H 10^3/uL
(0-0.05)
Absolute Neuts (auto) 14.0 H 10^3/uL
(1.4-6.5)
Absolute Lymphs (auto) 0.8 L 10^3/uL
(1.2-3.4)
Immature Gran % 0.9 H %
(0-0.5)
Neutrophils % 92.4 H %
(42.2-75.2)
Lymphocytes % 5.3 L %
(20.5-51.1)
Monocytes % 1.2 L %
(1.7-9.3)
Sodium 131 L mmol/L 131 L mmol/L
(135-145) (135-145)
Potassium 5.7 H mmol/L
(3.5-5.1)
Chloride 95 L mmol/L 95 L mmol/L
(98-107) (98-107)
BUN 65 H mg/dl 61 H mg/dl
(7-17) (7-17)
Creatinine 6.7 H* mg/dL 6.9 H* mg/dL
(0.6-1.0) (0.6-1.0)
Glucose 360 H mg/dl 353 H mg/dl
(70-99) (70-99)
Calcium 10.5 H mg/dl 10.5 H mg/dl
(8.4-10.2) (8.4-10.2)
Direct Bilirubin 0.5 H mg/dl
(0.0-0.4)
Alkaline Phosphatase 203 H U/L
(38-126)
Troponin I 0.036 H* D ng/ml
07/03/25 12:56
07/03/25 13:36
Vital Signs
Initial and Last Documented VS:
Initial Vital Signs
Temp Pulse Resp BP Pulse Ox
98.8 F 97 18 205/110 100
07/03/25 12:16 07/03/25 12:16 07/03/25 12:16 07/03/25 12:16 07/03/25 12:16
Last Documented Vital Signs
Temp Pulse Resp BP Pulse Ox
98.8 F 95 18 164/72 94
07/03/25 12:16 07/03/25 18:45 07/03/25 18:45 07/03/25 18:00 07/03/25 13:45
MDM/Problems Addressed
Differential Diagnosis Includes:
Patient with a different chest pain than when she left the hospital which was felt to be musculoskeletal after CPR. Doubt primary cardiac issue. EKG is stable. Troponin pending. Would expect this to be positive with 24 hours of symptoms. Will
consider reflux or pancreatitis. Workup in progress. Pain management.
*Pulse Oximetry
SaO2: 100
Oxygen Mode of Delivery: Room air
Patient hypoxic: no
*EKG
Interpreted by ED Provider?: Yes
Interpretation: normal
Comparison EKG: no comparison EKG present
Heart Rate: 98
Rate: normal
Rhythm: sinus
[place]: normal axis
Interval: normal interval
QRS Pattern: normal QRS
Ischemia: other (Nonspecific inferior change)
*Critical Care Note
Total Time (30-74mins, 75-104mins- exclusive of procedures): Not Applicable
Data Reviewed
Review of Other/Old Records Reveals: Labs, Records, Radiology Studies, Testing, Discharge Summary and Other (Cardiac cath report)
Update Note
Update Note:
Patient with ongoing chest pain. Unlikely to be cardiac. Highly doubt PE. Elevated blood sugar. Elevated white count. Doubt spontaneous bacterial peritonitis however would have to be considered in workup. Admission for pain management further
care.
ED Attending Note
-
Portions of this chart may have been created with voice recognition software.� Occasional wrong word or��sound alike� substitutions may have occurred due to the inherent limitations of voice recognition software.
Discharge Plan
Departure
Patient Disposition: Admit
Date of Disposition: 07/03/25
Time of Disposition: 15:48
Presentation/result/management discussed w/ accepting MD/DO: Hospitalist
Discharge Problem:
Intractable chest/upper abdominal pain, History of renal failure, Peritoneal dialysis
Interventions
Interventions:
*ED COVID-19 Vaccine History Last Done: 07/03/25 14:33
*ED Influenza Vaccine History Last Done: 07/03/25 14:33
[facility] Risk Assessment Tool Last Done: 07/03/25 12:07
*Risk Screen - Suicide (C-SSRS) Last Done: 07/03/25 12:16
ED- Cardiac Assessment Last Done: 07/03/25 14:33
[2025-07-03 13:04] LABS: Hematocrit 32.8 % (37.0-47.0); Hemoglobin 11.2 g/dL (12.0-16.0); Mean Corp Hgb Conc. 34.1 g/dL (33.0-37.0); Mean Corpuscular Volume 84.5 fL (81.0-99.0); Nucleated Red Blood Cells % 0 %; Platelet Count 432 10^3/uL (130-400); Red Cell Dist. Width 13.2 % (11.5-14.5)
[2025-07-03 13:26] LABS: Blood Urea Nitrogen 65 mg/dl (7-17); Calcium 10.5 mg/dl (8.4-10.2); Carbon Dioxide 24 mmol/L (22-30); Chloride 95 mmol/L (98-107); Glucose 360 mg/dl (70-99); Lipase 137 U/L (23-300); Sodium 131 mmol/L (135-145); eGFR 6.58
[2025-07-03] MEDS: DILAUDID 0.5 MG IV ×2 (13:32→15:02)
[2025-07-03 13:33] LABS: Troponin I 0.028 ng/ml
[2025-07-03] MEDS: ZOFRAN 4 MG IV ×3 (13:33→20:11)
[2025-07-03 13:55] LABS: Potassium 5.7 mmol/L (3.5-5.1)
[2025-07-03 15:35] LABS: ALT (SGPT) 26 U/L (0-35); AST (SGOT) 31 U/L (14-36); Albumin 4.0 g/dl (3.5-5.0); Alkaline Phosphatase 203 U/L (38-126); Blood Urea Nitrogen 61 mg/dl (7-17); Calcium 10.5 mg/dl (8.4-10.2); Carbon Dioxide 26 mmol/L (22-30); Chloride 95 mmol/L (98-107); Glucose 353 mg/dl (70-99); Sodium 131 mmol/L (135-145); Total Protein 7.1 g/dl (6.3-8.2); eGFR 6.35
--- NOTE | 2025-07-03 15:51 | HPS.HSE ---
Addendum entered and electronically signed by Denis Garrett MD 07/03/25 17:14:
Seen and examined by me independently in collaboration with YAMILA Calvillo.
Past medical history/social history/medication/allergies reviewed.
Lab data and imaging data reviewed.
Patient limited historian because of language barrier.
Daughter on the phone is official curtain worker. also speaks Ghanaian at the bedside.
Patient was discharged on 26 June home. Discharge summary reviewed.
Since getting home she has not had a bowel movement. She is passing gas. Her bowel movements are usually regular on a daily basis but she does have episodes where she gets constipated and needs help. She is on MiraLAX as needed at home. She has
got history of gastroparesis. Not sure if there is any colonic motility issue. She thinks she had a colonoscopy and looking at the old records she had it in 2019 and showed normal colon.
She was feeling uncomfortable in the abdomen and then she started to have nausea and threw up yesterday. She threw up 7 times. No fever or chills. She could not tolerate her medications because of upper GI symptoms.
Her abdomen is soft but she has generalized discomfort in all the quadrants more so in the epigastric area but no rebound guarding rigidity.
CT of the abdomen pelvis shows no acute pathology. Small fluid-filled hiatus hernia. Moderate stool burden within the proximal and mid colon.
Clinical symptomatology concerning for constipation+_gastroparesis
With poor GI tolerance patient will be admitted to hospital. Keep on liquid diet. Will give milk of molasses enema. Start on senna Colace to laxative regimen. Use lactulose if needed.
Continue with PPI. Continue with Zenpep.
Patient has associated chest discomfort. She points towards the lower central chest/epigastric area. She is tender in the epigastric area. Again CT of the abdomen pelvis shows no acute pathology. Suspect may be related to her constipation and
gastroparesis than cardiac. She had a cardiac catheterization last month which showed no obstructive CAD. Echo showed normal LV function. She had chest discomfort recently felt secondary to CPR from her cardiac arrest. Chest x-ray from today no
acute cardiopulmonary disease. Troponin on admission is 0.028. EKG showed normal sinus rhythm and no significant changes found compared to June 22. Treat symptomatically for the chest discomfort.
Leukocytosis noted no fever. Unclear if reactive to her emesis. No symptoms. And GI symptoms as above. CT of the abdomen pelvis with no acute findings. Chest x-ray without acute findings. Follow clinically. Hold on antibiotics. Repeat CBC
in AM.
End-stage renal disease on peritoneal dialysis-consult nephrology
Essential hypertension continue home meds. Will use as needed hydralazine as needed for blood pressure management.
Full code
Original Note:
Family Physician
-
Family Physician: NOT KNOW UNKNOWN - PT DOES
Chief Complaint
-
Abdominal Pain and Vomiting
History of Present Illness
Patient is a 59 y/o female past medical history of ESRD on PD, HTN, DM, Hypothyroidism, Obesity, GERD/Gastroparesis, and Seizure Disorder who presents with abdominal pain. Patient as recently hospitalized from Jun 21 - following an unresponsive
episode that led to cardiac arrest. That hospitalization was complicated by development of abdominal pain for which she was seen by GI and started on Protonix, Carafate and Zenpep. Patient also did undergo work up for peritonitis which was
negative. Patient report she was up all night vomiting. She described burning sensation in her upper abdomen and chest. She notes associated constipation with last bowel movement two days ago. She denies fevers, sweats or chills.
Medical History
Past Medical History
Past Medical History: Reports Other
Additional Past Medical History:
ESRD on PD
Essential Hypertension
Diabetes Mellitus, Type II
Hypothyroidism
Obesity
GERD
Gastroparesis
Schatzki's Ring / Esophageal Dysmotility
Anemia of CKD
Seizure Disorder
Past Surgical History: Reports Other
Additional Past Surgical History:
Appendectomy
Cholecystectomy
PD Catheter Placement
Social History
Tobacco: Non-smoker
Alcohol: None
Drug: None
Personal:
Living: With Family
Family History
Family History: Not pertinent
Allergies / Home Medications
Allergies reflects when Allergies were last updated in [employer].
Home Medications with original date entered in [employer]
Allergy/Medication List:
Allergies
Allergy/AdvReac Type Severity Reaction Status Date / Time
metformin AdvReac DIARRHEA Verified 06/21/25 09:58
[facility] AdvReac diarrhea Verified 06/21/25 09:58
Home Medications
levothyroxine 100 mcg tablet 100 mcg PO DAILY Thyroid 11/17/20
atorvastatin 10 mg tablet 10 mg PO DAILY High cholesterol 02/23/22
ezetimibe 10 mg tablet 10 mg PO HS High cholesterol #30 tabs 02/27/22
calcitriol 0.5 mcg capsule 0.5 mcg PO DAILY Hyperparathyroidism 01/15/25
nortriptyline 75 mg capsule 75 mg PO HSPRN PRN anxiety 01/15/25
lidocaine 4 % topical patch 1 patch topical HSPRN PRN chest pain 05/21/25
losartan 50 mg tablet 50 mg PO DAILY Blood Pressure 05/21/25
nifedipine 90 mg tablet,extended release 24 hr 90 mg PO HS Blood Pressure 05/21/25
pantoprazole 40 mg tablet,delayed release 40 mg PO BID Gastrointestinal Issue #60 tabs 05/23/25
qhgeyx-flbhbuhj-xedckpx(pork)10,000-32,000-42,000 unit capsule,del rel (Zenpep) 1 cap PO AC Gastrointestinal Issue 06/21/25
polyethylene glycol 3350 17 gram oral powder packet 17 g PO DAILYPRN PRN constipation 06/21/25
sevelamer carbonate 800 mg tablet 800 mg PO AC Kidney Disease 06/21/25
sucralfate 100 mg/mL oral suspension 1 g PO ACHS Gastrointestinal Issue 06/21/25
acetaminophen 500 mg tablet 500 mg PO DAILYPRN PRN mild pain 07/03/25
insulin glargine 100 unit/mL (3 mL) subcutaneous pen (Lantus Solostar U-100 Insulin) 8 unit SC HS Diabetes 07/03/25
levetiracetam 500 mg tablet (Keppra) 500 mg PO HS Seizures 07/03/25
methocarbamol 500 mg tablet 500 mg PO TIDPRN PRN muscle spasm 07/03/25
metoprolol succinate 50 mg tablet,extended release 24 hr 50 mg PO BID Blood Pressure 07/03/25
midazolam 5 mg/spray (0.1 mL) nasal spray (Nayzilam) 5 mg intranasal DAILYPRN PRN seizure 07/03/25
tramadol 50 mg tablet 50 mg PO BID PRN mild pain 07/03/25
Review of Systems
-
A 12 point ROS was completed and negative except as noted: Yes
Constitutional: Denies Fever
Respiratory: Reports Trouble Breathing (Slight shortness of breath with vomiting episodes)
Cardiac: Reports Chest Pain
Physical Exam
Vital Signs
Vital Signs
Temp Pulse Resp BP Pulse Ox
98.8 F 92 12 210/94 94
07/03/25 12:16 07/03/25 13:45 07/03/25 13:45 07/03/25 13:09 07/03/25 13:45
Physical Exam
General: Comfortable and Conversant
HEENT: Anicteric and Moist mucous membranes
Respiratory: Clear and Non Labored Respirations
Cardiac: S1/S2 and Regular Rhythm
GI: Soft and Tender (Mild throughout, more tender in upper regions particularly epigastric and left upper quadrant)
Genito-urinary: Other (Denies dysuria)
Laboratory Results
-
07/03/25 12:56
07/03/25 13:36
Laboratory Results
Total Bilirubin 0.8 mg/dl (0.2-1.3) 07/03/25 13:36
AST 31 U/L (14-36) 07/03/25 13:36
ALT 26 U/L (0-35) 07/03/25 13:36
Alkaline Phosphatase 203 U/L (38-126) H 07/03/25 13:36
Troponin I 0.028 ng/ml 07/03/25 12:56
Lipase 137 U/L (23-300) 07/03/25 12:56
Data Reviewed
-
Lab Data: Labs Reviewed by me
Old Records: Reviewed
Impression/Plan
-
Abdominal Pain / Vomiting: Different includes gastritis vs gastroparesis vs constipation vs peritonitis vs cardiac
-Allow full liquids
-Continue Zosyn PRN
-Continue Protonix, Carafate and Zenpep as prior to admission
-Add Senokot-S BID
-Check peritoneal fluid for infection
-Trend troponin
Hyperkalemia
-Give one dose of Lokelma
Uncontrolled Hypertension
-Give dose of hydralazine NOW and continue PRN
-Prior notes indicate variable BP during prior admission
-Monitor BP closely
-Continue losartan, metoprolol, and nifedipine
ESRD on PD
-Consult Nephrology
-Continue calcitriol
-Continue sevelamer
Diabetes Mellitus, Type II
-Will order half usual dose of Lantus
-Monitor sugars and continue coverage insulin
Hyperlipidemia
-Continue atorvastatin and ezetimibe
Hypothyroidism
-Continue levothyroxine
Seizure Disorder
-Continue Keppra
DVT Proph: SC Heparin
Code Status: Full Code
[2025-07-03] MEDS: LOKELMA 10 GRAM PO (16:25)
[2025-07-03] MEDS: APRESOLINE 10 MG IV (16:50)
[2025-07-03 17:30] LABS: Troponin I 0.036 ng/ml
--- NOTE | 2025-07-03 18:36 | W.CON.NEPH ---
Consultation
-
Date/Time Consultation Requested: 07/03/25 1630
Date/Time Consultation Performed: 07/03/25 1630
Requesting Provider: Dr Denis Garrett
Performing Provider: Hermelinda Haney
Reason for Consultation: ESRD-PD
Medical History
-
Chief Complaint: Abd pain and vomiting
History of Present Illness:
59-year-old Kyrgyz-speaking female who has ESRD likely from diabetic nephropathy, started PD early 2024 5days/week, chronic GI issues from gastroparesis, diabetes mellitus type 2 on insulin therapy, hypertension controlled on a multidrug regimen,
CHF, hyperlipidemia, hypothyroidism, recent onset of seizures on Keppra, presents to the emergency department for evaluation of abdominal pain and nausea vomiting especially nonstop during the night and could not tolerate her medications. She did
complete her dialysis during the night and got disconnected at 6:00 a.m. in the morning.
note she was just admitted in the hospital from 06/21 to 06/26 and was treated for unresponsive episode possible cardiac arrest and had complete cardiac evaluation revealed no obstructive CAD and less likely felt to be a seizure however
medications were adjusted by Neurology. she reports no fever or chest pain. Maybe she has constipation takes laxatives at home. No issues with the PD. no coughing or diarrhea. Nephrology was consulted for end-stage renal disease management for
her peritoneal dialysis. The patient's peritoneal prescription is usually all 1.5% on cycler 5 days a week with skipping weekends.
at bedside provided the history. CT of the abdomen pelvis shows no acute pathology. Small fluid-filled hiatus hernia. Moderate stool burden within the proximal and mid colon.
Past Medical History
Coronary artery calcification, ESRD on peritoneal dialysis, diabetes, hypothyroidism, hypertension, hyperlipidemia, anemia of chronic disease, obesity, peptic ulcer disease
Secondary hyperparathyroidism, hyperphosphatemia, seizure disorder diagnosed in May 2025
Past Surgical History: Other (cholecystectomy, , appendectomy, PD catheter)
Social History
Tobacco: Non-Smoker
Alcohol: None
Personal:
Living: With Family
Employment: Not Employed
Family History
daughter on HD
Family History: Not Pertinent
Allergies / Home Medications
Allergy/AdvReac Type Severity Reaction Status Date / Time
metformin AdvReac DIARRHEA Verified 06/21/25 09:58
sitagliptin (From [facility]) AdvReac diarrhea Verified 06/21/25 09:58
�Medication �Instructions �Recorded �Confirmed �Type
levothyroxine 100 mcg tablet 100 mcg PO DAILY Thyroid 11/17/20 07/03/25 History
atorvastatin 10 mg tablet 10 mg PO DAILY High cholesterol 02/23/22 07/03/25 History
ezetimibe 10 mg tablet 10 mg PO HS High cholesterol #30 02/27/22 07/03/25 Rx
tabs
calcitriol 0.5 mcg capsule 0.5 mcg PO DAILY 01/15/25 07/03/25 History
Hyperparathyroidism
nortriptyline 75 mg capsule 75 mg PO HSPRN PRN anxiety 01/15/25 07/03/25 History
lidocaine 4 % topical patch 1 patch topical HSPRN PRN chest 05/21/25 07/03/25 History
pain
losartan 50 mg tablet 50 mg PO DAILY Blood Pressure 05/21/25 07/03/25 History
nifedipine 90 mg tablet,extended 90 mg PO HS Blood Pressure 05/21/25 07/03/25 History
release 24 hr
pantoprazole 40 mg tablet,delayed 40 mg PO BID Gastrointestinal 05/23/25 07/03/25 Rx
release Issue #60 tabs
ydxwpn-swfqqowf-ocmwegd(pork)10,000-32,000-42,000 1 cap PO AC Gastrointestinal Issue 06/21/25 07/03/25 History
unit capsule,del rel (Zenpep)
polyethylene glycol 3350 17 gram 17 g PO DAILYPRN PRN constipation 06/21/25 07/03/25 History
oral powder packet
sevelamer carbonate 800 mg tablet 800 mg PO AC Kidney Disease 06/21/25 07/03/25 History
sucralfate 100 mg/mL oral 1 g PO ACHS Gastrointestinal Issue 06/21/25 07/03/25 History
suspension
acetaminophen 500 mg tablet 500 mg PO DAILYPRN PRN mild pain 07/03/25 07/03/25 History
insulin glargine 100 unit/mL (3 8 unit SC HS Diabetes 07/03/25 07/03/25 History
mL) subcutaneous pen (Lantus
Solostar U-100 Insulin)
levetiracetam 500 mg tablet 500 mg PO HS Seizures 07/03/25 07/03/25 History
(Keppra)
methocarbamol 500 mg tablet 500 mg PO TIDPRN PRN muscle spasm 07/03/25 07/03/25 History
metoprolol succinate 50 mg 50 mg PO BID Blood Pressure 07/03/25 07/03/25 History
tablet,extended release 24 hr
midazolam 5 mg/spray (0.1 mL) 5 mg intranasal DAILYPRN PRN 07/03/25 07/03/25 History
nasal spray (Nayzilam) seizure
tramadol 50 mg tablet 50 mg PO BID PRN mild pain 07/03/25 07/03/25 History
Review of Systems
-
All other systems: Negative unless noted
Physical Exam
Vital Signs
Vital Signs
Temp Pulse Resp BP Pulse Ox
98.8 F 94 13 164/72 94
07/03/25 12:16 07/03/25 18:00 07/03/25 18:00 07/03/25 18:00 07/03/25 13:45
Lab Results
WBC 15.2 10^3/uL (4.8-10.8) H 07/03/25 12:56
RBC 3.88 10^6/uL (4.20-5.40) L 07/03/25 12:56
Hgb 11.2 g/dL (12.0-16.0) L 07/03/25 12:56
Hct 32.8 % (37.0-47.0) L 07/03/25 12:56
Plt Count 432 10^3/uL (130-400) H 07/03/25 12:56
Sodium 131 mmol/L (135-145) L 07/03/25 13:36
Potassium 5.7 mmol/L (3.5-5.1) H 07/03/25 13:36
Chloride 95 mmol/L (98-107) L 07/03/25 13:36
Carbon Dioxide 26 mmol/L (22-30) 07/03/25 13:36
BUN 61 mg/dl (7-17) H 07/03/25 13:36
Creatinine 6.9 mg/dL (0.6-1.0) H* 07/03/25 13:36
eGFR 6.35 07/03/25 13:36
Glucose 353 mg/dl (70-99) H 07/03/25 13:36
Calcium 10.5 mg/dl (8.4-10.2) H 07/03/25 13:36
Albumin 4.0 g/dl (3.5-5.0) 07/03/25 13:36
Physical Exam
General: Awake, Alert, Oriented, AOx3, No Distress and Nontoxic
HEENT: EOMI, Anicteric, Conjunctivae Clear and Facial Symmetry
Respiratory: Clear, Normal Excursion and Nonlabored Respirations
Cardiac: S1/S2 and Regular Rate/Rhythm
Breast: Deferred by me
Abdomen: Soft, Nondistended and Other ( mild tenderness in the upper abdomen)
Rectal: Deferred by Provider
Musculoskeletal: No Cyanosis and Edema
Skin: No Rash
Neuro: Nonfocal/Grossly Intact
Psych: Mood/afflect pleasant, Insight/judgement good and Appropriate
Vascular Access: Other ( PD catheter in the right lower abdomen- in good position without erythema or drainage)
Assessment/Plan
-
Assessment:
Abdominal Pain / Vomiting
Hyperkalemia
Uncontrolled Hypertension
Hyponatremia
leukocytosis
Diabetes mellitus type 2
End-stage renal disease on PD at [facility] PD script-all 1.5% bags, NIPD 8hrs. 5days/week(weekend break)
Hypothyroidism
Hyperlipidemia
Hypertension
Anxiety/depression
Chronic pain on tramadol
Fatty liver
Obesity
Anemia
Nephrolithiasis, incidental
Coronary artery calcification
Hyperphosphatemia
Secondary hyperparathyroidism mild hypercalcemia
seizure disorder
Plan:
A/w abd pain and vomiting last night
CT abd noted non acute, with stool burden
possible this is related to her gastroparesis and constipation
Will provide PD orders-2L q4hrs 1.5%
check PD fluid specially with leucocytosis
resume home antihypertensives
Maintain sevelamer with meals for hyperphosphatemia
Fluid restriction at 40 ounces daily re: hyponatremia
ok for Lokelam for hyperkalemia
monitor mild hypercalcemia, may need to decrease calcitriol if rajat still high
labs in am
d/w primary
[2025-07-03] MEDS: DILAUDID 0.25 MG IV ×2 (20:10→23:36)
[2025-07-03] MEDS: TOPROL XL 50 MG PO (20:49)
[2025-07-03] MEDS: PROTONIX 40 MG PO (20:49)
[2025-07-03] MEDS: RENVELA 800 MG PO (20:49)
[2025-07-03] MEDS: CARAFATE SUSPENSION 1 GM PO (20:49)
[2025-07-03] MEDS: SENOKOT-S 2 TABLET PO (20:49)
[2025-07-03] MEDS: CARAFATE SUSPENSION PO (22:45)
[2025-07-03] MEDS: LANTUS 0.04 UNITS SC (22:55)
[2025-07-03] MEDS: ZETIA 10 MG PO (22:56)
[2025-07-03] MEDS: PROCARDIA XL (EXTENDED RELEASE) 90 MG PO (22:56)
[2025-07-03] MEDS: KEPPRA 500 MG PO (22:56)
[2025-07-03] MEDS: HEPARIN 5000 UNITS SC (22:56)
[2025-07-03] MEDS: ZENPEP DELAYED RELEASE CAPSULE 1 CAPSULE PO (22:56)
[2025-07-03] MEDS: APRESOLINE 5 MG IV (23:35)
[2025-07-03] MEDS: DUPHALAC/CHRONULAC 20 GRAMS PO (23:35)
[2025-07-03 23:55] LABS: Glucose - Point of Care 281 mg/dl (70-99)
[2025-07-04] VITALS (10 sets, daily range): BP systolic 118–194; BP diastolic 53–79
[2025-07-04 00:44] LABS: Hematocrit 30.1 % (37.0-47.0); Hemoglobin 10.4 g/dL (12.0-16.0); Mean Corp Hgb Conc. 34.6 g/dL (33.0-37.0); Mean Corpuscular Volume 87.0 fL (81.0-99.0); Platelet Count 463 10^3/uL (130-400); Red Cell Dist. Width 13.5 % (11.5-14.5)
[2025-07-04 01:09] LABS: Blood Urea Nitrogen 65 mg/dl (7-17); Calcium 9.9 mg/dl (8.4-10.2); Carbon Dioxide 23 mmol/L (22-30); Chloride 95 mmol/L (98-107); Glucose 307 mg/dl (70-99); Potassium 5.1 mmol/L (3.5-5.1); Sodium 130 mmol/L (135-145); eGFR 7.08
[2025-07-04 01:22] LABS: Troponin I 0.037 ng/ml
--- NOTE | 2025-07-04 04:12 | PTCARENOTE ---
Pt admitted to room 2251 with abdominal and chest pain. Pt c/o chest pain 10/10 and nausea. PRN meds are given. Pt Yoruba speaking with family at bed side helping with translation. PD completed per order. Pt ambulates with X 1 assist. Pt and her
family oriented to the room. Safety measures in place
[2025-07-04] MEDS: DULCOLAX 10 MG RECTAL (05:08)
[2025-07-04] MEDS: DILAUDID 0.25 MG IV ×5 (06:39→21:07)
[2025-07-04 08:36] LABS: Glucose - Point of Care 349 mg/dl (70-99)
[2025-07-04] MEDS: NOVOLOG FLEXPEN-LOW RESISTANCE 4 UNITS SC ×3 (09:19→17:37)
[2025-07-04] MEDS: PROTONIX 40 MG PO ×2 (09:26→21:25)
[2025-07-04] MEDS: SENOKOT-S 2 TABLET PO ×2 (09:26→21:25)
[2025-07-04] MEDS: SYNTHROID 100 MCG PO (09:30)
[2025-07-04] MEDS: LIPITOR 10 MG PO (09:30)
[2025-07-04] MEDS: HEPARIN 5000 UNITS SC ×3 (09:31→23:40)
[2025-07-04] MEDS: TOPROL XL 50 MG PO ×2 (09:31→21:25)
[2025-07-04] MEDS: COZAAR 50 MG PO (09:31)
[2025-07-04 09:38] LABS: Troponin I 0.025 ng/ml
[2025-07-04] MEDS: ZOFRAN 4 MG IV ×2 (09:40→18:47)
[2025-07-04] MEDS: TYLENOL 650 MG PO ×2 (09:41→17:29)
[2025-07-04] MEDS: RENVELA 800 MG PO ×3 (09:44→17:28)
[2025-07-04] MEDS: ROCALTROL 0.5 MCG PO (09:44)
[2025-07-04] MEDS: CARAFATE SUSPENSION 1 GM PO ×4 (09:44→21:26)
[2025-07-04] MEDS: ZENPEP DELAYED RELEASE CAPSULE 1 CAPSULE PO ×3 (09:44→17:28)
--- NOTE | 2025-07-04 10:18 | PTCARENOTE ---
Patient received at change of shift resting in the bed. SR on telemetry. SaO2 on RA 98-99%. The patient reports 'bad'/severe epigastric pain. Reports nausea but no vomiting at present time. Pain medications administered, see SEP. PRJeromy Zofran
administered, see SEP. Peritoneal dialysis being completed as ordered, fluid clear. Language line utilized as the patient and her spouse are primarily [place] speaking. Troponin trending down. Discussed ongoing pain and nausea with Dr. Garrett at the
bedside. Plan of care discussed with patient and spouse. Bed alarm in place as patient is high fall risk. Call zuleta within reach. Care ongoing
--- NOTE | 2025-07-04 10:27 | W.PN.HOSP.TC ---
Today's Communication/Plan
-
Continue with bowel regimen. Repeat milk of molasses if no bowel movement today.
Start on empirical ceftriaxone pending peritoneal fluid analysis.
Follow white count
Assessment / Plan
Assessment / Plan
Abdominal Pain / Vomiting: Different includes gastritis vs gastroparesis vs constipation vs peritonitis
CT of the abdomen pelvis shows no acute pathology. Moderate amount of stool noted.
doubt cardiac. Patient had recent cardiac catheterization which showed no obstructive CAD. EF is normal. Troponin peak is 0.03 which could be just function of renal failure.
-Continue with full liquids
-Continue Zosyn PRN
-Continue Protonix, Carafate and Zenpep as prior to admission
- Continue with Senokot-S BID
- Await peritoneal fluid analysis
-Will give higher volume of milk of molasses enema if no output with rectal suppository
Leukocytosis
Afebrile. Nontoxic. Chest x-ray without any evidence of focal abnormality. Abdomen pelvis CT shows no evidence of acute intra-abdominal pathology.
With persistent elevation in abdominal discomfort and peritoneal dialysis well will start on empirical ceftriaxone pending peritoneal culture data.
Hyperkalemia
- S/p Lokelma
-Normalized
Uncontrolled Hypertension
- Improving. Patient could not tolerate higher antihypertensives at home because of GI symptoms.
-Prior notes indicate variable BP during prior admission
-Monitor BP closely
-Continue losartan, metoprolol, and nifedipine
ESRD on PD
- Appreciate nephrology input
-Continue calcitriol
-Continue sevelamer
Diabetes Mellitus, Type II
-Will order half usual dose of Lantus
-Monitor sugars and continue coverage insulin
Hyperlipidemia
-Continue atorvastatin and ezetimibe
Hypothyroidism
-Continue levothyroxine
Seizure Disorder
-Continue Keppra
DVT Proph: SC Heparin
Code Status: Full Code
Discussed with RN
Total time spent on today's encounter was 52 minutes which included time spent in counseling the patient/family regarding diagnosis and treatment plan as listed above, goals of care, and symptom management. Case was discussed with nursing staff,
specialists, and care coordinators/case management. All labs and imaging personally reviewed by me. Remainder the time spent in detailed review of previous records, lab data, imaging, and other medical provider documentation.
Portions of this chart may have been created with voice recognition software. Occasional wrong word or 'sound alike' substitutions may have occurred due to the inherent limitations of voice recognition software.
Anticipated Discharge: > 48 hours
Subjective/Interval History
-
Date of Service: July 04, 2025
History is from patient. present at bedside. Son available on the phone helping with interpretation as well.
Patient is limited historian because of language barrier.
Patient still persist to have abdominal pain and rating 10 out of 10 this morning. Is generalized. She had only a small amount of stool with enema yesterday. Just got rectal suppository.
Still feeling nauseous but no throw ups.
No fever chills.
No chest pain. On room air.
Objective Data
-
Labs:
Laboratory Results
07/04/25
00:34
WBC 19.5 H
Hgb 10.4 L
Hct 30.1 L
Plt Count 463 H
Sodium 130 L
Potassium 5.1
Chloride 95 L
Carbon Dioxide 23
BUN 65 H
Creatinine 6.3 H*
Glucose 307 H
Calcium 9.9
Vital Signs:
Vital Signs
Temp Pulse Resp BP Pulse Ox
98.9 F 84 17 151/70 98
07/04/25 06:55 07/04/25 09:45 07/04/25 06:55 07/04/25 09:31 07/04/25 09:46
I&O
07/03/25 07/04/25 07/05/25
06:59 06:59 06:59
Intake Total 400 / 400 100 / 100
Balance 400 / 400 100 / 100
Physical Exam
-
General: No Apparent Distress
HEENT: Moist Mucous Membranes
Respiratory: Clear to Auscultation, Non Labored Respirations and Accessory Resp Muscle Use
Cardiac: Regular Rhythm and S1/S2; Negative Tachycardic
GI: Soft, Nondistended, Normal Bowel Sounds and Tender (In general but no rebound guarding rigidity.)
Neuro: AO x 3
Psych: Calm; Negative Confused
Data Reviewed
-
Labs: Labs Reviewed by me
[2025-07-04 11:46] LABS: Body Fluid Second Tech SS
[2025-07-04 12:06] LABS: Glucose - Point of Care 336 mg/dl (70-99)
[2025-07-04] MEDS: ROCEPHIN 1000 MG IV (12:07)
[2025-07-04] MEDS: STERILE WATER FOR INJECTION 10 ML IV (12:07)
--- NOTE | 2025-07-04 15:27 | W.PN.NEPH.PH ---
Today's Communication / Plan
-
PD continue
Assessment/Plan
-
Assessment:
Abdominal Pain / Vomiting
Hyperkalemia
Uncontrolled Hypertension
Hyponatremia
leukocytosis
Diabetes mellitus type 2
End-stage renal disease on PD at [facility] PD script-all 1.5% bags, NIPD 8hrs. 5days/week(weekend break)
Hypothyroidism
Hyperlipidemia
Hypertension
Anxiety/depression
Chronic pain on tramadol
Fatty liver
Obesity
Anemia
Nephrolithiasis, incidental
Coronary artery calcification
Hyperphosphatemia
Secondary hyperparathyroidism mild hypercalcemia
seizure disorder
Plan:
CT abd noted non acute, with stool burden
possible this is related to her gastroparesis and constipation
Will provide PD orders-2L q4hrs 1.5%
Cell count 11 no signs of peritonitis
Gram stain pending
discussed with family at bedside
labs in am
-
-
Date of Service: July 04, 2025
CC / HPI / ROS
-
Chief Complaint:
abdominal pain
History of Present Illness:
end-stage renal disease on PD presents with abdominal pain recurrent in nature with a history of gastroparesis and diabetes
Review of Systems:
abdominal pain and no chest pain or shortness of breath
Labs
-
Labs:
WBC 19.5 10^3/uL (4.8-10.8) H 07/04/25 00:34
RBC 3.46 10^6/uL (4.20-5.40) L 07/04/25 00:34
Hgb 10.4 g/dL (12.0-16.0) L 07/04/25 00:34
Hct 30.1 % (37.0-47.0) L 07/04/25 00:34
Plt Count 463 10^3/uL (130-400) H 07/04/25 00:34
Sodium 130 mmol/L (135-145) L 07/04/25 00:34
Potassium 5.1 mmol/L (3.5-5.1) 07/04/25 00:34
Chloride 95 mmol/L (98-107) L 07/04/25 00:34
Carbon Dioxide 23 mmol/L (22-30) 07/04/25 00:34
BUN 65 mg/dl (7-17) H 07/04/25 00:34
Creatinine 6.3 mg/dL (0.6-1.0) H* 07/04/25 00:34
eGFR 7.08 07/04/25 00:34
Glucose 307 mg/dl (70-99) H 07/04/25 00:34
Calcium 9.9 mg/dl (8.4-10.2) 07/04/25 00:34
Albumin 4.0 g/dl (3.5-5.0) 07/03/25 13:36
Physical Exam
-
Vital Signs:
Vital Signs
Temp Pulse Resp BP Pulse Ox
98.5 F 87 20 137/79 99
07/04/25 14:50 07/04/25 11:00 07/04/25 14:50 07/04/25 10:56 07/04/25 14:50
Cardiovascular:: Regular rate and rhythm
Respiratory:: Bilateral: Coarse
Lung Excursion:: Normal
Abdomen:: Nontender and Soft
Bowel Sounds:: Normal
Extremity Edema:: None: Bilateral:
[2025-07-04 17:37] LABS: Glucose - Point of Care 311 mg/dl (70-99)
[2025-07-04] MEDS: APRESOLINE 5 MG IV (18:47)
[2025-07-04] MEDS: ZETIA 10 MG PO (21:25)
[2025-07-04] MEDS: KEPPRA 500 MG PO (21:25)
[2025-07-04] MEDS: PROCARDIA XL (EXTENDED RELEASE) 90 MG PO (21:25)
[2025-07-04 22:23] LABS: Glucose - Point of Care 248 mg/dl (70-99)
[2025-07-04] MEDS: LANTUS 0.04 UNITS SC (22:39)
[2025-07-05] VITALS (11 sets, daily range): BP systolic 116–184; BP diastolic 60–88; BMI 31.4
[2025-07-05 04:44] LABS: Hematocrit 27.3 % (37.0-47.0); Hemoglobin 9.1 g/dL (12.0-16.0); Mean Corp Hgb Conc. 33.3 g/dL (33.0-37.0); Mean Corpuscular Volume 87.8 fL (81.0-99.0); Platelet Count 379 10^3/uL (130-400); Red Cell Dist. Width 13.7 % (11.5-14.5)
[2025-07-05 05:22] LABS: Blood Urea Nitrogen 52 mg/dl (7-17); Calcium 9.2 mg/dl (8.4-10.2); Carbon Dioxide 27 mmol/L (22-30); Chloride 94 mmol/L (98-107); Estimated Creatinine Clearance 7 ml/min; Glucose 216 mg/dl (70-99); Potassium 4.1 mmol/L (3.5-5.1); Sodium 129 mmol/L (135-145); eGFR 8.72
--- NOTE | 2025-07-05 06:15 | PTCARENOTE ---
Pt NSR on monitor, VSS. c/o abd pain PRN meds given. Pt OOB with x 1 assist[address] Safety measures in place
[2025-07-05] MEDS: DILAUDID 0.25 MG IV ×4 (08:24→21:50)
[2025-07-05] MEDS: ZENPEP DELAYED RELEASE CAPSULE 1 CAPSULE PO ×2 (08:28→13:00)
[2025-07-05] MEDS: ROCALTROL 0.5 MCG PO (08:28)
[2025-07-05] MEDS: DUPHALAC/CHRONULAC 20 GRAMS PO (08:28)
[2025-07-05] MEDS: LIPITOR 10 MG PO (08:28)
[2025-07-05] MEDS: CARAFATE SUSPENSION 1 GM PO ×4 (08:29→21:49)
[2025-07-05] MEDS: RENVELA 800 MG PO ×3 (08:29→16:41)
[2025-07-05] MEDS: SYNTHROID 100 MCG PO (08:29)
[2025-07-05] MEDS: PROTONIX 40 MG PO ×2 (08:29→20:26)
[2025-07-05] MEDS: COZAAR 50 MG PO (08:29)
[2025-07-05] MEDS: HEPARIN 5000 UNITS SC ×2 (08:29→16:42)
[2025-07-05] MEDS: SENOKOT-S 2 TABLET PO ×2 (08:29→20:26)
[2025-07-05] MEDS: TOPROL XL 50 MG PO ×2 (08:30→20:26)
[2025-07-05] MEDS: NOVOLOG FLEXPEN-LOW RESISTANCE 3 UNITS SC ×2 (08:39→12:57)
[2025-07-05 09:19] LABS: Glucose - Point of Care 282 mg/dl (70-99)
--- NOTE | 2025-07-05 10:35 | W.PN.HOSP.TC ---
Today's Communication/Plan
-
Consult GI
Increase Lantus dose to 8 units
Continue with bowel regimen
Hold antibiotics and follow leukocytosis.
Assessment / Plan
Assessment / Plan
Abdominal Pain / Vomiting: Different includes gastritis vs gastroparesis vs constipation
CT of the abdomen pelvis shows no acute pathology. Moderate amount of stool noted.
Doubt cardiac. Patient had recent cardiac catheterization which showed no obstructive CAD. EF is normal. Troponin peak is 0.03 which could be just function of renal failure.
Peritoneal fluid initial analysis negative for peritonitis. Fluid cultures so far negative. Doubt peritonitis.
-Continue with full liquids
-Continue Zosyn PRN
-Continue Protonix, Carafate and Zenpep as prior to admission
-Continue with Senokot-S BID
- Continue bowel regimen
- Consult GI for further evaluation with continued abdominal pain
Leukocytosis
Afebrile. Nontoxic. Chest x-ray without any evidence of focal abnormality. Abdomen pelvis CT shows no evidence of acute intra-abdominal pathology.
Empirical ceftriaxone was added pending peritoneal fluid analysis which is negative for peritonitis-hold further ceftriaxone and follow white count.
Afebrile and nontoxic.
Hyperkalemia
- S/p Lokelma
-Normalized
Uncontrolled Hypertension
-Under goal today
-Prior notes indicate variable BP during prior admission
-Monitor BP closely
-Continue losartan, metoprolol, and nifedipine
ESRD on PD
- Appreciate nephrology input
-Continue calcitriol
-Continue sevelamer
Diabetes Mellitus, Type II
- Hemoglobin A1c 7.7 this month
- Uncontrolled on this adx - on full liquid diet
-Increase to home dose of Lantus
-Monitor sugars and continue coverage insulin
Hyperlipidemia
-Continue atorvastatin and ezetimibe
Hypothyroidism
-Continue levothyroxine
Seizure Disorder
-Continue Keppra
DVT Proph: SC Heparin
Code Status: Full Code
Discussed with RN
[facility] Nephrology
Portions of this chart may have been created with voice recognition software. Occasional wrong word or 'sound alike' substitutions may have occurred due to the inherent limitations of voice recognition software.
Anticipated Discharge: > 48 hours
Subjective/Interval History
-
Date of Service: July 05, 2025
Continued abdominal pain requiring IV pain medication.
No appetite. No emesis. Had some bowel movement with milk of molasses enema yesterday.
Denies any chest pain shortness of breath or palpitations.
at bedside. Daughter was involved in the conversation today on the speaker phone of the .
Objective Data
-
Labs:
Laboratory Results
07/05/25
04:04
WBC 13.7 H
Hgb 9.1 L
Hct 27.3 L
Plt Count 379
Sodium 129 L
Potassium 4.1
Chloride 94 L
Carbon Dioxide 27
BUN 52 H
Creatinine 5.3 H*
Glucose 216 H
Calcium 9.2
Vital Signs:
Vital Signs
Temp Pulse Resp BP Pulse Ox
99.1 F 73 16 120/63 97
07/05/25 08:15 07/05/25 08:30 07/05/25 08:15 07/05/25 08:30 07/05/25 08:15
I&O
07/04/25 07/05/25 07/06/25
06:59 06:59 06:59
Intake Total 400 / 400 1180 / 1180
Balance 400 / 400 1180 / 1180
Physical Exam
-
General: Negative Comfortable
Respiratory: Clear to Auscultation and Non Labored Respirations; Negative Accessory Resp Muscle Use
Cardiac: Regular Rhythm and S1/S2; Negative Tachycardic
GI: Soft, Nondistended, Normal Bowel Sounds and Tender (in all quadrants with epigastric area being more so; no rebound or guarding)
Neuro: AO x 3
Psych: Calm; Negative Confused
Data Reviewed
-
Labs: Labs Reviewed by me
--- NOTE | 2025-07-05 12:25 | CM ---
Addendum entered by Lisa Leblanc RN 07/05/25 12:27:
Offered patient and Advance Directive packet, currently refusing.
Original Note:
Chart reviewed. Patient is estonian speaking, and daughter who is on the phone to translate. Patient is independent of ADLS, lives with her in a [address], [address], 0 [address]. Patient has home peritoneal dialysis M-F and uses [facility].
Plan is for the patient to return home. CM to follow
[2025-07-05] MEDS: STERILE WATER FOR INJECTION IV (13:00)
--- NOTE | 2025-07-05 13:04 | PTCARENOTE ---
Patient had abdominal pain this morning at 0800, Dilaudid IV given with relief. 4 large formed soft light brown stools following lactose and Senokot. Abdominal tenderness this mooring seems resolved now. Tolerated PD dialysis this morning with clear
yellow drainage. Anuric. NSR, vitals stable. Sleepy but arouses easily, Congolese speaking, at bedside to assist with translation. She is sitting on side of bed, tolerating full liquid diet. Bed alarm is audible
--- NOTE | 2025-07-05 13:35 | PTCARENOTE ---
Patient with epigastric pain radiating under her left breast, abdominal tenderness. Dilaudid IV given. SHe just finished eating 80% of her full liquid lunch
--- NOTE | 2025-07-05 14:15 | W.PN.NEPH.PH ---
Today's Communication / Plan
-
continue PD orders
Assessment/Plan
-
Assessment:
Abdominal Pain / Vomiting
Hyperkalemia
Uncontrolled Hypertension
Hyponatremia
leukocytosis
Diabetes mellitus type 2
End-stage renal disease on PD at [facility] PD script-all 1.5% bags, NIPD 8hrs. 5days/week(weekend break)
Hypothyroidism
Hyperlipidemia
Hypertension
Anxiety/depression
Chronic pain on tramadol
Fatty liver
Obesity
Anemia
Nephrolithiasis, incidental
Coronary artery calcification
Hyperphosphatemia
Secondary hyperparathyroidism mild hypercalcemia
seizure disorder
Plan:
CT abd noted non acute, with stool burden
possible this is related to her gastroparesis and constipation
Will provide PD orders-2L q4hrs 1.5%
Cell count 11 no signs of peritonitis
Gram stain no growth times 24 hours
discussed with family at bedside
from arenal standpoint abdominal, pain is not due to any peritoneal dialysis related issues.
She did have bowel movement large as discussed with the nurse likely the cause of her pain
labs in am
-
-
Date of Service: July 05, 2025
CC / HPI / ROS
-
Chief Complaint:
abdominal pain
History of Present Illness:
end-stage renal disease on PD presents with abdominal pain recurrent in nature with a history of gastroparesis and diabetes
Review of Systems:
abdominal pain and no chest pain or shortness of breath
Labs
-
Labs:
WBC 13.7 10^3/uL (4.8-10.8) H 07/05/25 04:04
RBC 3.11 10^6/uL (4.20-5.40) L 07/05/25 04:04
Hgb 9.1 g/dL (12.0-16.0) L 07/05/25 04:04
Hct 27.3 % (37.0-47.0) L 07/05/25 04:04
Plt Count 379 10^3/uL (130-400) 07/05/25 04:04
Sodium 129 mmol/L (135-145) L 07/05/25 04:04
Potassium 4.1 mmol/L (3.5-5.1) 07/05/25 04:04
Chloride 94 mmol/L (98-107) L 07/05/25 04:04
Carbon Dioxide 27 mmol/L (22-30) 07/05/25 04:04
BUN 52 mg/dl (7-17) H 07/05/25 04:04
Creatinine 5.3 mg/dL (0.6-1.0) H* 07/05/25 04:04
eGFR 8.72 07/05/25 04:04
Glucose 216 mg/dl (70-99) H 07/05/25 04:04
Calcium 9.2 mg/dl (8.4-10.2) 07/05/25 04:04
Albumin 4.0 g/dl (3.5-5.0) 07/03/25 13:36
Physical Exam
-
Vital Signs:
Vital Signs
Temp Pulse Resp BP Pulse Ox
98.3 F 76 16 144/68 97
07/05/25 12:00 07/05/25 13:00 07/05/25 12:00 07/05/25 11:36 07/05/25 12:00
Cardiovascular:: Regular rate and rhythm
Respiratory:: Bilateral: Coarse
Lung Excursion:: Normal
Abdomen:: Nontender and Soft
Bowel Sounds:: Normal
Extremity Edema:: None: Bilateral:
--- NOTE | 2025-07-05 14:27 | CON.GI ---
Translation Services
-
Preferred Language: Singaporean
Team Leader/Research Psychologist service via: Phone
Comment: Used her daughter, Sarah for translation who I know from outpatient. [phone]
Consultation
-
Date/Time Consultation Requested: 07/05/2025
Date/Time Consultation Performed: 07/05/2025
Requesting Provider: Dr. Garrett
Performing Provider: Dr. Casiano
Reason for Consultation: Abdominal pain
Medical History
Chief Complaint / HPI
History of Present Illness:
Estelita is a 59-year-old Singaporean-speaking female well-known to the GI service who I have seen as an outpatient who has a medical history significant for uncontrolled type 2 diabetes with an A1c of 7.7, hyperlipidemia, gastroparesis, esophageal
dysmotility and Schatzki's ring with moderate hiatal hernia, questionable pancreatitis on Zenpep, chronic anemia, CHF, end-stage renal disease on peritoneal dialysis who has had multiple admissions with recurrent nausea vomiting since the start of
peritoneal dialysis who was just discharged on 06/26/2025 for similar symptoms at that time she was in an IR procedure for port placement and became unresponsive requiring a period of CPR and epinephrine. She had recently been put on Reglan and
because of concern for QT issues Reglan and tramadol were held for concern of lowering seizure threshold and prolonged QT.
At home, she said since CPR she has had significant chest wall pain that goes from her left rib cage up into her sternum. A few days before admission her episode of nausea and vomiting started and she was unable to take pain medication orally and
had to come to the emergency room.
Since being here she underwent a CT scan showing constipation and today after getting senna and lactulose she moves her bowels multiple times and is feeling better. She is getting some Dilaudid for her pain.
The family thought that Zenpep was to help move her bowels better and they states she has been having issues with constipation at home. They misunderstood regarding what Zenpep was for.
Blood work shows a leukocytosis of 19,000 yesterday down to 13,000 today, chronic mild anemia ranging from 9-11, platelets 379, sodium 129, creatinine 4.1, BUN 52, creatinine 5.3, glucose 260, PD fluid without infection CT scan was done without IV
or oral contrast.
Showing a small fluid-filled hiatal hernia, normal unenhanced liver, absent gallbladder, no ductal dilatation, normal unenhanced pancreas spleen adrenals. No bowel obstruction or wall thickening, absent appendix, residual oral contrast from her
prior examination within the mid and distal colon with moderate amount of stool in the proximal and mid colon.
Past Medical History
Past Medical History: Other (Diabetes, hypertension, chronic kidney disease on peritoneal dialysis, GERD, gastroparesis, history of C. difficile)
Past Surgical History: Other (Appendectomy, laparoscopic cholecystectomy, , peritoneal dialysis, port placement)
Social History
Tobacco: Non-Smoker
Alcohol: None
Drug: None
Personal:
Living: With Family
Employment: Disabled
Family History
Family History: Reviewed & Not Pertinent
Allergies / Home Medications
Allergy/AdvReac Type Severity Reaction Status Date / Time
metformin AdvReac DIARRHEA Verified 06/21/25 09:58
sitagliptin (From Juluvia) AdvReac diarrhea Verified 06/21/25 09:58
�Medication �Instructions �Recorded
levothyroxine 100 mcg tablet 100 mcg PO DAILY Thyroid 11/17/20
atorvastatin 10 mg tablet 10 mg PO DAILY High cholesterol 02/23/22
ezetimibe 10 mg tablet 10 mg PO HS High cholesterol #30 02/27/22
tabs
calcitriol 0.5 mcg capsule 0.5 mcg PO DAILY 01/15/25
Hyperparathyroidism
nortriptyline 75 mg capsule 75 mg PO HSPRN PRN anxiety 01/15/25
lidocaine 4 % topical patch 1 patch topical HSPRN PRN chest 05/21/25
pain
losartan 50 mg tablet 50 mg PO DAILY Blood Pressure 05/21/25
nifedipine 90 mg tablet,extended 90 mg PO HS Blood Pressure 05/21/25
release 24 hr
pantoprazole 40 mg tablet,delayed 40 mg PO BID Gastrointestinal 05/23/25
release Issue #60 tabs
wregki-skxusrru-fytlflf(pork)10,000-32,000-42,000 1 cap PO AC Gastrointestinal Issue 06/21/25
unit capsule,del rel (Zenpep)
polyethylene glycol 3350 17 gram 17 g PO DAILYPRN PRN constipation 06/21/25
oral powder packet
sevelamer carbonate 800 mg tablet 800 mg PO AC Kidney Disease 06/21/25
sucralfate 100 mg/mL oral 1 g PO ACHS Gastrointestinal Issue 06/21/25
suspension
acetaminophen 500 mg tablet 500 mg PO DAILYPRN PRN mild pain 07/03/25
insulin glargine 100 unit/mL (3 8 unit SC HS Diabetes 07/03/25
mL) subcutaneous pen (Lantus
Solostar U-100 Insulin)
levetiracetam 500 mg tablet 500 mg PO HS Seizures 07/03/25
(Keppra)
methocarbamol 500 mg tablet 500 mg PO TIDPRN PRN muscle spasm 07/03/25
metoprolol succinate 50 mg 50 mg PO BID Blood Pressure 07/03/25
tablet,extended release 24 hr
midazolam 5 mg/spray (0.1 mL) 5 mg intranasal DAILYPRN PRN 07/03/25
nasal spray (Nayzilam) seizure
tramadol 50 mg tablet 50 mg PO BID PRN mild pain 07/03/25
Review of Systems
-
History Source: Patient and Family
All other systems: A 12 pt ROS was Negative except as stated above in HPI
Vital Signs
Temp Pulse Resp BP Pulse Ox
98.3 F 76 16 144/68 97
07/05/25 12:00 07/05/25 13:00 07/05/25 12:00 07/05/25 11:36 07/05/25 12:00
Physical Exam
Exam
General: Other (Uncomfortable appearing)
HEENT: Anicteric
Cardiac: S1/S2
GI: Soft and Tender (Her left upper quadrant below the ribs on the ribs into the sternum are all tender to palpation)
Neuro: Awake and AO x 3
Results
WBC 13.7 10^3/uL (4.8-10.8) H 07/05/25 04:04
Hgb 9.1 g/dL (12.0-16.0) L 07/05/25 04:04
Hct 27.3 % (37.0-47.0) L 07/05/25 04:04
MCV 87.8 fL (81.0-99.0) 07/05/25 04:04
Plt Count 379 10^3/uL (130-400) 07/05/25 04:04
Absolute Neuts (auto) 14.0 10^3/uL (1.4-6.5) H 07/03/25 12:56
Sodium 129 mmol/L (135-145) L 07/05/25 04:04
Potassium 4.1 mmol/L (3.5-5.1) 07/05/25 04:04
Chloride 94 mmol/L (98-107) L 07/05/25 04:04
Carbon Dioxide 27 mmol/L (22-30) 07/05/25 04:04
BUN 52 mg/dl (7-17) H 07/05/25 04:04
Creatinine 5.3 mg/dL (0.6-1.0) H* 07/05/25 04:04
Calcium 9.2 mg/dl (8.4-10.2) 07/05/25 04:04
Total Bilirubin 0.8 mg/dl (0.2-1.3) 07/03/25 13:36
AST 31 U/L (14-36) 07/03/25 13:36
ALT 26 U/L (0-35) 07/03/25 13:36
Alkaline Phosphatase 203 U/L (38-126) H 12/24/25 13:36
Lipase 137 U/L (23-300) 07/03/25 12:56
OBJECTIVE DATA REVIEW:
--- 07/03/2025 CT scan abdomen pelvis without IV or oral contrast small fluid-filled hiatal hernia, unenhanced normal liver, absent gallbladder, bile ducts, pancreas, spleen, absent appendix. Moderate amount of stool in the proximal and mid colon.
--- 05/22/2025, abdominal x-ray shows no significant constipation
--- 05/20/2025 CT abdomen pelvis without IV or oral contrast, questionable mild acute pancreatitis moderate hiatal hernia, moderate circumferential wall thickening of the distal esophagus
---03/09/25 +cdiff
---03/07/25 UGI (single contrast due to inability for patient to stand)
1. Markedly limited exam as described.
2. Mild gastroesophageal reflux.
3. Small to moderate size hiatal hernia.
4. Mild presbyesophagus.
----03/05/2025 CT abdomen pelvis without IV or oral contrast unenhanced liver spleen and pancreas were unremarkable. Moderate ascites. Gallbladder removed.� Moderate hiatal hernia enlarged
----08/22/23 hemoglobin 8.8 with an elevated ferritin of 481, not iron deficient, vitamin D less than 12.8, creatinine 3.6, BUN 45, hemoglobin A1c 6.9 down from 9.6
----08/20/23 MRI of the abdomen minimal inflammatory stranding about the tail of the pancreas with significant motion artifact. No pancreatic ductal dilatation. Liver and spleen are normal in size. No evidence of filling defect in the common bile
duct. History of cholecystectomy. Mild wall thickening in the second portion of the duodenum, stomach distends normally.
---08/18/23 CT abdomen pelvis without IV contrast showing significant stranding of fat surrounding the pancreas greatest in the body highly suggestive of pancreatitis which is new.
----08/06/23 hemoglobin 9.8, MCV 86, platelets 291, parathyroid hormone intact 854 very high, creatinine 3.8, phosphorus 5.5, sodium 138, BUN 60, elevated urine protein
----07/08/23 esophagram normal study with esophagus being normal in architecture motility and empties completely within 30 seconds of barium ingestion
----07/08/23 Inpatient EGD for chest pain, nausea with vomiting, uncontrolled diabetes and gastroparesis. Patient on PPI. Abnormal motility in the esophagus noted with spasticity. Mild narrowing at the GE junction with biopsies showing focal
parakeratosis mild chronic inflammation consistent with reflux. No eosinophils, negative for Keene's, negative for fungus. Mild gastric erythema, negative for H. pylori, normal small bowel, negative for celiac disease. Continue PPI, proceed to
esophageal manometry as an outpatient with pH impedance.
---LABS;05/23/21;WBC 6.5, hemoglobin 10.5, hematocrit 30.4, platelets 261
sodium 133, potassium 4.7, BUN 22, creatinine 1.4, glucose 130 hemoglobin A1c 8.5
---04/18/21 CT no evidence of inflammatory abnormality in abdomen or pelvis. Unremarkable liver. No intra-or extrahepatic ductal dilatation. Gallbladder is absent.
12/09/20 obstruction series- no obstruction, free air, limited CXR, small left pleural effusion no pulm edema
12/03/20- abdomen X ray-oral contrast right colon
12/02/20- US abdomen with doppler-patent hepatic vasculature with appropriate directional flow, increased echogenicity of liver c/w underlying hepatocellular diseae, most commonly fatty liver
12/02/20- CT abdomen/pelvis-smith paucity of oral contrast and lack of IV contrast no gross abnormality no ostruction free air or focal fluid collection, prior appe, possible small HH, pericardial thickening unchanged
11/24/20 EGD completed without complication--Esophagus Normal mucosaandbiopsied 8 mm benign-appearing polyp at GE junction,biopsied
Stomach Diffuse, mild gastritis,biopsied for H. pylori Small amount of bile in stomach,aspirated Duodenum Normal mucosa,biopsied for celiac disease
11/19/20-MR abdomen without contrast- no bile duct dilation or choledocholithiasis, non specifice stranding, no hydrop or obstructive uropathy
EGD:03/2020- food in stomach with small HH, Z line variable no lesion in esophagus
Colonoscopy: 12/28- no appendiceal pathology on luminal side
2017 capsule slow to pass normal per notes report not reviewed
05/09/18 CT without IV or oral contrast-increased left perinephric fat stranding and thickening of gerota fascia no nephrolithiasis or hydro
EGD 12/21/17: tortuous esophagus, scar, no inflammation. biopsied
otherwise, no findings to explain anemia. Duodenum biopsied
12/23/17 Colonoscopy - hemorrhoid and 1, 1cm polyp removed from the descending colon.
GE scan 12/2017- normal
EGD 11/11/16 LA Grade D reflux esophagitis, small HH, 1 GE junction polyp with bx showing chronic inflammation, bx distal esophagus showed ulceration, normal examined duodenum, neg Hpylori, neg celiac
EGD 12/28/16 small HH, otherwise normal.
12/2016- Ct duodenitis
GES 12/2016 borderline suggesting mild gastroparesis.
12/2016Celiac antibodies abnormal
11/2016- CT with IV only- appendiceal distention concern for possible acute appendicitis but no abdominal pain, mild mucosal enhancement, mild intrahepatic biliary dilation with prior noe, small HH and gastric distention.
Prior GI Procedures:
Assessment / Plan
-
Patient is a 59-year-old Singaporean-speaking female with history of uncontrolled diabetes with suspected gastroparesis, CHF, chronic anemia with elevated ferritin, CKD on peritoneal dialysis, multiple hospitalizations for abdominal pain, prior C.
difficile who is now back in the hospital
# Intractable abdominal pain -no significant findings on her unenhanced CT scan other than constipation
--According to the patient and her today since she has had 3-4 bowel movements she is improving. Advance diet as tolerated
--We discussed bowel regimen going forward and would take 2 senna at night every night, and use lactulose if she skips a day without a bowel movement
--She feels like her pain is in addition to her baseline from the CPR that she underwent earlier in mid June
-- She does have a leukocytosis
--Decrease Dilaudid, use tramadol as needed
--We discussed stopping the Zenpep and as an outpatient she will get a pancreatic elastase -I have mailed her this order to her house so she can get it done outpatient and discussed it with Sarah
-- Had a syncopal episode requiring CPR in early June thought to be due to prolonged QT. Patient was on tramadol and Reglan at time
-- She has a questionable history of pancreatitis generally always has a normal lipase. Does not have a gallbladder, does not drink alcohol, triglycerides are not high enough to cause pancreatitis
Data Reviewed
-
Radiology: Report Reviewed by me
CT Scan: Report Reviewed by me
Old Records: Reviewed
Time spent with patient (in minutes): 55
-
-
Thank you for consultation and allowing me to participate in the patient's care. Please call the clinical practitioner GI physician during the after hours with any questions or concerns.
[2025-07-05] MEDS: NOVOLOG FLEXPEN-LOW RESISTANCE 4 UNITS SC (16:56)
[2025-07-05 16:57] LABS: Glucose - Point of Care 325 mg/dl (70-99)
[2025-07-05 17:08] LABS: Glucose - Point of Care 298 mg/dl (70-99)
[2025-07-05 21:11] LABS: Glucose - Point of Care 259 mg/dl (70-99)
[2025-07-05] MEDS: PROCARDIA XL (EXTENDED RELEASE) 90 MG PO (21:49)
[2025-07-05] MEDS: KEPPRA 500 MG PO (21:50)
[2025-07-05] MEDS: ZETIA 10 MG PO (21:50)
[2025-07-05] MEDS: LANTUS 0.08 UNITS SC (21:50)
[2025-07-05] MEDS: APRESOLINE 5 MG IV (22:36)
[2025-07-06] MEDS: HEPARIN 5000 UNITS SC ×2 (01:00→09:14)
--- NOTE | 2025-07-06 02:05 | PTCARENOTE ---
Assumed care on pt at 1900, aaox3, Senegalese speaking. Language Ipad in room for translation. staying with pt overnight. SR on tele, HR mid 60's. BP elevated to 180's systolically, prn Hydralazine administered with + effect. PD completed q4hr
as per order, tolerating well. Pt complaining of pain in mid upper abdomen, medicated with PRN dilaudid. Call zuleta within reach, will continue with POC.
[2025-07-06] MEDS: DILAUDID 0.25 MG IV ×2 (02:19→07:10)
[2025-07-06 02:37] VITALS: BP 102/48
[2025-07-06 02:39] VITALS: BMI 32.5
[2025-07-06 03:05] LABS: Hematocrit 29.7 % (37.0-47.0); Hemoglobin 9.9 g/dL (12.0-16.0); Mean Corp Hgb Conc. 33.3 g/dL (33.0-37.0); Mean Corpuscular Volume 86.3 fL (81.0-99.0); Platelet Count 365 10^3/uL (130-400); Red Cell Dist. Width 13.6 % (11.5-14.5)
[2025-07-06 03:41] LABS: ALT (SGPT) 19 U/L (0-35); AST (SGOT) 22 U/L (14-36); Albumin 3.0 g/dl (3.5-5.0); Alkaline Phosphatase 130 U/L (38-126); Blood Urea Nitrogen 44 mg/dl (7-17); Calcium 9.1 mg/dl (8.4-10.2); Carbon Dioxide 28 mmol/L (22-30); Chloride 93 mmol/L (98-107); Estimated Creatinine Clearance 8 ml/min; Glucose 185 mg/dl (70-99); Potassium 3.9 mmol/L (3.5-5.1); Sodium 128 mmol/L (135-145); Total Protein 5.5 g/dl (6.3-8.2); eGFR 9.35
[2025-07-06 07:01] VITALS: BP 115/59
[2025-07-06] MEDS: ZOFRAN 4 MG IV (07:34)
[2025-07-06] MEDS: NOVOLOG FLEXPEN-LOW RESISTANCE 2 UNITS SC ×2 (08:48→11:45)
[2025-07-06 08:49] LABS: Glucose - Point of Care 207 mg/dl (70-99)
[2025-07-06] MEDS: DUPHALAC/CHRONULAC 20 GRAMS PO (09:12)
[2025-07-06] MEDS: CARAFATE SUSPENSION 1 GM PO ×2 (09:12→11:47)
[2025-07-06] MEDS: SENOKOT-S 2 TABLET PO (09:13)
[2025-07-06] MEDS: ROCALTROL 0.5 MCG PO (09:13)
[2025-07-06] MEDS: PROTONIX 40 MG PO (09:13)
[2025-07-06] MEDS: RENVELA 800 MG PO ×2 (09:13→11:47)
[2025-07-06] MEDS: LIPITOR 10 MG PO (09:13)
[2025-07-06 09:14] VITALS: BP 120/54
[2025-07-06] MEDS: SYNTHROID 100 MCG PO (09:14)
[2025-07-06] MEDS: TOPROL XL 50 MG PO (09:14)
[2025-07-06 09:16] VITALS: BP 128/57
[2025-07-06] MEDS: COZAAR 50 MG PO (09:16)
--- NOTE | 2025-07-06 10:00 | PTCARENOTE ---
Patient received at change of shift resting in the bed. Reports that she feels better. Pain is improved. Denies N/V. SR on telemetry. SaO2 on RA 98%. Passing flatus. Bowel sounds present. Plan of care discussed. Language line utilized. Call zuleta
within reach. Care ongoing.
[2025-07-06 11:09] VITALS: BP 113/53
[2025-07-06 11:43] LABS: Glucose - Point of Care 210 mg/dl (70-99)
--- NOTE | 2025-07-06 12:00 | PTCARENOTE ---
Patient to be discharged home today. Per Dr. Garrett the patient does not need peritoneal dialysis before being discharged.
[2025-07-06] MEDS: STERILE WATER FOR INJECTION IV (12:04)
--- NOTE | 2025-07-06 12:24 | W.PN.GI.CBS2 ---
Today's Communication / Plan
-
outpatient GI follow up
Assessment / Plan
-
Patient is a 59-year-old Romansh-speaking female with history of uncontrolled diabetes with suspected gastroparesis, CHF, chronic anemia with elevated ferritin, CKD on peritoneal dialysis, multiple hospitalizations for abdominal pain, prior C.
difficile who is now back in the hospital
# Intractable abdominal pain -no significant findings on her unenhanced CT scan this admission other than constipation
-- Feeling better today. Continue bowel regimen as recommended
--continue PPI
--Decrease Dilaudid, use tramadol as needed
--Dr Casiano discussed stopping the Zenpep and as an outpatient she will get a pancreatic elastase
-Follow-up with Dr. Casiano as outpatient. No other GI recommendation.will s/o
Total Time Spent with Patient (in minutes): 35
Subjective
Subjective
Date of Service: July 06, 2025
Patient was at bedside. Able to communicate in Malay. Abdominal pain is better today. No nausea or vomiting
Objective
Data Reviewed
Laboratory Data:
Laboratory Results
07/06/25 02:57
07/06/25 02:57
Laboratory Results
Total Bilirubin 0.5 mg/dl (0.2-1.3) 07/06/25 02:57
AST 22 U/L (14-36) 07/06/25 02:57
ALT 19 U/L (0-35) 07/06/25 02:57
Alkaline Phosphatase 130 U/L (38-126) H 07/06/25 02:57
Lipase 137 U/L (23-300) 07/03/25 12:56
Vital Signs and I&O:
Vital Signs
Temp Pulse Resp BP Pulse Ox
98.6 F 76 16 113/53 97
07/06/25 11:07 07/06/25 12:00 07/06/25 11:07 07/06/25 11:09 07/06/25 11:07
I&O
07/05/25 07/06/25 07/07/25
06:59 06:59 06:59
Intake Total 1180 / 1180 870 / 870
Output Total 700 / 700
Balance 1180 / 1180 170 / 170
Physical Exam
Physical Exam
GI: Soft, Non Distended and Tender (Generalized tenderness on deep palpation. )
[2025-07-06] MEDS: TYLENOL 650 MG PO (12:27)
--- NOTE | 2025-07-06 13:31 | PTCARENOTE ---
Reviewed discharge instructions with patient, spouse, and daughter. PIV INT and telemetry pack removed. Reviewed discharged medications with patient and family members. Patient discharged to home with spouse driving. Left with all belongings and
discharge instructions.
--- NOTE | 2025-07-06 13:32 | W.PN.NEPH.PH ---
Today's Communication / Plan
-
okay for discharge from renal standpoint
Assessment/Plan
-
Assessment:
Abdominal Pain / Vomiting
Hyperkalemia
Uncontrolled Hypertension
Hyponatremia
leukocytosis
Diabetes mellitus type 2
End-stage renal disease on PD at [facility] PD script-all 1.5% bags, NIPD 8hrs. 5days/week(weekend break)
Hypothyroidism
Hyperlipidemia
Hypertension
Anxiety/depression
Chronic pain on tramadol
Fatty liver
Obesity
Anemia
Nephrolithiasis, incidental
Coronary artery calcification
Hyperphosphatemia
Secondary hyperparathyroidism mild hypercalcemia
seizure disorder
Plan:
CT abd noted non acute, with stool burden
possible this is related to her gastroparesis and constipation
Will provide PD orders-2L q4hrs 1.5%
Cell count 11 no signs of peritonitis
Gram stain no growth times 24 hours
discussed with family at bedside
from arenal standpoint abdominal, pain is not due to any peritoneal dialysis related issues.
abdominal pain improved seen by GI
-
-
Date of Service: July 06, 2025
CC / HPI / ROS
-
Chief Complaint:
abdominal pain
History of Present Illness:
end-stage renal disease on PD presents with abdominal pain recurrent in nature with a history of gastroparesis and diabetes
Review of Systems:
no abdominal pain and no chest pain or shortness of breath
Labs
-
Labs:
WBC 12.0 10^3/uL (4.8-10.8) H 07/06/25 02:57
RBC 3.44 10^6/uL (4.20-5.40) L 07/06/25 02:57
Hgb 9.9 g/dL (12.0-16.0) L 07/06/25 02:57
Hct 29.7 % (37.0-47.0) L 07/06/25 02:57
Plt Count 365 10^3/uL (130-400) 07/06/25 02:57
Sodium 128 mmol/L (135-145) L 07/06/25 02:57
Potassium 3.9 mmol/L (3.5-5.1) 07/06/25 02:57
Chloride 93 mmol/L (98-107) L 07/06/25 02:57
Carbon Dioxide 28 mmol/L (22-30) 07/06/25 02:57
BUN 44 mg/dl (7-17) H 07/06/25 02:57
Creatinine 5.0 mg/dL (0.6-1.0) H* 07/06/25 02:57
eGFR 9.35 07/06/25 02:57
Glucose 185 mg/dl (70-99) H 07/06/25 02:57
Calcium 9.1 mg/dl (8.4-10.2) 07/06/25 02:57
Albumin 3.0 g/dl (3.5-5.0) L 07/06/25 02:57
Physical Exam
-
Vital Signs:
Vital Signs
Temp Pulse Resp BP Pulse Ox
98.6 F 76 16 113/53 97
07/06/25 11:07 07/06/25 12:00 07/06/25 11:07 07/06/25 11:09 07/06/25 11:07
Cardiovascular:: Regular rate and rhythm
Respiratory:: Bilateral: CTA and Bilateral: Coarse
Lung Excursion:: Normal
Abdomen:: Nontender and Soft
Bowel Sounds:: Normal
Extremity Edema:: None: Bilateral:
--- NOTE | 2025-07-06 15:33 | W.DCSUMMARY ---
Discharge Summary
Discharge Data
Date of Admission: 07/03/25
Date of Discharge: 07/06/25
-
Pending Results: No
Hospital Course
Primary diagnosis:
Abdominal pain with vomiting suspected secondary to constipation
Secondary diagnosis:
End-stage renal disease on peritoneal dialysis
Diabetes mellitus type 2 with hemoglobin A1c 7.7
Gastroparesis
Esophageal dysmotility
Schatzki's ring with moderate hiatus hernia
Questionable pancreatitis on Zenpep
Hospital course:
Patient had recent admissions with recurrent nausea and vomiting. It seems that was started with peritoneal dialysis. She was here in mid June and was discharged on 06/26 for GI symptoms. There was a question about gastroparesis but felt
Reglan was contraindicated due to her lowering seizure threshold and prolonged QT. She was put on Zenpep for questionable pancreatitis.
There was since discharged on patient says she had no bowel movement. She was passing gas. Abdomen is nonspecifically tender. CT of the abdomen pelvis showed no acute pathology but there was moderate stool burden. She was not tolerating
diet so was admitted to the hospital.
Peritoneal fluid was negative for peritonitis.
She had milk of molasses enema and then was started on laxative regimen with senna and lactulose with having good large bowel movements yesterday with much improving abdominal pain after. She was also tolerating diet. She was seen by GI who also
felt that constipation may be playing major role. Going forward advised to take 2 senna at night and use lactulose as needed. She was advised to stopping Zenpep and obtain a pancreatic elastase as an outpatient.
Today diet was advised to solid diet which she was tolerating.
Afebrile. Pulse 76. Blood pressure 113/53. Saturating 97% on room air. Chest was clear. Abdomen much improved discomfort in her abdomen. Soft. No rebound or guarding.
Improved white count. Hemoglobin stable.
Patient was deemed stable for discharge home today.
Consultants on board:
GI-Elisha Michael
Nephrology-Hermelinda Johnston
Portions of this chart may have been created with voice recognition software. Occasional wrong word or 'sound alike' substitutions may have occurred due to the inherent limitations of voice recognition software.
Discharge Plan
-
Patient Disposition: Home (Routine Discharge)
Discharge Diagnosis/Procedures: Abdominal pain secondary constipation;ESRD on PD
Diet: Diabetic, Carb Controlled
Activity: As tolerated
Driving Restrictions: Not until seen by your Dr
Bathing Restrictions: None
Specialty Instructions: Weigh Daily- Call MD for wt gain/loss 3 lbs overnight/5 lbs in 1 week
Referrals:
UNKNOWN - PT DOES,NOT KNOW [Family Provider] - in less than 1 week
Referral Note: Follow with nephrology as prior
Elisha Casiano, DO [Active, Gastroenterology] - in one to two weeks
Prescriptions:
New
lactulose 10 gram/15 mL Solution
20 g PO DAILY Qty: 473 1RF
sennosides-docusate sodium [Senna Plus] 8.6-50 mg Tablet
2 tab PO HS Qty: 60 0RF
Continued
levothyroxine 100 MCG tablet
100 mcg PO DAILY
atorvastatin 10 mg Tablet
10 mg PO DAILY
ezetimibe 10 MG tablet
10 mg PO HS Qty: 30 0RF
nortriptyline 75 mg Capsule
75 mg PO HSPRN PRN (Reason: anxiety)
calcitriol 0.5 mcg Capsule
0.5 mcg PO DAILY
losartan 50 mg tablet
50 mg PO DAILY
nifedipine 90 mg tablet extended release 24hr
90 mg PO HS
lidocaine 4 % adhesive patch,medicated
1 patch topical HSPRN PRN (Reason: chest pain)
pantoprazole 40 mg tablet,delayed release (DR/EC)
40 mg PO BID Qty: 60 0RF
sevelamer carbonate 800 mg Tablet
800 mg PO AC
sucralfate 100 mg/mL suspension
1 g PO ACHS
polyethylene glycol 3350 17 gram powder in packet
17 g PO DAILYPRN PRN (Reason: constipation)
tramadol 50 mg Tablet
50 mg PO BID PRN (Reason: mild pain)
acetaminophen 500 mg Tablet
500 mg PO DAILYPRN PRN (Reason: mild pain)
insulin glargine [Lantus Solostar U-100 Insulin] 100 unit/mL (3 mL) Insulin Pen
8 unit SC HS
Nayzilam 5 mg/spray (0.1 mL) [place],Non-Aerosol
5 mg INTRANASAL DAILYPRN PRN (Reason: seizure)
methocarbamol 500 mg tablet
500 mg PO TIDPRN PRN (Reason: muscle spasm)
metoprolol succinate 50 mg tablet extended release 24 hr
50 mg PO BID
levetiracetam [Keppra] 500 mg tablet
500 mg PO HS
Discontinued
Zenpep 10,000-32,000 -42,000 unit capsule,delayed release(DR/EC)
1 cap PO AC
Discharge Orders:
Discharge Patient (As Directed); Ordered 07/06/25
Ordered By: Denis Garrett
Care Plan Goals
Care Plan Goals:
Problem: Readiness for enhanced knowledge related to diagnosis and treatment plan
Goal: Understand your diagnosis and treatment plan needs, including medications if applicable.
Instructions: Know your diagnosis, underlying causes and treatment plan options, including medications if applicable. Consult with your health care team to learn about your diagnosis and treatment plan, including medications if applicable.
Discharge Date and Time
Discharge Date/Time: 07/06/25 13:45
Print Language: ENGLISH
== END 2025-07-06 13:45 | disposition home or self-care (01) ==
LOC: IVU 17:09
PROVIDERS: Physician Assistant Medical; Student in an Organized Health Care Education/Training Program; ADMITTING PHYSICIAN Internal Medicine; CONSULT PHYSICIAN Internal Medicine; EMERGENCY PHYSICIAN Emergency Medicine; OTHER PHYSICIAN Internal Medicine
DX: R10.84 Generalized abdominal pain (principal); R07.9 Chest pain, unspecified; R11.2 Nausea with vomiting, unspecified; E87.5 Hyperkalemia; D72.829 Elevated white blood cell count, unspecified; E87.1 Hypo-osmolality and hyponatremia; K59.00 Constipation, unspecified; I25.10 Atherosclerotic heart disease of native coronary artery without angina pectoris; I12.0 Hypertensive chronic kidney disease with stage 5 chronic kidney disease or end stage renal disease; E78.00 Pure hypercholesterolemia, unspecified; E11.22 Type 2 diabetes mellitus with diabetic chronic kidney disease; E11.43 Type 2 diabetes mellitus with diabetic autonomic (poly)neuropathy; K21.9 Gastro-esophageal reflux disease without esophagitis; K44.9 Diaphragmatic hernia without obstruction or gangrene; N18.6 End stage renal disease; K31.84 Gastroparesis; G40.909 Epilepsy, unspecified, not intractable, without status epilepticus; E66.9 Obesity, unspecified; E03.9 Hypothyroidism, unspecified; K22.2 Esophageal obstruction; E83.39 Other disorders of phosphorus metabolism; D63.1 Anemia in chronic kidney disease; N25.81 Secondary hyperparathyroidism of renal origin; F41.9 Anxiety disorder, unspecified; F32.A Depression, unspecified; G89.29 Other chronic pain; K76.0 Fatty (change of) liver, not elsewhere classified; N20.0 Calculus of kidney; K22.4 Dyskinesia of esophagus; M47.814 Spondylosis without myelopathy or radiculopathy, thoracic region; E83.52 Hypercalcemia; R94.31 Abnormal electrocardiogram [ECG] [EKG]; Z60.3 Acculturation difficulty; Z86.74 Personal history of sudden cardiac arrest; Z90.49 Acquired absence of other specified parts of digestive tract; Z82.49 Family history of ischemic heart disease and other diseases of the circulatory system; Z99.2 Dependence on renal dialysis; Z79.899 Other long term (current) drug therapy; Z68.32 Body mass index [BMI] 32.0-32.9, adult; Z88.8 Allergy status to other drugs, medicaments and biological substances; Z79.890 Hormone replacement therapy; Z79.84 Long term (current) use of oral hypoglycemic drugs; Z87.11 Personal history of peptic ulcer disease; Z87.19 Personal history of other diseases of the digestive system; Z86.19 Personal history of other infectious and parasitic diseases
CPT/HCPCS: 71046; 74176; 80048; 80053; 82248; 82962; 83690; 84484; 85025; 85027; 87015; 87070; 87205; 89051; 93005; 96374; 96375; 96376; 99285; G0378